=== PATIENT | female | born 1960 | race Caucasian/White ===

== ENCOUNTER → 2016-10-28 | Outpatient (CLI) | payer BC, OTHER ==
--- NOTE | 2016-10-28 17:01 | MR ---
EXAMINATION TYPE: MR brain and iac wo/w con DATE OF EXAM: 10/28/2016 4:18 PM COMPARISON: NONE HISTORY: Difficulty swallowing, food gets caught in throat; family hx of aneurysm CONTRAST: Performed utilizing 13 mL intravenous MultiHance gadolinium contrast. TECHNIQUE: Multiplanar, multiecho imaging on a 3.0 Judy magnet is performed through the brain. Atte ntion is paid to the internal auditory canals with thin section imaging. Postcontrast imaging is per formed through the internal auditory canals. FINDINGS: Craniovertebral junction is normal. The pituitary is normal. Diffusion-weighted imaging is performed. No suspicious hyperintensity is present to suggest an acute intracranial infarct or acute ischemic area. Signal within the brain has scattered areas of hyperintensity which are non-specific but could be rel ated to microvascular ischemic changes. This is not out of proportion to the patient age. Thin section imaging is performed through the internal auditory canals and cerebellar pontine angles. No cerebellar pontine angle masses are evident. The internal auditory canals appear normal without expansion or erosion. Postcontrast imaging was performed. No suspicious enhancement is evident within the internal audito ry canals or the included portions of the brain. IMPRESSIONS: 1. Normal internal auditory canals.
== END | disposition home or self-care (01) ==
LOC: RADMRIMAIN 14:49
PROVIDERS: ATTEND Otolaryngology Otolaryngology/Facial Plastic Surgery
DX: D33.3 Benign neoplasm of cranial nerves (principal)
CPT/HCPCS: 70553; A9577

== ENCOUNTER → 2016-11-26 | Outpatient (CLI) | payer BC, OTHER ==
--- NOTE | 2016-11-29 09:11 | MM ---
Reason for exam: screening (asymptomatic). Last mammogram was performed 6 years and 8 months ago. History: Patient is postmenopausal and had first child at age 31. Physical Findings: A clinical breast exam by your physician is recommended on an annual basis and results should be correlated with mammographic findings. MG Screening Mammo w CAD Bilateral CC and MLO view(s) were taken. Prior study comparison: April 03, 2010, bilateral digital screening mammogram. November 07, 2008, left breast mammogram dig work up. The breast tissue is heterogeneously dense. This may lower the sensitivity of mammography. No significant changes when compared with prior studies. ASSESSMENT: Benign, BI-RAD 2 RECOMMENDATION: Routine screening mammogram of both breasts in 1 year.
== END | disposition home or self-care (01) ==
LOC: RADMAMWWP 16:30
PROVIDERS: ATTEND Obstetrics & Gynecology
DX: Z12.31 Encounter for screening mammogram for malignant neoplasm of breast (principal)

== ENCOUNTER 2016-12-14 07:31 | Day surgery (SDC) | payer OTHER, BC ==
[2016-12-10 08:48] VITALS: BMI 24.0
[~2016-12-14 07:31] MED LIST: DEXAMETHASONE SOD PHOSPHATE 10 MG/ML 1 ML VIAL IV ONE; HYDROmorphone 1 MG/ML 1 ML SYRINGE IVP PRN; LACTATED RINGERS 1,000 ML IV SCH; LIDOCAINE 1% 20 ML VIAL (10MG/ML) FOR IV START INTRADERMA PRN; MIDAZOLAM 2 MG/2 ML VIAL IV PRN; ONDANSETRON 4 MG/2 ML VIAL IVP ONE; Pre Op ABX Message 1 EACH MISC MISCELLANE ONE; SCOPOLAMINE 1.5MG/72HR PATCH TRANSDERM ONE
[2016-12-14 08:05] VITALS: RESP 16
[2016-12-14] MEDS ORDERED: MIDAZOLAM 2 MG/2 ML VIAL ONE (09:08)
[2016-12-14] MEDS ORDERED: fentaNYL (PF) 50 MCG/ML 2 ML AMP ONE (09:08)
[2016-12-14] MEDS ORDERED: KETOROLAC 30 MG/ML 1 ML VIAL ONE (09:08)
[2016-12-14] MEDS ORDERED: SUCCINYLCHOLINE CHLORIDE 100 MG/5 ML SYR IV ONE (09:08)
[2016-12-14] MEDS ORDERED: PROPOFOL 10 MG/ML 20 ML VIAL IV ONE (09:08)
[2016-12-14] MEDS ORDERED: LIDOCAINE 1% INJ 10MG/ML (20 ML MDV) ONE (09:08)
[2016-12-14] MEDS ORDERED: SODIUM CHLORIDE 0.9% 100 ML with ceFAZolin 2,000 MG IV ONE ×2 (09:09)
[2016-12-14] MEDS ORDERED: BUPIVACAINE (PF) 0.5% 30 ML VIAL SQ ONE ×2 (09:47→10:05)
[2016-12-14 10:35] VITALS: TEMP 97.1
[2016-12-14] MEDS ORDERED: LACTATED RINGERS 1,000 ML IV ONE (11:06)
[2016-12-14 12:26] VITALS: BP 122/76; PULSE 65
--- NOTE | 2016-12-16 21:54 | OP ---
DATE OF SERVICE: 12/14/2016 SURGEON: MARK VASQUEZ DO PATTERN SHOP SUPERVISOR: PREOPERATIVE DIAGNOSIS: Torn left knee meniscus. POSTOPERATIVE DIAGNOSIS: 1. Partial tear, lateral meniscus. 2. Chondromalacia grade 2 the patella 3. Chondromalacia of the medial femoral condyle and lateral femoral condyle OPERATION: Left knee arthroplasty, partial lateral meniscectomy and medial femoral chondroplasty. ANESTHESIA: ESTIMATED BLOOD LOSS: SPECIMENS REMOVED: COMPLICATIONS: OPERATIVE FINDINGS: DESCRIPTION OF PROCEDURE: The patient was taken to the operative suite and placed in supine position. General inhalation anesthesia was performed by the department of anesthesiology. Betadine prep was carried out over the left knee and it was secured in a leg mcpherson and sterile drapes were applied in the usual manner. A superolateral irrigation of trocar was inserted through lateral portal. Inspection of the medial compartment revealed a grade 2 chondromalacia. Evaluation of posterior horn tear of the left medial meniscus was noted. The meniscus was probed and there was no evidence of free fragments. The basket forceps were utilized for debridement of the meniscus. Meniscal shaver was also utilized. The medial femoral condyle was treated with chondroplasty. Lateral compartment showed no degenerative changes. Scope was introduced to the patella pouch and grade 2 to 4 chondromalacia erosion was noted of the patella. The area was then shaved chondroplasty fashion of the patellofemoral joint. The area was irrigated copiously. The instruments were removed. Portal wound approximated with 3-0 Vicryl suture. The joint was infiltrated was infiltrated with 0.5% Marcaine. Betadine, Adaptic and sterile pressure dressings were applied and the patient was transferred to the recovery room in satisfactory postoperative condition. GROSS PATHOLOGY: There appeared to be a degenerative tear of the medial meniscus along the posterior medial horn. There was grade 3 chondromalacia of the medial femoral condyle. There was significant grade 3 chondromalacia of the patellofemoral joint. [facility] INSANED[facility]aine
== END 2016-12-14 12:48 | disposition home or self-care (01) ==
LOC: OR 07:31
PROVIDERS: ATTEND Orthopaedic Surgery
DX: S83.282A Other tear of lateral meniscus, current injury, left knee, initial encounter (principal); M22.42 Chondromalacia patellae, left knee; M94.262 Chondromalacia, left knee; S83.242A Other tear of medial meniscus, current injury, left knee, initial encounter; X58.XXXA Exposure to other specified factors, initial encounter; Y99.0 Civilian activity done for income or pay; M23.92 Unspecified internal derangement of left knee; M17.12 Unilateral primary osteoarthritis, left knee; G40.909 Epilepsy, unspecified, not intractable, without status epilepticus; Z79.899 Other long term (current) drug therapy; F17.200 Nicotine dependence, unspecified, uncomplicated
CPT/HCPCS: 29881; J2250; J1100; J2405; J2001; J3010; J1885; J1170; J0690; J0330; J2704

== ENCOUNTER → 2017-07-25 | Outpatient (CLI) | payer BC ==
[2017-07-25 15:14] LABS: EKG EKG PERFORMED
[2017-07-25 15:20] LABS: Appearance,Urine Clear (Clear); Bilirubin,Urine Negative (Negative); Glucose,Urine (UA) Negative (Negative); Ketones,Urine Trace (Negative); Leukocyte Esterase,Urine Negative (Negative); Nitrite,Urine Negative (Negative); PH, Urine 6.5 (5.0-8.0); Protein,Urine Negative (Negative); Specific Gravity,Urine 1.012 (1.001-1.035); UA Billing (MACRO vs. MICRO) CHEM; Urobilinogen,Urine <2.0 mg/dL (<2.0)
[2017-07-25 15:23] LABS: CH 28.5; CHCM 31.3; HCT 43.8 % (34.0-46.0); HDW 2.25; HGB 14.1 gm/dL (11.4-16.0); MCH 29.4 pg (25.0-35.0); MCHC 32.2 g/dL (31.0-37.0); MCV 91.4 fL (80.0-100.0); RBC 4.79 m/uL (3.80-5.40); RDW 14.1 % (11.5-15.5); WBC 7.6 k/uL (3.8-10.6)
[2017-07-25 15:42] LABS: ALT 19 U/L (9-52); AST 18 U/L (14-36); Alkaline Phosphatase 71 U/L (38-126); Anion Gap 9 mmol/L; Blood Urea Nitrogen 11 mg/dL (7-17); Calcium 9.5 mg/dL (8.4-10.2); Carbon Dioxide 26 mmol/L (22-30); Chloride 105 mmol/L (98-107); Glucose 108 mg/dL (74-99); Non-African American GFR(MDRD) >60 (>60 ml/min/1.73 sqM); Potassium 4.3 mmol/L (3.5-5.1); Sodium 140 mmol/L (137-145); Total Bilirubin 0.2 mg/dL (0.2-1.3); Total Protein 6.8 g/dL (6.3-8.2)
== END | disposition home or self-care (01) ==
LOC: LABPAT 14:25
PROVIDERS: ATTEND Orthopaedic Surgery
DX: Z01.810 Encounter for preprocedural cardiovascular examination (principal); Z01.812 Encounter for preprocedural laboratory examination
CPT/HCPCS: 36415; 80053; 81003; 85027; 85610; 85730; 87070; 93005

== ENCOUNTER → 2018-02-15 | Outpatient (CLI) | payer OTHER ==
--- NOTE | 2018-02-17 08:02 | MM ---
Reason for exam: screening (asymptomatic). Last mammogram was performed 1 year and 3 months ago. History: Patient is postmenopausal and had first child at age 31. Physical Findings: A clinical breast exam by your physician is recommended on an annual basis and results should be correlated with mammographic findings. MG Screening Mammo w CAD Bilateral CC and MLO view(s) were taken. Prior study comparison: November 26, 2016, bilateral MG screening mammo w CAD. April 03, 2010, bilateral digital screening mammogram. The breast tissue is heterogeneously dense. This may lower the sensitivity of mammography. There are two groups of slightly increasing calcifications in the left upper outer quadrant compared to 2016, not present on 2009. The more anterior measures 2mm and the more posterior measures 4mm. No suspicious abnormality on the right breast. ASSESSMENT: Incomplete: need additional imaging evaluation, BI-RAD 0 RECOMMENDATION: Special view mammogram of the left breast. [facility] will attempt to contact patient to return for supplemental views.
== END | disposition home or self-care (01) ==
LOC: RADMAMWWP 11:30
PROVIDERS: ATTEND Obstetrics & Gynecology
DX: Z12.31 Encounter for screening mammogram for malignant neoplasm of breast (principal)
CPT/HCPCS: 77067

== ENCOUNTER → 2018-03-02 | Outpatient (CLI) | payer OTHER ==
--- NOTE | 2018-03-02 11:59 | MM ---
Reason for exam: additional evaluation requested from abnormal screening. Last mammogram was performed less than 1 month ago. History: Patient is postmenopausal and had first child at age 31. Physical Findings: Nurse did not find any significant physical abnormalities on exam. MG Work Up Mamm w CAD LT CC with magnification, LM with magnification, and LM view(s) were taken of the left breast. Prior study comparison: February 15, 2018, bilateral MG screening mammo w CAD. November 26, 2016, bilateral MG screening mammo w CAD. Finding: There are two intermediate concern, suspicious pleomorphic, grouped/clustered calcifications in the upper outer quadrant, posterior position of the left breast, two similar in morphology. Increase in number of calcifications since February 15, 2018 and November 26, 2016. These results were verbally communicated with the patient and result sheet given to the patient on 03/02/18. ASSESSMENT: Suspicious, BI-RAD 4 RECOMMENDATION: Stereotactic core biopsy of the left breast. (2 sites) Called Dr. Garcia with mammographic findings and has scheduled an appointment for the patient for 03/16/18 at 1:[address] Carlton. PRELIMINARY REPORT CALLED AND FAXED TO DR. CARLTON ON 03/02/18.
== END ==
LOC: RADMAMWWP 10:05
PROVIDERS: ATTEND Obstetrics & Gynecology
DX: R92.8 Other abnormal and inconclusive findings on diagnostic imaging of breast (principal)
CPT/HCPCS: 77065

== ENCOUNTER → 2018-03-16 | Outpatient (CLI) | payer OTHER ==
[2018-03-16 13:57] VITALS: BMI 24.9
--- NOTE | 2018-03-16 14:35 | P.GSHP ---
History of Present Illness H&P Date: 03/16/18 The patient is a 57-year-old white female who presents with a mammographic abnormality noted in her left breast. She had bilateral screening mammogram done on 02/15/2018 after which it was recommended she have additional views of the left breast. These were performed on 03/02/2018. On additional views she had 2 intermediate concerning suspicious pleomorphic group clustered calcifications in the upper quadrant region. The patient herself did not feel any masses in her breast she has no pain in her breast and no nipple discharge or changes. The radiographic recommendation is for stereotactic core biopsy of the left breast. Family history: Mother: Skin cancer brother: Skin cancer ( melanoma) Paternal aunt from breast cancer, post menopausal Maternal aunt: Thyroid cancer, lung cancer menapause: 49 menarche: 12 : 4, 2 miscarriages, 1 live , 1 , breast fed: none BCP/Hormones: none social: 1PPD for about 20 years alcohol: none drugs: none Past surgical history: 1 to the 2. Ruptured appendix 3. Left total knee replacement 4. Left knee meniscus fixed 5. Repair of small intestinal injury Past medical history: 1. Epilepsy - Constitutional Constitutional: Denies chills, Denies fever - EENT Eyes: denies blurred vision, denies pain Ears: deny: decreased hearing, tinnitus Ears, nose, mouth and throat: Denies headache, Denies sore throat - Breasts Breasts: bilateral: as per HPI - Cardiovascular Cardiovascular: Denies chest pain, Denies shortness of breath - Respiratory Comment: smoker Respiratory: Reports cough - Gastrointestinal Comment: hiatal hernia Gastrointestinal: Denies abdominal pain, Denies diarrhea, Denies nausea, Denies vomiting - Genitourinary (Female) Genitourinary: Denies dysuria, Denies hematuria - Musculoskeletal Musculoskeletal: Denies myalgias - Integumentary Integumentary: Denies pruritus, Denies rash - Neurological Comment: seizure unknown cause - Psychiatric Psychiatric: Denies anxiety, Denies depression - Endocrine Endocrine: Denies fatigue, Denies weight change - Hematologic/Lymphatic Comment: no blood thinners - Allergic/Immunologic Comment: none Past Medical History Past Medical History: GERD/Reflux, Osteoarthritis (OA), Seizure Disorder Additional Past Medical History / Comment(s): LAST SEIZURE 1991, hiatal hernia, hx pulled chest wall muscle, varicose veins, frequent urination History of Any Multi-Drug Resistant Organisms: None Reported Past Surgical History: Appendectomy, Orthopedic Surgery, Tubal Ligation Additional Past Surgical History / Comment(s): REPAIR SMALL INTESTINE THAT WAS NICKED DURING TL, arthroscopy left knee, TLK Past Anesthesia/Blood Transfusion Reactions: No Reported Reaction Past Psychological History: No Psychological Hx Reported Smoking Status: Unknown if ever smoked Past Alcohol Use History: Rare Additional Past Alcohol Use History / Comment(s): HAS BEEN SMOKING 1/2-1 PPD AT LEAST 10-15 YRS- Past Drug Use History: None Reported - Past Family History Brother(s) Family Medical History: Cancer Mother Family Medical History: Cancer Medications and Allergies Home Medications Medication Instructions Recorded Confirmed Type Ranitidine HCl [Zantac] 150 mg PO BID 08/02/17 03/16/18 History Allergies Allergy/AdvReac Type Severity Reaction Status Date / Time No Known Allergies Allergy Verified 08/09/17 15:01 Surgical - Exam - General well developed, well nourished, no distress - Eyes normal ocular movement - ENT normal pinna, normal nares, no hearing loss - Neck no masses, trachea midline, no lymphadectomy, no venous distension - Respiratory normal expansion, normal respiratory effort, clear to auscultation - Cardiovascular Rhythm: regular Heart Sounds: normal: S1, S2 - Abdomen no organomegaly Abdomen: soft, non tender, bowel sounds - Integumentary Bilateral lower extremity some mild edema greater on the left than the right well-healed scar from prior left knee replacement - Neurologic no disoriented, no combative - Musculoskeletal normal gait, normal posture - Psychiatric oriented to time, oriented to person, oriented to place, speech is normal, memory intact Breast examination: Right breast: No dominant masses or nodules of concern and multiple positional exam Right axilla: No adenopathy of concern Left breast: No dominant masses or nodules of concern of multiple positional exam Left axilla: No adenopathy of concern Both breasts are somewhat dense fibrocystic changes but no dominant masses or nodules of concern Results Mammogram results reviewed Assessment and Plan Assessment: Impression/plan: 1. Left breast mammographic abnormality 2. History of left knee replacement 3. Seizure disorder Plan: 1. Stereotactic core biopsy of 2 areas of concern in the left breast 2. Medical management of medical problems Risks and benefits of stereotactic biopsy were discussed with the patient and this was scheduled in the near future. Cc: Dr. Jose Iyer
== END | disposition home or self-care (01) ==
LOC: WWCWWP 13:49
PROVIDERS: ATTEND Surgery
DX: Z53.9 Procedure and treatment not carried out, unspecified reason (principal)

== ENCOUNTER → 2018-03-30 | Day surgery (SDC) | payer OTHER ==
[2018-03-30 07:30] VITALS: RESP 16; BMI 25.2
[2018-03-30 09:11] VITALS: BP 117/74; PULSE 53; TEMP 98
--- NOTE | 2018-03-30 09:54 | MM ---
EXAMINATION TYPE: MG stereo VAD BX LT, MG stereo VAD BX addl LT DATE OF EXAM: 03/30/2018 COMPARISON: Prior mammogram March 02, 2018 and older studies CLINICAL HISTORY: Abnormal mammogram TECHNIQUE: Stereotactic guided core biopsy of left breast 2 sites. FINDINGS: The procedure of stereotactic guided core biopsy was explained to the patient. Benefits, alternatives, and risks were discussed. An informed consent was then obtained. [facility] Short[facility] pathway was cranial approach. I assisted in the localization, then surgeon, Dr. Carlton performed the remainder of the procedure. A vacuum assisted biopsy gun was used to obtain multiple core samples. The patient tolerated the procedure well without any immediate complication. The patient was kept in the radiology department for short stay after the procedure and then discharged home in stable condition. Targeted calcifications are identified in specimen mammogram. Post biopsy mammogram shows the clip to appear in satisfactory position relative to the targeted area of concern on the preprocedure images. No suspicious residual calcifications are present. IMPRESSION: SUCCESSFUL, UNCOMPLICATED STEREOTACTIC GUIDED CORE BIOPSY OF TWO AREAS OF CONCERN IN THE LEFT BREAST, FULL PATHOLOGY RESULTS TO FOLLOW. Low to intermediate index of suspicion noted at time of procedure. Pathology Results: Benign A. BREAST, LEFT, SITE A POSTERIOR, STEREOTACTIC CORE BIOPSY: Fibrocystic changes including fibroadenomatoid hyperplasia/fibroadenoma formation with calcifications. B. BREAST, LEFT, SITE B ANTERIOR, STEREOTACTIC CORE BIOPSY: Fibrocystic changes including fibroadenomatoid hyperplasia/fibroadenoma formation with calcifications. Recommendation Follow up mammogram of the left breast in 6 months. SMOOTH
--- NOTE | 2018-03-30 10:18 | WWPCN ---
[facility] - PROCEDURE NOTE The patient is a 57-year-old white female who underwent a mammogram and was noted to have 2 groups of calcifications that were considered suspicious in the left breast in the upper outer quadrant area. No lesions of concern were identified in the contralateral breast. The patient on physical exam had no dominant mass or nodules of concern and fibrocystic changes only had been noted. The patient was recommended to undergo a stereotactic core biopsy of the left breast. The risks and benefits of the procedure were explained to the patient as well as any alternatives and the patient wished to proceed. Following consent, the procedure was performed. PROCEDURE: The patient was taken to the stereotactic core room where she was placed prone on the stereotactic table. The left breast was brought through the aperture and the approach to target these was CC from above. Both areas were seen in one window, however, they were felt to be too far apart to be able to access them through the same needle puncture site. The most posterior site was chosen initially. The area was targeted. The skin was prepped using Betadine solution. The 1% lidocaine 10 mL was utilized to anesthetize the area of concern. A 9 mm vacuum-assisted needle device was driven to the correct coordinates. Prefire films were obtained as were post fire films showing the needle to be in the correct location. It was felt that the lesion could be accessed by doing a sampling of the inferior tissue and and specimens were obtained from 3 to 9 o'clock. Going through 6 o'clock, approximately 8 specimens were obtained. Radiograph of the specimen revealed the area of concern had been obtained and a Sec[employer] top straw hat plunger operator was left in place. Following this, the second area was approached. The area was targeted. The breast was re-prepped using Betadine and 1% lidocaine was used to anesthetize the area of concern. The needle was driven to the correct coordinates prefire and post fire films were obtained showing the needle to be in the correct location. Approximately 12 core biopsies were obtained. Radiograph of the specimen revealed the calcifications were present. A TriMark marker was placed in this anterior location. The specimens were correctly labeled and sent to pathology for further evaluation. The patient will follow up with Dr. Chappell in 1 week. ADDENDUM: Please note, there were no immediate postoperative complications. MMODL / IJN: [id number] /
== END | disposition home or self-care (01) ==
LOC: RADMAMWWP 06:47
PROVIDERS: ATTEND Surgery
DX: D24.2 Benign neoplasm of left breast (principal); N60.12 Diffuse cystic mastopathy of left breast
CPT/HCPCS: 88305; 19081; 19082; A4648; J2001

== ENCOUNTER → 2018-04-13 | Outpatient (CLI) | payer OTHER ==
[2018-04-13 10:49] VITALS: BP 105/71; PULSE 66; TEMP 98.2; BMI 24.9
--- NOTE | 2018-04-13 11:03 | P.PN ---
Progress Note - Text Progress Note Date: 04/13/18 Patient is status post left breast stereotactic core biopsy of 2 sites on 2017. Her pathology was benign. It was concordant. The patient has no complaints. Puncture sites clean and dry no evidence of infection or hematoma Impression/plan: 1. Benign stereotactic core biopsy of the left breast at 2 sites 2. Follow-up left breast mammogram and physician exam in 6 months time Cc: Dr. Deluna, Dr. Gonzalez
== END | disposition home or self-care (01) ==
LOC: WWCWWP 10:31
PROVIDERS: ATTEND Surgery
DX: Z51.89 Encounter for other specified aftercare (principal)

== ENCOUNTER 2018-10-23 07:55 | Day surgery (SDC) | payer OTHER ==
[2018-10-13 14:37] VITALS: BMI 24.9
[~2018-10-23 07:55] MED LIST changes: -DEXAMETHASONE SOD PHOSPHATE 10 MG/ML 1 ML VIAL IV ONE; -HYDROmorphone 1 MG/ML 1 ML SYRINGE IVP PRN; -MIDAZOLAM 2 MG/2 ML VIAL IV PRN; -ONDANSETRON 4 MG/2 ML VIAL IVP ONE; -Pre Op ABX Message 1 EACH MISC MISCELLANE ONE; -SCOPOLAMINE 1.5MG/72HR PATCH TRANSDERM ONE
[2018-10-23 08:32] VITALS: RESP 16; TEMP 97
[2018-10-23] MEDS ORDERED: MIDAZOLAM 2 MG/2 ML VIAL ONE (08:52)
[2018-10-23] MEDS ORDERED: PROPOFOL 10 MG/ML 20 ML VIAL IV ONE (08:52)
--- NOTE | 2018-10-23 08:55 | P.GSHP ---
History of Present Illness H&P Date: 10/23/18 Chief Complaint: Anemia, dysphagia This is a 49-year-old female who presents today for EGD. Patient has had feeling of some mild cervical dysphagia. She's also had issues with anemia. Past Medical History Past Medical History: GERD/Reflux, Osteoarthritis (OA), Seizure Disorder Additional Past Medical History / Comment(s): LAST SEIZURE 26 yrs ago , hiatal hernia, hx pulled chest wall muscle, hiatal hernia, anemia, History of Any Multi-Drug Resistant Organisms: None Reported Past Surgical History: Appendectomy, Joint Replacement, Orthopedic Surgery, Tubal Ligation Additional Past Surgical History / Comment(s): REPAIR SMALL INTESTINE THAT WAS NICKED DURING TL, arthroscopy left knee, left knee replacement, left breast biopsy Past Anesthesia/Blood Transfusion Reactions: No Reported Reaction Smoking Status: Current every day smoker - Past Family History Brother(s) Family Medical History: Cancer Mother Family Medical History: Cancer Medications and Allergies Home Medications Medication Instructions Recorded Confirmed Type Divalproex [Depakote] 250 mg PO QID 03/21/18 10/23/18 History Ferrous Gluconate 324 mg PO BID 10/13/18 10/23/18 History Ranitidine HCl [Zantac] 300 mg PO BID 10/13/18 10/23/18 History Allergies Allergy/AdvReac Type Severity Reaction Status Date / Time No Known Allergies Allergy Verified 10/23/18 08:19 Surgical - Exam Vital Signs Temp Pulse Resp BP Pulse Ox 97 F L 66 16 106/57 99 10/23/18 08:28 10/23/18 08:28 10/23/18 08:28 10/23/18 08:28 10/23/18 08:28 - General well developed, no distress - Eyes PERRL - ENT normal pinna - Neck no masses - Respiratory normal expansion - Cardiovascular Rhythm: regular - Abdomen Abdomen: soft, non tender Assessment and Plan Assessment: Anemia, mild cervical dysphagia. We'll patient will undergo EGD.
--- NOTE | 2018-10-23 09:04 | P.OP ---
Date of Procedure: 10/23/18 Preoperative Diagnosis: Anemia Dysphagia Postoperative Diagnosis: Moderate antral gastritis No evidence of hiatal hernia No evidence of esophagitis Procedure(s) Performed: EGD Anesthesia: MAC Surgeon: Abel Andujar Pathology: other (Antrum) Condition: stable Disposition: PACU Description of Procedure: The patient's placed on the endoscopy table in the lateral position. She received IV sedation. The gastroscope was placed oropharynx and passed in the esophagus and into the stomach. Scope was then placed through the pylorus. The first and second portion of the duodenum appeared normal. The scope was then brought back the antrum and this appeared moderately inflamed. A biopsies performed. The scope was then retroflexed and remainder of the stomach appeared normal. The GE junction was at40 cm. There is no evidence of a hiatal hernia. There is no significant esophagitis. The proximal esophagus appeared normal. Scope was withdrawn for patient.
[2018-10-23 09:46] VITALS: BP 108/66; PULSE 59
== END 2018-10-23 09:55 | disposition home or self-care (01) ==
LOC: ORWHC2ENDO 07:55
PROVIDERS: ATTEND Surgery
DX: K29.50 Unspecified chronic gastritis without bleeding (principal); K21.9 Gastro-esophageal reflux disease without esophagitis; F17.200 Nicotine dependence, unspecified, uncomplicated; D64.9 Anemia, unspecified; M19.90 Unspecified osteoarthritis, unspecified site; G40.909 Epilepsy, unspecified, not intractable, without status epilepticus; Z79.899 Other long term (current) drug therapy
CPT/HCPCS: 88305; 43239; J2250; J2704

== ENCOUNTER → 2018-10-30 | Outpatient (CLI) | payer OTHER ==
--- NOTE | 2018-11-02 14:03 | MM ---
Reason for exam: follow-up at short interval from prior study. Last mammogram was performed 8 months ago. History: Patient is postmenopausal and had first child at age 31. Benign MG stereo VAD BX addl LT of the left breast, March 30, 2018. Benign MG stereo VAD BX LT of the left breast, March 30, 2018. Physical Findings: Nurse did not find any significant physical abnormalities on exam. MG Diagnostic Mammo LT w CAD CC and MLO view(s) were taken of the left breast. Prior study comparison: March 02, 2018, left breast MG work up mamm w CAD LT. February 15, 2018, bilateral MG screening mammo w CAD. The breast tissue is heterogeneously dense. This may lower the sensitivity of mammography. Left breast biopsy changed with two biopsy markers noted. Bilateral screening mammogram due in February. These results were verbally communicated with the patient and result sheet given to the patient on 10/30/18. ASSESSMENT: Benign, BI-RAD 2 RECOMMENDATION: Return to routine screening mammogram schedule for both breasts.
== END | disposition home or self-care (01) ==
LOC: RADMAMWWP 12:38
PROVIDERS: ATTEND Surgery
DX: R92.8 Other abnormal and inconclusive findings on diagnostic imaging of breast (principal)
CPT/HCPCS: 77065

== ENCOUNTER → 2018-11-02 | Outpatient (CLI) | payer OTHER ==
[2018-11-02 15:11] VITALS: BP 105/71; PULSE 60; RESP 18; TEMP 97.9; BMI 26.1
--- NOTE | 2018-11-02 15:32 | P.PN ---
Subjective Progress Note Date: 11/02/18 Is a 57-year-old white female status post left breast stereot[place] [address]. Her pathology was benign. It was concordant. The patient has no complaints at this time. She is status post a left breast mammogram 10-30-18 which was reviewed with radiology and found to be BIRADS 2 benign. She has no complaints related to her breast. Objective - Vital Signs Vital signs: Vital Signs Temp 97.9 F 11/02/18 15:05 Pulse 60 11/02/18 15:05 Resp 18 11/02/18 15:05 BP 105/71 11/02/18 15:05 Pulse Ox 99 11/02/18 15:05 Intake & Output 11/01/18 11/02/18 11/02/18 18:59 06:59 18:59 Weight 68.946 kg - Exam BMI 26.1 - Constitutional General appearance: Present: average body habitus - EENT Eyes: Present: EOMI ENT: Present: hearing grossly normal - Neck Neck: Present: normal ROM - Respiratory Respiratory: bilateral: CTA - Cardiovascular Rhythm: regular Heart sounds: normal: S1, S2 - Gastrointestinal General gastrointestinal: Present: soft - Musculoskeletal Musculoskeletal: Present: gait normal - Psychiatric Psychiatric: Present: A&O x's 3, appropriate affect, intact judgment & insight - Additional findings Additional findings: Breast Exam: right breast: multipositional exam no masses right axilla: no adenopathy of concern left breast: multipositional exam no masses of concern left axilla: no adenopathy of concern Assessment and Plan Assessment: Impression: 1. fibrocystic breast changes Plan: 1. bilateral mammogram and exam in 6 months CC: Dr. Мария Iyer
== END ==
LOC: WWCWWP 13:59
PROVIDERS: ATTEND Surgery
DX: Z53.9 Procedure and treatment not carried out, unspecified reason (principal)

== ENCOUNTER → 2019-05-01 | Outpatient (CLI) | payer OTHER ==
--- NOTE | 2019-05-01 11:19 | MM ---
Reason for exam: additional evaluation requested from prior study. Last mammogram was performed 6 months ago. History: Patient is postmenopausal and had first child at age 31. Benign MG stereo VAD BX addl LT of the left breast, March 30, 2018. Benign MG stereo VAD BX LT of the left breast, March 30, 2018. Physical Findings: Nurse did not find any significant physical abnormalities on exam. MG Diagnostic Mammo w CAD MARIE Bilateral CC and MLO view(s) were taken. Prior study comparison: October 30, 2018, left breast MG diagnostic mammo LT w CAD. March 02, 2018, left breast MG work up mamm w CAD LT. The breast tissue is heterogeneously dense. This may lower the sensitivity of mammography. No significant new findings when compared with previous films. These results were verbally communicated with the patient and result sheet given to the patient on 05/01/19. ASSESSMENT: Benign, BI-RAD 2 RECOMMENDATION: Routine screening mammogram of both breasts in 1 year.
== END | disposition home or self-care (01) ==
LOC: RADMAMWWP 10:12
PROVIDERS: ATTEND Surgery
DX: R92.8 Other abnormal and inconclusive findings on diagnostic imaging of breast (principal)
CPT/HCPCS: 77066

== ENCOUNTER → 2019-05-10 | Outpatient (CLI) | payer OTHER ==
--- NOTE | 2019-05-10 10:45 | P.PN ---
Subjective Progress Note Date: 05/10/19 Principal diagnosis: fibrocystic breast changes Patient is a 58 year old status post left breast core biopsy 03-30-19. Pathology revealed fibrocystic changes including fiber adenomatoid hyperplasia/fibroadenoma with calcifications. This was done at 2 sites. She [place] [address]. This was noted to be benign. The patient has no complaints at this time. She is not complaining of any masses in her breast. No nipple discharge or skin changes. Family history: Medical: Skin cancer Bladder: Melanoma Paternal aunt: Breast cancer Maternal aunt: Thyroid cancer Menarche: 12 Menopause: 49 2 midcaarrages, 1 AB control pills/hormones: Negative Social: Smoking: One pack per day for 21 years Alcohol: Negative Drugs: Negative Past surgical history: 1. Ruptured appendix 2. Left total knee 3. Left knee meniscus fixed 4. tubaligation Medical History: seizure history Objective - Vital Signs Vital signs: Vital Signs Temp 97.8 F 05/10/19 10:27 Pulse 68 05/10/19 10:27 Resp 16 05/10/19 10:27 BP 125/87 05/10/19 10:27 Pulse Ox 100 05/10/19 10:27 Intake & Output 05/09/19 05/10/19 05/10/19 18:59 06:59 18:59 Weight 74.843 kg - Exam BMI 28.3 - Constitutional General appearance: Present: average body habitus - EENT Eyes: Present: EOMI ENT: Present: hearing grossly normal - Neck Neck: Present: normal ROM - Respiratory Details: Wheezing right lung base Respiratory: left: CTA - Cardiovascular Rhythm: regular Heart sounds: normal: S1, S2 - Gastrointestinal Gastrointestinal Comment(s): Well-healed scar from prior surgery General gastrointestinal: Present: soft - Integumentary Integumentary Comment(s): Mild bilateral ankle edema - Musculoskeletal Musculoskeletal: Present: gait normal - Psychiatric Psychiatric: Present: A&O x's 3, appropriate affect, intact judgment & insight - Additional findings Additional findings: Breast examination: Right breast: Dense breast tissue, fibrocystic changes no discrete dominant masses or nodules of concern Right axilla: Shoddy adenopathy Left breast: Multi-positional exam no dominant masses or nodules of concern, very dense breast tissue with fibrocystic changes Left axilla: No adenopathy of concern however there is shoddy adenopathy Assessment and Plan Assessment: Impression: 1. Bilateral mammogram revealing heterogeneously dense breast tissue, primarily. 2 repeat bilateral mammogram in 6 months recommended 2. Known fibrocystic breast changes with fiber adenoma formation with calcifications, fibrocystic changes including fiber adenomatoid hyperplasia/fibroadenoma formation with calcifications 3. Nicotine dependence 4. Seizure disorder 5. Bilateral shotty adenopathy of the axilla 6. Family history of cancer Plan: 1. Repeat bilateral mammogram in 1 year with physician exam at that time 2. Close surveillance of axillary adenopathy. Examination in 4-6 months time 3. Medical management of medical conditions Cc: Dr. Garcia, Dr.Sharon Iyer
== END | disposition home or self-care (01) ==
DX: Z53.9 Procedure and treatment not carried out, unspecified reason (principal)

== ENCOUNTER → 2019-11-15 | Outpatient (CLI) | payer MEDICARE, OTHER ==
[2019-11-15 11:06] VITALS: BP 112/77; PULSE 69; RESP 16; TEMP 98.4
--- NOTE | 2019-11-15 11:36 | P.PN ---
Subjective Progress Note Date: 11/15/19 Principal diagnosis: bilateral axillary adenopathy Patient is a 58 year old status post left breast core biopsy 03-30-19. Pathology revealed fibrocystic changes including fiber adenomatoid hyperplasia/fibroadenoma with calcifications. This was done at 2 sites. She had [place] mammogram [place] 15060. This was noted to be benign. The patient has no complaints at this time. She is not complaining of any masses in her breast. No nipple discharge or skin changes. Her last examination which was 72 519 she was noted to have bilateral axillary adenopathy. She comes in today to have repeat examination of the axilla to assure that the adenopathy has not increased in size. She has not had a more recent mammogram this is scheduled for April 2020. She has no complaints related to her breasts. No masses lumps nipple discharge or skin changes. No complaints of any pain in her breast. Family history: Medical: Skin cancer Bladder: Melanoma Paternal aunt: Breast cancer Maternal aunt: Thyroid cancer Menarche: 12 Menopause: 49 2 midcaarrages, 1 AB control pills/hormones: Negative Social: Smoking: One pack per day for 22 years Alcohol: Negative Drugs: Negative Past surgical history: 1. Ruptured appendix 2. Left total knee 3. Left knee meniscus fixed 4. tubaligation Medical History: seizure history ROS: Constitutional: night sweats HEENT: wears glasses, vertigo Lungs: smoker heart: none GI: none : post menopausal, no kidney stones Musculoskeletal:total knee replacement left neurologic: Epilepsy hematologic: none allergies: none breast: as per HPI Objective - Vital Signs Vital signs: Vital Signs Temp 98.4 F 11/15/19 10:55 Pulse 69 11/15/19 10:55 Resp 16 11/15/19 10:55 BP 112/77 11/15/19 10:55 Pulse Ox 99 11/15/19 10:55 Intake & Output 11/14/19 11/15/19 11/15/19 18:59 06:59 18:59 Weight 72.575 kg - Exam BMI 27.5 - Constitutional General appearance: Present: average body habitus - EENT Eyes: Present: EOMI ENT: Present: hearing grossly normal - Neck Details: no lymphadenopathy Neck: Present: normal ROM - Respiratory Respiratory: bilateral: CTA - Cardiovascular Rhythm: regular Heart sounds: normal: S1, S2 - Gastrointestinal Gastrointestinal Comment(s): no guarding or rebound No hepatomegaly or splenomegaly No groin adenopathy noted of concern General gastrointestinal: Present: normal bowel sounds, soft - Integumentary Integumentary: Present: normal turgor - Musculoskeletal Musculoskeletal: Present: gait normal - Psychiatric Psychiatric: Present: A&O x's 3, appropriate affect, intact judgment & insight - Additional findings Additional findings: breast exam: BRA 36 C ptosis grade 2 inspection: No skin changes of concern, and nipples are not inverted Right breast: Multi-positional exam fibrocystic changes, no dominant masses or nodules of concern Right axilla: Persistent shoddy right axillary adenopathy Left breast: Multiple positional exam no dominant masses or nodules of concern fibrocystic changes Left axilla: No adenopathy of concern Assessment and Plan Assessment: Impression: 1. Persistent right axillary adenopathy 2. Fibrocystic breast changes 3. Fibroadenoma formation with calcifications fibrocystic changes including fib roadenomatoid hyperplasia/fibroadenoma formation 4. Seizure disorder 5. Nicotine dependence 6. Family history of cancer Plan: 1. Right axillary ultrasound 2. Bilateral mammogram in April with physician exam at that time 3. Patient counseled to stop smoking 4. Medical management of seizure disorder 5. Patient will follow up after axillary ultrasound Cc: Dr. Мария Iyer encounter 25 minutes, > 50% of time in planning and counselling Time with Patient: Less than 30
== END | disposition home or self-care (01) ==
LOC: WWCWWP 10:22
PROVIDERS: ATTEND Surgery
DX: Z53.9 Procedure and treatment not carried out, unspecified reason (principal)

== ENCOUNTER → 2019-11-15 | Outpatient (CLI) | payer MEDICARE ==
--- NOTE | 2019-11-15 13:27 | US ---
EXAMINATION TYPE: US axilla RT DATE OF EXAM: 11/15/2019 COMPARISON: NONE CLINICAL HISTORY: R92.8, Abnormal mammogram, adenopathy R59.0. Patient states Doctor felt a palpable in left axilla today. Patient states she doesn't feel the lump at time of scan. TECHNIQUE/FINDINGS: Targeted grayscale imaging was performed of the right axilla to evaluate palpable abnormality. Area of concern scanned. Multiple images taken. No prominent lymph nodes or masses vi sualized. No solid or cystic mass seen. IMPRESSION: No sonographic correlate to the patient's palpable abnormality.
== END | disposition home or self-care (01) ==
LOC: RADUSWWP 11:54
PROVIDERS: ATTEND Surgery
DX: R59.0 Localized enlarged lymph nodes (principal)

== ENCOUNTER → 2020-05-05 | Outpatient (CLI) | payer MEDICARE, OTHER ==
--- NOTE | 2020-05-06 08:33 | MM ---
Reason for exam: screening (asymptomatic). Last mammogram was performed 1 year ago. History: Patient is postmenopausal and had first child at age 31. Benign MG stereo VAD BX addl LT of the left breast, March 30, 2018. Benign MG stereo VAD BX LT of the left breast, March 30, 2018. Physical Findings: A clinical breast exam by your physician is recommended on an annual basis and results should be correlated with mammographic findings. MG Screening Mammo w CAD Bilateral CC and MLO view(s) were taken. Prior study comparison: May 01, 2019, bilateral MG diagnostic mammo w CAD MARIE. March 02, 2018, left breast MG work up mamm w CAD LT. February 15, 2018, bilateral MG screening mammo w CAD. November 26, 2016, bilateral MG screening mammo w CAD. No significant changes when compared with prior studies. ASSESSMENT: Benign, BI-RAD 2 RECOMMENDATION: Routine screening mammogram of both breasts in 1 year.
== END | disposition home or self-care (01) ==
LOC: RADMAMWWP 10:19
PROVIDERS: ATTEND Surgery
DX: Z12.31 Encounter for screening mammogram for malignant neoplasm of breast (principal)
CPT/HCPCS: 77067

== ENCOUNTER 2021-02-12 17:23 | Observation (INO) | payer MEDICARE ==
[2021-02-12] MEDS ORDERED: NITROGLYCERIN SL TABS 0.4 MG TAB SUBLINGUAL STA ×3 (17:53)
[2021-02-12] MEDS ORDERED: ASPIRIN 81 MG PO STA (17:53)
--- NOTE | 2021-02-12 17:59 | ED ---
General Adult HPI - General Chief complaint: Chest Pain Stated complaint: chest pain Time Seen by Provider: 02/12/21 17:33 Source: patient, RN notes reviewed Mode of arrival: wheelchair Limitations: no limitations - History of Present Illness Initial comments: Patient is a pleasant 60-year-old female presenting to the emergency Department with complaints of chest discomfort. Patient states onset was at rest around 45 minutes ago. Symptoms are starting to worsen. Discomfort is severe. Patient states discomfort was pressure however now is somewhat sharp. Patient does not believe she short of breath however not quite clear. No nausea or diaphoresis. Patient did have similar symptoms many years ago associated with an injury however no injury today. No leg pain or leg swelling. No cough or fever. - Related Data Home Medications Medication Instructions Recorded Confirmed Calcium Carbonate [Calcium] 600 mg PO DAILY 02/12/21 02/12/21 Divalproex [Depakote] 250 mg PO BID@0600,1200 02/12/21 02/12/21 Divalproex [Depakote] 500 mg PO DAILY@1800 02/12/21 02/12/21 Multivitamin/Iron/Folic Acid 1 tab PO DAILY 02/12/21 02/12/21 [Centrum Women Tablet] Omeprazole 20 mg PO DAILY 02/12/21 02/12/21 Zinc Gluconate [Zinc] 50 mg PO DAILY 02/12/21 02/12/21 Allergies Allergy/AdvReac Type Severity Reaction Status Date / Time No Known Allergies Allergy Verified 02/12/21 21:07 Review of Systems ROS Statement: Those systems with pertinent positive or pertinent negative responses have been documented in the HPI. ROS Other: All systems not noted in ROS Statement are negative. Constitutional: Denies: fever Eyes: Denies: eye pain ENT: Denies: ear pain Respiratory: Reports: as per HPI. Denies: cough Cardiovascular: Reports: as per HPI, chest pain Endocrine: Denies: fatigue Gastrointestinal: Denies: abdominal pain, nausea Genitourinary: Denies: dysuria Musculoskeletal: Denies: back pain Skin: Denies: rash Neurological: Denies: weakness Past Medical History Past Medical History: GERD/Reflux, Osteoarthritis (OA), Seizure Disorder Additional Past Medical History / Comment(s): LAST SEIZURE 02/1992; hiatal hernia; hx pulled chest wall muscle; anemia; History of Any Multi-Drug Resistant Organisms: None Reported Past Surgical History: Appendectomy, Joint Replacement, Orthopedic Surgery, Tubal Ligation Additional Past Surgical History / Comment(s): REPAIR SMALL INTESTINE THAT WAS NICKED DURING TL; arthroscopy left knee; left knee replacement; benign left breast biopsy; Past Anesthesia/Blood Transfusion Reactions: No Reported Reaction Past Psychological History: No Psychological Hx Reported Smoking Status: Current every day smoker Past Alcohol Use History: Rare Past Drug Use History: None Reported - Past Family History Brother(s) Family Medical History: Cancer Mother Family Medical History: Cancer General Exam Limitations: no limitations General appearance: alert, in no apparent distress Head exam: Present: normocephalic Eye exam: Present: normal appearance Neck exam: Present: normal inspection Respiratory exam: Present: normal lung sounds bilaterally. Absent: chest wall tenderness Cardiovascular Exam: Present: regular rate, normal rhythm Expanded Peripheral pulses: 2+: Radial (R), Radial (L), Posterior Tibialis (R), Posterior Tibialis (L) GI/Abdominal exam: Present: soft. Absent: tenderness Extremities exam: Present: normal inspection. Absent: pedal edema, calf tenderness Neurological exam: Present: alert Psychiatric exam: Present: normal affect, normal mood Skin exam: Present: normal color Course Vital Signs 02/12/21 02/12/21 17:29 18:26 Temperature 97.6 F Pulse Rate 75 70 Respiratory 16 18 Rate Blood Pressure 130/78 123/69 O2 Sat by Pulse 100 100 Oximetry EKG Findings - EKG Comments: EKG Findings:: No sinus rhythm with a rate of 77. LA 140. QRS 86. QT 416. QTC 470. Left axis. Right ventricular conduction delay. Left anterior fascicular block. LVH with repolarization change. Medical Decision Making - Medical Decision Making Patient reevaluated and symptom-free following nitroglycerin. Nathan was discussed with practitioner Lizz Howard, covering for Dr. Watson, who is covering for Dr. Pineda, who admits for Dr. Iyer and will admit. - Lab Data Result diagrams: 02/12/21 18:05 02/12/21 18:05 Lab Results 02/12/21 02/12/21 02/12/21 Range/Units 18:05 18:05 18:05 WBC 4.6 (3.8-10.6) k/uL RBC 4.74 (3.80-5.40) m/uL Hgb 14.1 (11.4-16.0) gm/dL Hct 40.6 (34.0-46.0) % MCV 85.5 (80.0-100.0) fL MCH 29.7 (25.0-35.0) pg MCHC 34.8 (31.0-37.0) g/dL RDW 12.9 (11.5-15.5) % Plt Count 194 (150-450) k/uL MPV 7.8 Neutrophils % 70 % Lymphocytes % 20 % Monocytes % 6 % Eosinophils % 1 % Basophils % 1 % Neutrophils # 3.3 (1.3-7.7) k/uL Lymphocytes # 0.9 L (1.0-4.8) k/uL Monocytes # 0.3 (0-1.0) k/uL Eosinophils # 0.1 (0-0.7) k/uL Basophils # 0.0 (0-0.2) k/uL PT 10.2 (9.0-12.0) sec INR 0.9 (<1.2) APTT 23.5 (22.0-30.0) sec Sodium 138 (137-145) mmol/L Potassium 3.6 (3.5-5.1) mmol/L Chloride 106 (98-107) mmol/L Carbon Dioxide 22 (22-30) mmol/L Anion Gap 10 mmol/L BUN 17 (7-17) mg/dL Creatinine 0.72 (0.52-1.04) mg/dL Est GFR (CKD-EPI)AfAm >90 (>60 ml/min/1.73 sqM) Est GFR (CKD-EPI)NonAf >90 (>60 ml/min/1.73 sqM) Glucose 89 (74-99) mg/dL Calcium 10.1 (8.4-10.2) mg/dL Magnesium 1.9 (1.6-2.3) mg/dL Total Bilirubin 0.4 (0.2-1.3) mg/dL AST 33 (14-36) U/L ALT 17 (4-34) U/L Alkaline Phosphatase 77 (38-126) U/L Troponin I (0.000-0.034) ng/mL Total Protein 7.2 (6.3-8.2) g/dL Albumin 4.5 (3.5-5.0) g/dL Amylase 43 (30-110) U/L Lipase 69 (23-300) U/L 02/12/21 Range/Units 18:05 WBC (3.8-10.6) k/uL RBC (3.80-5.40) m/uL Hgb (11.4-16.0) gm/dL Hct (34.0-46.0) % MCV (80.0-100.0) fL MCH (25.0-35.0) pg MCHC (31.0-37.0) g/dL RDW (11.5-15.5) % Plt Count (150-450) k/uL MPV Neutrophils % % Lymphocytes % % Monocytes % % Eosinophils % % Basophils % % Neutrophils # (1.3-7.7) k/uL Lymphocytes # (1.0-4.8) k/uL Monocytes # (0-1.0) k/uL Eosinophils # (0-0.7) k/uL Basophils # (0-0.2) k/uL PT (9.0-12.0) sec INR (<1.2) APTT (22.0-30.0) sec Sodium (137-145) mmol/L Potassium (3.5-5.1) mmol/L Chloride (98-107) mmol/L Carbon Dioxide (22-30) mmol/L Anion Gap mmol/L BUN (7-17) mg/dL Creatinine (0.52-1.04) mg/dL Est GFR (CKD-EPI)AfAm (>60 ml/min/1.73 sqM) Est GFR (CKD-EPI)NonAf (>60 ml/min/1.73 sqM) Glucose (74-99) mg/dL Calcium (8.4-10.2) mg/dL Magnesium (1.6-2.3) mg/dL Total Bilirubin (0.2-1.3) mg/dL AST (14-36) U/L ALT (4-34) U/L Alkaline Phosphatase (38-126) U/L Troponin I <0.012 (0.000-0.034) ng/mL Total Protein (6.3-8.2) g/dL Albumin (3.5-5.0) g/dL Amylase (30-110) U/L Lipase (23-300) U/L - Radiology Data Radiology results: report reviewed (Computed tomography scan of the chest negative for pulmonary embolism. There is some groundglass opacity. Some aorta dilation.), image reviewed (Chest x-ray shows no acute process) Disposition Clinical Impression: Chest pain Disposition: ADMITTED IP TO THIS HOSP Is patient prescribed a controlled substance at d/c from ED?: No Referrals: Мария Iyer DO [Primary Care Provider] - 1-2 days Decision Time: 21:23
[2021-02-12 18:18] LABS: HCT 40.6 % (34.0-46.0); HGB 14.1 gm/dL (11.4-16.0); MCV 85.5 fL (80.0-100.0); RBC 4.74 m/uL (3.80-5.40); WBC 4.6 k/uL (3.8-10.6)
[2021-02-12 18:19] LABS: Basophils % (A) 1 %; Eosinophils % (A) 1 %; Lymphocytes # (A) 0.9 k/uL (1.0-4.8); Lymphocytes % (A) 20 %; MCH 29.7 pg (25.0-35.0); MCHC 34.8 g/dL (31.0-37.0); Mean Platelet Volume 7.8; Monocytes % (A) 6 %; Neutrophils # (A) 3.3 k/uL (1.3-7.7); Neutrophils % (A) 70 %; Platelet Count 194 k/uL (150-450); RDW 12.9 % (11.5-15.5)
[2021-02-12 18:20] LABS: Eosinophils # (A) 0.1 k/uL (0-0.7); Monocytes # (A) 0.3 k/uL (0-1.0)
[2021-02-12 18:24] LABS: INR 0.9 (<1.2); Partial Thromboplastin Time 23.5 sec (22.0-30.0); Prothrombin Time 10.2 sec (9.0-12.0)
[2021-02-12 18:28] LABS: ALT 17 U/L (4-34); AST 33 U/L (14-36); African American GFR (CKD) >90 (>60 ml/min/1.73 sqM); Albumin 4.5 g/dL (3.5-5.0); Alkaline Phosphatase 77 U/L (38-126); Amylase 43 U/L (30-110); Anion Gap 10 mmol/L; Blood Urea Nitrogen 17 mg/dL (7-17); Calcium 10.1 mg/dL (8.4-10.2); Carbon Dioxide 22 mmol/L (22-30); Chloride 106 mmol/L (98-107); Glucose 89 mg/dL (74-99); Lipase 69 U/L (23-300); Magnesium 1.9 mg/dL (1.6-2.3); Non-African American GFR(CKD) >90 (>60 ml/min/1.73 sqM); Potassium 3.6 mmol/L (3.5-5.1); Sodium 138 mmol/L (137-145); Total Bilirubin 0.4 mg/dL (0.2-1.3); Total Protein 7.2 g/dL (6.3-8.2)
--- NOTE | 2021-02-12 18:39 | XR ---
EXAMINATION: XR chest 2V DATE AND TIME: 02/12/2021 6:18 PM CLINICAL INDICATION: PHH; Chest Pain TECHNIQUE: Frontal and lateral views COMPARISON: 07/25/2017 FINDINGS: The lungs are predominantly clear, but there is subtle added opacity over the right mid and lower lung zones, mildly silhouetting the arborization of the pulmonary vasculature. The subtle radi ographic findings can be simply summation shadows of normal anatomy, clinical early pneumonitis can b e considered. The pleural spaces are negative. The cardiac silhouette is not enlarged. The remainder of the mediastinal silhouette is unremarkable. The skeletal structures and soft tissues are negative for acute findings. IMPRESSION: No definite acute radiographic process, as discussed.
--- NOTE | 2021-02-12 20:39 | CT ---
EXAMINATION TYPE: CT angio chest with contrast and with 3-D Reconstruction rendering DATE OF EXAM: 02/12/2021 7:34 PM COMPARISON: Chest radiograph 02/12/2021 HISTORY: Chest heaviness. CT DLP: 217.5 mGycm Automated exposure control for dose reduction was used. CONTRAST: CTA scan of the thorax is performed with IV Contrast, patient injected with 100 mL of Isovu e 370, pulmonary embolism protocol. . FINDINGS: AIRWAYS, LUNGS, PLEURAL SPACES: The tracheobronchial tree is patent. There is no pleural effusion or pneumothorax. The lungs are predominantly clear and well expanded. However, in the lung bases there i s minimal groundglass opacity noted just above the diaphragm posteriorly, a nonspecific radiographic pattern. MEDIASTINUM: There is satisfactory enhancement of the pulmonary artery and its branches, with no CT e vidence for pulmonary embolism. The ascending aorta caliber is mildly dilated at 4.2 cm caliber. No a cute aortic findings. No pericardial effusion. No cardiomegaly. No adenopathy. OTHER: No additional significant abnormality is seen. IMPRESSION: 1. NO DEFINITE ACUTE PROCESS, BUT MINIMAL BILATERAL POSTERIOR LUNG BASE NONSPECIFIC GROUNDGLASS OPAC ITY NOTED. 2. MILD ASCENDING AORTA DILATION.
[2021-02-12] MEDS ORDERED: NITROGLYCERIN SL TABS 0.4 MG TAB SUBLINGUAL PRN (21:23)
[2021-02-13] MEDS: NITROGLYCERIN OINT 1 INCH/GM PACKET TOPICAL SCH ×2 (01:57→07:11)
[2021-02-13 03:42] LABS: Cholesterol 177 mg/dL (<200); HDL Cholesterol 62 mg/dL (40-60); LDL Cholesterol,Calculated 99 mg/dL (0-99); Triglycerides 79 mg/dL (<150)
[2021-02-13 07:49] VITALS: RESP 16
[2021-02-13] MEDS ORDERED: ASPIRIN 325 MG TAB PO SCH (09:00)
[2021-02-13] MEDS ORDERED: DOBUTamine DRIP for NUC MED 500 MG in DEXTROSE/WATER 1 250ML.BAG IV PRN (09:00)
[2021-02-13] MEDS ORDERED: ASPIRIN 81 MG PO SCH (09:00)
--- NOTE | 2021-02-13 10:08 | P.CRDCN ---
History of Present Illness History of present illness: HISTORY OF PRESENTING ILLNESS This is a pleasant 60-year-old female past medical history significant for chronic nicotine dependence and seizure disorder. She denies prior history of coronary artery disease and does not follow in the office with a heavy equipment mechanic. We have been asked to see in consultation for chest pain. She states yesterday afternoon she took a nap on the couch and when she woke up she felt a heavy pressure sensation in the midsternal region like somebody was sitting on her chest. She also felt a tight squeezing feeling at the base of her neck. She denied associated shortness of breath, palpitations, dizziness, nausea, vomiting or diaphoresis. She got up and got a drink of water and ate a piece of cheese thought maybe she had gas. Her symptoms persisted prompting her to come to the emergency department for evaluation. On arrival to the emergency department she was having ongoing chest discomfort and was given sublingual nitroglycerin. After her second tablet her chest discomfort subsided. She had another episode of sharp discomfort through the night while she was sleeping in bed. DIAGNOSTICS EKG reveals sinus mechanism with RSR pattern in V1 and left anterior fascicular block with no acute ST or T wave abnormalities noted. Telemetry tracings indicate sinus mechanism. Chest xray negative for an acute cardiopulmonary process. CTA negative for pulmonary embolism, mildly dilated ascending aorta at 4.2 cm. Laboratory reviewed, CBC unremarkable, sodium 138, potassium 3.6, creatinine 0.72, magnesium 1.9, cardiac enzymes negative 3, LDL 99 and HDL 62. She takes no daily cardiac medications. REVIEW OF SYSTEMS At the time of my exam: CONSTITUTIONAL: Denies fever or chills. CARDIOVASCULAR: Denies chest pain, shortness of breath, orthopnea, PND or palpitations. RESPIRATORY: Denies cough. GASTROINTESTINAL: Denies abdominal pain, diarrhea, constipation, nausea or vomiting. MUSCULOSKELETAL: Denies myalgias. NEUROLOGIC: Denies numbness, tingling, headacbe or weakness. ENDOCRINE: Denies fatigue, weight change, polydipsia or polyurina. GENITOURINARY: Denies burning, hematuria or urgency with micturation. HEMATOLOGIC: Denies history of anemia or bleeding. PHYSICAL EXAMINATION Blood pressure 96/59 heart rate 56 afebrile and maintaining oxygen saturation on nasal cannula. CONSTITUTIONAL: No apparent distress. HEENT: Head is normocephalic. Pupils are equal, round. Sclerae anicteric. Mucous membranes of the mouth are moist. No JVD. No carotid bruit. CHEST EXAMINATION: Lungs are clear to auscultation. No chest wall tenderness is noted on palpation or with deep breathing. Diminished bilaterally. HEART EXAMINATION: Regular rate and rhythm. S1, S2 heard. No murmurs, gallops or rub. ABDOMEN: Soft, nontender. Positive bowel sounds. EXTREMITIES: 2+ peripheral pulses, no lower extremity edema and no calf tenderness. NEUROLOGIC EXAMINATION: Patient is awake, alert and oriented x3. ASSESSMENT Chest pain, atypical Chronic nicotine dependence History of seizure disorder PLAN An acute coronary event has been ruled out. Obtain 2-D echocardiogram and Doppler study to assess cardiac structure and function. Perform dobutamine stress echocardiogram to assess her stress induced cardiac ischemia. Lengthy discussion and recommendation for smoking cessation. If stress test is normal she may be discharged from a cardiac perspective. Thank you kindly for this consultation. Nurse Practitioner note has been reviewed, I agree with a documented findings and plan of care. Patient was seen and examined. Past Medical History Past Medical History: GERD/Reflux, Osteoarthritis (OA), Seizure Disorder Additional Past Medical History / Comment(s): LAST SEIZURE 02/1992; hiatal hernia; hx pulled chest wall muscle; anemia; History of Any Multi-Drug Resistant Organisms: None Reported Past Surgical History: Appendectomy, Joint Replacement, Orthopedic Surgery, Tubal Ligation Additional Past Surgical History / Comment(s): REPAIR SMALL INTESTINE THAT WAS NICKED DURING TL; arthroscopy left knee; left knee replacement; benign left breast biopsy; Past Anesthesia/Blood Transfusion Reactions: No Reported Reaction Past Psychological History: No Psychological Hx Reported Smoking Status: Current every day smoker Past Alcohol Use History: Rare Additional Past Alcohol Use History / Comment(s): HAS BEEN SMOKING 1/2-1 PPD SINCE 1996 (AGE 36) Past Drug Use History: None Reported - Past Family History Brother(s) Family Medical History: Cancer Mother Family Medical History: Cancer Medications and Allergies Home Medications Medication Instructions Recorded Confirmed Type Calcium Carbonate [Calcium] 600 mg PO DAILY 02/12/21 02/12/21 History Divalproex [Depakote] 250 mg PO BID@0600,1200 02/12/21 02/12/21 History Divalproex [Depakote] 500 mg PO DAILY@1800 02/12/21 02/12/21 History Multivitamin/Iron/Folic Acid 1 tab PO DAILY 02/12/21 02/12/21 History [Centrum Women Tablet] Omeprazole 20 mg PO DAILY 02/12/21 02/12/21 History Zinc Gluconate [Zinc] 50 mg PO DAILY 02/12/21 02/12/21 History Allergies Allergy/AdvReac Type Severity Reaction Status Date / Time No Known Allergies Allergy Verified 02/12/21 21:07 Physical Exam Vitals: Vital Signs Temp Pulse Pulse Resp BP BP Pulse Ox 02/13/21 07:00 98.3 F 56 L 16 96/59 100 02/13/21 06:00 57 L 18 85/55 02/13/21 05:30 53 L 18 92/57 96 02/13/21 05:20 51 L 16 92/57 96 02/13/21 05:10 55 L 16 92/57 96 02/13/21 05:00 76 16 75/53 98 02/13/21 04:50 57 L 18 75/53 96 02/13/21 04:40 56 L 17 75/53 95 02/13/21 04:30 57 L 18 74/44 97 02/13/21 04:20 55 L 16 74/44 96 02/13/21 04:10 58 L 15 74/44 96 02/13/21 04:00 78 19 62/33 99 02/13/21 03:50 63 21 62/33 99 02/13/21 03:40 63 11 L 62/33 99 02/13/21 03:30 64 10 L 72/45 98 02/13/21 03:20 58 L 14 72/45 99 02/13/21 03:10 60 16 72/45 98 02/13/21 03:00 63 18 78/47 97 02/13/21 02:50 58 L 19 78/47 98 02/13/21 02:40 61 16 78/47 98 02/13/21 02:30 56 L 12 102/68 98 02/13/21 02:20 74/37 02/13/21 02:10 61 5 L 74/37 96 02/13/21 02:00 59 L 8 L 64/35 97 02/13/21 01:50 60 17 64/35 99 02/13/21 01:40 60 17 64/35 99 02/13/21 01:30 66 10 L 68/27 97 02/13/21 01:20 65 19 68/27 97 02/13/21 01:10 63 5 L 68/27 98 02/13/21 01:00 70 16 76/43 99 02/13/21 00:50 62 2 L 76/43 99 02/13/21 00:40 62 0 L 76/43 98 02/13/21 00:30 65 0 L 80/56 98 02/13/21 00:20 66 18 80/56 98 02/13/21 00:10 65 16 80/56 98 02/13/21 00:00 21 87/50 02/12/21 23:50 68 15 87/50 02/12/21 23:40 65 22 87/50 02/12/21 23:30 67 22 88/53 02/12/21 23:20 64 14 88/53 02/12/21 23:10 28 H 88/53 02/12/21 23:00 69 22 91/55 02/12/21 22:50 67 15 91/55 02/12/21 22:40 70 11 L 91/55 02/12/21 22:30 69 8 L 99/66 02/12/21 22:20 77 25 H 99/66 02/12/21 22:10 99/66 02/12/21 22:00 73 10 L 117/63 99 02/12/21 21:50 65 5 L 117/63 99 02/12/21 21:40 66 4 L 117/63 99 02/12/21 21:30 63 8 L 100/57 99 02/12/21 21:20 69 10 L 100/57 100 02/12/21 21:10 66 10 L 100/57 100 02/12/21 21:00 65 17 100/62 100 02/12/21 20:50 63 11 L 100/62 99 02/12/21 20:40 62 14 100/62 100 02/12/21 20:30 68 3 L 95/63 100 02/12/21 20:20 70 14 95/63 100 02/12/21 20:10 60 0 L 95/63 100 02/12/21 20:00 64 7 L 106/64 100 02/12/21 19:50 63 9 L 106/64 100 02/12/21 18:26 70 18 123/69 100 02/12/21 17:29 97.6 F 75 16 130/78 100 Intake and Output 02/12/21 02/13/21 02/13/21 22:59 06:59 14:59 Other: # Voids 1 Weight 65.771 kg 65.771 kg Results 02/12/21 18:05 02/12/21 18:05 Cardiac Enzymes 02/12/21 02/12/21 02/12/21 Range/Units 18:05 18:05 22:30 AST 33 (14-36) U/L Troponin I <0.012 <0.012 (0.000-0.034) ng/mL 02/13/21 Range/Units 01:14 AST (14-36) U/L Troponin I <0.012 (0.000-0.034) ng/mL Coagulation 02/12/21 Range/Units 18:05 PT 10.2 (9.0-12.0) sec APTT 23.5 (22.0-30.0) sec Lipids 02/12/21 Range/Units 18:05 Triglycerides 79 (<150) mg/dL Cholesterol 177 (<200) mg/dL HDL Cholesterol 62 H (40-60) mg/dL CBC 02/12/21 Range/Units 18:05 WBC 4.6 (3.8-10.6) k/uL RBC 4.74 (3.80-5.40) m/uL Hgb 14.1 (11.4-16.0) gm/dL Hct 40.6 (34.0-46.0) % Plt Count 194 (150-450) k/uL Comprehensive Metabolic Panel 02/12/21 Range/Units 18:05 Sodium 138 (137-145) mmol/L Potassium 3.6 (3.5-5.1) mmol/L Chloride 106 (98-107) mmol/L Carbon Dioxide 22 (22-30) mmol/L BUN 17 (7-17) mg/dL Creatinine 0.72 (0.52-1.04) mg/dL Glucose 89 (74-99) mg/dL Calcium 10.1 (8.4-10.2) mg/dL AST 33 (14-36) U/L ALT 17 (4-34) U/L Alkaline Phosphatase 77 (38-126) U/L Total Protein 7.2 (6.3-8.2) g/dL Albumin 4.5 (3.5-5.0) g/dL Current Medications Generic Name Dose Route Start Last Admin Trade Name Freq PRN Reason Stop Dose Admin Aspirin 81 mg 02/13/21 09:00 02/13/21 08:50 Aspirin 81 Mg PO 81 mg DAILY JUANITA Administration Nitroglycerin 0.4 mg 02/12/21 21:23 Nitroglycerin Sl Tabs 0.4 Mg Tab SUBLINGUAL Q5M PRN Chest Pain Sodium Chloride 10 ml 02/13/21 09:00 02/13/21 08:48 Sodium Chloride 0.9% Flush 10 Ml Syringe IV 10 ml BID JUANITA Administration Intake and Output 02/12/21 02/13/21 02/13/21 22:59 06:59 14:59 Other: # Voids 1 Weight 65.771 kg 65.771 kg Patient Weight 02/14/21 06:59 Weight 65.771 kg 02/12/21 18:05 02/12/21 18:05
--- NOTE | 2021-02-13 11:45 | ECHOF ---
Referral Reason:cp MEASUREMENTS -------- HEIGHT: 162.6 cm WEIGHT: 65.8 kg BP: 96/59 RVIDd: 2.8 cm (< 3.3) IVSd: 1.2 cm (0.6 - 1.1) LVIDd: 3.7 cm (3.9 - 5.3) LVPWd: 1.1 cm (0.6 - 1.1) IVSs: 1.3 cm LVIDs: 2.3 cm LVPWs: 1.2 cm LAESV Index (A-L): 24.27 ml/m Ao Diam: 3.1 cm (2.0 - 3.7) AV Cusp: 2.1 cm (1.5 - 2.6) MV EXCURSION: 21.800 mm (> 18.000) MV EF SLOPE: 51 mm/s (70 - 150) EPSS: 0.2 cm MV E Aleksandar: 1.03 m/s MV DecT: 215 ms MV A Aleksandar: 0.47 m/s MV E/A Ratio: 2.18 RAP: 5.00 mmHg RVSP: 15.61 mmHg FINDINGS -------- Sinus rhythm. This was a technically good study. The left ventricular size is normal. There is borderline concentric left ventricular hypertrophy. Overall left ventricular systolic function is normal with, an EF between 55 - 60 %. The diastolic filling pattern is normal for the age of the patient 10.35. The right ventricle is normal in size. Normal LA size by volume 22+/-6 ml/m2. The right atrial size is normal. Interatrial and interventricular septum intact. The aortic valve is trileaflet, and appears structurally normal. No aortic stenosis or regurgitation. There is no evidence of aortic regurgitation. There is no evidence of aortic stenosis. Normal appearing mitral valve. The tricuspid valve appears structurally normal. Trace tricuspid regurgitation present. Right jennifer tricular systolic pressure is normal at < 35 mmHg. The right ventricular systolic pressure, as angelia ured by Doppler, is 15.61mmHg. There is no pulmonic regurgitation present. The aortic root size is normal. The inferior vena cava is mildly dilated. There is no pericardial effusion. CONCLUSIONS -------- 1. There is borderline concentric left ventricular hypertrophy. 2. Overall left ventricular systolic function is normal with, an EF between 55 - 60 %. 3. The diastolic filling pattern is normal for the age of the patient 10.35 4. Normal LA size by volume 22+/-6 ml/m2. 5. The aortic valve is trileaflet, and appears structurally normal. No aortic stenosis or regurgitati on. 6. Normal appearing mitral valve. 7. Trace tricuspid regurgitation present. 8. The inferior vena cava is mildly dilated. EXTRACT PULLER: Jaz Lizarraga RDCS
--- NOTE | 2021-02-13 13:40 | ECHOS ---
STRESS ECHOCARDIOGRAM LUMASON: Vial INDICATIONS: Chest pain. MEDICATIONS: BASELINE HEART RATE: 52 BASELINE BLOOD PRESSURE: 109/61 MAXIMUM HEART RATE: 139 MAXIMUM BLOOD PRESSURE: 133/76 85% MPHR: 135 100% MPHR: 159 METS: MAXIMUM STAGE REACHED: TOTAL EXERCISE TIME: CLINICAL INFORMATION: Baseline rhythm is a sinus mechanism, rate of 52, left axis deviation, poor R progression. Baseline blood pressure 109/61 mmHg. Patient received infusion of dobutamine per protocol, peak rate 139 beats per minute which is equal to 87% maximum predicted heart rate. Peak blood pressure 133/76 mmHg. Electrocardiograph monitoring revealed no evidence of diagnostic ischemic ST deviation. Baseline echocardiogram revealed normal wall motion. At peak infusion, there was normal wall motion augmentation with no hypokinesis or dyskinesis. CONCLUSION: 1. Normal electrocardiograph response to dobutamine infusion. 2. Normal stress echocardiogram with no evidence of stress-induced ischemia. MMODL / IJN: [id number] /
[2021-02-13 14:09] VITALS: BP 102/65; PULSE 64; TEMP 97.7
--- NOTE | 2021-02-27 14:19 | P.HPIM ---
History of Present Illness H&P Date: 02/13/21 Chief Complaint: Chest pain 60-year-old female past medical history significant for chronic nicotine dependence and seizure disorder. She denies prior history of coronary artery disease and does not follow in the office with a lace mender. She states yesterday afternoon she took a nap on the couch and when she woke up she felt a heavy pressure sensation in the midsternal region like somebody was sitting on her chest. She also felt a tight squeezing feeling at the base of her neck. She denied associated shortness of breath, palpitations, dizziness, nausea, vomiting or diaphoresis. She got up and got a drink of water and ate a piece of cheese thought maybe she had gas. Her symptoms persisted prompting her to come to the emergency department for evaluation. On arrival to the emergency department she was having ongoing chest discomfort and was given sublingual nitroglycerin. After her second tablet her chest discomfort subsided. She had another episode of sharp discomfort through the night while she was sleeping in bed. DIAGNOSTICS EKG reveals sinus mechanism with RSR pattern in V1 and left anterior fascicular block with no acute ST or T wave abnormalities noted. Telemetry tracings indicate sinus mechanism. Chest xray negative for an acute cardiopulmonary process. CTA negative for pulmonary embolism, mildly dilated ascending aorta at 4.2 cm. Laboratory reviewed, CBC unremarkable, sodium 138, potassium 3.6, creatinine 0.72, magnesium 1.9, cardiac enzymes negative 3, LDL 99 and HDL 62. She takes no daily cardiac medications. Review of Systems REVIEW OF SYSTEMS: CONSTITUTIONAL: No fever, no malaise, no fatigue. HEENT: No recent visual problems or hearing problems. Denied any sore throat. CARDIOVASCULAR: No chest pain, orthopnea, PND, no palpitations, no syncope. PULMONARY: No shortness of breath, no cough, no hemoptysis. GASTROINTESTINAL: No diarrhea, no nausea, no vomiting, no abdominal pain. NEUROLOGICAL: No headaches, no weakness, no numbness. HEMATOLOGICAL: Denies any bleeding or petechiae. GENITOURINARY: Denies any burning micturition, frequency, or urgency. MUSCULOSKELETAL/RHEUMATOLOGICAL: Denies any joint pain, swelling, or any muscle pain. ENDOCRINE: Denies any polyuria or polydipsia. The rest of the 14-point review of systems is negative. Past Medical History Past Medical History: GERD/Reflux, Osteoarthritis (OA), Seizure Disorder Additional Past Medical History / Comment(s): LAST SEIZURE 02/1992; hiatal hernia; hx pulled chest wall muscle; anemia; History of Any Multi-Drug Resistant Organisms: None Reported Past Surgical History: Appendectomy, Joint Replacement, Orthopedic Surgery, Tubal Ligation Additional Past Surgical History / Comment(s): REPAIR SMALL INTESTINE THAT WAS NICKED DURING TL; arthroscopy left knee; left knee replacement; benign left breast biopsy; Past Anesthesia/Blood Transfusion Reactions: No Reported Reaction Past Psychological History: No Psychological Hx Reported Smoking Status: Current every day smoker Past Alcohol Use History: Rare Additional Past Alcohol Use History / Comment(s): HAS BEEN SMOKING 1/2-1 PPD SINCE 1996 (AGE 36) Past Drug Use History: None Reported - Past Family History Brother(s) Family Medical History: Cancer Mother Family Medical History: Cancer Medications and Allergies Home Medications Medication Instructions Recorded Confirmed Type Calcium Carbonate [Calcium] 600 mg PO DAILY 02/12/21 02/12/21 History Divalproex [Depakote] 250 mg PO BID@0600,1200 02/12/21 02/12/21 History Divalproex [Depakote] 500 mg PO DAILY@1800 02/12/21 02/12/21 History Multivitamin/Iron/Folic Acid 1 tab PO DAILY 02/12/21 02/12/21 History [Centrum Women Tablet] Omeprazole 20 mg PO DAILY 02/12/21 02/12/21 History Zinc Gluconate [Zinc] 50 mg PO DAILY 02/12/21 02/12/21 History Aspirin 81 mg PO DAILY chew 02/13/21 Rx Allergies Allergy/AdvReac Type Severity Reaction Status Date / Time No Known Allergies Allergy Verified 02/12/21 21:07 Physical Exam Vitals: Vital Signs Temp Pulse Pulse Resp BP BP Pulse Ox 02/13/21 07:00 98.3 F 56 L 16 96/59 100 02/13/21 06:00 57 L 18 85/55 02/13/21 05:30 53 L 18 92/57 96 02/13/21 05:20 51 L 16 92/57 96 02/13/21 05:10 55 L 16 92/57 96 02/13/21 05:00 76 16 75/53 98 02/13/21 04:50 57 L 18 75/53 96 02/13/21 04:40 56 L 17 75/53 95 02/13/21 04:30 57 L 18 74/44 97 02/13/21 04:20 55 L 16 74/44 96 02/13/21 04:10 58 L 15 74/44 96 02/13/21 04:00 78 19 62/33 99 02/13/21 03:50 63 21 62/33 99 02/13/21 03:40 63 11 L 62/33 99 02/13/21 03:30 64 10 L 72/45 98 02/13/21 03:20 58 L 14 72/45 99 02/13/21 03:10 60 16 72/45 98 02/13/21 03:00 63 18 78/47 97 02/13/21 02:50 58 L 19 78/47 98 02/13/21 02:40 61 16 78/47 98 02/13/21 02:30 56 L 12 102/68 98 02/13/21 02:20 74/37 02/13/21 02:10 61 5 L 74/37 96 02/13/21 02:00 59 L 8 L 64/35 97 02/13/21 01:50 60 17 64/35 99 02/13/21 01:40 60 17 64/35 99 02/13/21 01:30 66 10 L 68/27 97 02/13/21 01:20 65 19 68/27 97 02/13/21 01:10 63 5 L 68/27 98 02/13/21 01:00 70 16 76/43 99 02/13/21 00:50 62 2 L 76/43 99 02/13/21 00:40 62 0 L 76/43 98 02/13/21 00:30 65 0 L 80/56 98 02/13/21 00:20 66 18 80/56 98 02/13/21 00:10 65 16 80/56 98 02/13/21 00:00 21 87/50 02/12/21 23:50 68 15 87/50 02/12/21 23:40 65 22 87/50 02/12/21 23:30 67 22 88/53 02/12/21 23:20 64 14 88/53 02/12/21 23:10 28 H 88/53 02/12/21 23:00 69 22 91/55 02/12/21 22:50 67 15 91/55 02/12/21 22:40 70 11 L 91/55 02/12/21 22:30 69 8 L 99/66 02/12/21 22:20 77 25 H 99/66 02/12/21 22:10 99/66 02/12/21 22:00 73 10 L 117/63 99 02/12/21 21:50 65 5 L 117/63 99 02/12/21 21:40 66 4 L 117/63 99 02/12/21 21:30 63 8 L 100/57 99 02/12/21 21:20 69 10 L 100/57 100 02/12/21 21:10 66 10 L 100/57 100 02/12/21 21:00 65 17 100/62 100 02/12/21 20:50 63 11 L 100/62 99 02/12/21 20:40 62 14 100/62 100 02/12/21 20:30 68 3 L 95/63 100 02/12/21 20:20 70 14 95/63 100 02/12/21 20:10 60 0 L 95/63 100 02/12/21 20:00 64 7 L 106/64 100 02/12/21 19:50 63 9 L 106/64 100 02/12/21 18:26 70 18 123/69 100 02/12/21 17:29 97.6 F 75 16 130/78 100 Intake and Output 02/12/21 02/13/21 02/13/21 22:59 06:59 14:59 Other: # Voids 3 Weight 65.771 kg 65.77 kg PHYSICAL EXAMINATION: GENERAL: The patient is alert and oriented x3, not in any acute distress. Well developed, well nourished. HEENT: Pupils are round and equally reacting to light. EOMI. No scleral icterus. No conjunctival pallor. Normocephalic, atraumatic. No pharyngeal erythema. No thyromegaly. CARDIOVASCULAR: S1 and S2 present. No murmurs, rubs, or gallops. PULMONARY: Chest is clear to auscultation, no wheezing or crackles. ABDOMEN: Soft, nontender, nondistended, normoactive bowel sounds. No palpable organomegaly. MUSCULOSKELETAL: No joint swelling or deformity. EXTREMITIES: No cyanosis, clubbing, or pedal edema. NEUROLOGICAL: Gross neurological examination did not reveal any focal deficits. SKIN: No rashes. Results CBC & Chem 7: 02/12/21 18:05 02/12/21 18:05 Labs: Abnormal Lab Results - Last 24 Hours (Table) 02/12/21 02/12/21 Range/Units 18:05 18:05 Lymphocytes # 0.9 L (1.0-4.8) k/uL HDL Cholesterol 62 H (40-60) mg/dL Thrombosis Risk Factor Assmnt - Choose All That Apply Each Risk Factor Represents 2 Points: Age 61-74 years Thrombosis Risk Factor Assessment Total Risk Factor Score: 2 Thrombosis Risk Factor Assessment Level: Low Risk Assessment and Plan Assessment: Chest pain, atypical Chronic nicotine dependence History of seizure disorder PLAN An acute coronary event has been ruled out. Obtain 2-D echocardiogram and Doppler study to assess cardiac structure and function. Perform dobutamine stress echocardiogram to assess her stress induced cardiac ischemia. Lengthy discussion and recommendation for smoking cessation. If stress test is normal she may be discharged from a cardiac perspective.
--- NOTE | 2021-03-02 17:11 | P.DS ---
Providers Date of admission: 02/12/21 21:23 Expected date of discharge: 02/13/21 Attending physician: Jeet Watson Consults: 02/12/21 21:23 Consult Physician Urgent Consulting Provider: Nolberto Limon Consult Reason/Comments: cp Do you want consulting provider notified?: Yes Primary care physician: Мария [facility] Course: 60-year-old female past medical history significant for chronic nicotine dependence and seizure disorder. She denies prior history of coronary artery disease and does not follow in the office with a inventory management specialist. We have been asked to see in consultation for chest pain. She states yesterday afternoon she took a nap on the couch and when she woke up she felt a heavy pressure sensation in the midsternal region like somebody was sitting on her chest. She also felt a tight squeezing feeling at the base of her neck. She denied associated shortness of breath, palpitations, dizziness, nausea, vomiting or diaphoresis. She got up and got a drink of water and ate a piece of cheese thought maybe she had gas. Her symptoms persisted prompting her to come to the emergency department for evaluation. On arrival to the emergency department she was having ongoing chest discomfort and was given sublingual nitroglycerin. After her second tablet her chest discomfort subsided. She had another episode of sharp discomfort through the night while she was sleeping in bed. DIAGNOSTICS EKG reveals sinus mechanism with RSR pattern in V1 and left anterior fascicular block with no acute ST or T wave abnormalities noted. Telemetry tracings indicate sinus mechanism. Chest xray negative for an acute cardiopulmonary process. CTA negative for pulmonary embolism, mildly dilated ascending aorta at 4.2 cm. Laboratory reviewed, CBC unremarkable, sodium 138, potassium 3.6, creatinine 0.72, magnesium 1.9, cardiac enzymes negative 3, LDL 99 and HDL 62. She takes no daily cardiac medications. ASSESSMENT Chest pain, atypical Chronic nicotine dependence History of seizure disorder PLAN An acute coronary event has been ruled out. Obtain 2-D echocardiogram and Doppler study to assess cardiac structure and function. Perform dobutamine stress echocardiogram to assess her stress induced cardiac ischemia. Lengthy discussion and recommendation for smoking cessation. If stress test is normal she may be discharged from a cardiac perspective. Stress test came back negative and patient was ms'ed in a stable condition Plan - Discharge Summary Discharge Rx Participant: No New Discharge Prescriptions: New Aspirin 81 mg PO DAILY chew Continue Omeprazole 20 mg PO DAILY Divalproex [Depakote] 500 mg PO DAILY@1800 Calcium Carbonate [Calcium] 600 mg PO DAILY Zinc Gluconate [Zinc] 50 mg PO DAILY Multivitamin/Iron/Folic Acid [Centrum Women Tablet] 1 tab PO DAILY Divalproex [Depakote] 250 mg PO BID@0600,1200 Discharge Medication List Calcium Carbonate [Calcium] 600 mg PO DAILY 02/12/21 [History] Divalproex [Depakote] 250 mg PO BID@0600,1200 02/12/21 [History] Divalproex [Depakote] 500 mg PO DAILY@1800 02/12/21 [History] Multivitamin/Iron/Folic Acid [Centrum Women Tablet] 1 tab PO DAILY 02/12/21 [History] Omeprazole 20 mg PO DAILY 02/12/21 [History] Zinc Gluconate [Zinc] 50 mg PO DAILY 02/12/21 [History] Aspirin 81 mg PO DAILY chew 02/13/21 [Rx] Follow up Appointment(s)/Referral(s): Reed Bateman MD [STAFF PHYSICIAN] - 2 Weeks (office will call and schedule appt ) Мария Iyer DO [Primary Care Provider] - 1-2 days Patient Instructions/Handouts: Chest Pain (DC), How to Stop Smoking (GEN), Cigarette Smoking and Your Health (GEN) Discharge Disposition: HOME SELF-CARE
== END 2021-02-13 14:53 | disposition home or self-care (01) ==
LOC: EC 17:23 → 6NMEDSUR 21:23
PROVIDERS: ADMIT Hospitalist; ATTEND Hospitalist
DX: R07.89 Other chest pain (principal); I44.4 Left anterior fascicular block; I77.819 Aortic ectasia, unspecified site; D64.9 Anemia, unspecified; G40.909 Epilepsy, unspecified, not intractable, without status epilepticus; K21.9 Gastro-esophageal reflux disease without esophagitis; M19.90 Unspecified osteoarthritis, unspecified site; K44.9 Diaphragmatic hernia without obstruction or gangrene; F17.210 Nicotine dependence, cigarettes, uncomplicated; Z79.899 Other long term (current) drug therapy; Z96.652 Presence of left artificial knee joint; Z98.51 Tubal ligation status; Z90.49 Acquired absence of other specified parts of digestive tract; Z98.890 Other specified postprocedural states; Z80.9 Family history of malignant neoplasm, unspecified
CPT/HCPCS: 93005 ×2; 99285; 36415; 93306; 93351; 80061; 80053; 82150; 83690; 83735; 84484 ×2; 85025; 85610; 85730; 87636; 71046; 71275; G0378 ×2; Q9967

== ENCOUNTER → 2021-06-09 | Outpatient (CLI) | payer MEDICARE ==
--- NOTE | 2021-06-10 11:02 | MM ---
Reason for exam: screening (asymptomatic). Last mammogram was performed 1 year and 1 month ago. History: Patient is postmenopausal and had first child at age 31. Benign MG stereo VAD BX addl LT of the left breast, March 30, 2018. Benign MG stereo VAD BX LT of the left breast, March 30, 2018. Physical Findings: A clinical breast exam by your physician is recommended on an annual basis and results should be correlated with mammographic findings. MG 3D Screening Mammo W/Cad Bilateral CC and MLO view(s) were taken. Prior study comparison: May 05, 2020, bilateral MG screening mammo w CAD. May 01, 2019, bilateral MG diagnostic mammo w CAD MARIE. The breast tissue is heterogeneously dense. This may lower the sensitivity of mammography. Focal asymmetry nodular density upper outer right breast posterior third position. ASSESSMENT: Incomplete: need additional imaging evaluation, BI-RAD 0 RECOMMENDATION: Special view mammogram of the right breast. If lesion persists on supplemental views, image directed ultrasound is recommended. [facility] will attempt to contact patient to return for supplemental views and ultrasound if indicated.
== END | disposition home or self-care (01) ==
LOC: RADMAMWWP 10:14
PROVIDERS: ATTEND Surgery
DX: Z12.31 Encounter for screening mammogram for malignant neoplasm of breast (principal); Z78.0 Asymptomatic menopausal state
CPT/HCPCS: 77063; 77067

== ENCOUNTER → 2021-06-12 | Outpatient (CLI) | payer MEDICARE ==
--- NOTE | 2021-06-15 09:04 | MM ---
Reason for exam: additional evaluation requested from abnormal screening. Last mammogram was performed less than 1 month ago. History: Patient is postmenopausal and had first child at age 31. Family history of breast cancer in paternal aunt. Benign MG stereo VAD BX addl LT of the left breast, March 30, 2018. Benign MG stereo VAD BX LT of the left breast, March 30, 2018. Physical Findings: Nurse did not find any significant physical abnormalities on exam. MG 3D Work Up W/Cad RT Spot compression CC, spot compression MLO, and LM view(s) were taken of the right breast. Prior study comparison: November 26, 2016, bilateral MG screening mammo w CAD. There are scattered fibroglandular densities. No significant new findings when compared with previous films. These results were verbally communicated with the patient and result sheet given to the patient on 06/12/21. ASSESSMENT: Benign, BI-RAD 2 RECOMMENDATION: Return to routine screening mammogram schedule for both breasts.
== END | disposition home or self-care (01) ==
LOC: RADMAMWWP 13:25
PROVIDERS: ATTEND Surgery
DX: R92.8 Other abnormal and inconclusive findings on diagnostic imaging of breast (principal); Z78.0 Asymptomatic menopausal state; Z80.3 Family history of malignant neoplasm of breast
CPT/HCPCS: 77065; G0279; 77061

== ENCOUNTER 2022-02-26 05:41 | Day surgery (SDC) | payer MEDICARE ==
[2022-02-24 19:20] VITALS: BMI 22.4
[2022-02-26] MEDS ORDERED: LIDOCAINE 1% (10MG/ML) FOR IV START INTRADERMA PRN (05:52)
[2022-02-26] MEDS ORDERED: LACTATED RINGERS 1,000 ML IV SCH (05:52)
[2022-02-26 06:13] VITALS: RESP 16; TEMP 96.5
[2022-02-26] MEDS ORDERED: LACTATED RINGERS 1,000 ML IV ONE (06:20)
[2022-02-26] MEDS ORDERED: LIDOCAINE 2% INJ 20 MG/ML SQ ONE ×2 (06:20)
[2022-02-26] MEDS ORDERED: LIDOCAINE 2% INJ 20 MG/ML (2 ML VIAL) ONE (06:53)
[2022-02-26] MEDS ORDERED: PROPOFOL 10 MG/ML 20 ML VIAL IV ONE (06:53)
--- NOTE | 2022-02-26 07:01 | P.PCN ---
Date of Procedure: 02/26/22 Procedure(s) Performed: BRIEF HISTORY: Patient is a 61-year-old, pleasant, white female scheduled for an upper endoscopy as a part of evaluation of chronic epigastric pain, heartburn, intermittent dysphagia to solids for the last 5-6 years duration. She tried previous proton pump inhibitors and no help. Recently was started on Protonix 40 mg daily and still living symptomatic and hence scheduled for an upper endoscopy to evaluate for. PROCEDURE PERFORMED: Esophagogastroduodenoscopy with biopsy. PREOPERATIVE DIAGNOSIS: Long-standing history of GERD refractory to acid suppressive therapy. IV sedation per anesthesia. PROCEDURE: After informed consent was obtained, the patient was brought into the endoscopy unit. IV sedation was administered by Anesthesia under continuous monitoring. Initially the Olympus GIF-140 video endoscope was inserted into the mouth. Esophagus intubated without any difficulty. It was gradually advanced into the stomach and duodenum and carefully examined. The bulb and the second part of the duodenum appeared normal. Biopsies were done from the duodenum to rule out celiac disease The scope at this time was withdrawn to the stomach, adequately insufflated with air, and upon careful examination, mucosa of the antrum, had linear areas of erythema consistent with gastritis and biopsies were done from this area. The body, cardia and the fundus appeared normal. The scope was then withdrawn into the esophagus. The GE junction was located at 39 cm from the incisors. The esophagus appeared normal. There were no erosions or ulcerations seen , biopsies were done from the distal esophagus and the patient tolerated the procedure well. IMPRESSION: 1. Antral gastritis. 2. Normal-appearing esophagus with no evidence of esophagitis or Vasques's esophagus. RECOMMENDATIONS: The findings of this examination were discussed with the patient as well as a family. She was advised to continue with Protonix 40 mg daily and follow antireflux measures.. 61
[2022-02-26 07:28] VITALS: BP 105/63; PULSE 68
== END 2022-02-26 07:45 | disposition home or self-care (01) ==
LOC: ORWHC2ENDO 05:41
PROVIDERS: ATTEND Internal Medicine Gastroenterology
DX: K21.00 Gastro-esophageal reflux disease with esophagitis, without bleeding (principal); K29.50 Unspecified chronic gastritis without bleeding
CPT/HCPCS: 43239; 88305; J2001 ×2; J2704

== ENCOUNTER → 2022-04-30 | Outpatient (CLI) | payer MEDICARE | END | disposition home or self-care (01) | LOC: LABWHC1 14:56 | PROVIDERS: ATTEND Orthopaedic Surgery | DX: M25.562 Pain in left knee (principal); T84.023A Instability of internal left knee prosthesis, initial encounter; Y79.2 Prosthetic and other implants, materials and accessory orthopedic devices associated with adverse incidents; Z96.652 Presence of left artificial knee joint | CPT/HCPCS: 36415; 85379; 85652; 86140 ==

== ENCOUNTER → 2022-07-07 | Outpatient (CLI) | payer MEDICARE ==
--- NOTE | 2022-07-08 08:49 | MM ---
Reason for Exam: Screening (asymptomatic). Last mammogram was performed 1 year(s) and 1 month(s) ago. Patient History: Menarche at age 10. First Full-Term at age 31. Late child-bearing (after 30). Postmenopausal. 03/30/2018, Benign Core Biopsy on the left side. 03/30/2018, Benign Core Biopsy on the left side. Paternal aunt had breast cancer. Risk Values: [place] 5 year model risk: 3.5%. NCI Lifetime model risk: 15.0%. Prior Study Comparison: 05/05/2020 Bilateral Screening Mammogram, [facility]. 06/09/2021 Bilateral Screening Mammogram, [facility]. 06/12/2021 Right Diagnostic Mammogram, [facility]. Tissue Density: The breast tissue is heterogeneously dense. This may lower the sensitivity of mammography. Findings: Analyzed By CAD. Left breast biopsy clips. There is no suspicious group of microcalcifications or new suspicious mass in either breast. Overall Assessment: Benign, BI-RAD 2 Management: Screening Mammogram of both breasts in 1 year. A clinical breast exam by your physician is recommended on an annual basis and results should be correlated with mammographic findings. [facility] will attempt to contact patient to return for supplemental views and ultrasound if indicated. Electronically signed and approved by: Bharat Ha DO
== END | disposition home or self-care (01) ==
LOC: RADMAMWWP 11:02
PROVIDERS: ATTEND Surgery
DX: Z12.31 Encounter for screening mammogram for malignant neoplasm of breast (principal); Z78.0 Asymptomatic menopausal state; Z80.3 Family history of malignant neoplasm of breast
CPT/HCPCS: 77063; 77067

== ENCOUNTER 2022-07-19 19:04 | Emergency (ER) | payer MEDICARE ==
[2022-07-19] MEDS ORDERED: SODIUM CHLORIDE 0.9% 1,000 ML IV STA (19:29)
[2022-07-19 19:45] LABS: Basophils # (A) 0.1 k/uL (0-0.2); Basophils % (A) 1 %; Eosinophils # (A) 0.3 k/uL (0-0.7); Eosinophils % (A) 4 %; HCT 36.8 % (34.0-46.0); HGB 12.1 gm/dL (11.4-16.0); Lymphocytes # (A) 2.1 k/uL (1.0-4.8); Lymphocytes % (A) 35 %; MCH 29.3 pg (25.0-35.0); MCHC 32.7 g/dL (31.0-37.0); MCV 89.6 fL (80.0-100.0); Mean Platelet Volume 8.5; Monocytes # (A) 0.4 k/uL (0-1.0); Monocytes % (A) 6 %; Neutrophils # (A) 3.1 k/uL (1.3-7.7); Neutrophils % (A) 52 %; Platelet Count 240 k/uL (150-450); RBC 4.11 m/uL (3.80-5.40); RDW 13.3 % (11.5-15.5); WBC 5.9 k/uL (3.8-10.6)
[2022-07-19 19:56] LABS: ALT 14 U/L (4-34); AST 23 U/L (14-36); African American GFR (CKD) >90 (>60 ml/min/1.73 sqM); Albumin 4.3 g/dL (3.5-5.0); Alkaline Phosphatase 70 U/L (38-126); Anion Gap 11 mmol/L; Blood Urea Nitrogen 20 mg/dL (7-17); Calcium 9.6 mg/dL (8.4-10.2); Carbon Dioxide 24 mmol/L (22-30); Chloride 104 mmol/L (98-107); Glucose 94 mg/dL (74-99); Magnesium 1.9 mg/dL (1.6-2.3); Non-African American GFR(CKD) >90 (>60 ml/min/1.73 sqM); Potassium 4.4 mmol/L (3.5-5.1); Sodium 139 mmol/L (137-145); Total Bilirubin 0.3 mg/dL (0.2-1.3); Total Protein 6.6 g/dL (6.3-8.2)
[2022-07-19 20:02] LABS: Partial Thromboplastin Time 25.2 sec (22.0-30.0); Prothrombin Time 10.7 sec (9.0-12.0)
[2022-07-19 20:25] VITALS: RESP 16
--- NOTE | 2022-07-19 21:58 | CT ---
EXAMINATION TYPE: CT angio chest CT DLP: 556.3 mGycm, Automated exposure control for dose reduction was used. DATE OF EXAM: 07/19/2022 9:43 PM COMPARISON: CT angiogram 06/09/2022 CLINICAL INDICATION:Female, 61 years old with history of chest pain; Follow up on aortic aneurysm. Pt complains of chest pain. TECHNIQUE/CONTRAST: CTA scan of the thorax is performed without and with IV Contrast, patient injected with 100ML mL of I sovue 370, pulmonary embolism protocol. MIP images are created and reviewed. FINDINGS: Pulmonary Artery: There is no evidence for a filling defect within the pulmonary vasculature to sugge st acute pulmonary embolism. The pulmonary artery is of normal size. Lungs/Pleura: No evidence of focal consolidation, pleural effusion or pneumothorax. Airway: Large airways are patent. Heart: Heart is within normal limits for size. Vasculature: No evidence of aortic aneurysm. 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 No lenin dence2 Mediastinum: No gross evidence of adenopathy. Musculoskeletal: No acute osseous abnormalities, multilevel disc degeneration changes throughout the spine. Soft Tissues: Unremarkable. Lower neck: No significant findings. Upper Abdomen: Left extrarenal pelvis. Right hyperdense cyst could represent proteinaceous/hemorrhagi c cyst. IMPRESSION: 1. Borderline ectasia of the ascending thoracic aorta measuring up to 39 mm. No evidence of aneurysm . 2. The remainder of exam is unchanged 06/09/2022. 3. No evidence for pulmonary embolism
[2022-07-19 22:07] VITALS: TEMP 97.9
--- NOTE | 2022-07-19 22:37 | ED ---
Chest Pain HPI - General Chief Complaint: Chest Pain Stated Complaint: aneurysm possibly leaking Time Seen by Provider: 07/19/22 19:18 Source: patient Mode of arrival: ambulatory Limitations: no limitations - History of Present Illness Initial Comments: Patient complains of chest pain. Pain was in the middle of the chest. It didn't radiate to her. Nothing made it better or worse. Patient states she thinks she has a history of an aneurysm, and she was sent to the emergency department and get this checked out. Her doctor was concerned it could be leaking. She has no weakness in the extremities. She has no paresthesias. She has no headache. She has no leg tenderness. Has no dizziness. She has no exertional chest pain or pressure or shortness of breath or difficulty breathing. She has no swelling in the arms or legs. - Related Data Home Medications Medication Instructions Recorded Confirmed Divalproex [Depakote] 250 mg PO QID 02/12/21 07/19/22 Echinacea 400 mg PO BID 02/24/22 07/19/22 Ergocalciferol [Vitamin D2 (1250 50,000 unit PO BOYD 02/24/22 07/19/22 Mcg = 62902 Iu)] Pantoprazole [Protonix] 40 mg PO DAILY 02/24/22 07/19/22 ARIPiprazole [Abilify] 5 mg PO DAILY 07/19/22 07/19/22 Previous Rx's Medication Instructions Recorded Aspirin 81 mg PO DAILY chew 02/13/21 Allergies Allergy/AdvReac Type Severity Reaction Status Date / Time No Known Allergies Allergy Verified 07/19/22 22:24 Review of Systems ROS Statement: Those systems with pertinent positive or pertinent negative responses have been documented in the HPI. ROS Other: All systems not noted in ROS Statement are negative. EKG Findings - EKG Comments: EKG Findings:: Twelve-lead EKG shows ventricular rate 69 bpm, normal MT interval and QRS complex is, no ST elevation or depression, interpreted by me as normal sinus rhythm. Past Medical History Past Medical History: GERD/Reflux, Osteoarthritis (OA), Seizure Disorder Additional Past Medical History / Comment(s): LAST SEIZURE 02/1992; hiatal hernia, occasional dysphagia, worsening GERD sx., aortic aneurysm near heart per pt. History of Any Multi-Drug Resistant Organisms: None Reported Past Surgical History: Appendectomy, Joint Replacement, Orthopedic Surgery, Tubal Ligation Additional Past Surgical History / Comment(s): REPAIR SMALL INTESTINE THAT WAS NICKED DURING TL; arthroscopy left knee; left knee replacement; benign left breast biopsy Past Anesthesia/Blood Transfusion Reactions: No Reported Reaction Past Psychological History: No Psychological Hx Reported Smoking Status: Current every day smoker, Vaper - Past Family History Brother(s) Family Medical History: Cancer Mother Family Medical History: Cancer General Exam Limitations: no limitations General appearance: alert, in no apparent distress Head exam: Present: atraumatic, normocephalic, normal inspection Eye exam: Present: normal appearance, PERRL, EOMI. Absent: scleral icterus, conjunctival injection, periorbital swelling ENT exam: Present: normal exam, mucous membranes moist Neck exam: Present: normal inspection. Absent: tenderness, meningismus, lymphadenopathy Respiratory exam: Present: normal lung sounds bilaterally. Absent: respiratory distress, wheezes, rales, rhonchi, stridor Cardiovascular Exam: Present: regular rate, normal rhythm, normal heart sounds. Absent: systolic murmur, diastolic murmur, rubs, gallop, clicks GI/Abdominal exam: Present: soft, normal bowel sounds. Absent: distended, tenderness, guarding, rebound, rigid Extremities exam: Present: normal inspection, full ROM, normal capillary refill. Absent: tenderness, pedal edema, joint swelling, calf tenderness Back exam: Present: normal inspection Neurological exam: Present: alert, oriented X3, CN II-XII intact Psychiatric exam: Present: normal affect, normal mood Skin exam: Present: warm, dry, intact, normal color. Absent: rash Course Vital Signs 07/19/22 07/19/22 07/19/22 19:05 19:11 20:24 Temperature 998 F H 97.8 F Pulse Rate 76 69 Pulse Rate [ 77 Order Dispatcher Chief ] Respiratory 20 16 Rate Blood Pressure 135/86 128/76 O2 Sat by Pulse 100 99 Oximetry 07/19/22 07/19/22 20:25 22:05 Temperature 97.9 F Pulse Rate 70 Pulse Rate [ Order Dispatcher Chief ] Respiratory 16 16 Rate Blood Pressure 117/68 O2 Sat by Pulse 97 Oximetry Chest Pain MDM - Core Measures AMI Core Measures Followed: Yes - MDM Patient presented with chest pain. Laboratory studies and EKG are within acceptable limits. CT shows no evidence of acute aneurysm or dissection or any other emergency. Patient is feeling better. She has remained symptom-free throughout her stay in [facility]. She is stable for discharge. Disposition Clinical Impression: Atypical chest pain Disposition: HOME SELF-CARE Condition: Good Instructions (If sedation given, give patient instructions): Chest Pain (ED) Is patient prescribed a controlled substance at d/c from ED?: No Referrals: Anton Balderrama MD [Primary Care Provider] - 1-2 days
[2022-07-19 23:01] VITALS: BP 115/78; PULSE 72
== END 2022-07-19 23:08 | disposition home or self-care (01) ==
LOC: EC 19:04
DX: R07.89 Other chest pain (principal); K21.9 Gastro-esophageal reflux disease without esophagitis; M19.90 Unspecified osteoarthritis, unspecified site; F17.290 Nicotine dependence, other tobacco product, uncomplicated; F12.90 Cannabis use, unspecified, uncomplicated; Z79.83 Long term (current) use of bisphosphonates; Z79.899 Other long term (current) drug therapy
CPT/HCPCS: 99285; 36415; 93005; 83880; 80053; 83735; 84484; 85025; 85610; 85730; 71275; 96360; 96361; Q9967

== ENCOUNTER → 2022-07-26 | Outpatient (CLI) | payer MEDICARE ==
[2022-07-26 10:52] VITALS: BP 122/80; PULSE 71; RESP 16; TEMP 98.3
--- NOTE | 2022-07-26 11:32 | P.PN ---
Subjective Progress Note Date: 07/26/22 Principal diagnosis: fibrocystic breast changes fibrocystic breast changes Patient is a 61 year old status post left breast core biopsy on 03-30-19. Pathology revealed fibrocystic changes including fibro adenomatoid hyperplasia/fibroadenoma with calcifications. This was done at 2 sites. She had a bilateral mammogram on 07-07-11. This was noted to be benign, BIRAD 2. The patient has no complaints at this time. She is not complaining of any masses in her breast. No nipple discharge or skin changes. [place] prior examination [place] was [address] she was noted to have bilateral axillary adenopathy, this has resolved at the present time She has no complaints related to her breasts. No masses lumps nipple discharge or skin changes. No complaints of any pain in her breast. Caffeine: 3-4 cups/ coffee per day Nicotine: One pack per 3 days, now vaping chocolate: occasional BCP: in her 20's hormones: none Family history: brother: Skin cancer, Melanoma mother: skin cancer Paternal aunt: Breast cancer Maternal aunt: Thyroid cancer Menarche: 12 Menopause: 49 2 miscaarrages, 1 AB; age at first live : 30, breat fed: no control pills/hormones: Negative hormones: none Social: Smoking: One pack per day for 22 years now 1 pack for 3 days but vapes Alcohol: Negative Drugs: Negative Past surgical history: 1. Ruptured appendix 2. Left total knee 3. Left knee meniscus fixed 4. tubaligation, bowel injury at the same time Medical History: seizure history not had one since 1991 ROS: Constitutional: night sweats HEENT: wears glasses, vertigo Lungs: smoker, cough, emphysema heart: none GI: hiatal hernia : post menopausal, no kidney stones Musculoskeletal:total knee replacement left neurologic: Epilepsy hematologic: none allergies: none breast: as per HPI vascular: aortic aneurysm followed by medical doctor Objective - Vital Signs Vital signs: Vital Signs Temp 98.3 F 07/26/22 10:47 Pulse 71 07/26/22 10:47 Resp 16 07/26/22 10:47 BP 122/80 07/26/22 10:47 Pulse Ox 100 07/26/22 10:47 FiO2 Intake & Output 07/25/22 07/26/22 07/26/22 18:59 06:59 18:59 Weight 63.503 kg - Exam BMI: 24 - Constitutional General appearance: Present: cooperative - EENT Eyes: Present: EOMI ENT: Present: hearing grossly normal - Neck Neck: Present: normal ROM - Respiratory Respiratory: bilateral: CTA - Cardiovascular Rhythm: regular Heart sounds: normal: S1, S2 - Gastrointestinal General gastrointestinal: Present: soft - Integumentary Integumentary: Present: normal turgor - Musculoskeletal Musculoskeletal: Present: gait normal - Psychiatric Psychiatric: Present: A&O x's 3, appropriate affect, intact judgment & insight - Additional findings Additional findings: breast exam: BRA: 38C inspection: grade 2 ptosis bilateral palpation: right breast: Multi-positional exam no dominant masses or nodules of concern Right axilla: No adenopathy of concern Left breast: Multi-positional exam no dominant masses or nodules of concern Left axilla: No adenopathy of concern Assessment and Plan Assessment: Impression: Fibrocystic breast changes recent bilateral mammogram BIRAD 2 Plan: Bilateral mammogram in 1 year with physician exam at that time Patient encouraged to stop smoking Cc: Dr. Balderrama
== END ==
LOC: WWCWWP 10:18
PROVIDERS: ATTEND Surgery
DX: Z12.31 Encounter for screening mammogram for malignant neoplasm of breast (principal); N60.11 Diffuse cystic mastopathy of right breast; N60.12 Diffuse cystic mastopathy of left breast; F17.200 Nicotine dependence, unspecified, uncomplicated; E66.9 Obesity, unspecified; Z68.24 Body mass index [BMI] 24.0-24.9, adult

== ENCOUNTER → 2023-05-19 | Outpatient (CLI) | payer MEDICARE ==
--- NOTE | 2023-05-19 12:40 | CT ---
EXAMINATION TYPE: CT angio chest CT DLP: 404.10 mGycm, Automated exposure control for dose reduction was used. DATE OF EXAM: 05/19/2023 12:01 PM COMPARISON: 07/19/2022 CLINICAL INDICATION:Female, 62 years old with history of I71.2 thoracic aneurysm; f/u thoracic aneury sm/ TECHNIQUE/CONTRAST: CTA scan of the thorax is performed without and with IV Contrast, patient injected with 100 mL of Iso tanner 370, MIP images are created and reviewed these are created on a separate workstation.. FINDINGS: Lungs/Pleura: No evidence of focal consolidation, pleural effusion or pneumothorax. Right upper lung calcified granuloma. Airway: Large airways are patent. Heart: Heart is within normal limits for size. Vasculature: Ascending thoracic aorta, descending thoracic aorta, the aortic arch and visualized abdo yoana aorta are within normal limits for size. No evidence for aneurysm. There is minimal atheroscler otic disease visualized. Single renal arteries bilaterally are patent. Superior mesenteric artery and celiac artery are patent. No evidence for filling defect to suggest pulmonary embolus. Mediastinum: No gross evidence of adenopathy. Musculoskeletal: Moderate degenerative disc disease changes are present throughout the thoracolumbar spine. Soft Tissues: Unremarkable. Lower neck: No significant findings. Upper Abdomen: No significant findings. IMPRESSION: Ascending thoracic aorta, descending thoracic aorta, the aortic arch and visualized abdominal aorta a re within normal limits for size. No evidence for aneurysm.
== END | disposition home or self-care (01) ==
LOC: RADCTMAIN 10:49
PROVIDERS: ATTEND Internal Medicine Interventional Cardiology
DX: I71.20 Thoracic aortic aneurysm, without rupture, unspecified (principal)
CPT/HCPCS: 71275; Q9967

== ENCOUNTER → 2023-08-04 | Outpatient (CLI) | payer MEDICARE ==
--- NOTE | 2023-08-04 11:28 | P.PN ---
Subjective Progress Note Date: 08/04/23 Principal diagnosis: Fibrocystic breast changes fibrocystic breast changes Patient is a 62 year old status post left breast core biopsy on 03-30-19. Pathology revealed fibrocystic changes including fibro adenomatoid hyperplasia/fibroadenoma with calcifications. This was done at 2 sites. She had a bilateral mammogram on 07-07-11. This was noted to be benign, BIRAD 2. The patient has no complaints at this time. She is not complaining of any masses in her breast. No nipple discharge or skin changes. [place] examination [place] [address] she was noted to have bilateral axillary adenopathy, this has resolved at the present time She had a bilateral mammogram and [id number] leading to a left breast diagnostic mammogram and ultrasound. Ultimately a cyst was noted in the left breast and felt to be BIRADS 2. She has no complaints related to her breasts. No masses lumps nipple discharge or skin changes. No complaints of any pain in her breast. She had a stress test performed today. She has stopped smoking but is vaping Caffeine: 3-4 cups/ coffee per day Nicotine: One pack per 3 days, now vaping chocolate: occasional BCP: in her 20's hormones: none Family history: brother: Skin cancer, Melanoma mother: skin cancer Paternal aunt: Breast cancer Maternal aunt: Thyroid cancer Menarche: 12 Menopause: 49 2 miscaarrages, 1 AB; age at first live : 30, breat fed: no control pills/hormones: Negative hormones: none Social: Smoking: One pack per day for 22 years now 1 pack for 3 days but vapes Alcohol: Negative Drugs: Negative Past surgical history: 1. Ruptured appendix 2. Left total knee 3. Left knee meniscus fixed 4. tubaligation, bowel injury at the same time Medical History: seizure history not had one since 1991 ROS: Constitutional: night sweats HEENT: wears glasses, vertigo Lungs: smoker, cough, emphysema heart: none GI: hiatal hernia : post menopausal, no kidney stones Musculoskeletal:total knee replacement left neurologic: Epilepsy hematologic: none allergies: none breast: as per HPI vascular: aortic aneurysm followed by medical doctor Objective - Vital Signs Vital signs: Intake & Output 08/03/23 08/04/23 08/04/23 18:59 06:59 18:59 Weight 73.936 kg - Constitutional General appearance: Present: cooperative - EENT Eyes: Present: EOMI ENT: Present: hearing grossly normal - Neck Neck: Present: normal ROM - Respiratory Respiratory: bilateral: CTA - Cardiovascular Rhythm: regular Heart sounds: normal: S1, S2 - Gastrointestinal General gastrointestinal: Present: soft - Integumentary Integumentary: Present: normal turgor - Musculoskeletal Musculoskeletal: Present: gait normal - Psychiatric Psychiatric: Present: A&O x's 3, appropriate affect, intact judgment & insight - Additional findings Additional findings: breast exam: BRA: 38C inspection: grade 2 ptosis bilateral palpation: right breast: Multi-positional exam no dominant masses or nodules of concern Right axilla: No adenopathy of concern Left breast: Multi-positional exam no dominant masses or nodules of concern Left axilla: No adenopathy of concern Assessment and Plan Assessment: Impression: Fibrocystic breast changes recent bilateral mammogram BIRAD 2; bilateral mammogram 95083 followed by a left breast diagnostic mammogram and ultrasound , this was resolved as BIRADS 2 Plan: Bilateral mammogram in 1 year with physician exam at that time Patient encouraged to stop smoking/vaping Cc: Dr. Balderrama
[2023-08-04 11:38] VITALS: BP 106/67; PULSE 63; RESP 17; TEMP 97.9
== END ==
LOC: WWCWWP 10:55
PROVIDERS: ATTEND Surgery
DX: N60.12 Diffuse cystic mastopathy of left breast (principal); N60.02 Solitary cyst of left breast; F17.290 Nicotine dependence, other tobacco product, uncomplicated; Z80.3 Family history of malignant neoplasm of breast

== ENCOUNTER 2023-12-18 11:06 | Emergency (ER) | payer MEDICARE ==
--- NOTE | 2023-12-18 11:25 | ED ---
General Adult HPI - General Source: patient, RN notes reviewed Mode of arrival: ambulatory Limitations: no limitations <Rigo Craft - Last Filed: 12/18/23 12:18> - General Source: RN notes reviewed, old records reviewed Limitations: no limitations - History of Present Illness -: week(s) Radiation: non-radiation Consistency: constant Improves with: none Worsens with: none Associated Symptoms: confusion, nausea/vomiting, weakness Treatments Prior to Arrival: none <Skyler Mcfadden - Last Filed: 12/28/23 23:24> - General Stated complaint: Flu symptoms Time Seen by Provider: 12/18/23 11:15 - History of Present Illness Initial comments: 62-year-old female presents emergency department with chief complaint of fever chills body aches cough congestion nausea dizziness. Patient states symptoms been going for last few days she was seen at urgent care and they refused to swab her. Patient states that she been exposed to people at sick. Patient states she took her grandson to [employer] but also states that she went other places. Patient states that she was given meclizine and Zofran with no relief of her symptoms. Patient states that she continues to have dizziness, dry heaving even after Zofran. (Rigo Craft) This is a 62-year-old female to ER for evaluation of greater than a week of nausea and vomiting. Patient has persistent vomiting here in the ER with severe dehydration, times can be dizzy and lightheaded especially with change of position or when she stands up. No fevers. She was concerned for flu, was at urgent care earlier this week with no change (Skyler Mcfadden) - Related Data Home Medications Medication Instructions Recorded Confirmed Divalproex [Depakote] 250 mg PO QID 02/12/21 08/04/23 Ergocalciferol [Vitamin D2 (1250 50,000 unit PO BOYD 02/24/22 08/04/23 Mcg = 98624 Iu)] Meloxicam [Mobic] 15 mg PO DAILY 08/04/23 08/04/23 Pantoprazole [Protonix] 40 mg PO DAILY 08/04/23 08/04/23 Previous Rx's Medication Instructions Recorded Aspirin 81 mg PO DAILY chew 02/13/21 Allergies Allergy/AdvReac Type Severity Reaction Status Date / Time No Known Allergies Allergy Verified 08/04/23 11:17 Review of Systems ROS Other: All systems not noted in ROS Statement are negative. <Rigo Craft - Last Filed: 12/18/23 12:18> ROS Other: All systems not noted in ROS Statement are negative. <Skyler Mcfadden - Last Filed: 12/28/23 23:24> ROS Statement: Those systems with pertinent positive or pertinent negative responses have been documented in the HPI. Past Medical History Past Medical History: GERD/Reflux, Osteoarthritis (OA), Seizure Disorder Additional Past Medical History / Comment(s): LAST SEIZURE 02/1992; hiatal hernia, occasional dysphagia, worsening GERD sx., aortic aneurysm near heart per pt. History of Any Multi-Drug Resistant Organisms: None Reported Past Surgical History: Appendectomy, Joint Replacement, Orthopedic Surgery, Tubal Ligation Additional Past Surgical History / Comment(s): REPAIR SMALL INTESTINE THAT WAS NICKED DURING TL; arthroscopy left knee; left knee replacement; benign left breast biopsy Past Anesthesia/Blood Transfusion Reactions: No Reported Reaction Past Psychological History: No Psychological Hx Reported Smoking Status: Current every day smoker, Vaper Past Alcohol Use History: Rare Additional Past Alcohol Use History / Comment(s): HAS BEEN SMOKING 1/2PPD SINCE 1996 (AGE 36) Past Drug Use History: None Reported - Past Family History Brother(s) Family Medical History: Cancer Mother Family Medical History: Cancer <Rigo Craft - Last Filed: 12/18/23 12:18> General Exam <Rigo Craft - Last Filed: 12/18/23 12:18> General appearance: alert, in no apparent distress Head exam: Present: atraumatic, normocephalic, normal inspection Eye exam: Present: normal appearance, PERRL, EOMI. Absent: scleral icterus, conjunctival injection, periorbital swelling ENT exam: Present: normal exam, mucous membranes moist Neck exam: Present: normal inspection. Absent: tenderness, meningismus, lymphadenopathy Respiratory exam: Present: normal lung sounds bilaterally. Absent: respiratory distress, wheezes, rales, rhonchi, stridor Cardiovascular Exam: Present: regular rate, normal rhythm, normal heart sounds. Absent: systolic murmur, diastolic murmur, rubs, gallop, clicks GI/Abdominal exam: Present: soft, normal bowel sounds. Absent: distended, tend erness, guarding, rebound, rigid Extremities exam: Present: normal inspection, full ROM, normal capillary refill. Absent: tenderness, pedal edema, joint swelling, calf tenderness Back exam: Present: normal inspection Neurological exam: Present: alert, oriented X3, CN II-XII intact Psychiatric exam: Present: normal affect, normal mood Skin exam: Present: warm, dry, intact, normal color. Absent: rash <Skyler Mcfadden - Last Filed: 12/28/23 23:24> - General Exam Comments Initial Comments: Visual Physical Exam Vital signs reviewed General: Well-appearing, nontoxic, no acute distress. Head: Normocephalic, atraumatic Eyes: PERRLA, EOMI ENT: Airway patent Chest: Nonlabored breathing Skin: No visual rash, normal skin tone Neuro: Alert and oriented 3 Musculoskeletal: No gross abnormalities (Rigo Craft) Course <Skyler Mcfadden - Last Filed: 12/28/23 23:24> Vital Signs 12/18/23 12/18/23 11:24 14:33 Temperature 97.8 F 97.9 F Pulse Rate 79 70 Respiratory 18 18 Rate Blood Pressure 92/63 98/59 O2 Sat by Pulse 97 97 Oximetry - Reevaluation(s) Reevaluation #1: 12/18/23 12:37 Medical records reviewed (Skyler Mcfadden) Reevaluation #2: 12/18/23 12:38 Patient symptoms unchanged (Skyler Mcfadden) Reevaluation #3: 12/18/23 12:38 Patient informed of results questions answered (Skyler Mcfadden) Reevaluation #4: Was pt. sent in by a medical professional or institution (, PA, POWER GENERATION TECHNICIAN, urgent care, hospital, or shelter...) When possible be specific @ -no Did you speak to anyone other than the patient for history (EMS, parent, family, police, friend...)? What history was obtained from this source @ -no Did you review nursing and triage notes (agree or disagree)? Why? @ -agree Are old charts reviewed (outside hosp., previous admission, EMS record, old EKG, old radiological studies, urgent care reports/EKG's, shelter records)? Report findings @ -yes Differential Diagnosis (chest pain, altered mental status, abdominal pain women, abdominal pain men, vaginal bleeding, weakness, fever, dyspnea, syncope, headache, dizziness, GI bleed, back pain, seizure, CVA, palpatations, mental health, musculoskeletal)? @ -prior EKG interpreted by me (3pts min.). @ -yes X-rays interpreted by me (1pt min.). @ -no CT interpreted by me (1pt min.). @ -no U/S interpreted by me (1pt. min.). @ -no What testing was considered but not performed or refused? (CT, X-rays, U/S, labs)? Why? @ -none What meds were considered but not given or refused? Why? @ -none Did you discuss the management of the patient with other professionals (professionals i.e. , PA, POWER GENERATION TECHNICIAN, lab, RT, psych nurse, nursing home social worker, pulp screen operator, teacher, u[employer] revenue officer, caser shoe parts)? Give summary @ -no Was smoking cessation discussed for >3mins.? @ -no Was critical care preformed (if so, how long)? @ -no Were there social determinants of health that impacted care today? How? (Homelessness, low income, unemployed, alcoholism, drug addiction, transportation, low edu. Level, literacy, decrease access to med. care, fdc, rehab)? @ -none Was there de-escalation of care discussed even if they declined (Discuss DNR or withdrawal of care, Hospice)? DNR status @ -no What co-morbidities impacted this encounter? (DM, HTN, Smoking, COPD, CAD, Cancer, CVA, ARF, Chemo, Hep., AIDS, mental health diagnosis, sleep apnea, morbid obesity)? @ -none Was patient admitted / discharged? Hospital course, mention meds given and route, prescriptions, significant lab abnormalities, going to OR and other pertinent info. @ - 63 female to ER for evaluation of dizziness with nausea vomiting and diarrhea. Symptoms been going on for few days to longer. Patient is symptoms are persistent here in the ER, patient is despite having persistent symptoms improved, patient can be discharged home Discharge Undiagnosed new problem with uncertain prognosis? @ -no Drug Therapy requiring intensive monitoring for toxicity (Heparin, Nitro, Insulin, Cardizem)? @ -no Were any procedures done? @ -no Diagnosis/symptom? @ -Dizziness nausea vomiting diarrhea dehydration Acute, or Chronic, or Acute on Chronic? @ -Acute Uncomplicated (without systemic symptoms) or Complicated (systemic symptoms)? @ -Complicated Side effects of treatment? @ -no Exacerbation, Progression, or Severe Exacerbation? @ -exacerbation Poses a threat to life or bodily function? How? (Chest pain, USA, NM, pneumonia, PE, COPD, DKA, ARF, appy, cholecystitis, CVA, Diverticulitis, Homicidal, Suicidal, threat to staff... and all critical care pts) @ -yes with extremes of age (Skyler Mcfadden) Reevaluation #5: Differential Weakness: Hypoglycemia, shock, sepsis, hyponatremia, anemia, infection, NM, ETOH, adverse medicine reaction, overdose, stroke, this is not meant to be an all-inclusive list. (Skyler Mcfadden) EKG Findings - EKG Comments: EKG Findings:: EKG sinus 66 ND 144 QRS 88 QTc 421 - EKG Results: EKG: interpreted by ERMD <Skyler Mcfadden - Last Filed: 12/28/23 23:24> Medical Decision Making <Rigo Craft - Last Filed: 12/18/23 12:18> - Lab Data Result diagrams: 12/18/23 12:52 12/18/23 12:52 - EKG Data -: EKG Interpreted by Me <Skyler Mcfadden - Last Filed: 12/28/23 23:24> - Medical Decision Making I completed the quick note portion of this chart signed Rigo Craft PA-C (Rigo Craft) 63 female to ER for evaluation of dizziness with nausea vomiting and diarrhea. Symptoms been going on for few days to longer. Patient is symptoms are persistent here in the ER, patient is despite having persistent symptoms improved, patient can be discharged home (Skyler Mcfadden) - Lab Data Lab Results 12/18/23 12/18/23 12/18/23 Range/Units 11:30 12:52 12:52 WBC 5.0 (3.8-10.6) k/uL RBC 4.08 (3.80-5.40) m/uL Hgb 12.1 (11.4-16.0) gm/dL Hct 36.4 (34.0-46.0) % MCV 89.1 (80.0-100.0) fL MCH 29.6 (25.0-35.0) pg MCHC 33.2 (31.0-37.0) g/dL RDW 13.4 (11.5-15.5) % Plt Count 330 (150-450) k/uL MPV 7.8 Neutrophils % 68 % Lymphocytes % 13 % Monocytes % 9 % Eosinophils % 6 % Basophils % 0 % Neutrophils # 3.4 (1.3-7.7) k/uL Lymphocytes # 0.7 L (1.0-4.8) k/uL Monocytes # 0.5 (0-1.0) k/uL Eosinophils # 0.3 (0-0.7) k/uL Basophils # 0.0 (0-0.2) k/uL Sodium 134 L (137-145) mmol/L Potassium 4.0 (3.5-5.1) mmol/L Chloride 100 (98-107) mmol/L Carbon Dioxide 26 (22-30) mmol/L Anion Gap 8 mmol/L BUN 39 H (7-17) mg/dL Creatinine 1.20 H (0.52-1.04) mg/dL Est GFR (CKD-EPI)AfAm 56 (>60 ml/min/1.73 sqM) Est GFR (CKD-EPI)NonAf 48 (>60 ml/min/1.73 sqM) Glucose 95 (74-99) mg/dL Plasma Lactic Acid Arron (0.7-2.0) mmol/L Calcium 9.0 (8.4-10.2) mg/dL Phosphorus 3.9 (2.5-4.5) mg/dL Magnesium 2.4 H (1.6-2.3) mg/dL Total Bilirubin 0.4 (0.2-1.3) mg/dL AST 20 (14-36) U/L ALT 11 (4-34) U/L Alkaline Phosphatase 61 (38-126) U/L Total Protein 5.8 L (6.3-8.2) g/dL Albumin 3.3 L (3.5-5.0) g/dL Urine Color Urine Appearance (Clear) Urine pH (5.0-8.0) Ur Specific [place] (1.001-1.035) Urine Protein (Negative) Urine Glucose (UA) (Negative) Urine Ketones (Negative) Urine Blood (Negative) Urine Nitrite (Negative) Urine Bilirubin (Negative) Urine Urobilinogen (<2.0) mg/dL Ur Leukocyte Esterase (Negative) Urine RBC (0-5) /hpf Urine WBC (0-5) /hpf Ur Squamous Epith Cells (0-4) /hpf Hyaline Casts (0-2) /lpf Urine Mucus (None) /hpf Influenza Type A (PCR) Not Detected (Not Detectd) Influenza Type B (PCR) Not Detected (Not Detectd) RSV (PCR) Not Detected (Not Detectd) SARS-CoV-2 (PCR) Not Detected (Not Detectd) 12/18/23 12/18/23 Range/Units 12:52 12:52 WBC (3.8-10.6) k/uL RBC (3.80-5.40) m/uL Hgb (11.4-16.0) gm/dL Hct (34.0-46.0) % MCV (80.0-100.0) fL MCH (25.0-35.0) pg MCHC (31.0-37.0) g/dL RDW (11.5-15.5) % Plt Count (150-450) k/uL MPV Neutrophils % % Lymphocytes % % Monocytes % % Eosinophils % % Basophils % % Neutrophils # (1.3-7.7) k/uL Lymphocytes # (1.0-4.8) k/uL Monocytes # (0-1.0) k/uL Eosinophils # (0-0.7) k/uL Basophils # (0-0.2) k/uL Sodium (137-145) mmol/L Potassium (3.5-5.1) mmol/L Chloride (98-107) mmol/L Carbon Dioxide (22-30) mmol/L Anion Gap mmol/L BUN (7-17) mg/dL Creatinine (0.52-1.04) mg/dL Est GFR (CKD-EPI)AfAm (>60 ml/min/1.73 sqM) Est GFR (CKD-EPI)NonAf (>60 ml/min/1.73 sqM) Glucose (74-99) mg/dL Plasma Lactic Acid Arron 0.7 (0.7-2.0) mmol/L Calcium (8.4-10.2) mg/dL Phosphorus (2.5-4.5) mg/dL Magnesium (1.6-2.3) mg/dL Total Bilirubin (0.2-1.3) mg/dL AST (14-36) U/L ALT (4-34) U/L Alkaline Phosphatase (38-126) U/L Total Protein (6.3-8.2) g/dL Albumin (3.5-5.0) g/dL Urine Color Light Yellow Urine Appearance Clear (Clear) Urine pH 6.0 (5.0-8.0) Ur Specific [place] 1.025 (1.001-1.035) Urine Protein Trace H (Negative) Urine Glucose (UA) Negative (Negative) Urine Ketones 1+ (Negative) Urine Blood Negative (Negative) Urine Nitrite Negative (Negative) Urine Bilirubin Negative (Negative) Urine Urobilinogen 2.0 (<2.0) mg/dL Ur Leukocyte Esterase Negative (Negative) Urine RBC 1 (0-5) /hpf Urine WBC 3 (0-5) /hpf Ur Squamous Epith Cells <1 (0-4) /hpf Hyaline Casts 1 (0-2) /lpf Urine Mucus Few H (None) /hpf Influenza Type A (PCR) (Not Detectd) Influenza Type B (PCR) (Not Detectd) RSV (PCR) (Not Detectd) SARS-CoV-2 (PCR) (Not Detectd) Disposition <Rigo Craft M - Last Filed: 12/18/23 12:18> Is patient prescribed a controlled substance at d/c from ED?: No Time of Disposition: 14:00 <Skyler Mcfadden - Last Filed: 12/28/23 23:24> Clinical Impression: Dehydration, Gastroenteritis Disposition: HOME SELF-CARE Condition: Good Instructions (If sedation given, give patient instructions): Acute Nausea and Vomiting (ED), Acute Diarrhea (ED) Referrals: Anton Balderrama MD [Primary Care Provider] - 1-2 days
[2023-12-18 11:37] VITALS: RESP 18
[2023-12-18] MEDS: SODIUM CHLORIDE 0.9% 1,000 ML IV STA (13:08)
[2023-12-18] MEDS: ONDANSETRON 4 MG/2 ML VIAL IVP STA (13:09)
[2023-12-18] MEDS: KETOROLAC 15 MG/ML 1 ML VIAL IVP STA (13:11)
[2023-12-18] MEDS: PANTOPRAZOLE 40 MG/10 ML VIAL IVP STA (13:14)
[2023-12-18 13:29] LABS: Basophils % (A) 0 %; Eosinophils # (A) 0.3 k/uL (0-0.7); Eosinophils % (A) 6 %; HCT 36.4 % (34.0-46.0); HGB 12.1 gm/dL (11.4-16.0); Lymphocytes # (A) 0.7 k/uL (1.0-4.8); Lymphocytes % (A) 13 %; MCH 29.6 pg (25.0-35.0); MCHC 33.2 g/dL (31.0-37.0); MCV 89.1 fL (80.0-100.0); Mean Platelet Volume 7.8; Monocytes # (A) 0.5 k/uL (0-1.0); Monocytes % (A) 9 %; Neutrophils # (A) 3.4 k/uL (1.3-7.7); Neutrophils % (A) 68 %; Platelet Count 330 k/uL (150-450); RBC 4.08 m/uL (3.80-5.40); RDW 13.4 % (11.5-15.5)
[2023-12-18 13:44] LABS: ALT 11 U/L (4-34); AST 20 U/L (14-36); African American GFR (CKD) 56 (>60 ml/min/1.73 sqM); Albumin 3.3 g/dL (3.5-5.0); Alkaline Phosphatase 61 U/L (38-126); Anion Gap 8 mmol/L; Blood Urea Nitrogen 39 mg/dL (7-17); Carbon Dioxide 26 mmol/L (22-30); Chloride 100 mmol/L (98-107); Glucose 95 mg/dL (74-99); Magnesium 2.4 mg/dL (1.6-2.3); Non-African American GFR(CKD) 48 (>60 ml/min/1.73 sqM); Phosphorus 3.9 mg/dL (2.5-4.5); Sodium 134 mmol/L (137-145); Total Bilirubin 0.4 mg/dL (0.2-1.3); Total Protein 5.8 g/dL (6.3-8.2)
[2023-12-18 13:58] LABS: Hyaline Casts,Urine 1 /lpf (0-2); Mucus,Urine Few /hpf; RBC,Urine 1 /hpf (0-5); Squamous Epithelial Cell,Urine <1 /hpf (0-4); WBC,Urine 3 /hpf (0-5)
[2023-12-18 14:01] LABS: Appearance,Urine Clear (Clear); Bilirubin,Urine Negative (Negative); Color,Urine Light Yellow; Glucose,Urine (UA) Negative (Negative); Ketones,Urine 1+ (Negative); Specific Gravity,Urine 1.025 (1.001-1.035)
[2023-12-18 14:02] LABS: Blood,Urine Negative (Negative); Leukocyte Esterase,Urine Negative (Negative); Nitrite,Urine Negative (Negative)
[2023-12-18 14:10] LABS: Protein,Urine Trace (Negative)
[2023-12-18 14:47] VITALS: BP 98/59; PULSE 70; TEMP 97.9
== END 2023-12-18 14:48 | disposition home or self-care (01) ==
LOC: EC 11:06
DX: K52.9 Noninfective gastroenteritis and colitis, unspecified (principal); E86.0 Dehydration; K21.9 Gastro-esophageal reflux disease without esophagitis; M19.90 Unspecified osteoarthritis, unspecified site; F17.290 Nicotine dependence, other tobacco product, uncomplicated; Z79.1 Long term (current) use of non-steroidal anti-inflammatories (NSAID); Z79.899 Other long term (current) drug therapy; Z20.822 Contact with and (suspected) exposure to COVID-19
CPT/HCPCS: 36415; 93005; 80053; 83605; 83735; 84100; 85025; 81003; 81001; 87636; 99284; 96374; 96375 ×2; 96361 ×2; J2405; J1885; C9113

== ENCOUNTER 2024-02-17 17:37 | Inpatient (IN) | payer MEDICARE ==
--- NOTE | 2024-02-17 18:45 | ED ---
General Adult HPI - General Chief complaint: Abdominal Pain Stated complaint: abd pain Time Seen by Provider: 02/17/24 17:57 Source: patient, RN notes reviewed Mode of arrival: ambulatory Limitations: no limitations - History of Present Illness Initial comments: Patient is a 63-year-old female presenting to the emergency department with concerns with abdominal discomfort. Onset of symptoms was yesterday. Symptoms have continued. Patient has had some nausea, vomiting, constipation and diarrhea. No fever. Discomfort is mostly right upper abdomen. Discomfort is positional. Discomfort does radiate towards the back. - Related Data Home Medications Medication Instructions Recorded Confirmed Divalproex [Depakote] 250 mg PO QID 02/12/21 08/04/23 Ergocalciferol [Vitamin D2 (1250 50,000 unit PO BOYD 02/24/22 08/04/23 Mcg = 11788 Iu)] Meloxicam [Mobic] 15 mg PO DAILY 08/04/23 08/04/23 Pantoprazole [Protonix] 40 mg PO DAILY 08/04/23 08/04/23 Previous Rx's Medication Instructions Recorded Aspirin 81 mg PO DAILY chew 02/13/21 Allergies Allergy/AdvReac Type Severity Reaction Status Date / Time No Known Allergies Allergy Verified 02/17/24 17:41 Review of Systems ROS Statement: Those systems with pertinent positive or pertinent negative responses have been documented in the HPI. ROS Other: All systems not noted in ROS Statement are negative. Constitutional: Denies: fever Eyes: Denies: eye pain ENT: Denies: ear pain Respiratory: Denies: dyspnea Cardiovascular: Reports: chest pain Endocrine: Denies: fatigue Gastrointestinal: Reports: abdominal pain, nausea, vomiting, diarrhea, c onstipation Genitourinary: Denies: dysuria Musculoskeletal: Reports: as per HPI Neurological: Denies: weakness Past Medical History Past Medical History: GERD/Reflux, Osteoarthritis (OA), Seizure Disorder Additional Past Medical History / Comment(s): LAST SEIZURE 02/1992; hiatal hernia, occasional dysphagia, worsening GERD sx., aortic aneurysm near heart per pt. History of Any Multi-Drug Resistant Organisms: None Reported Past Surgical History: Appendectomy, Joint Replacement, Orthopedic Surgery, Tubal Ligation Additional Past Surgical History / Comment(s): REPAIR SMALL INTESTINE THAT WAS NICKED DURING TL; arthroscopy left knee; left knee replacement; benign left breast biopsy Past Anesthesia/Blood Transfusion Reactions: No Reported Reaction Past Psychological History: No Psychological Hx Reported Smoking Status: Never smoker, Vaper Past Alcohol Use History: Rare Past Drug Use History: None Reported - Past Family History Brother(s) Family Medical History: Cancer Mother Family Medical History: Cancer General Exam Limitations: no limitations General appearance: alert, in no apparent distress Head exam: Present: normocephalic Eye exam: Present: normal appearance Neck exam: Present: normal inspection Respiratory exam: Present: normal lung sounds bilaterally Cardiovascular Exam: Present: tachycardia GI/Abdominal exam: Present: soft, tenderness (Moderate to severe tenderness right upper), normal bowel sounds. Absent: distended, guarding, rebound, rigid, pulsatile mass Extremities exam: Present: normal inspection. Absent: pedal edema, calf tenderness Neurological exam: Present: alert Psychiatric exam: Present: normal affect, normal mood Skin exam: Present: normal color Course Vital Signs 02/17/24 02/17/24 17:39 19:58 Temperature 98.6 F Pulse Rate 112 H 94 Respiratory 18 18 Rate Blood Pressure 100/58 111/76 O2 Sat by Pulse 98 97 Oximetry EKG Findings - EKG Results: EKG: interpreted by ERMD (Left axis. Poor R wave progression. Nonspecific T waves.), sinus rhythm Medical Decision Making - Medical Decision Making Was pt. sent in by a medical professional or institution (LIZZETTE Sylvester, NURSE CONSULTANT, urgent care, hospital, or alf...) When possible be specific @ -Patient was sent over by the clinic Did you speak to anyone other than the patient for history (EMS, parent, family, police, friend...)? What history was obtained from this source @ -No Did you review nursing and triage notes (agree or disagree)? Why? @ -I reviewed and agree with nursing and triage notes Were old charts reviewed (outside hosp., previous admission, EMS record, old EKG, old radiological studies, urgent care reports/EKG's, alf records)? Report findings @ -No old charts were reviewed Differential Diagnosis (chest pain, altered mental status, abdominal pain women, abdominal pain men, vaginal bleeding, weakness, fever, dyspnea, syncope, headache, dizziness, GI bleed, back pain, seizure, CVA, palpatations, mental health, musculoskeletal)? @ -Differential Abdominal Pain Women: Appendicitis, Cholecystitis, diverticulosis, ischemic bowel, pancreatitis, hepatitis, UTI, gastroenteritis, AAA, incarcerated hernia, bowel obstruction, constipation, inflammatory bowel, hepatitis, peptic ulcer disease, splenic infarction, perforated viscus, vulvitis, ovarian torsion, PID, kidney stone, placenta abruption, this is not meant to be an all-inclusive list EKG interpreted by me (3pts min.). @ -As above X-rays interpreted by me (1pt min.). @ -Chest and abdominal x-ray showed pneumoperitoneum CT interpreted by me (1pt min.). @ -CT abdomen pelvis shows pneumoperitoneum. Questionable pelvic mass. Radiologist interpretation pending U/S interpreted by me (1pt. min.). @ -None done What testing was considered but not performed or refused? (CT, X-rays, U/S, labs)? Why? @ -None What meds were considered but not given or refused? Why? @ -None Did you discuss the management of the patient with other professionals (professionals i.e. , PA, NURSE CONSULTANT, lab, RT, psych nurse, secondary social studies teacher, adult caregiver, teacher, strategic debriefing officer, bilingual case manager)? Give summary @ -Case was discussed in detail with Dr. Mccormack who did review the films and will admit. Was smoking cessation discussed for >3mins.? @ -No Was critical care preformed (if so, how long)? @ -[N 31 minutes critical care to Were there social determinants of health that impacted care today? How? (H omelessness, low income, unemployed, alcoholism, drug addiction, transportation, low edu. Level, literacy, decrease access to med. care, correction, rehab)? @ -No Was there de-escalation of care discussed even if they declined (Discuss DNR or withdrawal of care, Hospice)? DNR status @ -No What co-morbidities impacted this encounter? (DM, HTN, Smoking, COPD, CAD, Cancer, CVA, ARF, Chemo, Hep., AIDS, mental health diagnosis, sleep apnea, morbid obesity)? @ -None Was patient admitted / discharged? Hospital course, mention meds given and route, prescriptions, significant lab abnormalities, going to OR and other pertinent info. @ -Patient presents with abdominal pain with radiation up to the shoulder. Patient presents somewhat similar to biliary colic. Abdominal x-rays and CT scan been ordered. CT scan pending radiologist read is concerning for pneumoperitoneum. Blood culture and lactic acid and IV antibiotics ordered. Concern for sepsis at 2119. Admission orders written. Undiagnosed new problem with uncertain prognosis? @ -No Drug Therapy requiring intensive monitoring for toxicity (Heparin, Nitro, Insulin, Cardizem)? @ -No Were any procedures done? @ -No Diagnosis/symptom? @ -Pneumoperitoneum Acute, or Chronic, or Acute on Chronic? @ -Acute Uncomplicated (without systemic symptoms) or Complicated (systemic symptoms)? @ -Default Side effects of treatment? @ -No Exacerbation, Progression, or Severe Exacerbation? @ -No Poses a threat to life or bodily function? How? (Chest pain, USA, [place], pneumonia, PE, COPD, DKA, ARF, appy, cholecystitis, CVA, Diverticulitis, Homicidal, Suicidal, threat to staff... and all critical care pts) @ -No - Lab Data Result diagrams: 02/17/24 19:15 02/17/24 19:18 Lab Results 02/17/24 02/17/24 02/17/24 Range/Units 19:15 19:18 19:18 WBC 11.7 H (3.8-10.6) k/uL RBC 4.30 (3.80-5.40) m/uL Hgb 12.5 (11.4-16.0) gm/dL Hct 38.8 (34.0-46.0) % MCV 90.3 (80.0-100.0) fL MCH 29.1 (25.0-35.0) pg MCHC 32.2 (31.0-37.0) g/dL RDW 14.0 (11.5-15.5) % Plt Count 201 (150-450) k/uL MPV 8.5 Neutrophils % 85 % Lymphocytes % 9 % Monocytes % 5 % Eosinophils % 1 % Basophils % 0 % Neutrophils # 10.0 H (1.3-7.7) k/uL Lymphocytes # 1.0 (1.0-4.8) k/uL Monocytes # 0.6 (0-1.0) k/uL Eosinophils # 0.1 (0-0.7) k/uL Basophils # 0.0 (0-0.2) k/uL PT 11.8 (10.0-12.5) sec INR 1.1 (<1.2) APTT 27.2 (22.0-30.0) sec D-Dimer 1.28 H (<0.60) mg/L FEU Sodium 137 (137-145) mmol/L Potassium 4.6 (3.5-5.1) mmol/L Chloride 103 (98-107) mmol/L Carbon Dioxide 23 (22-30) mmol/L Anion Gap 11 mmol/L BUN 33 H (7-17) mg/dL Creatinine 0.91 (0.52-1.04) mg/dL Est GFR (CKD-EPI)AfAm 77 (>60 ml/min/1.73 sqM) Est GFR (CKD-EPI)NonAf 67 (>60 ml/min/1.73 sqM) Glucose 96 (74-99) mg/dL Calcium 9.5 (8.4-10.2) mg/dL Total Bilirubin 0.9 (0.2-1.3) mg/dL AST 19 (14-36) U/L ALT 11 (4-34) U/L Alkaline Phosphatase 64 (38-126) U/L Troponin I (0.000-0.034) ng/mL Total Protein 7.2 (6.3-8.2) g/dL Albumin 4.2 (3.5-5.0) g/dL Amylase 40 (30-110) U/L Lipase 21 L (23-300) U/L 02/17/24 Range/Units 19:18 WBC (3.8-10.6) k/uL RBC (3.80-5.40) m/uL Hgb (11.4-16.0) gm/dL Hct (34.0-46.0) % MCV (80.0-100.0) fL MCH (25.0-35.0) pg MCHC (31.0-37.0) g/dL RDW (11.5-15.5) % Plt Count (150-450) k/uL MPV Neutrophils % % Lymphocytes % % Monocytes % % Eosinophils % % Basophils % % Neutrophils # (1.3-7.7) k/uL Lymphocytes # (1.0-4.8) k/uL Monocytes # (0-1.0) k/uL Eosinophils # (0-0.7) k/uL Basophils # (0-0.2) k/uL PT (10.0-12.5) sec INR (<1.2) APTT (22.0-30.0) sec D-Dimer (<0.60) mg/L FEU Sodium (137-145) mmol/L Potassium (3.5-5.1) mmol/L Chloride (98-107) mmol/L Carbon Dioxide (22-30) mmol/L Anion Gap mmol/L BUN (7-17) mg/dL Creatinine (0.52-1.04) mg/dL Est GFR (CKD-EPI)AfAm (>60 ml/min/1.73 sqM) Est GFR (CKD-EPI)NonAf (>60 ml/min/1.73 sqM) Glucose (74-99) mg/dL Calcium (8.4-10.2) mg/dL Total Bilirubin (0.2-1.3) mg/dL AST (14-36) U/L ALT (4-34) U/L Alkaline Phosphatase (38-126) U/L Troponin I <0.012 (0.000-0.034) ng/mL Total Protein (6.3-8.2) g/dL Albumin (3.5-5.0) g/dL Amylase (30-110) U/L Lipase (23-300) U/L Critical Care Time Critical Care Time: Yes Disposition Clinical Impression: Pneumoperitoneum Disposition: ADMITTED IP TO THIS [facility] Condition: Serious Is patient prescribed a controlled substance at d/c from ED?: No Referrals: Anton Balderrama MD [Primary Care Provider] - 1-2 days Time of Disposition: 21:43
[2024-02-17] MEDS: ONDANSETRON 4 MG/2 ML VIAL IVP STA (19:18)
[2024-02-17] MEDS: KETOROLAC 15 MG/ML 1 ML VIAL IVP STA (19:19)
[2024-02-17] MEDS: FAMOTIDINE 20 MG/2 ML VIAL IV STA (19:19)
[2024-02-17] MEDS: SODIUM CHLORIDE 0.9% 1,000 ML IV STA ×2 (19:21→22:48)
[2024-02-17 19:51] LABS: ALT 11 U/L (4-34); AST 19 U/L (14-36); African American GFR (CKD) 77 (>60 ml/min/1.73 sqM); Albumin 4.2 g/dL (3.5-5.0); Alkaline Phosphatase 64 U/L (38-126); Amylase 40 U/L (30-110); Anion Gap 11 mmol/L; Blood Urea Nitrogen 33 mg/dL (7-17); Calcium 9.5 mg/dL (8.4-10.2); Carbon Dioxide 23 mmol/L (22-30); Chloride 103 mmol/L (98-107); Glucose 96 mg/dL (74-99); Lipase 21 U/L (23-300); Non-African American GFR(CKD) 67 (>60 ml/min/1.73 sqM); Potassium 4.6 mmol/L (3.5-5.1); Sodium 137 mmol/L (137-145); Total Bilirubin 0.9 mg/dL (0.2-1.3); Total Protein 7.2 g/dL (6.3-8.2)
[2024-02-17 19:55] LABS: INR 1.1 (<1.2); Partial Thromboplastin Time 27.2 sec (22.0-30.0); Prothrombin Time 11.8 sec (10.0-12.5)
[2024-02-17 19:58] LABS: Basophils % (A) 0 %; Eosinophils # (A) 0.1 k/uL (0-0.7); Eosinophils % (A) 1 %; HCT 38.8 % (34.0-46.0); HGB 12.5 gm/dL (11.4-16.0); Lymphocytes % (A) 9 %; MCH 29.1 pg (25.0-35.0); MCHC 32.2 g/dL (31.0-37.0); MCV 90.3 fL (80.0-100.0); Mean Platelet Volume 8.5; Monocytes # (A) 0.6 k/uL (0-1.0); Monocytes % (A) 5 %; Neutrophils % (A) 85 %; Platelet Count 201 k/uL (150-450); WBC 11.7 k/uL (3.8-10.6)
--- NOTE | 2024-02-17 20:14 | XR ---
EXAMINATION TYPE: XR chest 2V DATE OF EXAM: 02/17/2024 7:53 PM CLINICAL INDICATION:Female, 63 years old with history of abdominal pain; [facility] COMPARISON: Ultrasound gallbladder 02/17/2024 TECHNIQUE: XR chest 2V. Frontal and lateral views of the chest.. FINDINGS: Lines/Tubes/Devices: No indwelling lines are seen. Heart/mediastinum: Heart size is normal. Mediastinum appears normal. Pulmonary vascularity: Not increased, Lungs/Pleura: Mild platelike atelectasis in the right infrahilar region. Otherwise no consolidation, sizable effusion, or pneumothorax. Musculoskeletal: No acute osseous abnormality demonstrated in the limits of the exam. Mild degenerative changes. Other findings: Small volume pneumoperitoneum is seen beneath the bilateral hemidiaphragm. IMPRESSION: 1. Mild platelike atelectasis in the right infrahilar region. Otherwise no acute cardiopulmonary abn ormality. 2. Pneumoperitoneum is seen. In the absence of recent abdominal surgery, this is highly concerning f or perforated viscus. Correlate clinically.
--- NOTE | 2024-02-17 20:18 | XR ---
EXAMINATION TYPE: XR KUB DATE OF EXAM: 02/17/2024 7:53 PM CLINICAL INDICATION:Female, 63 years old with history of abdominal pain; [facility] COMPARISON: Same day chest x-ray TECHNIQUE: Upright radiographic view/s of the abdomen/pelvis obtained. FINDINGS: Small volume pneumoperitoneum seen beneath the hemidiaphragms. Nonspecific, likely nonobstructive bow el gas pattern with scattered gas seen throughout the bowel loops. Relative less gas in the colon. No pathologic calcifications are seen. No pathologic calcifications are seen. Degenerative changes spine with moderate S-shaped thoracolumbar scoliosis. Bilateral hip arthropathy. No acute osseous findings. IMPRESSION: 1. Pneumoperitoneum is seen. In the absence of recent abdominal surgery, this is highly concerning f or perforated viscus. Correlate clinically. 2. Nonspecific, likely nonobstructive bowel gas pattern. If concern persists, CT may be obtained for better evaluation.
[2024-02-17] MEDS ORDERED: NALOXONE 0.4 MG/ML 1 ML VIAL IV PRN (21:43)
[2024-02-17] MEDS: metroNIDAZOLE-NS PMX 500 MG in SALINE 1 100ML.BAG IVPB ONE (22:08)
[2024-02-17] MEDS: MORPHINE SULFATE 4 MG/ML SYRINGE IVP STA (22:13)
[2024-02-17] MEDS: PANTOPRAZOLE 40 MG/10 ML VIAL IV SCH (22:15)
--- NOTE | 2024-02-17 22:19 | CT ---
EXAMINATION TYPE: CT abdomen pelvis w con CT DLP: Combined DLP of 985.5 mGycm, Automated exposure control for dose reduction was used. DATE OF EXAM: 02/17/2024 8:50 PM COMPARISON: Same day chest and abdomen radiographs CLINICAL INDICATION:Female, 63 years old with history of abp; Free air on XR. Severe abd pain. TECHNIQUE: Axial CT of the abdomen and pelvis. Sagittal and coronal reformats were created on a [employer] workstation. Contrast used:100 mL of Isovue 300 with IV Contrast, (none if empty) Oral contrast used: without Oral Contrast (none if empty) FINDINGS: LOWER CHEST: Lung bases are clear. Heart is mildly enlarged. ABDOMEN LIVER: Tiny hypodensity in the left lobe, likely cyst or hemangioma. GALLBLADDER AND BILE DUCTS: Unremarkable gallbladder. No biliary ductal dilatation. PANCREAS: Unremarkable. SPLEEN: Unremarkable. ADRENAL GLANDS: Unremarkable. KIDNEYS AND URETERS: Kidneys enhance symmetrically. No evidence of hydronephrosis or visible renal ca lculus. The ureters are unremarkable. Small cyst of the posterior right kidney. PELVIS BLADDER: Nearly empty, not well assessed REPRODUCTIVE: Organs are present, not well evaluated by CT. Small peripherally enhancing structure on the right in the region of the mid uterine body, nonspecific. The ovaries appear enlarged with heter ogeneous areas of increased and decreased attenuation. Right ovary/ovarian lesion measures up to 6.2 cm, left up to 5.4 cm. ABDOMEN & PELVIS STOMACH AND BOWEL: Stomach and small bowel are nondistended, no evidence of obstruction. Appendix i s not identified with certainty. There is some fluid seen in the right colon, including gas seen thro ughout the more distal colonic segments. Mildly thickened appearance of the distal colonic wall. Ther e seemed to be a few scattered diverticula in the region. There is an abnormal fluid and gas containi ng collection seen within this region, approximately 4.1 x 4.2 cm in size situated In the presacral region. Uncertain, but likely this originates from bowel. PERITONEUM/RETROPERITONEUM: Moderate amount of free air is seen within the abdomen, most of which i s perihepatic. VASCULATURE: Mild atherosclerotic calcifications are present throughout the abdominal aorta and its b ranches. No evidence of aortic aneurysm. LYMPH NODES: No enlarged nodes by CT size criteria. SOFT TISSUE/ABDOMINAL WALL: Small umbilical hernia, contains fat and a portion of the pneumoperitoneu m. MUSCULOSKELETAL: No acute osseous abnormalities. Mild/moderate disc degeneration changes are present throughout the thoracolumbar spine. IMPRESSION: 1. Moderate amount of pneumoperitoneum, of uncertain origin. Perforated viscus is the primary consid eration. 2. There seems to be extraluminal fluid and gas containing collection within the pelvis, which may r epresent contained perforation from the distal colon. 3. Other chronic and likely incidental findings, as described above.
[2024-02-17] MEDS: SODIUM CHLORIDE 0.9% 1,000 ML IV SCH (23:17)
--- NOTE | 2024-02-18 00:09 | US ---
EXAMINATION TYPE: US gallbladder DATE OF EXAM: 02/17/2024 COMPARISON: CT same day 02/17/2024 CLINICAL INDICATION: Female, 63 years old with history of pain; Pain. Hx appendectomy. TECHNIQUE: Multiple sonographic images of the right upper quadrant are obtained. FINDINGS: EXAM MEASUREMENTS: Liver Length: 16.6 cm Gallbladder Wall: 0.23 cm CBD: Obscured Right Kidney: 10.4 x 5.6 x 4.2 cm ORCHARD PRUNER NOTES: Exam is limited due to gas. Pancreas: Limited, Tail was not seen. Liver: Anechoic area seen left lobe measurin.8 x 0.8 x 0.8 cm. Consistent with a cyst. Gallbladder: Appears wnl Evidence for sonographic Ballesteros's sign: No CBD: Obscured Right Kidney: No hydronephrosis or masses seen IMPRESSION: 1. Study is limited due to gas, pancreatic tail and CBD are obscured. 2. No acute abnormality is observed.
[2024-02-18] MEDS: LEVOFLOXACIN 750MG-D5W PMX 750 MG in DEXTROSE/WATER 1 150ML.BAG IVPB SCH (00:43)
--- NOTE | 2024-02-18 01:02 | CT ---
EXAMINATION TYPE: CT angio chest CT DLP: Combined DLP of 985.5 mGycm, Automated exposure control for dose reduction was used. DATE OF EXAM: 02/17/2024 9:00 PM COMPARISON: Same date chest x-ray CLINICAL INDICATION:Female, 63 years old with history of cp; Elevated D-dimer TECHNIQUE/CONTRAST: CTA scan of the thorax is performed with IV Contrast, patient injected with 100 mL of Isovue 300, MIP images are created and reviewed these are created on a separate workstation.. FINDINGS: There is adequate contrast bolus and timing. PULMONARY ARTERIES: There is no evidence for a filling defect within the pulmonary vasculature to sug gest acute pulmonary embolism. Pulmonary trunk is normal in size. Trunk measures 2.4 CM. AORTA: Mild atherosclerotic calcifications of the aorta and branches. Ascending aorta is mildly fusi form ectatic measuring up to 3.7 CM, descending is 2.1 CM. No dissection flap is seen. HEART: Normal heart size. No significant coronary arterial calcifications are seen. No appreciable p ericardial effusion. LOWER NECK: No significant findings. MEDIASTINUM: No enlarged nodes by CT size criteria. SOFT TISSUES/AXILLA: Unremarkable soft tissues. No axillary adenopathy. LUNGS/ PLEURA: Mild to moderate pulmonary emphysematous changes. No acute infiltrate, pleural effusio n, or pneumothorax. AIRWAY: Central airways are patent. MUSCULOSKELETAL: No acute osseous abnormality. Mild degenerative changes. UPPER ABDOMEN: Moderate volume pneumoperitoneum, most evident adjacent to the liver and outlining the falciform ligament. IMPRESSION: 1. No evidence of pulmonary embolism. 2. No other acute chest process demonstrated. 3. Mild fusiform ectasia of the ascending aorta. 4. Moderate amount of pneumoperitoneum.
--- NOTE | 2024-02-18 01:31 | P.GSHP ---
History of Present Illness H&P Date: 02/18/24 CHIEF COMPLAINT: Abdominal pain HISTORY OF PRESENT ILLNESS: The patient is a 63 year female who reports at least 1 month history of diarrhea and upper abdominal pain sharp and crampy in nature. She reports stabbing pain of the right upper quadrant rating to the right upper back ongoing for over 1 month. She had seen multiple providers including her primary care provider and was diagnosed with possible gallstones. She reports acute onset upper abdominal pain including lower abdominal pain with diarrhea earlier today. Pain was 10 out of 10. She presented to the emergency room. Patient reports spasms. She reports rectal pain as well. Diagnostic studies demonstrated free air. Patient admitted due to acute abdomen. Patient reports eating moderate amount of peanut and popcorn in the past 3 to 5 days. No reports of blood in stools. PAST MEDICAL HISTORY: See list and reviewed PAST SURGICAL HISTORY: See list and reviewed MEDICATIONS: See list and reviewed ALLERGIES: See list and reviewed SOCIAL HISTORY: See list and reviewed FAMILY HISTORY: See list and reviewed REVIEW OF ORGAN SYSTEMS: CONSTITUTIONAL: No fevers or chills. No recent weight loss. EYES: Denies any trouble with vision. Wears glasses. HEENT: No difficulties with hearing. No nosebleeds. No difficulty swallowing. RESPIRATORY: Denies pneumonia. Denies any troubles with breathing or dyspnea on exertion. CARDIOVASCULAR: Denies any chest pain, palpitations, or recent heart attacks. GASTROINTESTINAL: Reports change in bowel habits. Previous history of bowel perforation. History of gastroesophageal reflux disease. GENITOURINARY: Denies any blood in urine or increased urinary frequency. NEUROLOGICAL: Denies any numbness or tingling along the distal extremities. No seizure disorders or headaches. MUSCULOSKELETAL: Denies any back pain, stiffness or joint arthritis. SKIN: No current skin cancer. No rash. PSYCHIATRIC: Denies current depression or suicidal thoughts. ENDOCRINE: Denies current thyroid disorders. Denies any blood sugar glucose intolerance. HEME/LYMPHATIC: Denies any lumps and bumps around the neck. No recent deep venous thrombosis. ALLERGY/IMMUNOLOGY: No immunoglobulin therapy. No immune deficiencies. BREAST: Denies current breast lumps, pain or nipple discharge. PHYSICAL EXAM: VITALS: Reviewed CONSTITUTIONAL: Well developed. She is nontoxic in appearance. EYES: Conjuctivae without sclera icterus. Extraocular movements grossly intact. HEAD, EARS, NOSE, THROAT: Moist buccal mucosa. Head is atraumatic, normocephalic. Hears conversational speech. No nasal drainage. NECK: Supple. No JV distention. No thyroidomegaly. RESPIRATORY: Non-labored respirations and equal bilateral excursions. No gross wheezes. CARDIOVASCULAR: Palpable 2+ radial pulses. ABDOMEN: Diffusely tender. No diffuse peritonitis. LYMPH: No neck lymphadenopathy. MUSCULOSKELETAL: No clubbing cyanosis or edema SKIN: Warm and well perfused with good skin turgor. NEUROLOGIC: Cranial nerves II through XII grossly intact. No focal or lateralizing signs. PSYCH: Appropriate affect. Alert and oriented to person, place and time. Displays appropriate insight. CLINCAL LABS: Reviewed. WBC elevated over 11,000. Lactate within normal limits. IMAGING: Independently reviewed. Chest x-ray independently reviewed demonstrates free air underneath right diaphragm. CT of the abdomen pelvis independently reviewed demonstrates questionable fluid collection of the pelvis versus phlegmonous changes. Free air identified of the upper abdomen. No discrete inflammatory changes of the epigastrium found. This is my independent interpretation. Finding of diverticulosis. RADIOLOGY: Report reviewed of CT abdomen demonstrating inflammatory changes sigmoid colon. RECORDS: previous old records reviewed upper endoscopy February 2023 demonstrates gastritis. ASSESSMENT: 1. Pneumoperitoneum per chest x-ray/CT abdomen pelvis 2. Change in bowel habits 3. History of chronic NSAID use 4. Acute on chronic upper abdominal pain PLAN: 1. Patient given options for exploratory laparotomy with ostomy creation versus IV antibiotics as well as no intervention. Patient opted for antibiotic management. 2. Patient wants to hold off on surgical intervention with n.p.o. status, IV antibiotics for 48 to 72 hours. 3. Should she have decline in clinical course, she will require urgent surgical invention with exploratory laparotomy and colostomy for possible large bowel perforation. All surgical options described for which patient agreed. 4. Inpatient hospitalization anticipated over 2 nights 5. IV fluid hydration 6. N.p.o. status except ice chips popsicles 7. Scheduled Tylenol and Toradol for pain management including breakthrough pain with Dilaudid 8. Schedule IV antibiotics with Levaquin and Flagyl 9. Will need PICC line for IV antibiotics/TPN for prolonged n.p.o. status 10. Reassessment of CT abdomen pelvis within 5 days for developing pelvic abscess 11. Shared decision making performed with patient including care plan ADVANCE DIRECTIVE: CODE STATUS in chart Past Medical History Past Medical History: GERD/Reflux, Osteoarthritis (OA), Seizure Disorder Additional Past Medical History / Comment(s): LAST SEIZURE 02/1992; hiatal hernia, occasional dysphagia, worsening GERD sx., aortic aneurysm near heart per pt. History of Any Multi-Drug Resistant Organisms: None Reported Past Surgical History: Appendectomy, Joint Replacement, Orthopedic Surgery, Tubal Ligation Additional Past Surgical History / Comment(s): REPAIR SMALL INTESTINE THAT WAS NICKED DURING TL; arthroscopy left knee; left knee replacement; benign left breast biopsy Past Anesthesia/Blood Transfusion Reactions: No Reported Reaction Past Psychological History: No Psychological Hx Reported Smoking Status: Never smoker, Vaper Past Alcohol Use History: Rare Past Drug Use History: None Reported - Past Family History Brother(s) Family Medical History: Cancer Mother Family Medical History: Cancer Medications and Allergies Home Medications Medication Instructions Recorded Confirmed Type Divalproex [Depakote] 250 mg PO QID 02/12/21 08/04/23 History Aspirin 81 mg PO DAILY chew 02/13/21 08/04/23 Rx Ergocalciferol [Vitamin D2 (1250 50,000 unit PO BOYD 02/24/22 08/04/23 History Mcg = 99114 Iu)] Meloxicam [Mobic] 15 mg PO DAILY 08/04/23 08/04/23 History Pantoprazole [Protonix] 40 mg PO DAILY 08/04/23 08/04/23 History Allergies Allergy/AdvReac Type Severity Reaction Status Date / Time No Known Allergies Allergy Verified 02/17/24 17:41 Surgical - Exam Vital Signs Temp Pulse Resp BP Pulse Ox 98.6 F 112 H 18 100/58 98 02/17/24 17:39 02/17/24 17:39 02/17/24 17:39 02/17/24 17:39 02/17/24 17:39 Results - Labs 02/17/24 19:15 02/17/24 19:18 Abnormal Lab Results - Last 24 Hours (Table) 02/17/24 02/17/24 02/17/24 Range/Units 19:15 19:18 19:18 WBC 11.7 H (3.8-10.6) k/uL Neutrophils # 10.0 H (1.3-7.7) k/uL D-Dimer 1.28 H (<0.60) mg/L FEU BUN 33 H (7-17) mg/dL Lipase 21 L (23-300) U/L Diabetes panel 02/17/24 Range/Units 19:18 Sodium 137 (137-145) mmol/L Potassium 4.6 (3.5-5.1) mmol/L Chloride 103 (98-107) mmol/L Carbon Dioxide 23 (22-30) mmol/L BUN 33 H (7-17) mg/dL Creatinine 0.91 (0.52-1.04) mg/dL Glucose 96 (74-99) mg/dL Calcium 9.5 (8.4-10.2) mg/dL AST 19 (14-36) U/L ALT 11 (4-34) U/L Alkaline Phosphatase 64 (38-126) U/L Total Protein 7.2 (6.3-8.2) g/dL Albumin 4.2 (3.5-5.0) g/dL Calcium panel 02/17/24 Range/Units 19:18 Calcium 9.5 (8.4-10.2) mg/dL Albumin 4.2 (3.5-5.0) g/dL Pituitary panel 02/17/24 Range/Units 19:18 Sodium 137 (137-145) mmol/L Potassium 4.6 (3.5-5.1) mmol/L Chloride 103 (98-107) mmol/L Carbon Dioxide 23 (22-30) mmol/L BUN 33 H (7-17) mg/dL Creatinine 0.91 (0.52-1.04) mg/dL Glucose 96 (74-99) mg/dL Calcium 9.5 (8.4-10.2) mg/dL Adrenal panel 02/17/24 Range/Units 19:18 Sodium 137 (137-145) mmol/L Potassium 4.6 (3.5-5.1) mmol/L Chloride 103 (98-107) mmol/L Carbon Dioxide 23 (22-30) mmol/L BUN 33 H (7-17) mg/dL Creatinine 0.91 (0.52-1.04) mg/dL Glucose 96 (74-99) mg/dL Calcium 9.5 (8.4-10.2) mg/dL Total Bilirubin 0.9 (0.2-1.3) mg/dL AST 19 (14-36) U/L ALT 11 (4-34) U/L Alkaline Phosphatase 64 (38-126) U/L Total Protein 7.2 (6.3-8.2) g/dL Albumin 4.2 (3.5-5.0) g/dL
[2024-02-18] MEDS: ACETAMINOPHEN IV (For NPO) 1,000 MG in EMPTY BAG 1 BAG IVPB SCH (02:32)
[2024-02-18] MEDS: KETOROLAC 15 MG/ML 1 ML VIAL IVP SCH (02:33)
[2024-02-18] MEDS: HYDROmorphone 0.5 MG/0.5 ML SYRINGE IVP PRN (03:27)
[2024-02-18] MEDS: VALPROATE SODIUM 250 MG in SODIUM CHLORIDE 0.9% 100 ML IVPB SCH (03:48)
[2024-02-18] MEDS: metroNIDAZOLE-NS PMX 500 MG in SALINE 1 100ML.BAG IVPB SCH (04:39)
[2024-02-18] MEDS: HEPARIN SODIUM,PORCINE 5,000 UNIT/ML 1 ML VIAL SQ SCH (08:01)
[2024-02-18 08:16] LABS: INR 1.2 (<1.2); Prothrombin Time 12.6 sec (10.0-12.5)
[2024-02-18 08:30] LABS: Basophils % (A) 0 %; Eosinophils # (A) 0.1 k/uL (0-0.7); Eosinophils % (A) 1 %; HCT 31.9 % (34.0-46.0); HGB 10.3 gm/dL (11.4-16.0); Lymphocytes # (A) 0.8 k/uL (1.0-4.8); Lymphocytes % (A) 11 %; MCH 29.3 pg (25.0-35.0); MCHC 32.3 g/dL (31.0-37.0); MCV 90.8 fL (80.0-100.0); Mean Platelet Volume 8.1; Monocytes # (A) 0.4 k/uL (0-1.0); Monocytes % (A) 5 %; Neutrophils % (A) 83 %; Platelet Count 142 k/uL (150-450); RBC 3.52 m/uL (3.80-5.40); RDW 14.1 % (11.5-15.5); WBC 7.2 k/uL (3.8-10.6)
[2024-02-18 08:35] LABS: ALT 7 U/L (4-34); AST 17 U/L (14-36); African American GFR (CKD) 74 (>60 ml/min/1.73 sqM); Alkaline Phosphatase 60 U/L (38-126); Anion Gap 11 mmol/L; Blood Urea Nitrogen 36 mg/dL (7-17); Calcium 8.5 mg/dL (8.4-10.2); Carbon Dioxide 17 mmol/L (22-30); Chloride 108 mmol/L (98-107); Glucose 80 mg/dL (74-99); Non-African American GFR(CKD) 64 (>60 ml/min/1.73 sqM); Potassium 3.9 mmol/L (3.5-5.1); Sodium 136 mmol/L (137-145); Total Bilirubin 0.5 mg/dL (0.2-1.3); Total Protein 5.6 g/dL (6.3-8.2)
--- NOTE | 2024-02-18 10:29 | P.PN ---
Subjective Progress Note Date: 02/18/24 No acute events since admission. Patient states that her abdominal pain is slightly improved. No N/V. No F/C. NO SOB or CP. No flatus or BM. Objective - Vital Signs Vital signs: Vital Signs Temp 97.5 F L 02/18/24 08:00 Pulse 75 02/18/24 08:00 Resp 18 02/18/24 08:00 BP 98/55 02/18/24 08:00 Pulse Ox 99 02/18/24 08:00 FiO2 Intake & Output 02/17/24 02/18/24 02/18/24 18:59 06:59 18:59 Weight 68.492 kg 68.492 kg Other: Voiding Method Toilet Bedside Commode - Exam Gen: AxO, NAD Pulm: non-labored respirations Abd: soft, tender in LLQ, Mildly distended. No guarding/rebound/rigidity Extrem: no edema seen - Labs CBC & Chem 7: 02/18/24 07:22 02/18/24 07:22 Labs: Abnormal Lab Results - Last 24 Hours (Table) 02/17/24 02/17/24 02/17/24 Range/Units 19:15 19:18 19:18 WBC 11.7 H (3.8-10.6) k/uL RBC (3.80-5.40) m/uL Hgb (11.4-16.0) gm/dL Hct (34.0-46.0) % Plt Count (150-450) k/uL Neutrophils # 10.0 H (1.3-7.7) k/uL Lymphocytes # (1.0-4.8) k/uL PT (10.0-12.5) sec INR (<1.2) D-Dimer 1.28 H (<0.60) mg/L FEU Sodium (137-145) mmol/L Chloride (98-107) mmol/L Carbon Dioxide (22-30) mmol/L BUN 33 H (7-17) mg/dL Total Protein (6.3-8.2) g/dL Albumin (3.5-5.0) g/dL Lipase 21 L (23-300) U/L 02/18/24 02/18/24 02/18/24 Range/Units 07:22 07:22 07:22 WBC (3.8-10.6) k/uL RBC 3.52 L (3.80-5.40) m/uL Hgb 10.3 L (11.4-16.0) gm/dL Hct 31.9 L (34.0-46.0) % Plt Count 142 L (150-450) k/uL Neutrophils # (1.3-7.7) k/uL Lymphocytes # 0.8 L (1.0-4.8) k/uL PT 12.6 H (10.0-12.5) sec INR 1.2 H (<1.2) D-Dimer (<0.60) mg/L FEU Sodium 136 L (137-145) mmol/L Chloride 108 H (98-107) mmol/L Carbon Dioxide 17 L (22-30) mmol/L BUN 36 H (7-17) mg/dL Total Protein 5.6 L (6.3-8.2) g/dL Albumin 3.0 L (3.5-5.0) g/dL Lipase (23-300) U/L Assessment and Plan Assessment: Patient is a 63 year old female who presents with abdominal pain and CT evidence concerning for sigmoid colon perforation with pneumoperitoneum Plan: -NPO -IVF hydration -IV abx -PRN pain and nausea control -Strict I/O -Serial abdominal examinations -DVT/GI PPx -No acute surgical intervention will continue conservative management for now Logan Canseco MD General Surgery
--- NOTE | 2024-02-18 13:31 | P.CONS ---
History of Present Illness - Reason for Consult Consult date: 02/18/24 Abdominal pain - Chief Complaint Abdominal pain - History of Present Illness * 63-year-old patient with past medical history significant for seizure disorder, history of osteoarthritis, history of hiatal hernia, gastroesophageal reflux disease presents to the emergency department with abdominal pain. * Patient states she has been having on and off abdominal pain ongoing for at least 4 weeks. She complains of right upper quadrant discomfort. Patient had acute onset abdominal pain which was 10 x 10 in intensity. This was associated with diarrhea. Patient states the pain comes and go. Patient presented to the ED for further work. * Workup initiated in ER included CT angio chest which showed no evidence of pulm embolism, no evidence of acute chest process, moderate amount of pneumoperitoneum was noted, fusiform ectasia of ascending aorta was noted * Initiated in ER include CBC which showed WBC count of 11.7 hemoglobin of 12.5 platelet count of 205 INR of 1.1 * Serum chemistry obtained showed sodium 137 potassium 4.6 BUN 33 creatinine 0.91 lactate of 0.9 bilirubin within normal limits * Was admitted under general surgery service and made n.p.o. started on fluid resuscitation REVIEW OF SYSTEMS: Abdominal pain, nausea, diarrhea improved CONSTITUTIONAL: No fever, no malaise, no fatigue. HEENT: No recent visual problems or hearing problems. Denied any sore throat. CARDIOVASCULAR: No chest pain, orthopnea, PND, no palpitations, no syncope. PULMONARY: No shortness of breath, no cough, no hemoptysis. GASTROINTESTINAL:Abdominal pain, nausea, diarrhea proved NEUROLOGICAL: No headaches, no weakness, no numbness. HEMATOLOGICAL: Denies any bleeding or petechiae. GENITOURINARY: Denies any burning micturition, frequency, or urgency. MUSCULOSKELETAL/RHEUMATOLOGICAL: Denies any joint pain, swelling, or any muscle pain. ENDOCRINE: Denies any polyuria or polydipsia. PHYSICAL EXAMINATION: GENERAL: The patient is alert and oriented x3, not in any acute distress. Well developed, well nourished. HEENT: Pupils are round and equally reacting to light. EOMI. Normocephalic, atraumatic. CARDIOVASCULAR: S1 and S2 present. No murmurs, rubs, or gallops. PULMONARY: Chest is clear to auscultation, no wheezing or crackles. ABDOMEN: MUSCULOSKELETAL: No joint swelling or deformity. EXTREMITIES: No cyanosis, clubbing, or pedal edema. NEUROLOGICAL: Gross neurological examination did not reveal any focal deficits. SKIN: No rashes. Assessment and plan * Abdominal pain with pneumoperitoneum * History of gastroesophageal reflux disease * History of seizure disorder * In regards to pneumoperitoneum, CT reviewed, general surgery primary, conservative management patient remains n.p.o. * Continue patient on IV antibiotics on Levaquin and Flagyl * In regards to history of seizure disorder continue patient on valproic acid * Continue patient on IV Protonix * CODE STATUS full code Past Medical History Past Medical History: GERD/Reflux, Osteoarthritis (OA), Seizure Disorder Additional Past Medical History / Comment(s): LAST SEIZURE 02/1992; hiatal hernia, occasional dysphagia, worsening GERD sx., aortic aneurysm near heart per pt. History of Any Multi-Drug Resistant Organisms: None Reported Past Surgical History: Appendectomy, Joint Replacement, Orthopedic Surgery, Tubal Ligation Additional Past Surgical History / Comment(s): REPAIR SMALL INTESTINE THAT WAS NICKED DURING TL; arthroscopy left knee; left knee replacement; benign left breast biopsy Past Anesthesia/Blood Transfusion Reactions: No Reported Reaction Past Psychological History: No Psychological Hx Reported Smoking Status: Vaper Past Alcohol Use History: Rare Additional Past Alcohol Use History / Comment(s): HAS BEEN SMOKING 1/2PPD SINCE 1996 (AGE 36) Past Drug Use History: None Reported - Past Family History Brother(s) Family Medical History: Cancer Mother Family Medical History: Cancer Medications and Allergies Home Medications Medication Instructions Recorded Confirmed Type Divalproex [Depakote] 250 mg PO QID 02/12/21 02/18/24 History Aspirin 81 mg PO DAILY chew 02/13/21 02/18/24 Rx Meloxicam [Mobic] 15 mg PO DAILY 08/04/23 02/18/24 History Alendronate Sodium [Fosamax] 70 mg PO DIRECTED 02/18/24 02/18/24 History Famotidine 40 mg PO DAILY 02/18/24 02/18/24 History PARoxetine HCL [Paxil] 10 mg PO DAILY 02/18/24 02/18/24 History Allergies Allergy/AdvReac Type Severity Reaction Status Date / Time No Known Allergies Allergy Verified 02/18/24 09:22 Physical Exam Vitals: Vital Signs Temp Pulse Pulse Resp BP BP Pulse Ox 02/18/24 04:00 81 18 92/56 96 02/18/24 02:21 98.4 F 78 18 108/69 98 02/18/24 01:28 64 16 93/72 96 02/18/24 00:30 74 18 88/56 02/17/24 22:26 81 16 96/42 97 02/17/24 19:58 94 18 111/76 97 02/17/24 17:39 98.6 F 112 H 18 100/58 98 Intake and Output 02/17/24 02/18/24 02/18/24 22:59 06:59 14:59 Other: Voiding Method Toilet Weight 68.492 kg 68.492 kg Results CBC & Chem 7: 02/18/24 07:22 02/18/24 07:22 Labs: Abnormal Lab Results - Last 24 Hours (Table) 02/17/24 02/17/24 02/17/24 Range/Units 19:15 19:18 19:18 WBC 11.7 H (3.8-10.6) k/uL RBC (3.80-5.40) m/uL Hgb (11.4-16.0) gm/dL Hct (34.0-46.0) % Plt Count (150-450) k/uL Neutrophils # 10.0 H (1.3-7.7) k/uL Lymphocytes # (1.0-4.8) k/uL PT (10.0-12.5) sec INR (<1.2) D-Dimer 1.28 H (<0.60) mg/L FEU Sodium (137-145) mmol/L Chloride (98-107) mmol/L Carbon Dioxide (22-30) mmol/L BUN 33 H (7-17) mg/dL Total Protein (6.3-8.2) g/dL Albumin (3.5-5.0) g/dL Lipase 21 L (23-300) U/L 02/18/24 02/18/24 02/18/24 Range/Units 07:22 07:22 07:22 WBC (3.8-10.6) k/uL RBC 3.52 L (3.80-5.40) m/uL Hgb 10.3 L (11.4-16.0) gm/dL Hct 31.9 L (34.0-46.0) % Plt Count 142 L (150-450) k/uL Neutrophils # (1.3-7.7) k/uL Lymphocytes # 0.8 L (1.0-4.8) k/uL PT 12.6 H (10.0-12.5) sec INR 1.2 H (<1.2) D-Dimer (<0.60) mg/L FEU Sodium 136 L (137-145) mmol/L Chloride 108 H (98-107) mmol/L Carbon Dioxide 17 L (22-30) mmol/L BUN 36 H (7-17) mg/dL Total Protein 5.6 L (6.3-8.2) g/dL Albumin 3.0 L (3.5-5.0) g/dL Lipase (23-300) U/L
--- NOTE | 2024-02-18 21:54 | P.CONS ---
History of Present Illness - Reason for Consult Consult date: 02/18/24 Antibiotic management Requesting physician: Kay Markham - Chief Complaint Abdominal pain x few days - History of Present Illness Patient is a 63-year-old female past medical history significant for reflux osteoarthritis seizure disorder presenting to the hospital for evaluation of abdominal pain patient symptom started the day before presentation to the hospital and is actively complaining of mostly generalized pain moderate to severe intensity with associated nausea and vomiting did have some diarrhea prior to that but the patient denies having any diarrhea since the patient is in the hospital patient on presentation to the hospital was afebrile and no fever have been recorded subsequently patient was not tachycardic hypotensive or hypoxic did have a white count of 11.7 creatinine 0.91 liver enzymes are normal, amylase lipase normal patient did have a CT abdominal pelvis moderate amount of pneumoperitoneum of uncertain origin perforated viscus is a primary consideration extraluminal fluid and gas containing collection within the pelvis which may represent contained perforation from the distal colon patient did have a gallbladder ultrasound no acute abnormality pancreatic tail and CBD obscured patient did have a CT angiogram of the chest no evidence of PE no other acute chest process moderate pneumoperitoneum patient has been eval by general surgery as the patient has been given the option of laparotomy versus antibiotic and bowel rest apparently the patient seems to have opted for bowel rest antibiotic therapy patient was started on Levaquin and Flagyl infectious was consulted for further management of antibiotic therapy as of this morning patient is afebrile patient is currently breathing comfortably complaining of abdominal pain however has decreased intensity nausea but no vomiting and did not have any bowel movement Review of Systems Positive point and negatives has been mentioned in the HPI, complete review of systems was performed and all other systems are negative Past Medical History Past Medical History: GERD/Reflux, Osteoarthritis (OA), Seizure Disorder Additional Past Medical History / Comment(s): LAST SEIZURE 02/1992; hiatal hernia, occasional dysphagia, worsening GERD sx., aortic aneurysm near heart per pt. History of Any Multi-Drug Resistant Organisms: None Reported Past Surgical History: Appendectomy, Joint Replacement, Orthopedic Surgery, Tubal Ligation Additional Past Surgical History / Comment(s): REPAIR SMALL INTESTINE THAT WAS NICKED DURING TL; arthroscopy left knee; left knee replacement; benign left breast biopsy Past Anesthesia/Blood Transfusion Reactions: No Reported Reaction Past Psychological History: No Psychological Hx Reported Smoking Status: Vaper Past Alcohol Use History: Rare Additional Past Alcohol Use History / Comment(s): HAS BEEN SMOKING 1/2PPD SINCE 1996 (AGE 36) Past Drug Use History: None Reported - Past Family History Brother(s) Family Medical History: Cancer Mother Family Medical History: Cancer Medications and Allergies Home Medications Medication Instructions Recorded Confirmed Type Divalproex [Depakote] 250 mg PO QID 02/12/21 02/18/24 History Aspirin 81 mg PO DAILY chew 02/13/21 02/18/24 Rx Meloxicam [Mobic] 15 mg PO DAILY 08/04/23 02/18/24 History Alendronate Sodium [Fosamax] 70 mg PO DIRECTED 02/18/24 02/18/24 History Famotidine 40 mg PO DAILY 02/18/24 02/18/24 History PARoxetine HCL [Paxil] 10 mg PO DAILY 02/18/24 02/18/24 History Acetaminophen Tab [Tylenol Tab] 1,000 mg PO Q6HR PRN #30 tablet 03/09/24 Rx Amoxic-Pot Clav 875-125Mg 1 tab PO Q12HR 10 Days #20 tab 03/09/24 Rx [Augmentin 875-125] Simethicone [Gas-X] 125 mg PO AC-TID PRN #20 capsule 03/09/24 Rx Voriconazole [Vfend] 200 mg PO Q12HR #20 tablet 03/09/24 Rx Allergies Allergy/AdvReac Type Severity Reaction Status Date / Time No Known Allergies Allergy Verified 02/23/24 11:28 Physical Exam Vitals: Vital Signs Temp Pulse Pulse Resp BP BP Pulse Ox 02/18/24 11:49 63 20 91/57 99 02/18/24 08:00 97.5 F L 75 18 98/55 99 02/18/24 04:00 81 18 92/56 96 02/18/24 02:21 98.4 F 78 18 108/69 98 02/18/24 01:28 64 16 93/72 96 02/18/24 00:30 74 18 88/56 02/17/24 22:26 81 16 96/42 97 02/17/24 19:58 94 18 111/76 97 02/17/24 17:39 98.6 F 112 H 18 100/58 98 Intake and Output 0502/18/24 02/18/24 22:59 06:59 14:59 Other: Voiding Method Toilet Bedside Commode Weight 68.492 kg 68.492 kg GENERAL DESCRIPTION: Middle-aged female lying in bed, no distress. No tachypnea or accessory muscle of respiration use. HEENT: Shows Pallor , no scleral icterus. Oral mucous membrane is dry. No pharyngeal erythema or thrush NECK: Trachea central, no thyromegaly. LUNGS: Unlabored breathing. Clear to auscultation anteriorly. No wheeze or crackle. HEART: S1, S2, regular rate and rhythm. No loud murmur ABDOMEN: Soft, tenderness , no guarding or rigidity, no organomegaly EXTREMITIES: No edema of feet. SKIN: No rash, no masses palpable. NEUROLOGICAL: The patient is awake, alert, oriented x3, mood and affect normal. Results CBC & Chem 7: 03/09/24 06:09 03/08/24 06:18 Labs: Abnormal Lab Results - Last 24 Hours (Table) 02/17/24 02/17/24 02/17/24 Range/Units 19:15 19:18 19:18 WBC 11.7 H (3.8-10.6) k/uL RBC (3.80-5.40) m/uL Hgb (11.4-16.0) gm/dL Hct (34.0-46.0) % Plt Count (150-450) k/uL Neutrophils # 10.0 H (1.3-7.7) k/uL Lymphocytes # (1.0-4.8) k/uL PT (10.0-12.5) sec INR (<1.2) D-Dimer 1.28 H (<0.60) mg/L FEU Sodium (137-145) mmol/L Chloride (98-107) mmol/L Carbon Dioxide (22-30) mmol/L BUN 33 H (7-17) mg/dL Total Protein (6.3-8.2) g/dL Albumin (3.5-5.0) g/dL Lipase 21 L (23-300) U/L 02/18/24 02/18/24 02/18/24 Range/Units 07:22 07:22 07:22 WBC (3.8-10.6) k/uL RBC 3.52 L (3.80-5.40) m/uL Hgb 10.3 L (11.4-16.0) gm/dL Hct 31.9 L (34.0-46.0) % Plt Count 142 L (150-450) k/uL Neutrophils # (1.3-7.7) k/uL Lymphocytes # 0.8 L (1.0-4.8) k/uL PT 12.6 H (10.0-12.5) sec INR 1.2 H (<1.2) D-Dimer (<0.60) mg/L FEU Sodium 136 L (137-145) mmol/L Chloride 108 H (98-107) mmol/L Carbon Dioxide 17 L (22-30) mmol/L BUN 36 H (7-17) mg/dL Total Protein 5.6 L (6.3-8.2) g/dL Albumin 3.0 L (3.5-5.0) g/dL Lipase (23-300) U/L Assessment and Plan (1) Diverticulitis large intestine Current Visit: No Status: Acute Priority: High Code(s): K57.32 - DVTRCLI OF LG INT W/O PERFORATION OR ABSCESS W/O BLEEDING SNOMED Code(s): 3410791 (2) Peritonitis Current Visit: No Status: Acute Code(s): K65.9 - PERITONITIS, UNSPECIFIED SNOMED Code(s): 08027596 (3) Pneumoperitoneum Current Visit: No Status: Acute Priority: High Code(s): K66.8 - OTHER SPECIFIED DISORDERS OF PERITONEUM SNOMED Code(s): 17873903 Plan: 1patient presented hospital abdominal pain and this patient who did have abnormal CT suggestive of pneumoperitoneum and some fluid collection in the pelvis concerning for possible perforated bowel could be related to possible perforated diverticulitis, he will need to cover for the enteric gram-negative both aerobes and anaerobes, general surgery following the patient currently recommending bowel rest and antibiotic therapy 2-we will discontinue Levaquin and Flagyl 3-start the patient on Zosyn 3.375 g every 8 hours Question concern answered We will follow on clinical condition and cultures to further adjust medication if needed Thank you for this consultation we will follow the patient along with you Dictation was produced using Table[employer]ation software. please excuse any grammatical, word or spelling errors. Time with Patient: Greater than 30
[2024-02-18] MEDS: PIPERACILLIN-TAZOBACTAM 3.375 GM in SODIUM CHLORIDE 0.9% 100 ML IVPB SCH (23:10)
[2024-02-19] MEDS: SODIUM CHLORIDE 0.9% 2,000 ML IV ONE (07:56)
[2024-02-19 08:50] LABS: HCT 30.4 % (34.0-46.0); HGB 9.5 gm/dL (11.4-16.0); MCH 28.8 pg (25.0-35.0); MCHC 31.1 g/dL (31.0-37.0); MCV 92.4 fL (80.0-100.0); Mean Platelet Volume 8.9; Platelet Count 138 k/uL (150-450); RBC 3.29 m/uL (3.80-5.40); RDW 14.3 % (11.5-15.5); WBC 5.8 k/uL (3.8-10.6)
[2024-02-19 09:01] LABS: African American GFR (CKD) 88 (>60 ml/min/1.73 sqM); Anion Gap 8 mmol/L; Blood Urea Nitrogen 28 mg/dL (7-17); Calcium 8.2 mg/dL (8.4-10.2); Carbon Dioxide 18 mmol/L (22-30); Chloride 112 mmol/L (98-107); Glucose 78 mg/dL (74-99); Non-African American GFR(CKD) 76 (>60 ml/min/1.73 sqM); Potassium 3.8 mmol/L (3.5-5.1); Sodium 138 mmol/L (137-145)
--- NOTE | 2024-02-19 11:49 | P.PN ---
Subjective Progress Note Date: 02/19/24 She reports feeling well today. "I had a rough night last night with cramps." She reported right lower quadrant pain last night but improved today. She wants to eat today. ABDOMEN: No peritonitis PLAN: 1. Repeat CT abdomen and pelvis in 24 hrs as she is day 2 with antibiotic management. 2. Possible colectomy with ostomy for clinical decline. 3. Fluid bolus 2-Liters for hypotension 4. DVT prophylaxis with heparin is ordered 5. Continue NPO except ice chips and popsicles. 6. Care plan reviewed with patient. Objective - Vital Signs Vital signs: Vital Signs Temp 98.2 F 02/19/24 08:00 Pulse 72 02/19/24 08:00 Resp 18 02/19/24 08:00 BP 92/51 02/19/24 08:00 Pulse Ox 100 02/19/24 08:00 FiO2 Intake & Output 02/18/24 02/19/24 02/19/24 18:59 06:59 18:59 Intake Total 120 0 Balance 120 0 Weight 68.492 kg Intake: Oral 120 0 Other: Voiding Method Bedside Commode Bedside Commode Bedside Commode # Voids 3 2 1 - Labs CBC & Chem 7: 02/19/24 08:18 02/19/24 08:18 Labs: Abnormal Lab Results - Last 24 Hours (Table) 02/19/24 02/19/24 Range/Units 08:18 08:18 RBC 3.29 L (3.80-5.40) m/uL Hgb 9.5 L (11.4-16.0) gm/dL Hct 30.4 L (34.0-46.0) % Plt Count 138 L (150-450) k/uL Chloride 112 H (98-107) mmol/L Carbon Dioxide 18 L (22-30) mmol/L BUN 28 H (7-17) mg/dL Calcium 8.2 L (8.4-10.2) mg/dL Microbiology - Last 24 Hours (Table) 02/17/24 21:45 Blood Culture - Preliminary Blood 02/17/24 21:15 Blood Culture - Preliminary Blood
--- NOTE | 2024-02-19 12:43 | P.PN ---
Subjective Progress Note Date: 02/19/24 * 63-year-old patient with past medical history significant for seizure disorder, history of osteoarthritis, history of hiatal hernia, gastroesophageal reflux disease presents to the emergency department with abdominal pain. * Patient states she has been having on and off abdominal pain ongoing for at least 4 weeks. She complains of right upper quadrant discomfort. Patient had acute onset abdominal pain which was 10 x 10 in intensity. This was associated with diarrhea. Patient states the pain comes and go. Patient presented to the ED for further work. * Workup initiated in ER included CT angio chest which showed no evidence of pulm embolism, no evidence of acute chest process, moderate amount of pneumoperitoneum was noted, fusiform ectasia of ascending aorta was noted * Initiated in ER include CBC which showed WBC count of 11.7 hemoglobin of 12.5 platelet count of 205 INR of 1.1 * Serum chemistry obtained showed sodium 137 potassium 4.6 BUN 33 creatinine 0.91 lactate of 0.9 bilirubin within normal limits * Was admitted under general surgery service and made n.p.o. started on fluid resuscitation * 02/19/24: Patient seen and evaluated at bedside, patient states abdominal distention has improved a little bit mild distention noted, patient remains n.p.o. General surgery team following recommending conservative management, patient does complain of abdominal pain and distention, surgery following and will decide regarding exploratory laparotomy PHYSICAL EXAMINATION: GENERAL: The patient is alert and oriented x 3, ill appearance HEENT: Pupils are round and equally reacting to light. EOMI. Normocephalic, atraumatic. CARDIOVASCULAR: S1 and S2 present. No murmurs, rubs, or gallops. PULMONARY: Chest is clear to auscultation, no wheezing or crackles. ABDOMEN: Distended, mild tenderness diffuse no guarding MUSCULOSKELETAL: No joint swelling or deformity. EXTREMITIES: No cyanosis, clubbing, or pedal edema. NEUROLOGICAL: Gross neurological examination did not reveal any focal deficits. SKIN: No rashes. Assessment and plan * Abdominal pain with pneumoperitoneum * History of gastroesophageal reflux disease * History of seizure disorder * In regards to pneumoperitoneum, CT reviewed, general surgery primary, conservative management patient remains n.p.o. * Continue patient on IV antibiotics on Zosyn, infectious disease following * In regards to history of seizure disorder continue patient on valproic acid * Continue patient on IV Protonix * CODE STATUS full code Objective - Vital Signs Vital signs: Vital Signs Temp 98.2 F 02/19/24 08:00 Pulse 72 02/19/24 08:00 Resp 18 02/19/24 08:00 BP 92/51 02/19/24 08:00 Pulse Ox 100 02/19/24 08:00 FiO2 Intake & Output 02/18/24 02/19/24 02/19/24 18:59 06:59 18:59 Intake Total 120 Balance 120 Weight 68.492 kg Intake: Oral 120 Other: Voiding Method Bedside Commode Bedside Commode Bedside Commode # Voids 3 2 - Labs CBC & Chem 7: 02/19/24 08:18 02/19/24 08:18 Labs: Abnormal Lab Results - Last 24 Hours (Table) 02/19/24 02/19/24 Range/Units 08:18 08:18 RBC 3.29 L (3.80-5.40) m/uL Hgb 9.5 L (11.4-16.0) gm/dL Hct 30.4 L (34.0-46.0) % Plt Count 138 L (150-450) k/uL Chloride 112 H (98-107) mmol/L Carbon Dioxide 18 L (22-30) mmol/L BUN 28 H (7-17) mg/dL Calcium 8.2 L (8.4-10.2) mg/dL Microbiology - Last 24 Hours (Table) 02/17/24 21:45 Blood Culture - Preliminary Blood 02/17/24 21:15 Blood Culture - Preliminary Blood
--- NOTE | 2024-02-19 17:43 | P.PN ---
Subjective Progress Note Date: 02/19/24 Principal diagnosis: Reason for follow-up is pneumoperitoneum and peritonitis Patient is a 63-year-old female past medical history significant for reflux osteoarthritis seizure disorder presenting to the hospital for evaluation of abdominal pain, the patient did have a CT abdominal pelvis evidence of moderate pneumoperitoneum currently being treated medically. On today's evaluation that is 02/19/2024,the patient remains to be afebrile, patient is on room air not requiring supplemental oxygen and denies any shortness of breath no chest pain or cough.Patient mention significant abdominal pain last night most to the right side did have some improvement today felt nauseated but no vomiting no diarrhea. Patient white count is 5.8 creatinine 0.82 blood cultures currently pending Objective - Vital Signs Vital signs: Vital Signs Temp 97.8 F 02/19/24 15:44 Pulse 70 02/19/24 15:44 Resp 18 02/19/24 15:44 BP 92/51 02/19/24 15:44 Pulse Ox 99 02/19/24 15:44 FiO2 Intake & Output 02/18/24 02/19/24 02/19/24 18:59 06:59 18:59 Intake Total 120 480 Balance 120 480 Weight 68.492 kg Intake: Oral 120 480 Other: Voiding Method Bedside Commode Bedside Commode Bedside Commode # Voids 3 2 2 - Exam GENERAL DESCRIPTION: Middle-aged female lying in bed in no distress RESPIRATORY SYSTEM: Unlabored breathing , decreased breath sounds at bases HEART: S1 S2 regular rate and rhythm , ABDOMEN: Soft , mild tenderness EXTREMITIES: No edema feet - Labs CBC & Chem 7: 02/19/24 08:18 02/19/24 08:18 Labs: Abnormal Lab Results - Last 24 Hours (Table) 02/19/24 02/19/24 Range/Units 08:18 08:18 RBC 3.29 L (3.80-5.40) m/uL Hgb 9.5 L (11.4-16.0) gm/dL Hct 30.4 L (34.0-46.0) % Plt Count 138 L (150-450) k/uL Chloride 112 H (98-107) mmol/L Carbon Dioxide 18 L (22-30) mmol/L BUN 28 H (7-17) mg/dL Calcium 8.2 L (8.4-10.2) mg/dL Microbiology - Last 24 Hours (Table) 02/17/24 21:45 Blood Culture - Preliminary Blood 02/17/24 21:15 Blood Culture - Preliminary Blood Assessment and Plan (1) Peritonitis Current Visit: Yes Status: Acute Code(s): K65.9 - PERITONITIS, UNSPECIFIED SNOMED Code(s): 36220319 (2) Pneumoperitoneum Current Visit: Yes Status: Acute Code(s): K66.8 - OTHER SPECIFIED DISORDERS OF PERITONEUM SNOMED Code(s): 29185572 Plan: 1patient presented hospital abdominal pain and this patient who did have abnormal CT suggestive of pneumoperitoneum and some fluid collection in the pelvis concerning for possible perforated bowel could be related to possible perforated diverticulitis, he will need to cover for the enteric gram-negative both aerobes and anaerobes, general surgery following the patient currently recommending bowel rest and antibiotic therapy 2-patient being followed closely by surgery with repeat CT has been scheduled which will be followed 3patient to continue with the Zosyn and will monitor clinical course closely Question concern answered Dictation was produced using [employer] dictation software. please excuse any gram matical, word or spelling errors. Time with Patient: Less than 30
[2024-02-20] MEDS ORDERED: IOPAMIDOL CONTRAST (ORAL USE) VIAL PO PRN (08:00)
--- NOTE | 2024-02-20 10:20 | P.PN ---
Subjective Progress Note Date: 02/20/24 CHIEF COMPLAINT: Diverticulitis HISTORY OF PRESENT ILLNESS: The patient is a 63-year-old female who presents with perforated diverticulitis. Her main concern included right upper quadrant abdominal pain for cholecystitis. CT studies demonstrated perforated diverticulitis with free air. Patient was offered surgical invention however elected for IV antibiotics and conservative management. Clinically, she reports moderate improvement since admission. "I want to eat." She denies increased abdominal distention. She reports passing flatus. ROS: No reports of nausea and vomiting. No fevers or chills. No new chest pain. No productive sputum PHYSICAL EXAM: VITAL SIGNS: Reviewed CONSTITUTIONAL: Well developed and in no acute distress. EYES: Conjuctivae without sclera icterus. Extraocular movements grossly intact. HEAD, EARS, NOSE, THROAT: Moist buccal mucosa. Head is atraumatic, nor mocephalic. Hears conversational speech. No nasal drainage. RESPIRATORY: Non-labored respirations and equal bilateral excursions. CARDIOVASCULAR: Palpable 2+ radial pulses. ABDOMEN: Soft, no diffuse peritonitis. MUSCULOSKELETAL: No gross deformity of the lower extremities noted. No clubbing. No cyanosis. SKIN: Good skin turgor. Well perfused. NEUROLOGIC: Cranial nerves II through XII grossly intact. No focal or lateralizing signs. PSYCH: Appropriate affect. Alert and oriented to person, place and time. CLINICAL LABS: Reviewed. WBC normal, down from leukocytosis 11.7. ASSESSMENT: 1. Perforated diverticulitis PLAN: 1. Clinically, the patient is globally improved since admission. Will continue with n.p.o. and ice chips. 2. Patient wants to eat more however recommend repeat CT of the of the abdomen pelvis for fluid collection for interventional radiology drainage 3. Recommend PICC line and TPN including IV antibiotics 4. Adjustment of diet pending CT scan imaging including clinical response Objective - Vital Signs Vital signs: Vital Signs Temp 98.7 F 02/19/24 20:00 Pulse 80 02/20/24 04:00 Resp 18 02/20/24 04:00 BP 100/66 02/20/24 04:00 Pulse Ox 99 02/20/24 04:00 FiO2 Intake & Output 02/19/24 02/20/24 02/20/24 18:59 06:59 18:59 Intake Total 480 Balance 480 Intake: Oral 480 Other: Voiding Method Bedside Commode Bedside Commode # Voids 2 1 - Labs CBC & Chem 7: 02/19/24 08:18 02/19/24 08:18 Labs: Microbiology - Last 24 Hours (Table) 02/17/24 21:45 Blood Culture - Preliminary Blood 02/17/24 21:15 Blood Culture - Preliminary Blood
[2024-02-20] MEDS: LIDOCAINE 2% (PF) 20 MG/ML 5 ML VIAL SQ ONE ×2 (10:32→10:40)
--- NOTE | 2024-02-20 11:03 | IR ---
EXAMINATION TYPE: IR cvc insert >=5 years DATE OF EXAM: 02/20/2024 COMPARISON: NONE HISTORY: Fluoroscopy time. Fluoroscopy was provided to the referring clinician.
[2024-02-20 11:12] LABS: HCT 28.2 % (34.0-46.0); HGB 8.9 gm/dL (11.4-16.0); MCH 29.2 pg (25.0-35.0); MCHC 31.7 g/dL (31.0-37.0); Mean Platelet Volume 8.1; Platelet Count 166 k/uL (150-450); RBC 3.06 m/uL (3.80-5.40); RDW 14.6 % (11.5-15.5); WBC 5.6 k/uL (3.8-10.6)
[2024-02-20 11:38] LABS: African American GFR (CKD) >90 (>60 ml/min/1.73 sqM); Anion Gap 9 mmol/L; Blood Urea Nitrogen 17 mg/dL (7-17); Calcium 8.5 mg/dL (8.4-10.2); Carbon Dioxide 15 mmol/L (22-30); Chloride 115 mmol/L (98-107); Glucose 72 mg/dL (74-99); Non-African American GFR(CKD) >90 (>60 ml/min/1.73 sqM); Potassium 3.4 mmol/L (3.5-5.1); Sodium 139 mmol/L (137-145)
--- NOTE | 2024-02-20 11:50 | P.OP ---
Date of Procedure: 02/20/24 Preoperative Diagnosis: Need for long-term IV antibiotic and total parenteral nutrition therapy. Postoperative Diagnosis: Same. Procedure(s) Performed: Ultrasound and fluoroscopic guided placement of a peripherally inserted central catheter via the left basilic vein approach. Anesthesia: local (1% Xylocaine.) Surgeon: Keyon Carr Estimated Blood Loss (ml): 5 IV fluids (ml): 0 Urine output (ml): 0 Pathology: none sent Condition: stable Disposition: no change Indications for Procedure: Patient is a 59-year-old female who presented with acute abdomen who has undergone gastrointestinal surgery and is in need of long-term antibiotic therapy as well as total parenteral nutrition. Patient is also offered a dual- lumen PICC line insertion. Description of Procedure: Patient was brought to the cardiac lab scientist. Left upper extremity sterilely prepped and draped in usual manner. Ultrasound was utilized to identify the basilic vein. 1% Xylocaine was utilized for local anesthesia of the basilic vein in the mid humeral area. Through this anesthetized area with the aid of ultrasound a micropuncture needle was utilized to cannulate the vein. Once cannulated soft a guidewire was advanced into the vein. The needle was withdrawn and a micropuncture sheath and dilator were advanced over the guidewire. Dilator was withdrawn and the guidewire measured to 44 cm to the central venous system. As such the catheter was cut to 44 cm. The catheter was then advanced and the sheath was peeled away. At final placement the tip of the catheter was at the appropriate level. Blood was easily withdrawn through both ports and both ports were then flushed with heparinized saline solution. Catheter was secured to the skin with nylon suture. Appropriate dressings were applied. Patient tolerated procedure well and was returned to her room in satisfactory and stable condition. Total fluoroscopy time: Less than 5 seconds.
[2024-02-20] MEDS: FLUTICASONE 50MCG/SPRAY NASAL 16GM EA NOSTRIL SCH (12:14)
[2024-02-20 12:31] LABS: Magnesium 1.7 mg/dL (1.6-2.3)
--- NOTE | 2024-02-20 13:13 | P.PN ---
Subjective Progress Note Date: 02/20/24 * 63-year-old patient with past medical history significant for seizure disorder, history of osteoarthritis, history of hiatal hernia, gastroesophageal reflux disease presents to the emergency department with abdominal pain. * Patient states she has been having on and off abdominal pain ongoing for at least 4 weeks. She complains of right upper quadrant discomfort. Patient had acute onset abdominal pain which was 10 x 10 in intensity. This was associated with diarrhea. Patient states the pain comes and go. Patient presented to the ED for further work. * Workup initiated in ER included CT angio chest which showed no evidence of pulm embolism, no evidence of acute chest process, moderate amount of pneumoperitoneum was noted, fusiform ectasia of ascending aorta was noted * Initiated in ER include CBC which showed WBC count of 11.7 hemoglobin of 12.5 platelet count of 205 INR of 1.1 * Serum chemistry obtained showed sodium 137 potassium 4.6 BUN 33 creatinine 0.91 lactate of 0.9 bilirubin within normal limits * Was admitted under general surgery service and made n.p.o. started on fluid resuscitation * 02/19/24: Patient seen and evaluated at bedside, patient states abdominal distention has improved a little bit mild distention noted, patient remains n.p.o. General surgery team following recommending conservative management, patient does complain of abdominal pain and distention, surgery following and will decide regarding exploratory laparotomy * 02/20/24: Patient seen and evaluated at bedside, blood work pending, serial abdominal exams, general surgery team following as well. Patient remains n.p.o. at this time, follow-up CT abdomen pelvis with contrast has been ordered. Continue fluid resuscitation. Continue patient on antibiotic. PHYSICAL EXAMINATION: GENERAL: The patient is alert and oriented x 3, ill appearance HEENT: Pupils are round and equally reacting to light. EOMI. Normocephalic, atraumatic. CARDIOVASCULAR: S1 and S2 present. No murmurs, rubs, or gallops. PULMONARY: Chest is clear to auscultation, no wheezing or crackles. ABDOMEN: Distended, mild tenderness diffuse no guarding MUSCULOSKELETAL: No joint swelling or deformity. EXTREMITIES: No cyanosis, clubbing, or pedal edema. NEUROLOGICAL: Gross neurological examination did not reveal any focal deficits. SKIN: No rashes. Assessment and plan * Abdominal pain with pneumoperitoneum * History of gastroesophageal reflux disease * History of seizure disorder * In regards to pneumoperitoneum, CT reviewed, general surgery primary, co nservative management patient remains n.p.o., repeat CT abdomen and pelvis ordered pending * Continue patient on IV antibiotics on Zosyn, infectious disease following * In regards to history of seizure disorder continue patient on valproic acid * Continue patient on IV Protonix * CODE STATUS full code Objective - Vital Signs Vital signs: Vital Signs Temp 98.7 F 02/19/24 20:00 Pulse 80 02/20/24 04:00 Resp 18 02/20/24 04:00 BP 100/66 02/20/24 04:00 Pulse Ox 99 02/20/24 04:00 FiO2 Intake & Output 02/19/24 02/20/24 02/20/24 18:59 06:59 18:59 Intake Total 480 Balance 480 Intake: Oral 480 Other: Voiding Method Bedside Commode Bedside Commode # Voids 2 1 - Labs CBC & Chem 7: 02/20/24 10:15 02/20/24 10:15 Labs: Microbiology - Last 24 Hours (Table) 02/17/24 21:45 Blood Culture - Preliminary Blood 02/17/24 21:15 Blood Culture - Preliminary Blood
[2024-02-20] MEDS: MVI, ADULT NO.4 WITH VIT K 10 ML, TRACE (CONC-1ML/DOSE) 1 ML, SODIUM ACETATE 30 MEQ, PO... IV ONE (14:44)
[2024-02-20] MEDS: IOPAMIDOL CONTRAST (ORAL USE) VIAL PO PRN (15:20)
[2024-02-20 16:12] LABS: Glucose,Whole Blood 91 mg/dL (70-110)
--- NOTE | 2024-02-20 17:29 | CT ---
EXAMINATION TYPE: CT abdomen pelvis w con DATE OF EXAM: 02/20/2024 COMPARISON: 02/17/2024 HISTORY: Lower abdominal pain, r/o abdomen rupture CT DLP: 1818 mGycm Automated exposure control for dose reduction was used. TECHNIQUE: Helical acquisition of images was performed from the lung bases through the pelvis. CONTRAST: Performed with Oral Contrast and with IV Contrast, patient injected with 100 mL of Isovue 300. FINDINGS: The lung bases are clear. The gallbladder is normal without distention, wall thickening, pericholecystic fluid or gallstones. T here is no biliary ductal dilatation. There is no focal mass or organomegaly involving the liver, pancreas, spleen or adrenal glands. There is no solid renal mass or hydronephrosis and there is homogeneous contrast enhancement of the r enal parenchyma. The caliber the abdominal aorta is normal is no retroperitoneal adenopathy or hemorr mihir. The bowel loops are normal in caliber and there is no evidence of dilatation or obstruction. No infla mmatory changes are identified in the bowel wall or mesentery. There is decreasing but persistent free air beneath the diaphragm. There is no free fluid within the peritoneal cavity. There is a multiloculated air and fluid filled collection in the midline low pelvis measuring approxi mately 8 cm x 3.8 cm consistent with an abscess. There is a 5.7 x 4.7 cm mass in the region the left adnexa which could represent ovarian neoplasm or pericolic abscess. A similar appearing 6.4 x 5.0 cm mass in the region the right adnexa either repres ents a right ovarian neoplasm or abscess There is no pelvic adenopathy. The osseous structures and soft tissues are intact. IMPRESSION: 1. Mild free air beneath the diaphragm which has decreased compared to the prior study. 2. Air and fluid-filled loculated collection in the low midline pelvis consistent with a abscess. 3. Bilateral adnexal masses which either represent additional abscesses or ovarian neoplasm. MRI migh t be useful for further evaluation.
--- NOTE | 2024-02-20 19:47 | P.PN ---
Subjective Progress Note Date: 02/20/24 Principal diagnosis: Reason for follow-up is pneumoperitoneum and peritonitis Patient is a 63-year-old female past medical history significant for reflux osteoarthritis seizure disorder presenting to the hospital for evaluation of abdominal pain, the patient did have a CT abdominal pelvis evidence of moderate pneumoperitoneum currently being treated medically. On today's evaluation that is 02/20/2024, the patient continues to be afebrile, the patient is on room air and breathing comfortably, the Pt denies having any chest pain or cough, the patient has been complaining of abdominal pain but denies any worsening since yesterday some nausea but no vomiting no diarrhea. Patient did have white count 5.6 creatinine 0.58 blood cultures are pending Objective - Vital Signs Vital signs: Vital Signs Temp 96.5 F L 02/20/24 08:00 Pulse 81 02/20/24 08:00 Resp 18 02/20/24 08:00 BP 117/59 02/20/24 08:00 Pulse Ox 96 02/20/24 08:00 FiO2 Intake & Output 02/19/24 02/20/24 02/20/24 18:59 06:59 18:59 Intake Total 480 Balance 480 Weight 68.492 kg Intake: Oral 480 Other: Voiding Method Bedside Commode Bedside Commode # Voids 2 1 - Exam GENERAL DESCRIPTION: Middle-aged female lying in bed in no distress RESPIRATORY SYSTEM: Unlabored breathing , decreased breath sounds at bases HEART: S1 S2 regular rate and rhythm , ABDOMEN: Soft , mild tenderness EXTREMITIES: No edema feet - Labs CBC & Chem 7: 02/20/24 10:15 02/20/24 10:15 Labs: Abnormal Lab Results - Last 24 Hours (Table) 02/20/24 02/20/24 Range/Units 10:15 10:15 RBC 3.06 L (3.80-5.40) m/uL Hgb 8.9 L (11.4-16.0) gm/dL Hct 28.2 L (34.0-46.0) % Potassium 3.4 L (3.5-5.1) mmol/L Chloride 115 H (98-107) mmol/L Carbon Dioxide 15 L (22-30) mmol/L Glucose 72 L (74-99) mg/dL Microbiology - Last 24 Hours (Table) 02/17/24 21:45 Blood Culture - Preliminary Blood 02/17/24 21:15 Blood Culture - Preliminary Blood Assessment and Plan (1) Peritonitis Current Visit: Yes Status: Acute Code(s): K65.9 - PERITONITIS, UNSPECIFIED SNOMED Code(s): 76063245 (2) Pneumoperitoneum Current Visit: Yes Status: Acute Code(s): K66.8 - OTHER SPECIFIED DISORDERS OF PERITONEUM SNOMED Code(s): 36751839 Plan: 1patient presented hospital abdominal pain and this patient who did have abnormal CT suggestive of pneumoperitoneum and some fluid collection in the pelvis concerning for possible perforated bowel could be related to possible perforated diverticulitis, he will need to cover for the enteric gram-negative both aerobes and anaerobes, general surgery following the patient currently recommending bowel rest and antibiotic therapy 2-patient did get a PICC line this morning and currently waiting for repeat CT abdominal pelvis 3patient to continue with the Zosyn and will follow-up on repeat CT Dictation was produced using [employer] dictation software. please excuse any grammatical, word or spelling errors. Time with Patient: Less than 30
[2024-02-20 21:59] LABS: Glucose,Whole Blood 125 mg/dL (70-110)
[2024-02-21 04:07] LABS: Glucose,Whole Blood 131 mg/dL (70-110)
[2024-02-21] MEDS ORDERED: ZINC OXIDE PASTE (Z-GUARD) 1 APPLIC TOPICAL PRN (06:58)
[2024-02-21 08:37] LABS: African American GFR (CKD) >90 (>60 ml/min/1.73 sqM); Anion Gap 6 mmol/L; Blood Urea Nitrogen 12 mg/dL (7-17); Calcium 8.8 mg/dL (8.4-10.2); Carbon Dioxide 19 mmol/L (22-30); Chloride 116 mmol/L (98-107); Glucose 116 mg/dL (74-99); Magnesium 1.8 mg/dL (1.6-2.3); Non-African American GFR(CKD) >90 (>60 ml/min/1.73 sqM); Phosphorus 2.5 mg/dL (2.5-4.5); Potassium 3.6 mmol/L (3.5-5.1); Sodium 141 mmol/L (137-145)
--- NOTE | 2024-02-21 11:52 | US ---
EXAMINATION TYPE: US pelvic complete DATE OF EXAM: 02/21/2024 COMPARISON: NONE CLINICAL INDICATION: Female, 63 years old with history of pain, possible abscess on both ovaries on C T; possible adnexal abscess on CT TECHNIQUE: Transabdominal (TA). Date of LMP: unknown EXAM MEASUREMENTS: Uterus: 8.7 x 3.6 x 5.6 cm Endometrial Stripe: 0.7 cm 1. Uterus: Anteverted *hypoechoic area midline, inferior to uterus = 4.5 x 4.7 x 4.0cm 2. Endometrium: appears wnl 3. Right Ovary: unable to clearly visualize. Complex, mixed area right adnexa = 6.9 x 9.5 x 5.1cm 4. Left Ovary: unable to clearly visualize. Complex, mixed area left adnexa = 7.3 x 5.1 x 4.8cm IMPRESSION: *hypoechoic area midline, inferior to uterus = 4.5 x 4.7 x 4.0cm of unknown etiology unable to clearly visualize. Complex, mixed area, right adnexa = 6.9 x 9.5 x 5.1cm. Complex, mixed area in left adnexa = 7.3 x 5.1 x 4.8cm Consider hemorrhagic cyst, endometrioma less likely versus ot her pathology
[2024-02-21 12:04] LABS: Glucose,Whole Blood 121 mg/dL (70-110)
--- NOTE | 2024-02-21 15:06 | P.PN ---
Subjective Progress Note Date: 02/21/24 CHIEF COMPLAINT: Diverticulitis HISTORY OF PRESENT ILLNESS: The patient is a 63-year-old female who presents with perforated diverticulitis. Patient continues to have abdominal pain. She reports having sharp pains prior to having a bowel movement but passing gas. She had 5 episodes of diarrhea through the night. She is also complaining of rectal pain and has had improvement with the Tucks pads. Patient continues to report that she wants to eat. She received her PICC line yesterday and has been started on TPN. CT scan abdomen pelvis completed results report mild free air beneath the diaphragm which is decreased compared to prior study. Air and fluid-filled loculated collection in the low mid pelvis consistent with abscess. Bilateral adnexal masses which either represent abscesses or ovarian neoplasm. Afebrile. WBC 5.6 potassium 3.6 PHYSICAL EXAM: VITAL SIGNS: Reviewed GENERAL: Well-developed in no acute distress. HEENT: No sclera icterus. Extraocular movements grossly intact. Moist buccal mucosa. Head is atraumatic, normocephalic. Hears conversational speech. No nasal drai nage. NECK: Supple without lymphadenopathy. CHEST: Non-labored respirations and equal bilateral excursions. CARDIOVASCULAR: Palpable 2+ radial pulses. ABDOMEN: Soft. Mildly distended. Tenderness to palpation of right side of abdomen across the lower abdomen. Left lower quadrant tenderness noted. MUSCULOSKELETAL: No clubbing or cyanosis. NEUROLOGIC: No focal or lateralizing signs. Cranial nerves II through XII grossly intact. PSYCH: Appropriate affect. Alert and oriented to person, place and time. SKIN: Well perfused. Good skin turgor. ASSESSMENT: 1. Perforated diverticulitis with abscess 2. Bilateral adnexal masses or abscesses noted on CT PLAN: -Pelvic ultrasound ordered for further evaluation of the bilateral adnexal masses or abscess -Continue IV antibiotics -Keep patient n.p.o. except for ice chips or popsicles -Continue TPN for nutrition support -Continue pain management -Encourage patient to ambulate -Continue IV fluids -DVT prophylaxis subcu heparin Physician Tree Feller note has been reviewed by physician. Signing provider agrees with the documented findings, assessment, and plan of care. Objective - Vital Signs Vital signs: Vital Signs Temp 98.0 F 02/20/24 20:00 Pulse 69 02/21/24 04:00 Resp 16 02/21/24 04:00 BP 116/65 02/21/24 04:00 Pulse Ox 98 02/21/24 04:00 FiO2 Intake & Output 02/20/24 02/21/24 02/21/24 18:59 06:59 18:59 Weight 68.492 kg Other: Voiding Method Toilet - Labs CBC & Chem 7: 02/20/24 10:15 02/21/24 07:15 Labs: Abnormal Lab Results - Last 24 Hours (Table) 02/20/24 02/20/24 02/20/24 Range/Units 10:15 10:15 21:57 RBC 3.06 L (3.80-5.40) m/uL Hgb 8.9 L (11.4-16.0) gm/dL Hct 28.2 L (34.0-46.0) % Potassium 3.4 L (3.5-5.1) mmol/L Chloride 115 H (98-107) mmol/L Carbon Dioxide 15 L (22-30) mmol/L Creatinine (0.52-1.04) mg/dL Glucose 72 L (74-99) mg/dL POC Glucose (mg/dL) 125 H (70-110) mg/dL 02/21/24 02/21/24 Range/Units 04:02 07:15 RBC (3.80-5.40) m/uL Hgb (11.4-16.0) gm/dL Hct (34.0-46.0) % Potassium (3.5-5.1) mmol/L Chloride 116 H (98-107) mmol/L Carbon Dioxide 19 L (22-30) mmol/L Creatinine 0.51 L (0.52-1.04) mg/dL Glucose 116 H (74-99) mg/dL POC Glucose (mg/dL) 131 H (70-110) mg/dL Microbiology - Last 24 Hours (Table) 02/17/24 21:45 Blood Culture - Preliminary Blood 02/17/24 21:15 Blood Culture - Preliminary Blood
[2024-02-21] MEDS: FAT EMULSION 20% 250 ML IV SCH (16:03)
[2024-02-21] MEDS: 1: MVI, ADULT NO.4 WITH VIT K 10 ML, TRACE (CONC-1ML/DOSE) 1 ML, SODIUM ACETATE 30 MEQ, IV SCH (16:03)
[2024-02-21 16:26] LABS: Glucose,Whole Blood 103 mg/dL (70-110)
[2024-02-22 01:44] LABS: Glucose,Whole Blood 139 mg/dL (70-110)
[2024-02-22] MEDS: HYDROmorphone 1 MG/ML 1 ML SYRINGE IVP PRN (05:26)
[2024-02-22 06:17] LABS: Glucose,Whole Blood 126 mg/dL (70-110)
[2024-02-22 07:28] LABS: African American GFR (CKD) >90 (>60 ml/min/1.73 sqM); Anion Gap 7 mmol/L; Blood Urea Nitrogen 15 mg/dL (7-17); Calcium 9.2 mg/dL (8.4-10.2); Carbon Dioxide 21 mmol/L (22-30); Chloride 112 mmol/L (98-107); Glucose 113 mg/dL (74-99); Magnesium 1.8 mg/dL (1.6-2.3); Non-African American GFR(CKD) >90 (>60 ml/min/1.73 sqM); Phosphorus 2.9 mg/dL (2.5-4.5); Potassium 3.2 mmol/L (3.5-5.1); Sodium 140 mmol/L (137-145)
[2024-02-22 11:56] LABS: Glucose,Whole Blood 101 mg/dL (70-110)
--- NOTE | 2024-02-22 13:59 | P.PN ---
Subjective Progress Note Date: 02/22/24 CHIEF COMPLAINT: Diverticulitis HISTORY OF PRESENT ILLNESS: The patient is a 63-year-old female who presents with perforated diverticulitis. Patient does report decrease in abdominal pain today. She is having bowel movements. She is hungry and wants something to eat. Dr. Markham did review imaging findings with patient. Pelvic ultrasound reported hypoechoic area in the midline and complex mixed area in the right adnexa and left adnexa consider hemorrhagic cyst, endometrioma less likely. CT scan abdomen pelvis had reported air and fluid-filled loculated collection in the lower mid line pelvis consistent with abscess. Bilateral adnexal masses which are either represent additional abscesses ovarian neoplasm. Afebrile. Potassium 3.2 PHYSICAL EXAM: VITAL SIGNS: Reviewed GENERAL: Well-developed in no acute distress. HEENT: No sclera icterus. Extraocular movements grossly intact. Moist buccal mucosa. Head is atraumatic, normocephalic. Hears conversational speech. No nasal drainag e. NECK: Supple without lymphadenopathy. CHEST: Non-labored respirations and equal bilateral excursions. CARDIOVASCULAR: Palpable 2+ radial pulses. ABDOMEN: Soft. Mildly distended. Tenderness to palpation of right side of abdomen across the lower abdomen. Left lower quadrant tenderness noted. MUSCULOSKELETAL: No clubbing or cyanosis. NEUROLOGIC: No focal or lateralizing signs. Cranial nerves II through XII grossly intact. PSYCH: Appropriate affect. Alert and oriented to person, place and time. SKIN: Well perfused. Good skin turgor. ASSESSMENT: 1. Perforated diverticulitis with abscess 2. Bilateral adnexal masses or abscesses noted on CT 3. Hypokalemia PLAN: -Initially consult placed for interventional radiology for drainage of diverticular abscess. However, there are concerns that there could be abscesses or masses on both ovaries. The ovaries may have a communication to the pelvic abscess per interventional radiology. At this time we will hold off on drainage tube placement. Consult COMMUNITY HEALTH COORDINATOR service for evaluation of adnexal masses versus abscess. Check CA125 tumor marker -Continue with IV antibiotics -Keep patient n.p.o. except for ice chips or popsicles -Continue TPN for nutrition support -Continue pain management -Encourage patient to ambulate -Continue IV fluids -DVT prophylaxis subcu heparin Physician Director Human Services note has been reviewed by physician. Signing provider agrees with the documented findings, assessment, and plan of care. Objective - Vital Signs Vital signs: Vital Signs Temp 98.3 F 02/22/24 08:00 Pulse 80 02/22/24 08:00 Resp 16 02/22/24 08:00 BP 124/73 02/22/24 08:00 Pulse Ox 97 02/22/24 08:00 FiO2 Intake & Output 02/21/24 02/22/24 02/22/24 18:59 06:59 18:59 Other: Voiding Method Toilet Toilet - Labs CBC & Chem 7: 02/20/24 10:15 02/22/24 06:08 Labs: Abnormal Lab Results - Last 24 Hours (Table) 02/21/24 02/22/24 02/22/24 Range/Units 12:02 01:40 06:08 Potassium 3.2 L (3.5-5.1) mmol/L Chloride 112 H (98-107) mmol/L Carbon Dioxide 21 L (22-30) mmol/L Creatinine 0.44 L (0.52-1.04) mg/dL Glucose 113 H (74-99) mg/dL POC Glucose (mg/dL) 121 H 139 H (70-110) mg/dL 02/22/24 Range/Units 06:15 Potassium (3.5-5.1) mmol/L Chloride (98-107) mmol/L Carbon Dioxide (22-30) mmol/L Creatinine (0.52-1.04) mg/dL Glucose (74-99) mg/dL POC Glucose (mg/dL) 126 H (70-110) mg/dL
[2024-02-22 16:38] LABS: Glucose,Whole Blood 126 mg/dL (70-110)
[2024-02-22] MEDS: POTASSIUM CHLORIDE 10 MEQ in WATER FOR INJECTION 1 100ML.BAG IVPB STA (20:54)
--- NOTE | 2024-02-22 21:12 | P.PN ---
Subjective Progress Note Date: 02/21/24 This is 63-year-old female admitted with abdominal pain with perforated diverticulitis with abscess, evaluated by general surgery, recommending conservative management. Patient remains n.p.o. receiving TPN and lipids via PICC line. denies chest pain, palpitations or shortness of breath. Positive abdominal pain. Positive bowel movement-reports painful. Diarrhea throughout the night. Repeat CT of abdomen pelvis completed yesterday reported mild free air beneath the diaphragm which is decreased compared to prior study. Air and fluid-filled loculated collection in the low mid pelvis consistent with abscess. Bilateral adnexal masses which either represent abscesses or ovarian neoplasm. Afebrile. Potassium 3.6, supplemented. Objective - Vital Signs Vital signs: Vital Signs Temp 98.2 F 02/21/24 08:00 Pulse 98 02/21/24 16:00 Resp 18 02/21/24 16:00 BP 125/91 02/21/24 16:00 Pulse Ox 95 02/21/24 16:00 FiO2 Intake & Output 02/21/24 02/21/24 02/22/24 06:59 18:59 06:59 Other: Voiding Method Toilet - Exam PHYSICAL EXAM: VITAL SIGNS: [As above] GENERAL: Alert and oriented x 3, no acute distress HEENT: Normocephalic, atraumatic conjunctivae normal. eyes normal. NECK: Supple, no JVD. CARDIOVASCULAR: S1, S2 regular. No murmur RESPIRATION: Unlabored, equal air entry ,breath sounds diminished in the bases. No rhonchi or crackles. No bronchial breathing. ABDOMEN: Soft, distended. Bilateral lower and right-sided abdominal tenderness, no guarding. no masses palpable. Bowel sounds heard. LEGS: No edema. no swelling PSYCHIATRY: Alert and oriented X3, mood and affect normal. NERVOUS SYSTEM: Cranial N 2-12 grossly normal. No focal deficits. Skin: Warm and dry, no rash - Labs CBC & Chem 7: 02/20/24 10:15 02/22/24 06:08 Labs: Abnormal Lab Results - Last 24 Hours (Table) 02/20/24 02/21/24 02/21/24 Range/Units 21:57 04:02 07:15 Chloride 116 H (98-107) mmol/L Carbon Dioxide 19 L (22-30) mmol/L Creatinine 0.51 L (0.52-1.04) mg/dL Glucose 116 H (74-99) mg/dL POC Glucose (mg/dL) 125 H 131 H (70-110) mg/dL 02/21/24 Range/Units 12:02 Chloride (98-107) mmol/L Carbon Dioxide (22-30) mmol/L Creatinine (0.52-1.04) mg/dL Glucose (74-99) mg/dL POC Glucose (mg/dL) 121 H (70-110) mg/dL Microbiology - Last 24 Hours (Table) 02/17/24 21:45 Blood Culture - Preliminary Blood 02/17/24 21:15 Blood Culture - Preliminary Blood Assessment and Plan Assessment: Pneumoperitoneum ,perforated diverticulitis with repeat CT reported mild free air beneath the diaphragm which is decreased compared to prior study. Air and fluid-filled loculated collection in the low mid pelvis consistent with abscess. Bilateral adnexal masses which either represent abscesses or ovarian neoplasm, reported per CT. Hypokalemia Plan: Continue on current medication regimen ,monitoring and symptomatic treatment. Continue IV fluid hydration. maintained on Zosyn as per infectious disease. blood cultures pending. Further recommendations per general surgery pending related to repeat CT results. The impression and plan of care has been dictated as directed. : I performed a history and examination of this patient, discussed the same with the dictator. I agree with the dictator's note ,documented as a scribe. Any additional findings or plans will be noted.
[2024-02-23 00:11] LABS: Glucose,Whole Blood 112 mg/dL (70-110)
[2024-02-23 06:04] LABS: Glucose,Whole Blood 110 mg/dL (70-110)
--- NOTE | 2024-02-23 08:47 | P.OBCN ---
History of Present Illness Consult date: 02/23/24 Reason for consult: other (plevic abscesses vs hemorrhagic cyst vs neoplasm) Chief complaint: abdominal pain and diarrhea History of present illness: 63 year old presented to ER with severe abdominal pain and incontinence of stool. She was diagnosed with ruptured diverticuli and acute abdomen. CT on admission showed abscess behind the uterus and bilateral adnexa. After several days of antibiotics and clear liquid diet/NPO pt is not improved. CT and pelvic US again show abscesses. I do believe these are abscesses related to the ruptured diverticuli. I will get a CA-125 though the cysts are not thought to be solid. If she undergoes diagnostic laparotomy, I could be available for consult to evaluate and possibly remove these cysts/abscesses or the ovaries in general. Unfortunately, if we only drain the abscess behind the uterus, we will not be able to evaluate the ovaries. If the CA-125 comes back extremely elevated, may need to transfer to a tertiary facility for this operation. Review of Systems All systems: negative Constitutional: Denies chills, Denies fever Eyes: denies blurred vision, denies pain Ears, nose, mouth and throat: Denies headache, Denies sore throat Cardiovascular: Denies chest pain, Denies shortness of breath Respiratory: Denies cough Gastrointestinal: Denies abdominal pain, Denies diarrhea, Denies nausea, Denies vomiting Genitourinary: Denies dysuria, Denies hematuria Musculoskeletal: Denies myalgias Integumentary: Denies pruritus, Denies rash Neurological: Denies numbness, Denies weakness Psychiatric: Denies anxiety, Denies depression Endocrine: Denies fatigue, Denies weight change Past Medical History Past Medical History: GERD/Reflux, Osteoarthritis (OA), Seizure Disorder Additional Past Medical History / Comment(s): LAST SEIZURE 02/1992; hiatal hernia, occasional dysphagia, worsening GERD sx., aortic aneurysm near heart per pt. History of Any Multi-Drug Resistant Organisms: None Reported Past Surgical History: Appendectomy, Joint Replacement, Orthopedic Surgery, Tubal Ligation Additional Past Surgical History / Comment(s): REPAIR SMALL INTESTINE THAT WAS NICKED DURING TL; arthroscopy left knee; left knee replacement; benign left breast biopsy, ectopic , D&C Past Anesthesia/Blood Transfusion Reactions: No Reported Reaction Past Psychological History: No Psychological Hx Reported Smoking Status: Vaper Past Alcohol Use History: Rare Additional Past Alcohol Use History / Comment(s): HAS BEEN SMOKING 1/2PPD SINCE 1996 (AGE 36) Past Drug Use History: None Reported - Past Family History Brother(s) Family Medical History: Cancer Mother Family Medical History: Cancer Medications and Allergies Home Medications Medication Instructions Recorded Confirmed Type Divalproex [Depakote] 250 mg PO QID 02/12/21 02/18/24 History Aspirin 81 mg PO DAILY chew 02/13/21 02/18/24 Rx Meloxicam [Mobic] 15 mg PO DAILY 08/04/23 02/18/24 History Alendronate Sodium [Fosamax] 70 mg PO DIRECTED 02/18/24 02/18/24 History Famotidine 40 mg PO DAILY 02/18/24 02/18/24 History PARoxetine HCL [Paxil] 10 mg PO DAILY 02/18/24 02/18/24 History Allergies Allergy/AdvReac Type Severity Reaction Status Date / Time No Known Allergies Allergy Verified 02/18/24 09:22 Exam Osteopathic Statement: *. No significant issues noted on an osteopathic structural exam other than those noted in the History and Physical/Consult. Vital Signs Temp Pulse Resp BP BP Pulse Ox 02/23/24 04:00 98.2 F 77 17 144/72 98 02/23/24 02:00 75 19 02/23/24 00:00 99.2 F 75 17 128/75 98 02/22/24 20:00 99.4 F 71 19 115/74 99 02/22/24 16:00 76 16 113/62 98 02/22/24 14:00 16 02/22/24 12:00 78 16 127/68 100 Intake and Output 02/22/24 02/23/24 02/23/24 22:59 06:59 14:59 Intake Total 40 Balance 40 Intake: Oral 40 Other: Voiding Method Toilet Toilet # Voids 2 Weight 79.3 kg abdomen: distended, tender diffusely. Results Result Diagrams: 02/20/24 10:15 02/22/24 06:08 Abnormal Lab Results - Last 24 Hours (Table) 02/22/24 02/22/24 02/23/24 Range/Units 06:08 16:36 00:09 POC Glucose (mg/dL) 126 H 112 H (70-110) mg/dL CA 125 Antigen 71.6 H (0.0-30.1) U/mL Microbiology - Last 24 Hours (Table) 02/17/24 21:45 Blood Culture - Final Blood 02/17/24 21:15 Blood Culture - Final Blood Assessment and Plan (1) Diverticulitis large intestine Current Visit: Yes Status: Acute Code(s): K57.32 - DVTRCLI OF LG INT W/O PERFORATION OR ABSCESS W/O BLEEDING SNOMED Code(s): 7696411 (2) Pneumoperitoneum Current Visit: Yes Status: Acute Code(s): K66.8 - OTHER SPECIFIED DISORDERS OF PERITONEUM SNOMED Code(s): 75498015 (3) Bilateral ovarian cysts Current Visit: Yes Status: Acute Code(s): N83.201 - UNSPECIFIED OVARIAN CYST, RIGHT SIDE; N83.202 - UNSPECIFIED OVARIAN CYST, LEFT SIDE SNOMED Code(s): 87365461 Plan: 1. CA-125 2. if CA-125 is severly elevated, may need to transfer 3. please call if you decide to take her to the OR for exploratory laparotomy and I will try to be available
[2024-02-23 10:33] LABS: HCT 31.2 % (34.0-46.0); HGB 9.8 gm/dL (11.4-16.0); MCH 28.8 pg (25.0-35.0); MCHC 31.4 g/dL (31.0-37.0); MCV 91.6 fL (80.0-100.0); Mean Platelet Volume 7.7; Platelet Count 272 k/uL (150-450); RBC 3.41 m/uL (3.80-5.40); RDW 14.7 % (11.5-15.5); WBC 4.4 k/uL (3.8-10.6)
[2024-02-23 10:33] LABS: HCT 31.3 % (34.0-46.0); HGB 9.8 gm/dL (11.4-16.0); MCH 28.7 pg (25.0-35.0); MCHC 31.3 g/dL (31.0-37.0); MCV 91.9 fL (80.0-100.0); Mean Platelet Volume 7.7; Platelet Count 275 k/uL (150-450); RBC 3.41 m/uL (3.80-5.40); RDW 14.6 % (11.5-15.5); WBC 4.5 k/uL (3.8-10.6)
[2024-02-23] MEDS: FUROSEMIDE 10 MG/ML 4 ML VIAL IV STA (10:34)
[2024-02-23 11:16] LABS: African American GFR (CKD) >90 (>60 ml/min/1.73 sqM); Anion Gap 5 mmol/L; Blood Urea Nitrogen 19 mg/dL (7-17); Calcium 8.5 mg/dL (8.4-10.2); Carbon Dioxide 26 mmol/L (22-30); Chloride 107 mmol/L (98-107); Glucose 93 mg/dL (74-99); Non-African American GFR(CKD) >90 (>60 ml/min/1.73 sqM); Sodium 138 mmol/L (137-145)
[2024-02-23 11:17] LABS: Glucose,Whole Blood 93 mg/dL (70-110)
[2024-02-23] MEDS: IV FLUID CONTINUATION 1,000 ML IV ONE (11:26)
--- NOTE | 2024-02-23 11:30 | P.PN ---
Subjective Progress Note Date: 02/23/24 CHIEF COMPLAINT: Diverticulitis HISTORY OF PRESENT ILLNESS: The patient is a 63-year-old female who presents with perforated diverticulitis. Patient reports waxing waning course of her abdominal pain. She reports improvement since admission however pain is still present. Consultation to TEACHERS ASSISTANT was performed due to new findings of large bilateral ovarian masses. Patient reports she was just seen by the finance director. She is on TPN and antibiotics. Patient also reports intermittent cramping happening at night for abdominal pain. Pain is crampy, mild to moderate. ROS: No reports of nausea and vomiting. No fevers or chills. No new chest pain. No productive sputum PHYSICAL EXAM: VITAL SIGNS: Reviewed CONSTITUTIONAL: Well developed and in no acute distress. EYES: Conjuctivae without sclera icterus. Extraocular movements grossly intact. HEAD, EARS, NOSE, THROAT: Moist buccal mucosa. Head is atraumatic, normocephalic. Hears conversational speech. No nasal drainage. RESPIRATORY: Non-labored respirations and equal bilateral excursions. CARDIOVASCULAR: Palpable 2+ radial pulses. ABDOMEN: Soft, no diffuse peritonitis. MUSCULOSKELETAL: No gross deformity of the lower extremities noted. No clubbing. No cyanosis. SKIN: Good skin turgor. Well perfused. NEUROLOGIC: Cranial nerves II through XII grossly intact. No focal or lateralizing signs. PSYCH: Appropriate affect. Alert and oriented to person, place and time. CLINICAL LABS: Reviewed. WBC normal. STUDIES: CT of the abdomen pelvis independently reviewed demonstrate pelvic abscess fluid collection including large bilateral ovarian masses. This is my independent interpretation. IMAGING: Ultrasound of ovaries demonstrates bilateral over 6 to 7 cm cystic masses. REPORT: Interventional radiology consultation for IR drainage was performed however deferred due to risk of large ovarian abscesses with rupture per discussion with radiologist. As result, gynecology team was consulted. ASSESSMENT: 1. Perforated diverticulitis 2. Bilateral ovarian masses PLAN: 1. Multiple tumor markers including CA125, CEA, alpha-fetoprotein, beta-hCG were sent for tumor markers for ovarian cancer. 2. Consultation to oncology performed. 3. As patient is not clinically resolved, exploratory laparotomy with ostomy was described. 4. Will request gynecology team to be on standby for pelvic findings Objective - Vital Signs Vital signs: Vital Signs Temp 98 F 02/23/24 08:00 Pulse 77 02/23/24 08:00 Resp 16 05/09/24 08:00 BP 126/77 02/23/24 08:00 Pulse Ox 100 02/23/24 08:00 FiO2 Intake & Output 02/22/24 02/23/24 02/23/24 18:59 06:59 18:59 Intake Total 1050 40 Balance 1050 40 Weight 79.3 kg Intake: Intake, IV Titration 1050 Amount Mvi, Adult No.4 with Vit 1050 K 10 ml Trace (Conc-1Ml/ Dose) 1 ml Sodium Acetate 30 meq Potassium Acetate 20 meq Calcium Gluconate 1 gm Magnesium Sulfate gm 1 gm Potassium Phosphate 6 mmol In Amino Acids 5 %/Dextrose 20 % 1,000 ml @ 70 mls/hr IV . BY DURATION JUANITA Rx#: [id number] Oral 40 Other: Voiding Method Toilet Toilet # Voids 2 2 - Labs CBC & Chem 7: 02/23/24 10:09 02/23/24 10:08 Labs: Abnormal Lab Results - Last 24 Hours (Table) 02/22/24 02/22/24 02/23/24 Range/Units 06:08 16:36 00:09 POC Glucose (mg/dL) 126 H 112 H (70-110) mg/dL CA 125 Antigen 71.6 H (0.0-30.1) U/mL Microbiology - Last 24 Hours (Table) 02/17/24 21:45 Blood Culture - Final Blood 02/17/24 21:15 Blood Culture - Final Blood
[2024-02-23 11:33] LABS: ALT 8 U/L (4-34); AST 22 U/L (14-36); African American GFR (CKD) >90 (>60 ml/min/1.73 sqM); Albumin 2.7 g/dL (3.5-5.0); Alkaline Phosphatase 84 U/L (38-126); Anion Gap 6 mmol/L; Blood Urea Nitrogen 19 mg/dL (7-17); Calcium 8.5 mg/dL (8.4-10.2); Carbon Dioxide 26 mmol/L (22-30); Chloride 106 mmol/L (98-107); Glucose 94 mg/dL (74-99); Magnesium 1.8 mg/dL (1.6-2.3); Non-African American GFR(CKD) >90 (>60 ml/min/1.73 sqM); Phosphorus 2.4 mg/dL (2.5-4.5); Sodium 138 mmol/L (137-145); Total Bilirubin 0.3 mg/dL (0.2-1.3); Total Protein 5.3 g/dL (6.3-8.2)
[2024-02-23] MEDS: fentaNYL (PF) 50 MCG/ML 2 ML AMP IVP ONE (11:55)
[2024-02-23] MEDS ORDERED: NEOSTIGMINE 1 MG/ML 10 ML VIAL ONE (13:30)
[2024-02-23] MEDS ORDERED: GLYCOPYRROLATE 0.2 MG/ML 2 ML VIAL ONE (13:30)
[2024-02-23] MEDS ORDERED: fentaNYL (PF) 50 MCG/ML 2 ML AMP ONE (13:30)
[2024-02-23] MEDS ORDERED: PHENYLEPHRINE 10 MG/ML VIAL ONE (13:30)
[2024-02-23] MEDS ORDERED: PROPOFOL 10 MG/ML 20 ML VIAL IV ONE (13:30)
[2024-02-23] MEDS ORDERED: ONDANSETRON 4 MG/2 ML VIAL ONE (13:30)
[2024-02-23] MEDS ORDERED: ROCURONIUM 10 MG/ML (5 ML VIAL) IV ONE (13:30)
[2024-02-23] MEDS ORDERED: MIDAZOLAM 2 MG/2 ML VIAL ONE (13:30)
[2024-02-23] MEDS ORDERED: LIDOCAINE 1% INJ 10MG/ML (20 ML MDV) ONE (13:30)
[2024-02-23] MEDS ORDERED: SUCCINYLCHOLINE CHLORIDE 200 MG/10 ML VIAL IV ONE (13:30)
[2024-02-23] MEDS: SODIUM CHLORIDE 0.9% 100 ML with ceFAZolin 2,000 MG IV ONE (13:39)
[2024-02-23] MEDS ORDERED: Potassium Replacement Protocol 1 EACH MISC MISCELLANE PRN (14:05)
[2024-02-23] MEDS: SODIUM CHLORIDE 0.9% IV ONE (14:10)
[2024-02-23] MEDS: METRONIDAZOLE NS PMX IV ONE (14:10)
--- NOTE | 2024-02-23 14:16 | P.PN ---
Subjective Progress Note Date: 02/22/24 This is 63-year-old female admitted with abdominal pain with perforated diverticulitis with abscess, evaluated by general surgery, recommending conservative management. Patient remains n.p.o. receiving TPN and lipids via PICC line. denies chest pain, palpitations or shortness of breath. Positive abdominal pain. Positive bowel movement-reports painful. Diarrhea throughout the night. Repeat CT of abdomen pelvis completed yesterday reported mild free air beneath the diaphragm which is decreased compared to prior study. Air and fluid-filled loculated collection in the low mid pelvis consistent with abscess. Bilateral adnexal masses which either represent abscesses or ovarian neoplasm. Afebrile. Potassium 3.6, supplemented. 02/22/2024 STAFFING CONSULTANT and Oncology consulted by general surgery, regarding CT findings. reports decreased abdominal pain, positive cramps with flatus. Remains n.p.o.,maintained on TPN and liquids. Expresses hunger. Potassium 3.2, supplementation ordered. Magnesium 1.8, supplementation ordered. Maintain on IV antibiotics as per infectious disease. Afebrile. Objective - Vital Signs Vital signs: Vital Signs Temp 98.3 F 02/22/24 08:00 Pulse 76 02/22/24 16:00 Resp 16 02/22/24 16:00 BP 113/62 02/22/24 16:00 Pulse Ox 98 02/22/24 16:00 FiO2 Intake & Output 02/22/24 02/22/24 02/23/24 06:59 18:59 06:59 Other: Voiding Method Toilet Toilet # Voids 2 - Exam PHYSICAL EXAM: VITAL SIGNS: [As above] GENERAL: Alert and oriented x 3, laying in bed, no acute distress HEENT: Normocephalic, atraumatic conjunctivae normal. eyes normal. NECK: Supple, no JVD. CARDIOVASCULAR: S1, S2 regular. No murmur RESPIRATION: Unlabored, equal air entry ,breath sounds diminished in the bases. ABDOMEN: Soft, distended. Bilateral lower and right-sided abdominal tenderness, no guarding. no masses palpable. Bowel sounds heard. LEGS: Mild edema NERVOUS SYSTEM: Cranial N 2-12 grossly normal. No focal deficits. Skin: Warm and dry, no rash - Labs CBC & Chem 7: 02/23/24 10:09 02/23/24 10:08 Labs: Abnormal Lab Results - Last 24 Hours (Table) 02/22/24 02/22/24 02/22/24 Range/Units 01:40 06:08 06:08 Potassium 3.2 L (3.5-5.1) mmol/L Chloride 112 H (98-107) mmol/L Carbon Dioxide 21 L (22-30) mmol/L Creatinine 0.44 L (0.52-1.04) mg/dL Glucose 113 H (74-99) mg/dL POC Glucose (mg/dL) 139 H (70-110) mg/dL CA 125 Antigen 71.6 H (0.0-30.1) U/mL 02/22/24 02/22/24 Range/Units 06:15 16:36 Potassium (3.5-5.1) mmol/L Chloride (98-107) mmol/L Carbon Dioxide (22-30) mmol/L Creatinine (0.52-1.04) mg/dL Glucose (74-99) mg/dL POC Glucose (mg/dL) 126 H 126 H (70-110) mg/dL CA 125 Antigen (0.0-30.1) U/mL Assessment and Plan Assessment: Pneumoperitoneum ,perforated diverticulitis with repeat CT reported mild free ai r beneath the diaphragm which is decreased compared to prior study. Air and fluid-filled loculated collection in the low mid pelvis consistent with abscess. Bilateral adnexal masses which either represent abscesses or ovarian neoplasm, reported per CT. Hypokalemia Plan: Continue on current medication regimen ,monitoring and symptomatic treatment. Oncology, STAFFING CONSULTANT consult in place with further recommendations from general surgery pending ,regarding repeat CT.continue IV fluid hydration, TPN and lipids. Continue on Zosyn as per infectious disease. blood cultures in progress. The impression and plan of care has been dictated as directed. : I performed a history and examination of this patient, discussed the same with the dictator. I agree with the dictator's note ,documented as a scribe. Any additional findings or plans will be noted.
[2024-02-23] MEDS: LACTATED RINGERS 1,000 ML IV ONE ×4 (14:50→18:03)
[2024-02-23] MEDS ORDERED: ONDANSETRON 4 MG/2 ML VIAL IVP PRN (17:09)
[2024-02-23] MEDS: HYDROmorphone 0.5 MG/0.5 ML SYRINGE IVP ONE ×3 (17:12→17:35)
--- NOTE | 2024-02-23 17:29 | P.OP ---
Date of Procedure: 02/23/24 Description of Procedure: SURGEON: BAUTISTA SHAH MD PREOPERATIVE DIAGNOSES: 1. Perforated complicated sigmoid diverticulitis with pelvic abscess 2. Bilateral ovarian mass 3. Obesity due to excess calories, BMI 30.2 4. Depressive disorder 5. Osteoporosis 6. Seizure disorder 7. Gastroesophageal reflux disease POSTOPERATIVE DIAGNOSES: 1. Perforated complicated sigmoid diverticulitis with pelvic abscess 2. Bilateral ovarian complex neoplasm, over 6 cm 3. Obesity due to excess calories, BMI 30.2 4. Depressive disorder 5. Osteoporosis 6. Seizure disorder 7. Gastroesophageal reflux disease OPERATION: 1. Exploratory laparotomy with sigmoid resection for perforated mid sigmoid colo n 2. Descending colostomy. 3. Defunctionalized rectal stump. 4. Richardson's procedure for perforated sigmoid colon 5. Peritoneal lavage over 3 liters 6. Placement of 20 cm PREVENA wound VAC system 7. Drainage of intra-abdominal abscess 200 mL, pelvis 8. Open lysis of adhesions, extensive ANESTHESIA: General ESTIMATED BLOOD LOSS: 150mL. SPECIMENS REMOVED: 1. Sigmoid colon 2. Aerobic and anaerobic culture diverticular abscess 3. Aerobic anaerobic culture ovarian/pelvic abscess 4. Cell cytology of ovarian mass COMPLICATIONS: None. Condition: stable Disposition: floor Urine output: Over 1700 cc and 2.5 hours Operative Findings: 1. Localized deep pelvic abscess over 200 cc drained adherent to sigmoid colon 2. Bilateral ovarian complex cystic neoplastic mass over 6 cm with calc ification firm, highly suspicious for malignancy 3. Perforated mid sigmoid colon 4. Highly redundant sigmoid colon 5. No peritoneal studding identified within the abdomen or pelvis 6. No signs of local spread from ovarian neoplastic process 7. Intraoperative telephone consultation performed with gynecology INDICATIONS: The patient is a 63-year-old female who initially presented to the hospital complaining of over 1 month history of abdominal pain involving the right upper abdomen. She presented with CT findings of perforated diverticulitis. Patient was offered initial surgical intervention however wanted conservative management as she was nontoxic in presentation. Follow-up CT scans demonstrated localized abscess unable to drain via interventional radiology and bilateral ovarian masses for which gynecological consultation was obtained. Patient reported worsening abdominal pain prompting urgent surgical intervention. Benefits and risk of procedure including colectomy with temporary colostomy were described. DESCRIPTION: Patient was brought to the operating room. She was on scheduled IV antibiotics. The patient was placed in supine position whereby general induction was performed. Abdomen had been prepped and draped in the standard sterile fashion with placement of Butler catheter. Ioban draping was also placed to minimize any contamination to the skin. Next, using #10 blade, the abdomen was entered along the midline whereby an incision was made just above the umbilicus down to the pubis. The abdomen was inspected whereby the small bowel was unremarkable. The mesentery was also unremarkable. Separately, the liver surface was palpated and unremarkable. No peritoneal studding was identified. Next, Bookwalter retractor was placed. The small bowel and right colon were packed of the upper abdomen. The descending colon and sigmoid colon was mobilized along the medial and lateral attachments with care to avoid injury to the ureters along the usual anatomical landmarks. The sigmoid colon was densely adherent to the bilateral complex cystic masses including fallopian tube of the ovaries. The ovaries size were over 6 cm. Additionally, the texture worse firm with calcification highly suspicious for malignancy. The sigmoid colon was densely adherent to the bilateral ovaries. Carefully the sigmoid colon was identified and mobilized. The sigmoid colon was moderately redundant with perforation along the intermesenteric border of the mid sigmoid colon. Lysis of adhesions was performed using digital blunt dissection including LigaSure for over 1 hour. Over 200 cc maurilio non-malodorous purulent drainage was drained along the retrouterine space/pelvic space. Aerobic anaerobic cultures were obtained of diverticular abscess, suspected ovarian fluid, cell cytology of the pelvic fluid. The sigmoid colon was mobilized along the mesentery where a window was made along the mesentery and the colon was divided using Ethicon powered stapler 60 mm black load such that the descending colon was prepared for maturation of a colostomy. The colon was divided proximally and distally using contour blue stapler above and below the perforation. The specimen was passed off. Hemostasis was checked with electro Bovie cautery including Enseal. The abdomen was copiously irrigated with 3 L of normal saline solution. Placement of a drain was avoided due to active bilateral ovarian masses for risk of malignancy and seeding. The rectal stump was tagged using 2-0 Prolene. Next, attention was brought to the delivering and creating of the descending colostomy. A point along the abdominal wall and rectus muscle was selected for the colostomy. Eva was used to elevate the skin and Bovie cautery was taken across in tangential manner to create the skin defect of approximately quarter-size. The fat of the skin was mobilized using a small rich. The rectus muscle was identified and scored with a cruciate scoring of electro- Bovie cautery. Next, using a muscle-splitting technique with a hemostat, the peritoneum was entered. The peritoneum was widened such that 2 fingerbreadths could easily pass for delivering and evaginating the descending portion of the colon through the skin. The midline incision was closed using double-stranded 0 PDS. Next, the subcutaneous tissue was copiously irrigated with normal saline and hydrogen peroxide. For the rest of the incision, stainless steel skin bruce were applied. The midline incision was covered using universal PREVENA wound VAC and attention was brought to maturation of the colostomy. The staple edge was divided and removed. Next quadrant sutures at 12 o'clock, 3 o'clock, 6 o'clock, and 9 o'clock position was made using serosa, mucosal and dermal bites using 2-0 Vicryl. Interrupted 3-0 Vicryl was placed in between all quadrants sutures to completely mature the ostomy. Hemostasis was checked. A Coloplast was then placed. At the end of the procedure, needle, sponge, and instrument count had been verified correct by assembler surgical garment. The patient's family was updated on level of care.
--- NOTE | 2024-02-23 18:15 | P.PN ---
Subjective Progress Note Date: 02/23/24 This is 63-year-old female admitted with abdominal pain with perforated diverticulitis with abscess, evaluated by general surgery, recommending conservative management. Patient remains n.p.o. receiving TPN and lipids via PICC line. denies chest pain, palpitations or shortness of breath. Positive abdominal pain. Positive bowel movement-reports painful. Diarrhea throughout the night. Repeat CT of abdomen pelvis completed yesterday reported mild free air beneath the diaphragm which is decreased compared to prior study. Air and fluid-filled loculated collection in the low mid pelvis consistent with abscess. Bilateral adnexal masses which either represent abscesses or ovarian neoplasm. Afebrile. Potassium 3.6, supplemented. 02/22/[address] and Oncology consulted by general surgery, regarding CT findings. reports decreased abdominal pain, positive cramps with flatus. Remains n.p.o.,maintained on TPN and liquids. Expresses hunger. Potassium 3.2, supplementation ordered. Magnesium 1.8, supplementation ordered. Maintain on IV antibiotics as per infectious disease. Afebrile. 02/23/2024 initially general surgery had planned for IR drain placement of diverticular abscess, but given risk of potential rupture of large ovarian abscesses, plan was aborted. evaluated by Dr. Gutierres, SUPERIOR COURT JUDGE with recommendations noted, including assisting in surgery if patient undergoes exploratory laparotom y, potential transfer to a tertiary care center. Ca-125 elevated, 71.6, with CEA, alpha-fetoprotein, beta-hCG pending.patient complaining of worsening abdominal pain accompanied by nausea. N.p.o. ,continues on TPN and lipids, albumin low, significant edema bilateral lower extremities. Complains of mild shortness of breath, maintaining O2 sats of 100% on room air, normal respiratory rate, without respiratory distress. Lasix 40mg IV push x 1 ordered. Afebrile, Tmax 99.2, labs pending. Continues on IV antibiotics. Objective - Vital Signs Vital signs: Vital Signs Temp 99 F 02/23/24 16:59 Pulse 76 02/23/24 17:14 Resp 16 02/23/24 17:14 BP 131/636 02/23/24 17:14 Pulse Ox 100 02/23/24 17:14 FiO2 Intake & Output 02/22/24 02/23/24 02/23/24 18:59 06:59 18:59 Intake Total 1050 40 2050 Output Total 1450 Balance 1050 40 600 Weight 79.3 kg 79.3 kg Intake: IV 2049 Intake, IV Titration 1050 Amount Mvi, Adult No.4 with Vit 1050 K 10 ml Trace (Conc-1Ml/ Dose) 1 ml Sodium Acetate 30 meq Potassium Acetate 20 meq Calcium Gluconate 1 gm Magnesium Sulfate gm 1 gm Potassium Phosphate 6 mmol In Amino Acids 5 %/Dextrose 20 % 1,000 ml @ 70 mls/hr IV . BY DURATION [facility] Rx#: [id number] Oral 40 Output: Urine 1300 Estimated Blood Loss 150 Other: Voiding Method Toilet Toilet Toilet # Voids 2 2 - Exam PHYSICAL EXAM: VITAL SIGNS: [As above] GENERAL: Alert and oriented x 3, laying in bed, no acute distress HEENT: Normocephalic, atraumatic conjunctivae normal. eyes normal. NECK: Supple, no JVD. CARDIOVASCULAR: S1, S2 regular. No murmur RESPIRATION: Unlabored, equal air entry ,breath sounds diminished in the bases, fine bibasilar crackle. ABDOMEN: Soft, distended. Bilateral lower and right-sided abdominal tenderness increased, no guarding. no masses palpable. Bowel sounds heard. LEGS: Mild edema NERVOUS SYSTEM: Cranial N 2-12 grossly normal. No focal deficits. Skin: Warm and dry, no rash - Labs CBC & Chem 7: 02/23/24 10:09 02/23/24 10:08 Labs: Abnormal Lab Results - Last 24 Hours (Table) 02/22/24 02/23/24 02/23/24 Range/Units 06:08 00:09 10:08 RBC 3.41 L (3.80-5.40) m/uL Hgb 9.8 L (11.4-16.0) gm/dL Hct 31.3 L (34.0-46.0) % Potassium (3.5-5.1) mmol/L BUN (7-17) mg/dL Creatinine (0.52-1.04) mg/dL POC Glucose (mg/dL) 112 H (70-110) mg/dL Phosphorus (2.5-4.5) mg/dL Total Protein (6.3-8.2) g/dL Albumin (3.5-5.0) g/dL CA 125 Antigen 71.6 H (0.0-30.1) U/mL 02/23/24 02/23/24 02/23/24 Range/Units 10:08 10:08 10:09 RBC 3.41 L (3.80-5.40) m/uL Hgb 9.8 L (11.4-16.0) gm/dL Hct 31.2 L (34.0-46.0) % Potassium 3.0 L 3.0 L (3.5-5.1) mmol/L BUN 19 H 19 H (7-17) mg/dL Creatinine 0.46 L 0.50 L (0.52-1.04) mg/dL POC Glucose (mg/dL) (70-110) mg/dL Phosphorus 2.4 L (2.5-4.5) mg/dL Total Protein 5.3 L (6.3-8.2) g/dL Albumin 2.7 L (3.5-5.0) g/dL CA 125 Antigen (0.0-30.1) U/mL Microbiology - Last 24 Hours (Table) 02/17/24 21:45 Blood Culture - Final Blood 02/17/24 21:15 Blood Culture - Final Blood Assessment and Plan Assessment: Pneumoperitoneum ,perforated diverticulitis with repeat CT reported mild free air beneath the diaphragm which is decreased compared to prior study. Air and fluid-filled loculated collection in the low mid pelvis consistent with abscess. Bilateral adnexal masses which either represent abscesses or ovarian neoplasm, reported per CT. elevated Ca 125, CEA, alpha-fetoprotein, beta-hCG pending, SUPERIOR COURT JUDGE following Fluid overload secondary to low albumin, n.p.o. times nearly 1 week, on fluids including TPN and lipids. Hypokalemia Plan: Continue on current medication regimen ,monitoring and symptomatic treatment. Labs pending. Lasix 40 IV push x [address]GE recommendations noted, further recommendations from general surgery pending. continue IV fluid hydration, TPN and lipids. Continue on Zosyn as per infectious disease. blood cultures in progress. Aggressive pulmonary toileting with incentive spirometer reinforced. prognosis guarded given multiple complex medical issues. The impression and plan of care has been dictated as directed. : I performed a history and examination of this patient, discussed the same with the dictator. I agree with the dictator's note ,documented as a scribe. Any additional findings or plans will be noted.
[2024-02-23] MEDS: metroNIDAZOLE-NS PMX 500 MG in SALINE 100 100ML.BAG IVPB STA (18:40)
[2024-02-23] MEDS: POTASSIUM CHLORIDE 20 MEQ in WATER FOR INJECTION 1 100ML.BAG IVPB SCH (18:40)
[2024-02-23] MEDS: POTASSIUM PHOSPHATE 10 MMOL in SODIUM CHLORIDE 0.9% 100 ML IV SCH (18:41)
[2024-02-23] MEDS: MAGNESIUM SULFATE-D5W PMX 1 GM in DEXTROSE/WATER 1 100ML.BAG IVPB ONE (18:41)
[2024-02-23] MEDS: ACETAMINOPHEN TAB 500 MG TAB PO SCH (18:42)
[2024-02-23 20:07] LABS: Glucose,Whole Blood 106 mg/dL (70-110)
[2024-02-23] MEDS: ALVIMOPAN 12 MG CAPSULE PO SCH (21:30)
[2024-02-23 23:11] LABS: Cancer Antigen 125 76.7 U/mL (0.0-30.1)
[2024-02-23] MEDS: GABAPENTIN 300 MG CAP PO SCH (23:47)
[2024-02-23] MEDS: CYCLOBENZAPRINE 10 MG TAB PO SCH (23:47)
[2024-02-24 05:47] LABS: Glucose,Whole Blood 169 mg/dL (70-110)
[2024-02-24] MEDS: ENOXAPARIN 30 MG/0.3 ML SYRINGE SQ SCH (08:45)
[2024-02-24 11:00] LABS: ALT 9 U/L (4-34); AST 22 U/L (14-36); African American GFR (CKD) >90 (>60 ml/min/1.73 sqM); Albumin 2.2 g/dL (3.5-5.0); Alkaline Phosphatase 68 U/L (38-126); Anion Gap 1 mmol/L; Blood Urea Nitrogen 21 mg/dL (7-17); Calcium 8.2 mg/dL (8.4-10.2); Carbon Dioxide 31 mmol/L (22-30); Chloride 102 mmol/L (98-107); Glucose 131 mg/dL (74-99); Magnesium 1.6 mg/dL (1.6-2.3); Non-African American GFR(CKD) >90 (>60 ml/min/1.73 sqM); Phosphorus 3.1 mg/dL (2.5-4.5); Potassium 3.3 mmol/L (3.5-5.1); Sodium 134 mmol/L (137-145); Total Bilirubin 0.2 mg/dL (0.2-1.3); Total Protein 4.6 g/dL (6.3-8.2)
[2024-02-24 11:02] LABS: Basophils % (A) 0 %; Eosinophils % (A) 0 %; HCT 30.1 % (34.0-46.0); HGB 9.8 gm/dL (11.4-16.0); Lymphocytes # (A) 1.2 k/uL (1.0-4.8); Lymphocytes % (A) 11 %; MCH 29.3 pg (25.0-35.0); MCHC 32.5 g/dL (31.0-37.0); MCV 90.3 fL (80.0-100.0); Mean Platelet Volume 7.9; Monocytes # (A) 0.9 k/uL (0-1.0); Monocytes % (A) 9 %; Neutrophils # (A) 8.4 k/uL (1.3-7.7); Neutrophils % (A) 77 %; Platelet Count 341 k/uL (150-450); RBC 3.34 m/uL (3.80-5.40); RDW 14.9 % (11.5-15.5); WBC 10.9 k/uL (3.8-10.6)
[2024-02-24] MEDS ORDERED: MAGNESIUM SULFATE-D5W PMX 1 GM in DEXTROSE/WATER 1 100ML.BAG IVPB SCH (11:45)
[2024-02-24 11:46] LABS: Glucose,Whole Blood 139 mg/dL (70-110)
--- NOTE | 2024-02-24 11:59 | P.PN ---
Subjective Progress Note Date: 02/24/24 This is 63-year-old female admitted with abdominal pain with perforated diverticulitis with abscess, evaluated by general surgery, recommending conservative management. Patient remains n.p.o. receiving TPN and lipids via PICC line. denies chest pain, palpitations or shortness of breath. Positive abdominal pain. Positive bowel movement-reports painful. Diarrhea throughout the night. Repeat CT of abdomen pelvis completed yesterday reported mild free air beneath the diaphragm which is decreased compared to prior study. Air and fluid-filled loculated collection in the low mid pelvis consistent with abscess. Bilateral adnexal masses which either represent abscesses or ovarian neoplasm. Afebrile. Potassium 3.6, supplemented. 02/22/2024 POST TRONIC MACHINE OPERATOR and Oncology consulted by general surgery, regarding CT findings. reports decreased abdominal pain, positive cramps with flatus. Remains n.p.o.,maintained on TPN and liquids. Expresses hunger. Potassium 3.2, supplementation ordered. Magnesium 1.8, supplementation ordered. Maintain on IV antibiotics as per infectious disease. Afebrile. 02/23/2024 initially general surgery had planned for IR drain placement of diverticular abscess, but given risk of potential rupture of large ovarian abscesses, plan was aborted. evaluated by Dr. Gutierres, POST TRONIC MACHINE OPERATOR with recommendations noted, including assisting in surgery if patient undergoes exploratory laparotom y, potential transfer to a tertiary care center. Ca-125 elevated, 71.6, with CEA, alpha-fetoprotein, beta-hCG pending.patient complaining of worsening abdominal pain accompanied by nausea. N.p.o. ,continues on TPN and lipids, albumin low, significant edema bilateral lower extremities. Complains of mild shortness of breath, maintaining O2 sats of 100% on room air, normal respiratory rate, without respiratory distress. Lasix 40mg IV push x 1 ordered. Afebrile, Tmax 99.2, labs pending. Continues on IV antibiotics. 02/24/2024 this is a 63-year-old female status post exploratory laparotomy with sigmoid resection for perforated mid sigmoid colon, descending colostomy, defunctionalized rectal stump, Ambrose's procedure for perforated sigmoid colon, peritoneal lavage, drainage of intra-abdominal /pelvis abscess, open lysis of adhesions, multiple biopsies of sigmoid colon ,diverticular abscess, ovarian /pelvis abscess, ovarian mass. Tolerated procedure well. Continues on IV fluid hydration, TPN and lipids. Reports pain, recently medicated. Received a dose of Lasix IV push yesterday for fluid overload with significant improvement. Decreased lower extremity edema. Denies chest pain, palpitations. Reports mild shortness of breath. Maintaining O2 sats of 93% on room air. Afebrile, Tmax 100.3, labs pending. Ca-125 elevated, AFP less than 3, CEA less than 2. Objective - Vital Signs Vital signs: Vital Signs Temp 98.2 F 02/24/24 04:00 Pulse 90 02/24/24 04:00 Resp 19 02/24/24 04:00 BP 100/72 02/24/24 04:00 Pulse Ox 93 L 02/24/24 04:00 FiO2 Intake & Output 02/23/24 02/24/24 02/24/24 18:59 06:59 18:59 Intake Total 3600 0 Output Total 1450 500 225 Balance 2150 -500 -225 Weight 79.3 kg Intake: IV 2550 Intake, IV Titration 1050 Amount Mvi, Adult No.4 with Vit 1050 K 10 ml Trace (Conc-1Ml/ Dose) 1 ml Sodium Acetate 30 meq Potassium Acetate 20 meq Calcium Gluconate 1 gm Magnesium Sulfate gm 1 gm Potassium Phosphate 6 mmol In Amino Acids 5 %/Dextrose 20 % 1,000 ml @ 70 mls/hr IV . BY DURATION [facility] Rx#: [id number] Oral 0 Output: Urine 1300 500 225 Estimated Blood Loss 150 Other: Voiding Method Toilet Toilet - Exam PHYSICAL EXAM: VITAL SIGNS: [As above] GENERAL: Alert and oriented x 3, laying in bed, no acute distress HEENT: Normocephalic, atraumatic conjunctivae normal. eyes normal. NECK: Supple, no JVD. CARDIOVASCULAR: S1, S2 regular. No murmur RESPIRATION: Unlabored, equal air entry ,breath sounds diminished in the bases, fine bibasilar crackle. ABDOMEN: Soft, status post surgery, ostomy without drainage, binder, prevena wound vac present. LEGS: Decreased bilateral lower extremity edema NERVOUS SYSTEM: Cranial N 2-12 grossly normal. No focal deficits. Skin: Warm and dry, no rash - Labs CBC & Chem 7: 02/24/24 10:05 02/24/24 10:05 Labs: Abnormal Lab Results - Last 24 Hours (Table) 02/23/24 02/23/24 02/24/24 Range/Units 10:08 10:08 05:45 WBC (3.8-10.6) k/uL RBC (3.80-5.40) m/uL Hgb (11.4-16.0) gm/dL Hct (34.0-46.0) % Neutrophils # (1.3-7.7) k/uL Sodium (137-145) mmol/L Potassium 3.0 L (3.5-5.1) mmol/L Carbon Dioxide (22-30) mmol/L BUN 19 H (7-17) mg/dL Creatinine 0.46 L (0.52-1.04) mg/dL Glucose (74-99) mg/dL POC Glucose (mg/dL) 169 H (70-110) mg/dL Calcium (8.4-10.2) mg/dL Phosphorus 2.4 L (2.5-4.5) mg/dL Total Protein 5.3 L (6.3-8.2) g/dL Albumin 2.7 L (3.5-5.0) g/dL CA 125 Antigen 76.7 H (0.0-30.1) U/mL 02/24/24 02/24/24 Range/Units 10:05 10:05 WBC 10.9 H (3.8-10.6) k/uL RBC 3.34 L (3.80-5.40) m/uL Hgb 9.8 L (11.4-16.0) gm/dL Hct 30.1 L (34.0-46.0) % Neutrophils # 8.4 H (1.3-7.7) k/uL Sodium 134 L (137-145) mmol/L Potassium 3.3 L (3.5-5.1) mmol/L Carbon Dioxide 31 H (22-30) mmol/L BUN 21 H (7-17) mg/dL Creatinine 0.47 L (0.52-1.04) mg/dL Glucose 131 H (74-99) mg/dL POC Glucose (mg/dL) (70-110) mg/dL Calcium 8.2 L (8.4-10.2) mg/dL Phosphorus (2.5-4.5) mg/dL Total Protein 4.6 L (6.3-8.2) g/dL Albumin 2.2 L (3.5-5.0) g/dL CA 125 Antigen (0.0-30.1) U/mL Microbiology - Last 24 Hours (Table) 02/23/24 14:45 Gram Stain - Preliminary Other - Other 02/23/24 15:00 Gram Stain - Preliminary Other - Other Assessment and Plan Assessment: Pneumoperitoneum ,perforated diverticulitis with repeat CT reported mild free air beneath the diaphragm which is decreased compared to prior study. Air and fluid-filled loculated collection in the low mid pelvis consistent with abscess. Status post exploratory laparotomy with sigmoid resection for perforated mid sigmoid colon, descending colostomy, defunctionalized rectal stump, Ambrose's procedure for perforated sigmoid colon, peritoneal lavage, drainage of intra- abdominal /pelvis abscess, open lysis of adhesions, multiple biopsies of sigmoid colon ,diverticular abscess, ovarian /pelvis abscess, ovarian mass. Bilateral adnexal masses which either represent abscesses or ovarian neoplasm, reported per CT. elevated Ca 125. POST TRONIC MACHINE OPERATOR following Fluid overload secondary to low albumin, n.p.o. times nearly 1 week, on fluids including TPN and lipids. Hypokalemia Hypomagnesemia Plan: Continue on current medication regimen ,monitoring and symptomatic treatment. Labs pending. IV antibiotics/Zosyn as per infectious disease. Aggressive pulmonary toileting with incentive spirometer reinforced. Cult ures/cytology/pathology pending. PT/OT .prognosis guarded given multiple complex medical issues. The impression and plan of care has been dictated as directed. : I performed a history and examination of this patient, discussed the same with the dictator. I agree with the dictator's note ,documented as a scribe. Any additional findings or plans will be noted.
[2024-02-24] MEDS: POTASSIUM CHLORIDE 20 MEQ in WATER FOR INJECTION 1 100ML.BAG IVPB SCH (12:06)
[2024-02-24] MEDS: IPRATROPIUM-ALBUTEROL 3 ML NEB INHALATION SCH (12:44)
--- NOTE | 2024-02-24 12:57 | P.PN ---
Subjective Progress Note Date: 02/21/24 Principal diagnosis: Reason for follow-up is pneumoperitoneum and peritonitis Patient is a 63-year-old female past medical history significant for reflux osteoarthritis seizure disorder presenting to the hospital for evaluation of abdominal pain, the patient did have a CT abdominal pelvis evidence of moderate pneumoperitoneum currently being treated medically. On today's evaluation that is 02/21/2024, the patient remains to be afebrile, the patient is on room air and not requiring any supplemental oxygen, the patient denies having any chest pain or cough, the patient has been complaining of abdominal pain but denies any worsening since yesterday some nausea but no vomiting no diarrhea. No CBC was done today, the patient did have a creatinine 0.51Blood cultures so far pending Objective - Vital Signs Vital signs: Vital Signs Temp 98.0 F 02/20/24 20:00 Pulse 69 02/21/24 04:00 Resp 16 02/21/24 04:00 BP 116/65 02/21/24 04:00 Pulse Ox 98 02/21/24 04:00 FiO2 Intake & Output 02/20/24 02/21/24 02/21/24 18:59 06:59 18:59 Weight 68.492 kg Other: Voiding Method Toilet - Exam GENERAL DESCRIPTION: Middle-aged female lying in bed in no distress RESPIRATORY SYSTEM: Unlabored breathing , decreased breath sounds at bases HEART: S1 S2 regular rate and rhythm , ABDOMEN: Soft , mild tenderness EXTREMITIES: No edema feet - Labs CBC & Chem 7: 02/24/24 10:05 02/24/24 10:05 Labs: Abnormal Lab Results - Last 24 Hours (Table) 02/20/24 02/21/24 02/21/24 Range/Units 21:57 04:02 07:15 Chloride 116 H (98-107) mmol/L Carbon Dioxide 19 L (22-30) mmol/L Creatinine 0.51 L (0.52-1.04) mg/dL Glucose 116 H (74-99) mg/dL POC Glucose (mg/dL) 125 H 131 H (70-110) mg/dL 02/21/24 Range/Units 12:02 Chloride (98-107) mmol/L Carbon Dioxide (22-30) mmol/L Creatinine (0.52-1.04) mg/dL Glucose (74-99) mg/dL POC Glucose (mg/dL) 121 H (70-110) mg/dL Microbiology - Last 24 Hours (Table) 02/17/24 21:45 Blood Culture - Preliminary Blood 02/17/24 21:15 Blood Culture - Preliminary Blood Assessment and Plan (1) Peritonitis Current Visit: Yes Status: Acute Code(s): K65.9 - PERITONITIS, UNSPECIFIED SNOMED Code(s): 13643209 (2) Pneumoperitoneum Current Visit: Yes Status: Acute Code(s): K66.8 - OTHER SPECIFIED DISORDERS OF PERITONEUM SNOMED Code(s): 50461555 Plan: 1patient presented hospital abdominal pain and this patient who did have abnormal CT suggestive of pneumoperitoneum and some fluid collection in the pelvis concerning for possible perforated bowel could be related to possible perforated diverticulitis, he will need to cover for the enteric gram-negative both aerobes and anaerobes, general surgery following the patient currently r ecommending bowel rest and antibiotic therapy 2-patient did get a PICC line, patient did have a Repeat abdominal pelvis CT patient mention decreased EF but he did have a fall he had a fluid-filled loc ulated collection in the low mid pelvis consistent with an abscess and bilateral adnexal masses 3patient to continue with the Zosyn and await further recommendation from surgery as for as surgical intervention Dictation was produced using [employer] dictation software. please excuse any grammatical, word or spelling errors. Time with Patient: Less than 30
--- NOTE | 2024-02-24 12:58 | P.PN ---
Subjective Progress Note Date: 02/22/24 Principal diagnosis: Reason for follow-up is pneumoperitoneum and peritonitis Patient is a 63-year-old female past medical history significant for reflux osteoarthritis seizure disorder presenting to the hospital for evaluation of abdominal pain, the patient did have a CT abdominal pelvis evidence of moderate pneumoperitoneum currently being treated medically. On today's evaluation that is 02/22/2024, the patient denies any fever or any chills, the patient is breathing comfortably on room air, the patient denies having any chest pain or cough, the patient continued to be complaining of abdominal pain but denies any worsening since yesterday some nausea but no v omiting no diarrhea. No CBC was done today, the patient did have a creatinine 0.44 blood culture has been negative so far Objective - Vital Signs Vital signs: Vital Signs Temp 98.3 F 02/22/24 08:00 Pulse 78 02/22/24 12:00 Resp 16 02/22/24 14:00 BP 127/68 02/22/24 12:00 Pulse Ox 100 02/22/24 12:00 FiO2 Intake & Output 02/21/24 02/22/24 02/22/24 18:59 06:59 18:59 Other: Voiding Method Toilet Toilet # Voids 2 - Exam GENERAL DESCRIPTION: Middle-aged female lying in bed in no distress RESPIRATORY SYSTEM: Unlabored breathing , decreased breath sounds at bases HEART: S1 S2 regular rate and rhythm , ABDOMEN: Soft , mild tenderness EXTREMITIES: No edema feet - Labs CBC & Chem 7: 02/24/24 10:05 02/24/24 10:05 Labs: Abnormal Lab Results - Last 24 Hours (Table) 02/22/24 02/22/24 02/22/24 Range/Units 01:40 06:08 06:15 Potassium 3.2 L (3.5-5.1) mmol/L Chloride 112 H (98-107) mmol/L Carbon Dioxide 21 L (22-30) mmol/L Creatinine 0.44 L (0.52-1.04) mg/dL Glucose 113 H (74-99) mg/dL POC Glucose (mg/dL) 139 H 126 H (70-110) mg/dL Assessment and Plan (1) Peritonitis Current Visit: Yes Status: Acute Code(s): K65.9 - PERITONITIS, UNSPECIFIED SNOMED Code(s): 76955300 (2) Pneumoperitoneum Current Visit: Yes Status: Acute Code(s): K66.8 - OTHER SPECIFIED DISORDERS OF PERITONEUM SNOMED Code(s): 14878498 Plan: 1patient presented hospital abdominal pain and this patient who did have abnormal CT suggestive of pneumoperitoneum and some fluid collection in the pelvis concerning for possible perforated bowel could be related to possible perforated diverticulitis, he will need to cover for the enteric gram-negative both aerobes and anaerobes, general surgery following the patient currently recommending bowel rest and antibiotic therapy 2-patient did get a PICC line, patient did have a Repeat abdominal pelvis CT patient mention decreased EF but he did have a fall he had a fluid-filled loculated collection in the low mid pelvis consistent with an abscess and bilateral adnexal masses 3patient to continue with the Zosyn plan is for possible laparotomy scheduled for tomorrow and drainage of the abscess with culture Dictation was produced using [employer] dictation software. please excuse any grammatical, word or spelling errors. Time with Patient: Less than 30
--- NOTE | 2024-02-24 13:00 | P.PN ---
Subjective Progress Note Date: 02/23/24 Principal diagnosis: Reason for follow-up is pneumoperitoneum and peritonitis Patient is a 63-year-old female past medical history significant for reflux osteoarthritis seizure disorder presenting to the hospital for evaluation of abdominal pain, the patient did have a CT abdominal pelvis evidence of moderate pneumoperitoneum currently being treated medically. Patient is status post expiratory laparotomy with sigmoid resection for perforated mid sigmoid colon descending colostomy drainage of the intra-abdominal abscess and fluid has been sent for culture procedure completed on 02/23/2024 On today's evaluation that is 02/23/2024, the patient is afebrile,Patient is currently on 2 L nasal cannula oxygen she is recovering from anesthesia slightly sleepy has been complaining of abdominal pain no vomiting or acute changes reported by the nursing staff. Patient did have a white count of 4.4, creatinine 0.50 Objective - Vital Signs Vital signs: Vital Signs Temp 100.3 F H 02/23/24 11:38 Pulse 93 02/23/24 11:38 Resp 18 02/23/24 11:38 BP 125/61 02/23/24 11:38 Pulse Ox 100 02/23/24 11:38 FiO2 Intake & Output 02/22/24 02/23/24 02/23/24 18:59 06:59 18:59 Intake Total 1050 40 Balance 1050 40 Weight 79.3 kg Intake: Intake, IV Titration 1050 Amount Mvi, Adult No.4 with Vit 1050 K 10 ml Trace (Conc-1Ml/ Dose) 1 ml Sodium Acetate 30 meq Potassium Acetate 20 meq Calcium Gluconate 1 gm Magnesium Sulfate gm 1 gm Potassium Phosphate 6 mmol In Amino Acids 5 %/Dextrose 20 % 1,000 ml @ 70 mls/hr IV . BY DURATION [facility] Rx#: [id number] Oral 40 Other: Voiding Method Toilet Toilet Toilet # Voids 2 2 - Exam GENERAL DESCRIPTION: Middle-aged female lying in bed in no distress RESPIRATORY SYSTEM: Unlabored breathing , decreased breath sounds at bases HEART: S1 S2 regular rate and rhythm , ABDOMEN: Soft , mild tenderness, left abdominal wall colostomy EXTREMITIES: No edema feet - Labs CBC & Chem 7: 02/24/24 10:05 02/24/24 10:05 Labs: Abnormal Lab Results - Last 24 Hours (Table) 02/22/24 02/22/24 02/23/24 Range/Units 06:08 16:36 00:09 RBC (3.80-5.40) m/uL Hgb (11.4-16.0) gm/dL Hct (34.0-46.0) % Potassium (3.5-5.1) mmol/L BUN (7-17) mg/dL Creatinine (0.52-1.04) mg/dL POC Glucose (mg/dL) 126 H 112 H (70-110) mg/dL Phosphorus (2.5-4.5) mg/dL Total Protein (6.3-8.2) g/dL Albumin (3.5-5.0) g/dL CA 125 Antigen 71.6 H (0.0-30.1) U/mL 02/23/24 02/23/24 02/23/24 Range/Units 10:08 10:08 10:08 RBC 3.41 L (3.80-5.40) m/uL Hgb 9.8 L (11.4-16.0) gm/dL Hct 31.3 L (34.0-46.0) % Potassium 3.0 L 3.0 L (3.5-5.1) mmol/L BUN 19 H 19 H (7-17) mg/dL Creatinine 0.46 L 0.50 L (0.52-1.04) mg/dL POC Glucose (mg/dL) (70-110) mg/dL Phosphorus 2.4 L (2.5-4.5) mg/dL Total Protein 5.3 L (6.3-8.2) g/dL Albumin 2.7 L (3.5-5.0) g/dL CA 125 Antigen (0.0-30.1) U/mL 02/23/24 Range/Units 10:09 RBC 3.41 L (3.80-5.40) m/uL Hgb 9.8 L (11.4-16.0) gm/dL Hct 31.2 L (34.0-46.0) % Potassium (3.5-5.1) mmol/L BUN (7-17) mg/dL Creatinine (0.52-1.04) mg/dL POC Glucose (mg/dL) (70-110) mg/dL Phosphorus (2.5-4.5) mg/dL Total Protein (6.3-8.2) g/dL Albumin (3.5-5.0) g/dL CA 125 Antigen (0.0-30.1) U/mL Microbiology - Last 24 Hours (Table) 02/17/24 21:45 Blood Culture - Final Blood 02/17/24 21:15 Blood Culture - Final Blood Assessment and Plan (1) Peritonitis Current Visit: Yes Status: Acute Code(s): K65.9 - PERITONITIS, UNSPECIFIED SNOMED Code(s): 72551019 (2) Pneumoperitoneum Current Visit: Yes Status: Acute Code(s): K66.8 - OTHER SPECIFIED DISORDERS OF PERITONEUM SNOMED Code(s): 18030502 Plan: 1patient presented hospital abdominal pain and this patient who did have a bnormal CT suggestive of pneumoperitoneum and some fluid collection in the pelvis concerning for possible perforated bowel could be related to possible perforated diverticulitis, he will need to cover for the enteric gram-negative both aerobes and anaerobes, general surgery following the patient currently recommending bowel rest and antibiotic therapy 2-patient did get a PICC line, patient did have a Repeat abdominal pelvis CT patient mention decreased EF but he did have a fall he had a fluid-filled loculated collection in the low mid pelvis consistent with an abscess and bilateral adnexal masses 3patient is status post remote resection colostomy and drainage of abdominal abscess culture has been obtained 4-I will cover the patient with Zosyn while waiting for the culture to finalize Dictation was produced using [employer] dictation software. please excuse any grammatical, word or spelling errors. Time with Patient: Less than 30
--- NOTE | 2024-02-24 13:01 | P.PN ---
Subjective Progress Note Date: 02/24/24 Principal diagnosis: Reason for follow-up is pneumoperitoneum and peritonitis Patient is a 63-year-old female past medical history significant for reflux osteoarthritis seizure disorder presenting to the hospital for evaluation of abdominal pain, the patient did have a CT abdominal pelvis evidence of moderate pneumoperitoneum currently being treated medically. Patient is status post expiratory laparotomy with sigmoid resection for perforated mid sigmoid colon descending colostomy drainage of the intra-abdominal abscess and fluid has been sent for culture procedure completed on 02/23/2024 On today's evaluation that is 02/24/2024,the patient remains to be afebrile, patient is on room air not requiring supplemental oxygen and denies any shortness of breath no chest pain or cough.Patient complaining of some nausea but no vomiting still complaining some abdominal pain no output in the colostomy bag. Patient white count is 10.9, creatinine 0.47 Objective - Vital Signs Vital signs: Vital Signs Temp 98.1 F 02/24/24 08:40 Pulse 93 02/24/24 08:40 Resp 16 02/24/24 08:40 BP 110/66 02/24/24 08:40 Pulse Ox 95 02/24/24 08:40 FiO2 Intake & Output 02/23/24 02/24/24 02/24/24 18:59 06:59 18:59 Intake Total 3600 0 Output Total 1450 500 225 Balance 2150 -500 -225 Weight 79.3 kg Intake: IV 2550 Intake, IV Titration 1050 Amount Mvi, Adult No.4 with Vit 1050 K 10 ml Trace (Conc-1Ml/ Dose) 1 ml Sodium Acetate 30 meq Potassium Acetate 20 meq Calcium Gluconate 1 gm Magnesium Sulfate gm 1 gm Potassium Phosphate 6 mmol In Amino Acids 5 %/Dextrose 20 % 1,000 ml @ 70 mls/hr IV . BY DURATION [facility] Rx#: [id number] Oral 0 Output: Urine 1300 500 225 Estimated Blood Loss 150 Other: Voiding Method Toilet Toilet Toilet - Exam GENERAL DESCRIPTION: Middle-aged female lying in bed in no distress RESPIRATORY SYSTEM: Unlabored breathing , decreased breath sounds at bases HEART: S1 S2 regular rate and rhythm , ABDOMEN: Soft , mild tenderness, no output in colostomy EXTREMITIES: No edema feet - Labs CBC & Chem 7: 02/24/24 10:05 02/24/24 10:05 Labs: Abnormal Lab Results - Last 24 Hours (Table) 02/23/24 02/24/24 02/24/24 Range/Units 10:08 05:45 10:05 WBC (3.8-10.6) k/uL RBC (3.80-5.40) m/uL Hgb (11.4-16.0) gm/dL Hct (34.0-46.0) % Neutrophils # (1.3-7.7) k/uL Sodium 134 L (137-145) mmol/L Potassium 3.3 L (3.5-5.1) mmol/L Carbon Dioxide 31 H (22-30) mmol/L BUN 21 H (7-17) mg/dL Creatinine 0.47 L (0.52-1.04) mg/dL Glucose 131 H (74-99) mg/dL POC Glucose (mg/dL) 169 H (70-110) mg/dL Calcium 8.2 L (8.4-10.2) mg/dL Total Protein 4.6 L (6.3-8.2) g/dL Albumin 2.2 L (3.5-5.0) g/dL CA 125 Antigen 76.7 H (0.0-30.1) U/mL 02/24/24 02/24/24 Range/Units 10:05 11:44 WBC 10.9 H (3.8-10.6) k/uL RBC 3.34 L (3.80-5.40) m/uL Hgb 9.8 L (11.4-16.0) gm/dL Hct 30.1 L (34.0-46.0) % Neutrophils # 8.4 H (1.3-7.7) k/uL Sodium (137-145) mmol/L Potassium (3.5-5.1) mmol/L Carbon Dioxide (22-30) mmol/L BUN (7-17) mg/dL Creatinine (0.52-1.04) mg/dL Glucose (74-99) mg/dL POC Glucose (mg/dL) 139 H (70-110) mg/dL Calcium (8.4-10.2) mg/dL Total Protein (6.3-8.2) g/dL Albumin (3.5-5.0) g/dL CA 125 Antigen (0.0-30.1) U/mL Microbiology - Last 24 Hours (Table) 02/23/24 14:45 Gram Stain - Preliminary Other - Other 02/23/24 15:00 Gram Stain - Preliminary Other - Other Assessment and Plan (1) Peritonitis Current Visit: Yes Status: Acute Code(s): K65.9 - PERITONITIS, UNSPECIFIED SNOMED Code(s): 62571926 (2) Pneumoperitoneum Current Visit: Yes Status: Acute Code(s): K66.8 - OTHER SPECIFIED DISORDERS OF PERITONEUM SNOMED Code(s): 47420307 Plan: 1patient presented hospital abdominal pain and this patient who did have abnormal CT suggestive of pneumoperitoneum and some fluid collection in the pelvis concerning for possible perforated bowel could be related to possible perforated diverticulitis, he will need to cover for the enteric gram-negative both aerobes and anaerobes, general surgery following the patient currently recommending bowel rest and antibiotic therapy 2-patient did get a PICC line, patient did have a Repeat abdominal pelvis CT patient mention decreased EF but he did have a fall he had a fluid-filled loculated collection in the low mid pelvis consistent with an abscess and bilateral adnexal masses 3patient is status post remote resection colostomy and drainage of abdominal abscess culture has been obtained 4-patient white count slightly up today more likely reactive postsurgery and will monitor continue Zosyn while waiting for the culture to finalize Dictation was produced using [employer] dictation software. please excuse any grammatical, word or spelling errors. Time with Patient: Less than 30
[2024-02-24] MEDS: MAGNESIUM SULFATE-D5W PMX 1 GM in DEXTROSE/WATER 1 100ML.BAG IVPB SCH (14:12)
--- NOTE | 2024-02-24 14:34 | P.PN ---
Subjective Progress Note Date: 02/24/24 CHIEF COMPLAINT: Diverticulitis HISTORY OF PRESENT ILLNESS: Patient is postop day #1 status post Exploratory laparotomy with sigmoid resection for perforated mid sigmoid colon and Descending colostomy. Patient complains of abdominal pain. Denies any nausea or vomiting. Afebrile. WBC 10.9 Hgb 9.8 platelets 341 sodium is 134 potassium is 3.3 creatinine 0.47 magnesium 1.6 urine output adequate PHYSICAL EXAM: VITAL SIGNS: Reviewed GENERAL: Well-developed in no acute distress. HEENT: No sclera icterus. Extraocular movements grossly intact. Moist buccal mucosa. Head is atraumatic, normocephalic. Hears conversational speech. No nasal drainage. NECK: Supple without lymphadenopathy. CHEST: Non-labored respirations and equal bilateral excursions. CARDIOVASCULAR: Palpable 2+ radial pulses. ABDOMEN: Soft. Tender at incision site. Prevena wound VAC intact. Ostomy with beefy red stoma. No stool or air present in bag. MUSCULOSKELETAL: No clubbing or cyanosis. NEUROLOGIC: No focal or lateralizing signs. Cranial nerves II through XII grossly intact. PSYCH: Appropriate affect. Alert and oriented to person, place and time. SKIN: Well perfused. Good skin turgor. ASSESSMENT: 1. Perforated complicated sigmoid diverticulitis with pelvic abscess 2. Bilateral ovarian complex neoplasm, over 6 cm 3. Obesity due to excess calories, BMI 30.2 4. Depressive disorder 5. Osteoporosis 6. Seizure disorder 7. Gastroesophageal reflux disease 8. Hypokalemia and hypomagnesemia PLAN: -Continue clear liquid diet -Continue antibiotics -Continue TPN for nutrition support -Continue pain management -Potassium and magnesium being replaced -Encourage patient to increase activity level -Encourage patient to use incentive spirometer -Patient will need to follow-up with [facility] regarding the bilateral ovarian masses -DVT prophylaxis subcu heparin Physician Stereo Compiler note has been reviewed by physician. Signing provider agrees with the documented findings, assessment, and plan of care. Objective - Vital Signs Vital signs: Vital Signs Temp 98.1 F 02/24/24 08:40 Pulse 93 02/24/24 08:40 Resp 16 02/24/24 08:40 BP 110/66 02/24/24 08:40 Pulse Ox 95 02/24/24 08:40 FiO2 Intake & Output 02/23/24 02/24/24 02/24/24 18:59 06:59 18:59 Intake Total 3600 0 Output Total 1450 500 225 Balance 2150 -500 -225 Weight 79.3 kg Intake: IV 2550 Intake, IV Titration 1050 Amount Mvi, Adult No.4 with Vit 1050 K 10 ml Trace (Conc-1Ml/ Dose) 1 ml Sodium Acetate 30 meq Potassium Acetate 20 meq Calcium Gluconate 1 gm Magnesium Sulfate gm 1 gm Potassium Phosphate 6 mmol In Amino Acids 5 %/Dextrose 20 % 1,000 ml @ 70 mls/hr IV . BY D[facility]ATION [facility] Rx#: [id number] Oral 0 Output: Urine 1300 500 225 Estimated Blood Loss 150 Other: Voiding Method Toilet Toilet Toilet - Labs CBC & Chem 7: 02/24/24 10:05 02/24/24 10:05 Labs: Abnormal Lab Results - Last 24 Hours (Table) 02/23/24 02/24/24 02/24/24 Range/Units 10:08 05:45 10:05 WBC (3.8-10.6) k/uL RBC (3.80-5.40) m/uL Hgb (11.4-16.0) gm/dL Hct (34.0-46.0) % Neutrophils # (1.3-7.7) k/uL Sodium 134 L (137-145) mmol/L Potassium 3.3 L (3.5-5.1) mmol/L Carbon Dioxide 31 H (22-30) mmol/L BUN 21 H (7-17) mg/dL Creatinine 0.47 L (0.52-1.04) mg/dL Glucose 131 H (74-99) mg/dL POC Glucose (mg/dL) 169 H (70-110) mg/dL Calcium 8.2 L (8.4-10.2) mg/dL Total Protein 4.6 L (6.3-8.2) g/dL Albumin 2.2 L (3.5-5.0) g/dL CA 125 Antigen 76.7 H (0.0-30.1) U/mL 02/24/24 02/24/24 Range/Units 10:05 11:44 WBC 10.9 H (3.8-10.6) k/uL RBC 3.34 L (3.80-5.40) m/uL Hgb 9.8 L (11.4-16.0) gm/dL Hct 30.1 L (34.0-46.0) % Neutrophils # 8.4 H (1.3-7.7) k/uL Sodium (137-145) mmol/L Potassium (3.5-5.1) mmol/L Carbon Dioxide (22-30) mmol/L BUN (7-17) mg/dL Creatinine (0.52-1.04) mg/dL Glucose (74-99) mg/dL POC Glucose (mg/dL) 139 H (70-110) mg/dL Calcium (8.4-10.2) mg/dL Total Protein (6.3-8.2) g/dL Albumin (3.5-5.0) g/dL CA 125 Antigen (0.0-30.1) U/mL Microbiology - Last 24 Hours (Table) 02/23/24 14:45 Gram Stain - Preliminary Other - Other 02/23/24 15:00 Gram Stain - Preliminary Other - Other
[2024-02-24 20:49] LABS: Glucose,Whole Blood 116 mg/dL (70-110)
[2024-02-25 00:47] LABS: Glucose,Whole Blood 146 mg/dL (70-110)
[2024-02-25 06:15] LABS: Glucose,Whole Blood 131 mg/dL (70-110)
[2024-02-25 08:06] LABS: African American GFR (CKD) >90 (>60 ml/min/1.73 sqM); Anion Gap 5 mmol/L; Blood Urea Nitrogen 21 mg/dL (7-17); Calcium 8.4 mg/dL (8.4-10.2); Carbon Dioxide 29 mmol/L (22-30); Chloride 100 mmol/L (98-107); Glucose 97 mg/dL (74-99); Non-African American GFR(CKD) >90 (>60 ml/min/1.73 sqM); Sodium 134 mmol/L (137-145)
[2024-02-25 08:15] LABS: Phosphorus 3.1 mg/dL (2.5-4.5); Potassium 4.3 mmol/L (3.5-5.1)
[2024-02-25] MEDS: POTASSIUM CHLORIDE ER 20 MEQ TAB.ER PO STA (09:59)
--- NOTE | 2024-02-25 10:30 | P.CONS ---
History of Present Illness - Reason for Consult Consult date: 02/24/24 ovarian masses Requesting physician: Maxine Champion - Chief Complaint abdominal pain - History of Present Illness Patient is a 63 year old female with a signifcant history of GERD, seizure disorder and hiatal hernia. Consult was placed for bilateral ovarian masses. HPI is somewhat limited as patient is lethargic at todays viait and easily falls asleep. She presented with complaints diarrhea and upper abdominal pain sharp and crampy in nature over the last 1 month. Denies blood in stools. Reports she had vaginal discharge white/ yellow in color a cpl weeks ago. Denies any vaginal bleeding. Denies any personal history of cancer and denies any known family history of breast or gynecological cancer. Denies unintentional weight loss. Denies history of nicotine or ETOh abuse. Pelvic ultrasound revealed hypoechoic area midline, inferior uterus, measuring 4.5 x 4.7 x 4.0 cm. Complex, mixed area, right adnexa, measuring 6.9 x 9.5 x 5.1 cm. Complex, mixed area left adnexa, measuring 7.3 x 5.[address] abdomen pelvis with contrast showed mild free air beneath the diaphragm. Air and fluid-filled loculated collection in the low midline pelvis consistent with an abscess. Bilateral adnexal masses. CURB SETTER was consulted and upon review of note they believe findings were more consistent with possible abscess. General surgery following, S/P exploratory laparotomy. Surgical findings revealed complicated sigmoid diverticulitis with pelvic abscess. Bilateral ovarian complex masses concerning for neoplasm, measuring 6 cm. She has underwent sigmoid resection and descending colostomy. Biopsy was obtained of sigmoid colon and cell cytology of pelvic fluid. Aerobic and anaerobic cultures were obtained from diverticular abscess and ovarian/pelvic abscess. CEA 125 elevated at 71.6, this is nonspecific and could be related to inflammation. CBC reviewed, WBC 4.4, hemoglobin 9.8, platelets 272,000. LFTs, bilirubin, amylase, and lipase WNL. Continues on IV antibiotics. Review of Systems 10 point ROS is negative except as stated in the HPI Past Medical History Past Medical History: GERD/Reflux, Osteoarthritis (OA), Seizure Disorder Additional Past Medical History / Comment(s): LAST SEIZURE 02/1992; hiatal hernia, occasional dysphagia, worsening GERD sx., aortic aneurysm near heart per pt. History of Any Multi-Drug Resistant Organisms: None Reported Past Surgical History: Appendectomy, Joint Replacement, Orthopedic Surgery, Tubal Ligation Additional Past Surgical History / Comment(s): REPAIR SMALL INTESTINE THAT WAS NICKED DURING TL; arthroscopy left knee; left knee replacement; benign left breast biopsy, ectopic , D&C Past Anesthesia/Blood Transfusion Reactions: No Reported Reaction Past Psychological History: No Psychological Hx Reported Smoking Status: Vaper Past Alcohol Use History: Rare Additional Past Alcohol Use History / Comment(s): HAS BEEN SMOKING 1/2PPD SINCE 1996 (AGE 36) Past Drug Use History: None Reported - Past Family History Brother(s) Family Medical History: Cancer Mother Family Medical History: Cancer Medications and Allergies Home Medications Medication Instructions Recorded Confirmed Type Divalproex [Depakote] 250 mg PO QID 02/12/21 02/18/24 History Aspirin 81 mg PO DAILY chew 02/13/21 02/18/24 Rx Meloxicam [Mobic] 15 mg PO DAILY 08/04/23 02/18/24 History Alendronate Sodium [Fosamax] 70 mg PO DIRECTED 02/18/24 02/18/24 History Famotidine 40 mg PO DAILY 02/18/24 02/18/24 History PARoxetine HCL [Paxil] 10 mg PO DAILY 02/18/24 02/18/24 History Allergies Allergy/AdvReac Type Severity Reaction Status Date / Time No Known Allergies Allergy Verified 02/23/24 11:28 Physical Exam Vitals: Vital Signs Temp Pulse Pulse Resp BP BP BP 02/24/24 04:00 98.2 F 90 19 100/72 02/24/24 02:00 96 19 02/24/24 00:00 98.5 F 96 19 117/75 02/23/24 21:00 87 124/73 02/23/24 20:30 92 111/74 02/23/24 20:00 89 19 116/74 02/23/24 19:45 81 115/71 02/23/24 19:30 90 107/59 02/23/24 19:00 95 112/72 02/23/24 18:51 85 16 116/68 02/23/24 17:59 85 16 136/64 02/23/24 17:43 80 16 136/64 02/23/24 17:28 81 16 125/59 02/23/24 17:15 93 119/74 02/23/24 17:14 76 16 131/636 02/23/24 16:59 99 F 81 16 127/67 02/23/24 11:38 100.3 F H 93 18 125/61 02/23/24 11:20 86 16 143/82 Pulse Ox 02/24/24 04:00 93 L 02/24/24 02:00 02/24/24 00:00 95 02/23/24 21:00 99 02/23/24 20:30 98 02/23/24 20:00 100 02/23/24 19:45 99 02/23/24 19:30 99 02/23/24 19:00 98 02/23/24 18:51 99 02/23/24 17:59 94 L 02/23/24 17:43 100 02/23/24 17:28 100 02/23/24 17:15 99 02/23/24 17:14 100 02/23/24 16:59 100 02/23/24 11:38 100 02/23/24 11:20 100 Intake and Output 02/23/24 02/24/24 02/24/24 22:59 06:59 14:59 Intake Total 1200 Output Total 1450 500 225 Balance -250 -500 -225 Intake: IV 1200 Oral 0 Output: Urine 1300 500 225 Estimated Blood Loss 150 Other: Voiding Method Toilet Toilet - Constitutional General appearance: no acute distress - EENT Eyes: anicteric sclerae, EOMI ENT: hearing grossly normal - Neck Neck: no lymphadenopathy - Respiratory Respiratory: bilateral: CTA - Cardiovascular Rhythm: regular Heart sounds: normal: S1, S2 - Gastrointestinal colostomy in situ, diffusely tender - Integumentary Integumentary: no cyanotic, no jaundiced - Neurologic lethargic - Musculoskeletal Musculoskeletal: strength equal bilaterally - Psychiatric Psychiatric: A&O x's 3 Results CBC & Chem 7: 02/24/24 10:05 02/25/24 06:51 Labs: Abnormal Lab Results - Last 24 Hours (Table) 02/23/24 02/23/24 02/23/24 Range/Units 10:08 10:08 10:08 RBC 3.41 L (3.80-5.40) m/uL Hgb 9.8 L (11.4-16.0) gm/dL Hct 31.3 L (34.0-46.0) % Potassium 3.0 L 3.0 L (3.5-5.1) mmol/L BUN 19 H 19 H (7-17) mg/dL Creatinine 0.46 L 0.50 L (0.52-1.04) mg/dL POC Glucose (mg/dL) (70-110) mg/dL Phosphorus 2.4 L (2.5-4.5) mg/dL Total Protein 5.3 L (6.3-8.2) g/dL Albumin 2.7 L (3.5-5.0) g/dL CA 125 Antigen 76.7 H (0.0-30.1) U/mL 02/23/24 02/24/24 Range/Units 10:09 05:45 RBC 3.41 L (3.80-5.40) m/uL Hgb 9.8 L (11.4-16.0) gm/dL Hct 31.2 L (34.0-46.0) % Potassium (3.5-5.1) mmol/L BUN (7-17) mg/dL Creatinine (0.52-1.04) mg/dL POC Glucose (mg/dL) 169 H (70-110) mg/dL Phosphorus (2.5-4.5) mg/dL Total Protein (6.3-8.2) g/dL Albumin (3.5-5.0) g/dL CA 125 Antigen (0.0-30.1) U/mL Comments: pelvic US and CT AP reviewed Assessment and Plan (1) Bilateral ovarian cysts Current Visit: Yes Status: Acute Priority: High Code(s): N83.201 - UNSPECIFIED OVARIAN CYST, RIGHT SIDE; N83.202 - UNSPECIFIED OVARIAN CYST, LEFT SIDE SNOMED Code(s): 31974426 (2) Diverticulitis large intestine Current Visit: Yes Status: Acute Priority: High Code(s): K57.32 - DVTRCLI OF LG INT W/O PERFORATION OR ABSCESS W/O BLEEDING SNOMED Code(s): 6516973 (3) Pneumoperitoneum Current Visit: Yes Status: Acute Priority: High Code(s): K66.8 - OTHER SPECIFIED DISORDERS OF PERITONEUM SNOMED Code(s): 25103281 Plan: Diverticular/pelvic abscess, ovarian masses: Presented with complaints diarrhea and upper abdominal pain sharp and crampy in nature over the last 1 month. Denies blood in stools. Reports she had vaginal discharge white/ yellow in color a cpl weeks ago. Denies any vaginal bleeding. Denies any personal history of cancer and denies any known family history of breast or gynecological cancer. Denies unintentional weight loss. Denies history of nicotine or ETOh abuse -Pelvic ultrasound revealed hypoechoic area midline, inferior uterus, measuring 4.5 x 4.7 x 4.0 cm. Complex, mixed area, right adnexa, measuring 6.9 x 9.5 x 5.1 cm. Complex, mixed area left adnexa, measuring 7.3 x 5.[address] abdomen pelvis with contrast showed mild free air beneath the diaphragm. Air and fluid-filled loculated collection in the low midline pelvis consistent with an abscess. Bilateral adnexal masses -CURB SETTER was consulted and upon review of note they believe findings were more consistent with possible abscess -CEA 125 elevated at 71.6, this is nonspecific and could be related to inflammation -General surgery following, S/P exploratory laparotomy. Surgical findings revealed complicated sigmoid diverticulitis with pelvic abscess. Bilateral ova renea complex masses concerning for neoplasm, measuring 6 cm. She has underwent sigmoid resection and descending colostomy. -Biopsy was obtained of sigmoid colon and cell cytology of pelvic fluid. Aerobic and anaerobic cultures were obtained from diverticular abscess and ovarian/pelvic abscess. Continues on IV antibiotics. -Pending pathology patient will need to f/u with [facility]. Will continue to follow pathology findings Above results/findings and concerns for malignancy were discussed with patient Doctor attests: I performed a history and physical examination of this patient, developed impression and plan of care. Discussed with dictator. I agree with dictators note, documented as a scribe.
[2024-02-25 11:44] LABS: Glucose,Whole Blood 124 mg/dL (70-110)
--- NOTE | 2024-02-25 13:44 | P.PN ---
Subjective Progress Note Date: 02/25/24 Principal diagnosis: Reason for follow-up is pneumoperitoneum and peritonitis Patient is a 63-year-old female past medical history significant for reflux osteoarthritis seizure disorder presenting to the hospital for evaluation of abdominal pain, the patient did have a CT abdominal pelvis evidence of moderate pneumoperitoneum currently being treated medically. Patient is status post expiratory laparotomy with sigmoid resection for perforated mid sigmoid colon descending colostomy drainage of the intra-abdominal abscess and fluid has been sent for culture procedure completed on 02/23/2024 On today's evaluation that is 02/25/2024, the patient continues to be afebrile, the patient is on room air and breathing comfortably, the Pt denies having any chest pain or cough, the patient denies having any vomiting and no output in the colostomy bag still complaining of abdominal pain though slightly decreased in intensity. Patient did have a creatinine 0.55 with a white count of 10.9 as of yesterday no CBC was done today abdominal cultures are pending Objective - Vital Signs Vital signs: Vital Signs Temp 98.4 F 02/25/24 04:00 Pulse 92 02/25/24 04:00 Resp 17 02/25/24 04:00 BP 118/68 02/25/24 04:00 Pulse Ox 96 02/25/24 04:00 FiO2 Intake & Output 02/24/24 02/25/24 02/25/24 18:59 06:59 18:59 Intake Total 400 240 Output Total 225 720 Balance 175 -480 Weight 79.4 kg Intake: Intake, IV Titration 400 Amount Magnesium Sulfate-D5w Pmx 200 1 gm In Dextrose/Water 1 100ml.bag @ 100 mls/hr IVPB Q1H JUANITA Rx#: [id number] Potassium Chloride 20 meq 200 In Water For Injection 1 100ml.bag @ 50 mls/hr IVPB Q2H JUANITA Rx#: [id number] Oral 240 Output: Urine 225 680 Uretheral (Butler) 680 Stool 40 Other: Voiding Method Toilet Toilet # Voids 2 - Exam GENERAL DESCRIPTION: Middle-aged female lying in bed in no distress RESPIRATORY SYSTEM: Unlabored breathing , decreased breath sounds at bases HEART: S1 S2 regular rate and rhythm , ABDOMEN: Soft , mild tenderness, no output in colostomy EXTREMITIES: No edema feet - Labs CBC & Chem 7: 02/24/24 10:02/25/24 06:51 Labs: Abnormal Lab Results - Last 24 Hours (Table) 02/24/24 02/24/24 02/24/24 Range/Units 10:05 10:05 11:44 WBC 10.9 H (3.8-10.6) k/uL RBC 3.34 L (3.80-5.40) m/uL Hgb 9.8 L (11.4-16.0) gm/dL Hct 30.1 L (34.0-46.0) % Neutrophils # 8.4 H (1.3-7.7) k/uL Sodium 134 L (137-145) mmol/L Potassium 3.3 L (3.5-5.1) mmol/L Carbon Dioxide 31 H (22-30) mmol/L BUN 21 H (7-17) mg/dL Creatinine 0.47 L (0.52-1.04) mg/dL Glucose 131 H (74-99) mg/dL POC Glucose (mg/dL) 139 H (70-110) mg/dL Calcium 8.2 L (8.4-10.2) mg/dL Total Protein 4.6 L (6.3-8.2) g/dL Albumin 2.2 L (3.5-5.0) g/dL 02/24/24 02/25/24 02/25/24 Range/Units 20:47 00:43 06:12 WBC (3.8-10.6) k/uL RBC (3.80-5.40) m/uL Hgb (11.4-16.0) gm/dL Hct (34.0-46.0) % Neutrophils # (1.3-7.7) k/uL Sodium (137-145) mmol/L Potassium (3.5-5.1) mmol/L Carbon Dioxide (22-30) mmol/L BUN (7-17) mg/dL Creatinine (0.52-1.04) mg/dL Glucose (74-99) mg/dL POC Glucose (mg/dL) 116 H 146 H 131 H (70-110) mg/dL Calcium (8.4-10.2) mg/dL Total Protein (6.3-8.2) g/dL Albumin (3.5-5.0) g/dL 02/25/24 Range/Units 06:51 WBC (3.8-10.6) k/uL RBC (3.80-5.40) m/uL Hgb (11.4-16.0) gm/dL Hct (34.0-46.0) % Neutrophils # (1.3-7.7) k/uL Sodium 134 L (137-145) mmol/L Potassium (3.5-5.1) mmol/L Carbon Dioxide (22-30) mmol/L BUN 21 H (7-17) mg/dL Creatinine (0.52-1.04) mg/dL Glucose (74-99) mg/dL POC Glucose (mg/dL) (70-110) mg/dL Calcium (8.4-10.2) mg/dL Total Protein (6.3-8.2) g/dL Albumin (3.5-5.0) g/dL Microbiology - Last 24 Hours (Table) 02/23/24 15:00 Gram Stain - Preliminary Other - Other Wound Culture - Preliminary 02/23/24 14:45 Gram Stain - Preliminary Other - Other Wound Culture - Preliminary Assessment and Plan (1) Peritonitis Current Visit: Yes Status: Acute Code(s): K65.9 - PERITONITIS, UNSPECIFIED SNOMED Code(s): 10876329 (2) Pneumoperitoneum Current Visit: Yes Status: Acute Priority: High Code(s): K66.8 - OTHER SPECIFIED DISORDERS OF PERITONEUM SNOMED Code(s): 57388317 Plan: 1patient presented hospital abdominal pain and this patient who did have abnormal CT suggestive of pneumoperitoneum and some fluid collection in the pelv is concerning for possible perforated bowel could be related to possible perforated diverticulitis, he will need to cover for the enteric gram-negative both aerobes and anaerobes, general surgery following the patient currently recommending bowel rest and antibiotic therapy 2-patient did get a PICC line, patient did have a Repeat abdominal pelvis CT patient mention decreased EF but he did have a fall he had a fluid-filled loculated collection in the low mid pelvis consistent with an abscess and bilateral adnexal masses 3patient is status post laparotomy sigmoid resection, colostomy and drainage of abdominal abscess culture has been obtained 4-patient abdominal cultures currently pending, patient to continue Zosyn while waiting for the culture to finalize Dictation was produced using dragon dictation software. please excuse any grammatical, word or spelling errors. Time with Patient: Less than 30
--- NOTE | 2024-02-25 15:11 | P.PN ---
Subjective Progress Note Date: 02/25/24 63-year-old female admitted with abdominal pain with perforated diverticulitis with abscess, evaluated by general surgery, recommending conservative management. Patient remains n.p.o. receiving TPN and lipids via PICC line. denies chest pain, palpitations or shortness of breath. Positive abdominal pain . Positive bowel movement-reports painful. Diarrhea throughout the night. Repeat CT of abdomen pelvis completed yesterday reported mild free air beneath the diaphragm which is decreased compared to prior study. Air and fluid-filled loculated collection in the low mid pelvis consistent with abscess. Bilateral adnexal masses which either represent abscesses or ovarian neoplasm. Afebrile. Potassium 3.6, supplemented. 02/25/2024 Patient is seen and evaluated in room at bedside; no specific complaints reported; remains afebrile Vital signs temperature 98.4, pulse 92, respirations 17 and blood pressure 118/68 -patient presented hospital abdominal pain and this patient who did have abnormal CT suggestive of pneumoperitoneum and some fluid collection in the pelvis concerning for possible perforated bowel could be related to possible perforated diverticulitis, he will need to cover for the enteric gram-negative both aerobes and anaerobes, general surgery following the patient currently recommending bowel rest and antibiotic therapy --patient did get a PICC line, patient did have a Repeat abdominal pelvis CT patient mention decreased EF but he did have a fall he had a fluid-filled loculated collection in the low mid pelvis consistent with an abscess and bila teral adnexal masses -patient is status post laparotomy sigmoid resection, colostomy and drainage of abdominal abscess culture has been obtained --patient abdominal cultures currently pending, patient to continue Zosyn while waiting for the culture to finalize Objective - Vital Signs Vital signs: Vital Signs Temp 98.1 F 02/25/24 08:00 Pulse 101 H 02/25/24 08:00 Resp 16 02/25/24 08:00 BP 123/74 02/25/24 08:00 Pulse Ox 98 02/25/24 08:00 FiO2 Intake & Output 02/24/24 02/25/24 02/25/24 18:59 06:59 18:59 Intake Total 400 240 118 Output Total 225 720 40 Balance 175 -480 78 Weight 79.4 kg Intake: Intake, IV Titration 400 Amount Magnesium Sulfate-D5w Pmx 200 1 gm In Dextrose/Water 1 100ml.bag @ 100 mls/hr IVPB Q1H [facility] Rx#: [id number] Potassium Chloride 20 meq 200 In Water For Injection 1 100ml.bag @ 50 mls/hr IVPB Q2H JUANITA Rx#: [id number] Oral 240 118 Output: Urine 225 680 Uretheral (Butler) 680 Stool 40 40 Other: Voiding Method Toilet Toilet # Voids 2 - Exam GENERAL: Alert and oriented x 3, laying in bed, no acute distress HEENT: Normocephalic, atraumatic conjunctivae normal. eyes normal. NECK: Supple, no JVD. CARDIOVASCULAR: S1, S2 regular. No murmur RESPIRATION: Unlabored, equal air entry ,breath sounds diminished in the bases, fine bibasilar crackle. ABDOMEN: Soft, status post surgery, ostomy without drainage, binder, prevena wound vac present. LEGS: Decreased bilateral lower extremity edema NERVOUS SYSTEM: Cranial N 2-12 grossly normal. No focal deficits. Skin: Warm and dry, no rash - Labs CBC & Chem 7: 02/24/24 10:05 02/25/24 06:51 Labs: Abnormal Lab Results - Last 24 Hours (Table) 02/24/24 02/24/24 02/24/24 Range/Units 10:05 10:05 11:44 WBC 10.9 H (3.8-10.6) k/uL RBC 3.34 L (3.80-5.40) m/uL Hgb 9.8 L (11.4-16.0) gm/dL Hct 30.1 L (34.0-46.0) % Neutrophils # 8.4 H (1.3-7.7) k/uL Sodium 134 L (137-145) mmol/L Potassium 3.3 L (3.5-5.1) mmol/L Carbon Dioxide 31 H (22-30) mmol/L BUN 21 H (7-17) mg/dL Creatinine 0.47 L (0.52-1.04) mg/dL Glucose 131 H (74-99) mg/dL POC Glucose (mg/dL) 139 H (70-110) mg/dL Calcium 8.2 L (8.4-10.2) mg/dL Total Protein 4.6 L (6.3-8.2) g/dL Albumin 2.2 L (3.5-5.0) g/dL 02/24/24 02/25/24 02/25/24 Range/Units 20:47 00:43 06:12 WBC (3.8-10.6) k/uL RBC (3.80-5.40) m/uL Hgb (11.4-16.0) gm/dL Hct (34.0-46.0) % Neutrophils # (1.3-7.7) k/uL Sodium (137-145) mmol/L Potassium (3.5-5.1) mmol/L Carbon Dioxide (22-30) mmol/L BUN (7-17) mg/dL Creatinine (0.52-1.04) mg/dL Glucose (74-99) mg/dL POC Glucose (mg/dL) 116 H 146 H 131 H (70-110) mg/dL Calcium (8.4-10.2) mg/dL Total Protein (6.3-8.2) g/dL Albumin (3.5-5.0) g/dL 02/25/24 Range/Units 06:51 WBC (3.8-10.6) k/uL RBC (3.80-5.40) m/uL Hgb (11.4-16.0) gm/dL Hct (34.0-46.0) % Neutrophils # (1.3-7.7) k/uL Sodium 134 L (137-145) mmol/L Potassium (3.5-5.1) mmol/L Carbon Dioxide (22-30) mmol/L BUN 21 H (7-17) mg/dL Creatinine (0.52-1.04) mg/dL Glucose (74-99) mg/dL POC Glucose (mg/dL) (70-110) mg/dL Calcium (8.4-10.2) mg/dL Total Protein (6.3-8.2) g/dL Albumin (3.5-5.0) g/dL Microbiology - Last 24 Hours (Table) 02/23/24 15:00 Gram Stain - Preliminary Other - Other Wound Culture - Preliminary 02/23/24 14:45 Gram Stain - Preliminary Other - Other Wound Culture - Preliminary Assessment and Plan Assessment: Pneumoperitoneum ,perforated diverticulitis with repeat CT reported mild free air beneath the diaphragm which is decreased compared to prior study. Air and fluid-filled loculated collection in the low mid pelvis consistent with abscess. Status post exploratory laparotomy with sigmoid resection for perforated mid sigmoid colon, descending colostomy, defunctionalized rectal stump, Ambrose's procedure for perforated sigmoid colon, peritoneal lavage, drainage of intra- abdominal /pelvis abscess, open lysis of adhesions, multiple biopsies of sigmoid colon ,diverticular abscess, ovarian /pelvis abscess, ovarian mass. Bilateral adnexal masses which either represent abscesses or ovarian neoplasm, reported per CT. elevated Ca 125. MATERIAL CLERK following Fluid overload secondary to low albumin, n.p.o. times nearly 1 week, on fluids including TPN and lipids. Hypokalemia Hypomagnesemia Plan: Continue on current medication regimen ,monitoring and symptomatic treatment. Labs pending. IV antibiotics/Zosyn as per infectious disease. Aggressive pulmonary toileting with incentive spirometer reinforced. Cultures/cytology/pathology pending. PT/OT .prognosis guarded given multiple complex medical issues.
[2024-02-25 16:08] LABS: Glucose,Whole Blood 108 mg/dL (70-110)
--- NOTE | 2024-02-25 19:34 | P.PN ---
Subjective Progress Note Date: 02/25/24 Patient seen and evaluated at bedside. Patient has some pain, denies nausea or vomiting at this time. Objective - Vital Signs Vital signs: Vital Signs Temp 98.1 F 02/25/24 08:00 Pulse 96 02/25/24 16:05 Resp 18 02/25/24 15:52 BP 108/68 02/25/24 15:52 Pulse Ox 94 L 02/25/24 15:52 FiO2 Intake & Output 02/25/24 02/25/24 02/26/24 06:59 18:59 06:59 Intake Total 240 236 Output Total 720 80 Balance -480 156 Weight 79.4 kg Intake: Oral 240 236 Output: Urine 680 Uretheral (Butler) 680 Stool 40 80 Other: Voiding Method Toilet # Voids 2 1 - Exam gen: nad cv: rrr pul: non labored breathing abd: soft, tender to palpation, no guarding or rebound tenderness, ostomy pink, patent but not producing - Labs CBC & Chem 7: 02/24/24 10:05 02/25/24 06:51 Labs: Abnormal Lab Results - Last 24 Hours (Table) 02/24/24 02/25/24 02/25/24 Range/Units 20:47 00:43 06:12 Sodium (137-145) mmol/L BUN (7-17) mg/dL POC Glucose (mg/dL) 116 H 146 H 131 H (70-110) mg/dL 02/25/24 02/25/24 Range/Units 06:51 11:42 Sodium 134 L (137-145) mmol/L BUN 21 H (7-17) mg/dL POC Glucose (mg/dL) 124 H (70-110) mg/dL Microbiology - Last 24 Hours (Table) 02/23/24 14:45 Gram Stain - Final Other - Other Wound Culture - Final [place] albicans 02/23/24 15:00 Gram Stain - Preliminary Other - Other Wound Culture - Preliminary Assessment and Plan Assessment: ASSESSMENT: 1. Perforated complicated sigmoid diverticulitis with pelvic abscess 2. Bilateral ovarian complex neoplasm, over 6 cm 3. Obesity due to excess calories, BMI 30.2 4. Depressive disorder 5. Osteoporosis 6. Seizure disorder 7. Gastroesophageal reflux disease 8. Hypokalemia and hypomagnesemia PLAN: -Continue clear liquid diet -Continue antibiotics -Continue TPN for nutrition support -Continue pain management -Potassium and magnesium being replaced -Encourage patient to increase activity level -Encourage patient to use incentive spirometer -Patient will need to follow-up with [facility] Onc service regarding the bilateral ovarian masses -DVT prophylaxis subcu heparin
[2024-02-26 00:14] LABS: Glucose,Whole Blood 119 mg/dL (70-110)
[2024-02-26 06:11] LABS: Glucose,Whole Blood 127 mg/dL (70-110)
[2024-02-26 10:17] LABS: Basophils % (A) 0 %; Eosinophils # (A) 0.5 k/uL (0-0.7); Eosinophils % (A) 4 %; HCT 27.9 % (34.0-46.0); HGB 8.6 gm/dL (11.4-16.0); Lymphocytes # (A) 1.5 k/uL (1.0-4.8); Lymphocytes % (A) 13 %; MCH 28.4 pg (25.0-35.0); MCV 91.7 fL (80.0-100.0); Mean Platelet Volume 7.7; Monocytes # (A) 0.7 k/uL (0-1.0); Monocytes % (A) 6 %; Neutrophils % (A) 76 %; Platelet Count 476 k/uL (150-450); RBC 3.04 m/uL (3.80-5.40); RDW 14.7 % (11.5-15.5); WBC 11.9 k/uL (3.8-10.6)
[2024-02-26 10:29] LABS: African American GFR (CKD) >90 (>60 ml/min/1.73 sqM); Anion Gap 2 mmol/L; Blood Urea Nitrogen 17 mg/dL (7-17); Calcium 8.2 mg/dL (8.4-10.2); Carbon Dioxide 31 mmol/L (22-30); Chloride 104 mmol/L (98-107); Glucose 118 mg/dL (74-99); Non-African American GFR(CKD) >90 (>60 ml/min/1.73 sqM); Potassium 3.6 mmol/L (3.5-5.1); Sodium 137 mmol/L (137-145)
[2024-02-26 10:34] LABS: Magnesium 2.1 mg/dL (1.6-2.3); Phosphorus 3.1 mg/dL (2.5-4.5)
--- NOTE | 2024-02-26 11:12 | P.PN ---
Subjective Progress Note Date: 02/26/24 patient is resting comfortably in bed. She has minimal complaints of pain. On exam vital signs appear stable. Abdomen soft. Colostomy has not functioned you. There is some scant fluid in the colostomy bag. Status post Richardson procedure for perforated diverticulitis. Patient continue clear liquids. We will advance her diet once her bowel function returns. Objective - Vital Signs Vital signs: Vital Signs Temp 97.5 F L 02/26/24 08:00 Pulse 98 02/26/24 08:06 Resp 18 02/26/24 08:00 BP 123/76 02/26/24 08:00 Pulse Ox 94 L 02/26/24 08:00 FiO2 Intake & Output 02/25/24 02/26/24 02/26/24 18:59 06:59 18:59 Intake Total 236 360 Output Total 80 40 Balance 156 360 -40 Weight 82.8 kg Intake: Oral 236 360 Output: Stool 80 40 Other: Voiding Method Bedside Commode # Voids 1 2 - Labs CBC & Chem 7: 02/26/24 09:52 02/26/24 09:52 Labs: Abnormal Lab Results - Last 24 Hours (Table) 02/25/24 02/26/24 02/26/24 Range/Units 11:42 00:12 06:10 WBC (3.8-10.6) k/uL RBC (3.80-5.40) m/uL Hgb (11.4-16.0) gm/dL Hct (34.0-46.0) % Plt Count (150-450) k/uL Neutrophils # (1.3-7.7) k/uL Carbon Dioxide (22-30) mmol/L Creatinine (0.52-1.04) mg/dL Glucose (74-99) mg/dL POC Glucose (mg/dL) 124 H 119 H 127 H (70-110) mg/dL Calcium (8.4-10.2) mg/dL 02/26/24 02/26/24 Range/Units 09:52 09:52 WBC 11.9 H (3.8-10.6) k/uL RBC 3.04 L (3.80-5.40) m/uL Hgb 8.6 L (11.4-16.0) gm/dL Hct 27.9 L (34.0-46.0) % Plt Count 476 H (150-450) k/uL Neutrophils # 9.0 H (1.3-7.7) k/uL Carbon Dioxide 31 H (22-30) mmol/L Creatinine 0.46 L (0.52-1.04) mg/dL Glucose 118 H (74-99) mg/dL POC Glucose (mg/dL) (70-110) mg/dL Calcium 8.2 L (8.4-10.2) mg/dL Microbiology - Last 24 Hours (Table) 02/23/24 14:45 Anaerobic Culture - Preliminary Other - Other 02/23/24 15:00 Anaerobic Culture - Preliminary Other - Other 02/23/24 14:45 Gram Stain - Final Other - Other Wound Culture - Final Valencia albicans
[2024-02-26 11:31] LABS: Glucose,Whole Blood 113 mg/dL (70-110)
[2024-02-26] MEDS: POTASSIUM CHLORIDE 20 MEQ in WATER FOR INJECTION 1 100ML.BAG IVPB ONE (12:32)
[2024-02-26 16:18] LABS: Glucose,Whole Blood 123 mg/dL (70-110)
--- NOTE | 2024-02-26 17:15 | P.PN ---
Subjective Progress Note Date: 02/26/24 63-year-old female admitted with abdominal pain with perforated diverticulitis with abscess, evaluated by general surgery, recommending conservative management. Patient remains n.p.o. receiving TPN and lipids via PICC line. denies chest pain, palpitations or shortness of breath. Positive abdominal pain . Positive bowel movement-reports painful. Diarrhea throughout the night. Repeat CT of abdomen pelvis completed yesterday reported mild free air beneath the diaphragm which is decreased compared to prior study. Air and fluid-filled loculated collection in the low mid pelvis consistent with abscess. Bilateral adnexal masses which either represent abscesses or ovarian neoplasm. Afebrile. Potassium 3.6, supplemented. 02/25/2024 Patient is seen and evaluated in room at bedside; no specific complaints reported; remains afebrile Vital signs temperature 98.4, pulse 92, respirations 17 and blood pressure 118/68 -patient presented hospital abdominal pain and this patient who did have abnormal CT suggestive of pneumoperitoneum and some fluid collection in the pelvis concerning for possible perforated bowel could be related to possible perforated diverticulitis, he will need to cover for the enteric gram-negative both aerobes and anaerobes, general surgery following the patient currently recommending bowel rest and antibiotic therapy --patient did get a PICC line, patient did have a Repeat abdominal pelvis CT patient mention decreased EF but he did have a fall he had a fluid-filled loculated collection in the low mid pelvis consistent with an abscess and bila teral adnexal masses -patient is status post laparotomy sigmoid resection, colostomy and drainage of abdominal abscess culture has been obtained --patient abdominal cultures currently pending, patient to continue Zosyn while waiting for the culture to finalize 02/26/2024 Patient is seen and evaluated in room at bedside; patient is status post Ambrose's procedure for perforated diverticulitis Vital signs are reviewed and remained stable Lab review shows WBC of 11.9, hemoglobin of 8.6 and platelet count of 476, sodium 137, potassium 3.6, BUNs/creatinine of 17/0.46 -Surgery on board and patient remains on a clear liquid diet with plans to advance once bowel function returns -patient is status post laparotomy sigmoid resection, colostomy and drainage of abdominal abscess culture has been obtained --patient abdominal cultures currently pending, patient to continue Zosyn while waiting for the culture to finalize Patient will need outpatient follow-up with gynecology for adnexal mass Objective - Vital Signs Vital signs: Vital Signs Temp 97.5 F L 02/26/24 08:00 Pulse 98 02/26/24 08:06 Resp 18 02/26/24 08:00 BP 123/76 02/26/24 08:00 Pulse Ox 94 L 02/26/24 08:00 FiO2 Intake & Output 02/25/24 02/26/24 02/26/24 18:59 06:59 18:59 Intake Total 236 360 Output Total 80 40 Balance 156 360 -40 Weight 82.8 kg Intake: Oral 236 360 Output: Stool 80 40 Other: Voiding Method Bedside Commode # Voids 1 2 - Exam GENERAL: Alert and oriented x 3, laying in bed, no acute distress HEENT: Normocephalic, atraumatic conjunctivae normal. eyes normal. NECK: Supple, no JVD. CARDIOVASCULAR: S1, S2 regular. No murmur RESPIRATION: Unlabored, equal air entry ,breath sounds diminished in the bases, fine bibasilar crackle. ABDOMEN: Soft, status post surgery, ostomy without drainage, binder, prevena wound vac present. LEGS: Decreased bilateral lower extremity edema NERVOUS SYSTEM: Cranial N 2-12 grossly normal. No focal deficits. Skin: Warm and dry, no rash - Labs CBC & Chem 7: 02/26/24 09:52 02/26/24 09:52 Labs: Abnormal Lab Results - Last 24 Hours (Table) 02/25/24 02/26/24 02/26/24 Range/Units 11:42 00:12 06:10 WBC (3.8-10.6) k/uL RBC (3.80-5.40) m/uL Hgb (11.4-16.0) gm/dL Hct (34.0-46.0) % Plt Count (150-450) k/uL Neutrophils # (1.3-7.7) k/uL Carbon Dioxide (22-30) mmol/L Creatinine (0.52-1.04) mg/dL Glucose (74-99) mg/dL POC Glucose (mg/dL) 124 H 119 H 127 H (70-110) mg/dL Calcium (8.4-10.2) mg/dL 02/26/24 02/26/24 Range/Units 09:52 09:52 WBC 11.9 H (3.8-10.6) k/uL RBC 3.04 L (3.80-5.40) m/uL Hgb 8.6 L (11.4-16.0) gm/dL Hct 27.9 L (34.0-46.0) % Plt Count 476 H (150-450) k/uL Neutrophils # 9.0 H (1.3-7.7) k/uL Carbon Dioxide 31 H (22-30) mmol/L Creatinine 0.46 L (0.52-1.04) mg/dL Glucose 118 H (74-99) mg/dL POC Glucose (mg/dL) (70-110) mg/dL Calcium 8.2 L (8.4-10.2) mg/dL Microbiology - Last 24 Hours (Table) 02/23/24 14:45 Anaerobic Culture - Preliminary Other - Other 02/23/24 15:00 Anaerobic Culture - Preliminary Other - Other 02/23/24 14:45 Gram Stain - Final Other - Other Wound Culture - Final Valencia albicans Assessment and Plan Assessment: Pneumoperitoneum ,perforated diverticulitis with repeat CT reported mild free air beneath the diaphragm which is decreased compared to prior study. Air and fluid-filled loculated collection in the low mid pelvis consistent with abscess. Status post exploratory laparotomy with sigmoid resection for perforated mid sigmoid colon, descending colostomy, defunctionalized rectal stump, Ambrose's procedure for perforated sigmoid colon, peritoneal lavage, drainage of intra- abdominal /pelvis abscess, open lysis of adhesions, multiple biopsies of sigmoid colon ,diverticular abscess, ovarian /pelvis abscess, ovarian mass. Bilateral adnexal masses which either represent abscesses or ovarian neoplasm, reported per CT. elevated Ca 125. [employer] following Fluid overload secondary to low albumin, n.p.o. times nearly 1 week, on fluids including TPN and lipids. Hypokalemia Hypomagnesemia Plan: Continue on current medication regimen ,monitoring and symptomatic treatment. Labs pending. IV antibiotics/Zosyn as per infectious disease. Aggressive pulmonary toileting with incentive spirometer reinforced. Cultures/cytology/pathology pending. PT/OT .prognosis guarded given multiple complex medical issues.
[2024-02-26 17:42] LABS: Appearance,Urine Clear (Clear); Bilirubin,Urine Negative (Negative); Blood,Urine Negative (Negative); Color,Urine Colorless; Glucose,Urine (UA) Negative (Negative); Ketones,Urine Negative (Negative); Leukocyte Esterase,Urine Negative (Negative); Nitrite,Urine Negative (Negative); Protein,Urine Negative (Negative); Specific Gravity,Urine 1.006 (1.001-1.035); Urobilinogen,Urine <2.0 mg/dL (<2.0)
[2024-02-26] MEDS: FLUCONAZOLE IN NACL,ISO-OSM 200 MG in SALINE 1 100ML.BAG IVPB SCH (18:15)
[2024-02-26 20:31] LABS: Glucose,Whole Blood 134 mg/dL (70-110)
[2024-02-26 21:17] LABS: Glucose,Whole Blood 118 mg/dL (70-110)
[2024-02-26] MEDS: METOCLOPRAMIDE 5 MG/ML 2 ML VIAL IVP PRN (23:41)
[2024-02-27 01:17] LABS: Glucose,Whole Blood 159 mg/dL (70-110)
[2024-02-27] MEDS: IPRATROPIUM-ALBUTEROL 3 ML NEB INHALATION PRN (05:27)
[2024-02-27 05:32] LABS: Glucose,Whole Blood 123 mg/dL (70-110)
[2024-02-27 06:50] LABS: Ionized Calcium 4.8 mg/dL (4.5-5.3)
[2024-02-27 06:57] LABS: African American GFR (CKD) >90 (>60 ml/min/1.73 sqM); Anion Gap 7 mmol/L; Blood Urea Nitrogen 13 mg/dL (7-17); Calcium 8.5 mg/dL (8.4-10.2); Carbon Dioxide 27 mmol/L (22-30); Chloride 105 mmol/L (98-107); Glucose 125 mg/dL (74-99); Magnesium 2.1 mg/dL (1.6-2.3); Non-African American GFR(CKD) >90 (>60 ml/min/1.73 sqM); Phosphorus 3.5 mg/dL (2.5-4.5); Potassium 4.5 mmol/L (3.5-5.1); Sodium 139 mmol/L (137-145)
[2024-02-27 09:10] LABS: Basophils # (A) 0.08 X 10*3/uL (0.00-0.10); Basophils % (A) 0.6 %; Eosinophils # (A) 0.49 X 10*3/uL (0.04-0.35); Eosinophils % (A) 3.8 %; HCT 27.5 % (37.2-46.3); HGB 8.7 g/dL (12.0-15.0); Lymphocytes # (A) 1.27 X 10*3/uL (0.90-5.00); Lymphocytes % (A) 9.8 %; MCH 29.2 pg (27.0-32.0); MCHC 31.6 g/dL (32.0-37.0); MCV 92.3 FL (80.0-97.0); Monocytes # (A) 0.94 X 10*3/uL (0.20-1.00); Monocytes % (A) 7.2 %; NRBC Per 100 WBC 0 X 10*3/uL (0.00-0.01); Neutrophils % (A) 77.5 %; Platelet Count 491 X 10*3/uL (140-440); RBC 2.98 X 10*6/uL (4.10-5.20); RDW 15.9 % (11.5-14.5); WBC 13.02 X 10*3/uL (4.50-10.00)
[2024-02-27 09:13] LABS: Triglycerides 95.2 mg/dL (0.00-149.00)
[2024-02-27] MEDS: SCOPOLAMINE 1 MG/72 HR PATCH TRANSDERM SCH (10:06)
[2024-02-27 11:50] LABS: Glucose,Whole Blood 133 mg/dL (70-110)
--- NOTE | 2024-02-27 15:57 | P.PN ---
Subjective Progress Note Date: 02/27/24 Progress Note Date: 02/24/24 This is 63-year-old female admitted with abdominal pain with perforated diverticulitis with abscess, evaluated by general surgery, recommending conservative management. Patient remains n.p.o. receiving TPN and lipids via PICC line. denies chest pain, palpitations or shortness of breath. Positive abdominal pain. Positive bowel movement-reports painful. Diarrhea throughout the night. Repeat CT of abdomen pelvis completed yesterday reported mild free air beneath the diaphragm which is decreased compared to prior study. Air and fluid-filled loculated collection in the low mid pelvis consistent with abscess. Bilateral adnexal masses which either represent abscesses or ovarian neoplasm. Afebrile. Potassium 3.6, supplemented. 02/22/2024 [employer] TE[employer]ER and Oncology consulted by general surgery, regarding CT findings. reports decreased abdominal pain, positive cramps with flatus. Remains n.p.o.,maintained on TPN and liquids. Expresses hunger. Potassium 3.2, supplementation ordered. Magnesium 1.8, supplementation ordered. Maintain on IV antibiotics as per infectious disease. Afebrile. 02/23/2024 initially general surgery had planned for IR drain placement of diverticular abscess, but given risk of potential rupture of large ovarian absce sses, plan was aborted. evaluated by Dr. Gutierres, [employer] TE[employer] with recommendations noted, including assisting in surgery if patient undergoes exploratory laparotomy, potential transfer to a tertiary care center. Ca-125 elevated, 71.6, with CEA, alpha-fetoprotein, beta-hCG pending.patient complaining of worsening abdominal pain accompanied by nausea. N.p.o. ,continues on TPN and lipids, albumin low, significant edema bilateral lower extremities. Complains of mild shortness of breath, maintaining O2 sats of 100% on room air, normal respiratory rate, without respiratory distress. Lasix 40mg IV push x 1 ordered. Afebrile, Tmax 99.2, labs pending. Continues on IV antibiotics. 02/24/2024 this is a 63-year-old female status post exploratory laparotomy with sigmoid resection for perforated mid sigmoid colon, descending colostomy, defunctionalized rectal stump, Ambrose's procedure for perforated sigmoid colon, peritoneal lavage, drainage of intra-abdominal /pelvis abscess, open lysis of adhesions, multiple biopsies of sigmoid colon ,diverticular abscess, ovarian /pelvis abscess, ovarian mass. Tolerated procedure well. Continues on IV fluid hydration, TPN and lipids. Reports pain, recently medicated. Received a dose of Lasix IV push yesterday for fluid overload with significant improvement. Decreased lower extremity edema. Denies chest pain, palpitations. Reports mild shortness of breath. Maintaining O2 sats of 93% on room air. Afebrile, Tmax 100.3, labs pending. Ca-125 elevated, AFP less than 3, CEA less than 2. 02/27/2024 sitting up in chair, complaining of right-sided abdominal pain. Positive nausea and vomiting with minimal bilious emesis. Cytology /pathology pending. Denies vaginal bleeding. Afebrile, WBC increased ,13.02, hemoglobin 8.7, platelets 491, renal function stable. Continues on TPN and lipids with blood sugars controlled. Abdominal wound cultures growing Valencia albicans, yeast, preliminary anaerobic culture reports no anaerobes isolated to date. Objective - Vital Signs Vital signs: Vital Signs Temp 98.7 F 02/27/24 13:13 Pulse 88 02/27/24 15:24 Resp 16 02/27/24 13:13 BP 119/76 02/27/24 13:13 Pulse Ox 96 02/27/24 13:13 FiO2 Intake & Output 02/26/24 02/27/24 02/27/24 18:59 06:59 18:59 Intake Total 1056 Output Total 80 Balance -80 1056 Intake: Intake, IV Titration 1056 Amount Sodium Acetate 40 meq 1056 Potassium Chloride 40 meq Calcium Gluconate 1 gm Magnesium Sulfate gm 1.5 gm Potassium Phosphate 9 mmol In Amino Acids 5 %/ Dextrose 20 % 1,000 ml @ 70 mls/hr IV .[facility] Rx#:[id number] Output: Stool 80 - Exam PHYSICAL EXAM: VITAL SIGNS: [As above] GENERAL: Alert and oriented x 3, sitting up in a chair no acute distress HEENT: Normocephalic, atraumatic conjunctivae normal. eyes normal. NECK: Supple, no JVD. CARDIOVASCULAR: S1, S2 regular. No murmur RESPIRATION: Unlabored, equal air entry ,breath sounds diminished in the bases. ABDOMEN: Soft, status post surgery, ostomy without drainage, healthy appearing stoma ,binder LEGS: No lower extremity edema NERVOUS SYSTEM: Cranial N 2-12 grossly normal. No focal deficits. Skin: Warm and dry, no rash - Labs CBC & Chem 7: 02/27/24 05:42 02/27/24 05:42 Labs: Abnormal Lab Results - Last 24 Hours (Table) 02/26/24 02/26/24 02/26/24 Range/Units 16:17 20:28 21:14 WBC (4.50-10.00) X 10*3/uL RBC (4.10-5.20) X 10*6/uL Hgb (12.0-15.0) g/dL Hct (37.2-46.3) % MCHC (32.0-37.0) g/dL RDW (11.5-14.5) % Plt Count (140-440) X 10*3/uL MPV (9.5-12.2) FL Immature Gran # (0.00-0.04) X 10*3/uL Neutrophils # (1.80-7.70) X 10*3/uL Eosinophils # (0.04-0.35) X 10*3/uL Creatinine (0.52-1.04) mg/dL Glucose (74-99) mg/dL POC Glucose (mg/dL) 123 H 134 H 118 H (70-110) mg/dL 02/27/24 02/27/24 02/27/24 Range/Units 01:14 05:30 05:42 WBC (4.50-10.00) X 10*3/uL RBC (4.10-5.20) X 10*6/uL Hgb (12.0-15.0) g/dL Hct (37.2-46.3) % MCHC (32.0-37.0) g/dL RDW (11.5-14.5) % Plt Count (140-440) X 10*3/uL MPV (9.5-12.2) FL Immature Gran # (0.00-0.04) X 10*3/uL Neutrophils # (1.80-7.70) X 10*3/uL Eosinophils # (0.04-0.35) X 10*3/uL Creatinine 0.47 L (0.52-1.04) mg/dL Glucose 125 H (74-99) mg/dL POC Glucose (mg/dL) 159 H 123 H (70-110) mg/dL 02/27/24 02/27/24 Range/Units 05:42 11:49 WBC 13.02 H (4.50-10.00) X 10*3/uL RBC 2.98 L (4.10-5.20) X 10*6/uL Hgb 8.7 L (12.0-15.0) g/dL Hct 27.5 L (37.2-46.3) % MCHC 31.6 L (32.0-37.0) g/dL RDW 15.9 H (11.5-14.5) % Plt Count 491 H (140-440) X 10*3/uL MPV 9.0 L (9.5-12.2) FL Immature Gran # 0.14 H (0.00-0.04) X 10*3/uL Neutrophils # 10.10 H (1.80-7.70) X 10*3/uL Eosinophils # 0.49 H (0.04-0.35) X 10*3/uL Creatinine (0.52-1.04) mg/dL Glucose (74-99) mg/dL POC Glucose (mg/dL) 133 H (70-110) mg/dL Microbiology - Last 24 Hours (Table) 02/23/24 15:00 Gram Stain - Preliminary Other - Other Wound Culture - Preliminary Valencia albicans Yeast Assessment and Plan Assessment: Pneumoperitoneum ,perforated diverticulitis with repeat CT reported mild free air beneath the diaphragm which is decreased compared to prior study. Air and fluid-filled loculated collection in the low mid pelvis consistent with abscess. Status post exploratory laparotomy with sigmoid resection for perforated mid sigmoid colon, descending colostomy, defunctionalized rectal stump, Ambrose's procedure for perforated sigmoid colon, peritoneal lavage, drainage of intra- abdominal /pelvis abscess, open lysis of adhesions, multiple biopsies of sigmoid colon ,diverticular abscess, ovarian /pelvis abscess, ovarian mass. Bilateral adnexal masses which either represent abscesses or ovarian neoplasm, reported per CT. elevated Ca 125. [employer]ER following Fluid overload secondary to low albumin, n.p.o. times nearly 1 week, on fluids including TPN and lipids, improving Hypokalemia, improved with supplementation Hypomagnesemia, improved with supplementation Plan: Continue on current medication regimen ,monitoring and symptomatic treatment. Maintain IV antibiotics as per infectious disease. Pain management as per primary. continue aggressive pulmonary toileting with incentive spirometer reinforced. Cultures/cytology/pathology finalizing. PT/OT recommendations pending.prognosis guarded given multiple complex medical issues. The impression and plan of care has been dictated as directed. : I performed a history and examination of this patient, discussed the same with the dictator. I agree with the dictator's note ,documented as a scribe. Any additional findings or plans will be noted.
[2024-02-27 17:04] LABS: Glucose,Whole Blood 117 mg/dL (70-110)
--- NOTE | 2024-02-27 20:01 | P.PN ---
Subjective Progress Note Date: 02/27/24 CHIEF COMPLAINT: Diverticulitis HISTORY OF PRESENT ILLNESS: The patient is a 63-year-old female status post colectomy and Ambrose's procedure, 02/23/2024. She is postop day 4. She reports emesis. She is on liquid diet. ROS: No fevers or chills. No new chest pain. No productive sputum PHYSICAL EXAM: VITAL SIGNS: Reviewed CONSTITUTIONAL: Well developed and in no acute distress. EYES: Conjuctivae without sclera icterus. Extraocular movements grossly intact. HEAD, EARS, NOSE, THROAT: Moist buccal mucosa. Head is atraumatic, normocephalic. Hears conversational speech. No nasal drainage. RESPIRATORY: Non-labored respirations and equal bilateral excursions. CARDIOVASCULAR: Palpable 2+ radial pulses. ABDOMEN: Ostomy pink patent without flatus. MUSCULOSKELETAL: No gross deformity of the lower extremities noted. No clubbing. No cyanosis. SKIN: Good skin turgor. Well perfused. NEUROLOGIC: Cranial nerves II through XII grossly intact. No focal or lateralizing signs. Has resting tremor PSYCH: Appropriate affect. Alert and oriented to person, place and time. CLINICAL LABS: Reviewed. WBC pending upper, with 13,000. Hemoglobin down 9.8- 8.7. Tumor markers within normal limits with exception of elevated CA125. Platelets elevating. PATHOLOGY: Demonstrates diverticulitis without malignancy found MICRO: Presence of Valencia ASSESSMENT: 1. Complicated perforated diverticulitis 2. Bilateral ovarian neoplasms 3. Peritonitis due to Valencia PLAN: 1. Cell cytology is nondiagnostic for malignancy however clinical features were consistent with complicated bilateral ovarian neoplasms 2. Antibiotic management per infectious disease including coverage for yeast 3. Clinical presentation consistent with ileus 4. She has resting tremors for which adjustment of antinausea medications being performed Objective - Vital Signs Vital signs: Vital Signs Temp 98.7 F 02/27/24 13:13 Pulse 90 02/27/24 15:35 Resp 16 02/27/24 13:13 BP 119/76 02/27/24 13:13 Pulse Ox 96 02/27/24 13:13 FiO2 Intake & Output 02/27/24 02/27/24 02/28/24 06:59 18:59 06:59 Intake Total 1056 Balance 1056 Intake: Intake, IV Titration 1056 Amount Sodium Acetate 40 meq 1056 Potassium Chloride 40 meq Calcium Gluconate 1 gm Magnesium Sulfate gm 1.5 gm Potassium Phosphate 9 mmol In Amino Acids 5 %/ Dextrose 20 % 1,000 ml @ 70 mls/hr IV .BY DURATION [facility] Rx#:[id number] - Labs CBC & Chem 7: 02/27/24 05:42 02/27/24 05:42 Labs: Abnormal Lab Results - Last 24 Hours (Table) 02/26/24 02/26/24 02/27/24 Range/Units 20:28 21:14 01:14 WBC (4.50-10.00) X 10*3/uL RBC (4.10-5.20) X 10*6/uL Hgb (12.0-15.0) g/dL Hct (37.2-46.3) % MCHC (32.0-37.0) g/dL RDW (11.5-14.5) % Plt Count (140-440) X 10*3/uL MPV (9.5-12.2) FL Immature Gran # (0.00-0.04) X 10*3/uL Neutrophils # (1.80-7.70) X 10*3/uL Eosinophils # (0.04-0.35) X 10*3/uL Creatinine (0.52-1.04) mg/dL Glucose (74-99) mg/dL POC Glucose (mg/dL) 134 H 118 H 159 H (70-110) mg/dL 02/27/24 02/27/24 02/27/24 Range/Units 05:30 05:42 05:42 WBC 13.02 H (4.50-10.00) X 10*3/uL RBC 2.98 L (4.10-5.20) X 10*6/uL Hgb 8.7 L (12.0-15.0) g/dL Hct 27.5 L (37.2-46.3) % MCHC 31.6 L (32.0-37.0) g/dL RDW 15.9 H (11.5-14.5) % Plt Count 491 H (140-440) X 10*3/uL MPV 9.0 L (9.5-12.2) FL Immature Gran # 0.14 H (0.00-0.04) X 10*3/uL Neutrophils # 10.10 H (1.80-7.70) X 10*3/uL Eosinophils # 0.49 H (0.04-0.35) X 10*3/uL Creatinine 0.47 L (0.52-1.04) mg/dL Glucose 125 H (74-99) mg/dL POC Glucose (mg/dL) 123 H (70-110) mg/dL 02/27/24 02/27/24 Range/Units 11:49 17:03 WBC (4.50-10.00) X 10*3/uL RBC (4.10-5.20) X 10*6/uL Hgb (12.0-15.0) g/dL Hct (37.2-46.3) % MCHC (32.0-37.0) g/dL RDW (11.5-14.5) % Plt Count (140-440) X 10*3/uL MPV (9.5-12.2) FL Immature Gran # (0.00-0.04) X 10*3/uL Neutrophils # (1.80-7.70) X 10*3/uL Eosinophils # (0.04-0.35) X 10*3/uL Creatinine (0.52-1.04) mg/dL Glucose (74-99) mg/dL POC Glucose (mg/dL) 133 H 117 H (70-110) mg/dL Microbiology - Last 24 Hours (Table) 02/23/24 15:00 Gram Stain - Preliminary Other - Other Wound Culture - Preliminary Valencia albicans Yeast
--- NOTE | 2024-02-27 21:33 | P.PN ---
Subjective Progress Note Date: 02/27/24 Principal diagnosis: ovarian masses Post op day 4/ Pt has stopped oral intake due to progressive abd pain, she is now having bilious emesis without taking in anything orally. Her abd is sore, she is uncomfortable. TPN is infusing. Objective - Vital Signs Vital signs: Vital Signs Temp 98.7 F 02/27/24 13:13 Pulse 94 02/27/24 13:13 Resp 16 02/27/24 13:13 BP 119/76 02/27/24 13:13 Pulse Ox 96 02/27/24 13:13 FiO2 Intake & Output 02/26/24 02/27/24 02/27/24 18:59 06:59 18:59 Intake Total 1056 Output Total 80 Balance -80 1056 Intake: Intake, IV Titration 1056 Amount Sodium Acetate 40 meq 1056 Potassium Chloride 40 meq Calcium Gluconate 1 gm Magnesium Sulfate gm 1.5 gm Potassium Phosphate 9 mmol In Amino Acids 5 %/ Dextrose 20 % 1,000 ml @ 70 mls/hr IV .[facility] Rx#:[id number] Output: Stool 80 - Constitutional Constitutional Comment(s): looks ill, generalized shaking General appearance: Present: average body habitus, cooperative, disheveled, mild distress - EENT Eyes: Present: anicteric sclerae, EOMI ENT: Present: hearing grossly normal - Respiratory Respiratory: bilateral: diminished - Cardiovascular Rhythm: regular - Peripheral edema leg Peripheral Edema: bilateral: 1+ (non-pitting) - Gastrointestinal Gastrointestinal Comment(s): abd binder in place bilious emesis General gastrointestinal: Present: tenderness - Neurologic Neurologic: Present: CNII-XII intact - Musculoskeletal Musculoskeletal: Present: generalized weakness - Psychiatric Psychiatric: Present: A&O x's 3, appropriate affect, intact judgment & insight - Labs CBC & Chem 7: 02/27/24 05:42 02/27/24 05:42 Labs: Abnormal Lab Results - Last 24 Hours (Table) 02/26/24 02/26/24 02/26/24 Range/Units 16:17 20:28 21:14 WBC (4.50-10.00) X 10*3/uL RBC (4.10-5.20) X 10*6/uL Hgb (12.0-15.0) g/dL Hct (37.2-46.3) % MCHC (32.0-37.0) g/dL RDW (11.5-14.5) % Plt Count (140-440) X 10*3/uL MPV (9.5-12.2) FL Immature Gran # (0.00-0.04) X 10*3/uL Neutrophils # (1.80-7.70) X 10*3/uL Eosinophils # (0.04-0.35) X 10*3/uL Creatinine (0.52-1.04) mg/dL Glucose (74-99) mg/dL POC Glucose (mg/dL) 123 H 134 H 118 H (70-110) mg/dL 02/27/24 02/27/24 02/27/24 Range/Units 01:14 05:30 05:42 WBC (4.50-10.00) X 10*3/uL RBC (4.10-5.20) X 10*6/uL Hgb (12.0-15.0) g/dL Hct (37.2-46.3) % MCHC (32.0-37.0) g/dL RDW (11.5-14.5) % Plt Count (140-440) X 10*3/uL MPV (9.5-12.2) FL Immature Gran # (0.00-0.04) X 10*3/uL Neutrophils # (1.80-7.70) X 10*3/uL Eosinophils # (0.04-0.35) X 10*3/uL Creatinine 0.47 L (0.52-1.04) mg/dL Glucose 125 H (74-99) mg/dL POC Glucose (mg/dL) 159 H 123 H (70-110) mg/dL 02/27/24 02/27/24 Range/Units 05:42 11:49 WBC 13.02 H (4.50-10.00) X 10*3/uL RBC 2.98 L (4.10-5.20) X 10*6/uL Hgb 8.7 L (12.0-15.0) g/dL Hct 27.5 L (37.2-46.3) % MCHC 31.6 L (32.0-37.0) g/dL RDW 15.9 H (11.5-14.5) % Plt Count 491 H (140-440) X 10*3/uL MPV 9.0 L (9.5-12.2) FL Immature Gran # 0.14 H (0.00-0.04) X 10*3/uL Neutrophils # 10.10 H (1.80-7.70) X 10*3/uL Eosinophils # 0.49 H (0.04-0.35) X 10*3/uL Creatinine (0.52-1.04) mg/dL Glucose (74-99) mg/dL POC Glucose (mg/dL) 133 H (70-110) mg/dL Microbiology - Last 24 Hours (Table) 02/23/24 15:00 Gram Stain - Preliminary Other - Other Wound Culture - Preliminary Valencia albicans Yeast Assessment and Plan (1) Peritonitis Current Visit: Yes Status: Acute Code(s): K65.9 - PERITONITIS, UNSPECIFIED SNOMED Code(s): 34617670 (2) Pneumoperitoneum Current Visit: Yes Status: Acute Priority: High Code(s): K66.8 - OTHER SPECIFIED DISORDERS OF PERITONEUM SNOMED Code(s): 83770637 (3) Bilateral ovarian cysts Current Visit: Yes Status: Acute Priority: High Code(s): N83.201 - UNSPECIFIED OVARIAN CYST, RIGHT SIDE; N83.202 - UNSPECIFIED OVARIAN CYST, LEFT SIDE SNOMED Code(s): 54782145 Plan: Peritonitis, pneumoperitoneum -S/P sigmoid colon resection, path reporting submucosal abscess, fibrosis, fat necrosis, foreign body multinucleated giant cell reaction, and acute serositis consistent with diverticular rupture and perforated viscus. She also had pelvic lavage and removal of peritoneal fluid path reporting inflammatory debris with scattered acute and chronic inflammatory cells, non-diagnostic for neoplasia. These results were rpoerted after pt seen. Surgery will likely review these results with her but, we will follow up and see her tomorrow and review as well -pt abd pain, N,V persist today. She cont on abx and TPN -Surgery following Bilateral adnexal masses -FROTHING MACHINE OPERATOR has seen and evaluated pt, felt findings were more consistent with possible abscess -CEA 125 elevated at 71.6, this is not significantly elevated in relation to the extent of inflammation in the abd -The ovarian masses will require additional follow up. Will discuss case at some point with [employer] Farmworker and see if they want to follow up with her or if they would prefer that pt be referred to [facility] [employer] [facility] On[facility]
[2024-02-27 23:45] LABS: Glucose,Whole Blood 111 mg/dL (70-110)
[2024-02-28 06:10] LABS: Glucose,Whole Blood 123 mg/dL (70-110)
[2024-02-28 07:12] LABS: African American GFR (CKD) >90 (>60 ml/min/1.73 sqM); Anion Gap 5 mmol/L; Blood Urea Nitrogen 14 mg/dL (7-17); Calcium 8.3 mg/dL (8.4-10.2); Carbon Dioxide 27 mmol/L (22-30); Chloride 104 mmol/L (98-107); Glucose 82 mg/dL (74-99); Magnesium 2.2 mg/dL (1.6-2.3); Non-African American GFR(CKD) >90 (>60 ml/min/1.73 sqM); Potassium 4.9 mmol/L (3.5-5.1); Sodium 136 mmol/L (137-145)
[2024-02-28] MEDS: PANTOPRAZOLE 40 MG/10 ML VIAL IVP SCH (09:10)
[2024-02-28] MEDS: [UNRECOGNIZED DRUG - REMARK] IV SCH (11:02)
[2024-02-28 11:50] LABS: Glucose,Whole Blood 95 mg/dL (70-110)
[2024-02-28 13:59] VITALS: BMI 31.3
--- NOTE | 2024-02-28 15:14 | P.PN ---
Subjective Progress Note Date: 02/28/24 Progress Note Date: 02/24/24 This is 63-year-old female admitted with abdominal pain with perforated diverticulitis with abscess, evaluated by general surgery, recommending conservative management. Patient remains n.p.o. receiving TPN and lipids via PICC line. denies chest pain, palpitations or shortness of breath. Positive abdominal pain. Positive bowel movement-reports painful. Diarrhea throughout the night. Repeat CT of abdomen pelvis completed yesterday reported mild free air beneath the diaphragm which is decreased compared to prior study. Air and fluid-filled loculated collection in the low mid pelvis consistent with abscess. Bilateral adnexal masses which either represent abscesses or ovarian neoplasm. Afebrile. Potassium 3.6, supplemented. 02/22/2024 BRANCH SERVICE LEADER and Oncology consulted by general surgery, regarding CT findings. reports decreased abdominal pain, positive cramps with flatus. Remains n.p.o.,maintained on TPN and liquids. Expresses hunger. Potassium 3.2, supplementation ordered. Magnesium 1.8, supplementation ordered. Maintain on IV antibiotics as per infectious disease. Afebrile. 02/23/2024 initially general surgery had planned for IR drain placement of diverticular abscess, but given risk of potential rupture of large ovarian absce sses, plan was aborted. evaluated by Dr. Gutierres, BRANCH SERVICE LEADER with recommendations noted, including assisting in surgery if patient undergoes exploratory laparotomy, potential transfer to a tertiary care center. Ca-125 elevated, 71.6, with CEA, alpha-fetoprotein, beta-hCG pending.patient complaining of worsening abdominal pain accompanied by nausea. N.p.o. ,continues on TPN and lipids, albumin low, significant edema bilateral lower extremities. Complains of mild shortness of breath, maintaining O2 sats of 100% on room air, normal respiratory rate, without respiratory distress. Lasix 40mg IV push x 1 ordered. Afebrile, Tmax 99.2, labs pending. Continues on IV antibiotics. 02/24/2024 this is a 63-year-old female status post exploratory laparotomy with sigmoid resection for perforated mid sigmoid colon, descending colostomy, defunctionalized rectal stump, Ambrose's procedure for perforated sigmoid colon, peritoneal lavage, drainage of intra-abdominal /pelvis abscess, open lysis of adhesions, multiple biopsies of sigmoid colon ,diverticular abscess, ovarian /pelvis abscess, ovarian mass. Tolerated procedure well. Continues on IV fluid hydration, TPN and lipids. Reports pain, recently medicated. Received a dose of Lasix IV push yesterday for fluid overload with significant improvement. Decreased lower extremity edema. Denies chest pain, palpitations. Reports mild shortness of breath. Maintaining O2 sats of 93% on room air. Afebrile, Tmax 100.3, labs pending. Ca-125 elevated, AFP less than 3, CEA less than 2. 02/27/2024 sitting up in chair, complaining of right-sided abdominal pain. Positive nausea and vomiting with minimal bilious emesis. Cytology /pathology pending. Denies vaginal bleeding. Afebrile, WBC increased ,13.02, hemoglobin 8.7, platelets 491, renal function stable. Continues on TPN and lipids with blood sugars controlled. Abdominal wound cultures growing Valencia albicans, yeast, preliminary anaerobic culture reports no anaerobes isolated to date. 02/28/2024 continues on TPN, lipids, IV fluid hydration and antibiotics of Zosyn, fluconazole. Wound culture growing Valencia albicans. Afebrile. dosing off while talking. Pathology of sigmoid colon resection reporting diverticulitis with submucosal abscess, fibrosis, fat necrosis, foreign body multinucleated giant cell reaction and acute serositis consistent with diverticular rupture and perforated viscus. Pelvic/peritoneal fluid lavage cytology reported inflammatory debris with scattered acute and chronic inflammatory cells, nondiagnostic for neoplasia. Tolerating clear liquids with nausea improved. Objective - Vital Signs Vital signs: Vital Signs Temp 98.1 F 02/28/24 07:45 Pulse 90 02/28/24 11:31 Resp 18 02/28/24 07:45 BP 127/83 02/28/24 07:45 Pulse Ox 97 02/28/24 07:45 FiO2 Intake & Output 02/27/24 02/28/24 02/28/24 18:59 06:59 18:59 Weight 82.8 kg Other: Voiding Method Toilet # Voids 1 - Exam PHYSICAL EXAM: VITAL SIGNS: [As above] GENERAL: Alert and oriented x 3, sitting up in bed, fatigued, no acute distress HEENT: Normocephalic, atraumatic conjunctivae normal. eyes normal. NECK: Supple, no JVD. CARDIOVASCULAR: S1, S2 regular. No murmur RESPIRATION: Unlabored, equal air entry ,breath sounds diminished in the bases. ABDOMEN: Soft, tender, status post surgery, ostomy with scant watery drainage, healthy appearing stoma ,binder LEGS: No lower extremity edema NERVOUS SYSTEM: Cranial N 2-12 grossly normal. No focal deficits. Skin: Warm and dry, no rash - Labs CBC & Chem 7: 02/29/24 09:02 02/29/24 06:03 Labs: Abnormal Lab Results - Last 24 Hours (Table) 02/27/24 02/27/24 02/28/24 Range/Units 17:03 23:43 05:48 Sodium 136 L (137-145) mmol/L Creatinine 0.48 L (0.52-1.04) mg/dL POC Glucose (mg/dL) 117 H 111 H (70-110) mg/dL Calcium 8.3 L (8.4-10.2) mg/dL 02/28/24 Range/Units 06:06 Sodium (137-145) mmol/L Creatinine (0.52-1.04) mg/dL POC Glucose (mg/dL) 123 H (70-110) mg/dL Calcium (8.4-10.2) mg/dL Microbiology - Last 24 Hours (Table) 02/23/24 15:00 Gram Stain - Final Other - Other Wound Culture - Final Valencia albicans Valencia glabrata 02/23/24 14:45 Anaerobic Culture - Final Other - Other 02/23/24 15:00 Anaerobic Culture - Final Other - Other Assessment and Plan Assessment: Pneumoperitoneum ,perforated diverticulitis with repeat CT reported mild free air beneath the diaphragm which is decreased compared to prior study. Air and fluid-filled loculated collection in the low mid pelvis consistent with abscess. Status post exploratory laparotomy with sigmoid resection for perforated mid sigmoid colon, descending colostomy, defunctionalized rectal stump, Ambrose's procedure for perforated sigmoid colon, peritoneal lavage, drainage of intra- abdominal /pelvis abscess, open lysis of adhesions, multiple biopsies of sigmoid colon ,diverticular abscess, ovarian /pelvis abscess, ovarian mass. 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 Further workup recommended. Postoperative ileus as per general surgery Bilateral adnexal masses which either represent abscesses or ovarian neoplasm, reported per CT. Ovarian masses will require additional follow-up as discussed with her per oncology, either with BRANCH SERVICE LEADER or [facility] LEAD[facility]. Fluid overload secondary to low albumin, n.p.o. times nearly 1 week, on fluids including TPN and lipids, resolved. Hypokalemia, resolved with supplementation Hypomagnesemia, resolved with supplementation Morbid obesity, BMI 31.3 Plan: Continue on current medication regimen ,monitoring and symptomatic treatment. IV antibiotics as per infectious disease. Pain management as per primary. Maintain aggressive pulmonary toileting with incentive spirometer reinforced. Ovarian masses will require additional follow-up as discussed with her per oncology. PT/OT.prognosis guarded given multiple complex medical issues. The impression and plan of care has been dictated as directed. : I performed a history and examination of this patient, discussed the same with the dictator. I agree with the dictator's note ,documented as a scribe. Any additional findings or plans will be noted.
--- NOTE | 2024-02-28 15:30 | P.PN ---
Subjective Progress Note Date: 02/28/24 CHIEF COMPLAINT: Diverticulitis HISTORY OF PRESENT ILLNESS: Patient is postop day #5 status post Exploratory laparotomy with sigmoid resection for perforated mid sigmoid colon and Descending colostomy. Patient complains of burning with urination. She had nausea earlier. No vomiting. Pain is controlled. No stool output from ostomy. Afebrile. Patient is having episodes of confusion. Sodium 136 potassium 4.9 creatinine 0.48 magnesium 2.2. Patient has Valencia albicans growing in her wound culture which is covered with Diflucan per infectious disease. PHYSICAL EXAM: VITAL SIGNS: Reviewed GENERAL: Well-developed in no acute distress. HEENT: No sclera icterus. Extraocular movements grossly intact. Moist buccal mucosa. Head is atraumatic, normocephalic. Hears conversational speech. No nasal drainage. NECK: Supple without lymphadenopathy. CHEST: Non-labored respirations and equal bilateral excursions. CARDIOVASCULAR: Palpable 2+ radial pulses. ABDOMEN: Soft. Prevena wound VAC intact. Ostomy with beefy red stoma. Serosanguineous liquid in ostomy bag. No stool or air present in bag. MUSCULOSKELETAL: No clubbing or cyanosis. NEUROLOGIC: No focal or lateralizing signs. Cranial nerves II through XII grossly intact. PSYCH: Appropriate affect. Alert and oriented to person, place and time. SKIN: Well perfused. Good skin turgor. ASSESSMENT: 1. Perforated complicated sigmoid diverticulitis with pelvic abscess 2. Bilateral ovarian complex neoplasm, over 6 cm 3. Obesity due to excess calories, BMI 30.2 4. Depressive disorder 5. Osteoporosis 6. Seizure disorder 7. Gastroesophageal reflux disease 8. Hypokalemia and hypomagnesemia 9. Ileus expected postoperatively PLAN: -Cell cytology is nondiagnostic for malignancy however clinical features were consistent with complicated bilateral ovarian neoplasms -Check urinalysis for dysuria -Continue clear liquid diet -Antibiotic management per ID -Continue antibiotics -Continue TPN for nutrition support -Continue pain management -Encourage patient to increase activity level -Encourage patient to use incentive spirometer -DVT prophylaxis subcu heparin Physician Pullman Car Repairer note has been reviewed by physician. Signing provider agrees with the documented findings, assessment, and plan of care. Objective - Vital Signs Vital signs: Vital Signs Temp 98.1 F 02/28/24 07:45 Pulse 90 02/28/24 08:16 Resp 18 02/28/24 07:45 BP 127/83 02/28/24 07:45 Pulse Ox 97 02/28/24 07:45 FiO2 Intake & Output 02/27/24 02/28/24 02/28/24 18:59 06:59 18:59 Other: # Voids 1 - Labs CBC & Chem 7: 02/27/24 05:42 02/28/24 05:48 Labs: Abnormal Lab Results - Last 24 Hours (Table) 02/27/24 02/27/24 02/27/24 Range/Units 11:49 17:03 23:43 Sodium (137-145) mmol/L Creatinine (0.52-1.04) mg/dL POC Glucose (mg/dL) 133 H 117 H 111 H (70-110) mg/dL Calcium (8.4-10.2) mg/dL 02/28/24 02/28/24 Range/Units 05:48 06:06 Sodium 136 L (137-145) mmol/L Creatinine 0.48 L (0.52-1.04) mg/dL POC Glucose (mg/dL) 123 H (70-110) mg/dL Calcium 8.3 L (8.4-10.2) mg/dL Microbiology - Last 24 Hours (Table) 02/23/24 15:00 Gram Stain - Final Other - Other Wound Culture - Final Valencia albicans Valnecia glabrata 02/23/24 14:45 Anaerobic Culture - Final Other - Other 02/23/24 15:00 Anaerobic Culture - Final Other - Other
--- NOTE | 2024-02-28 15:30 | P.PN ---
Subjective Progress Note Date: 02/26/24 Principal diagnosis: Reason for follow-up is pneumoperitoneum and peritonitis Patient is a 63-year-old female past medical history significant for reflux osteoarthritis seizure disorder presenting to the hospital for evaluation of abdominal pain, the patient did have a CT abdominal pelvis evidence of moderate pneumoperitoneum currently being treated medically. Patient is status post expiratory laparotomy with sigmoid resection for perforated mid sigmoid colon descending colostomy drainage of the intra-abdominal abscess and fluid has been sent for culture procedure completed on 02/23/2024 On today's evaluation that is 02/26/2024, Patient is afebrile patient is cu rrently on room air and denies having any shortness of breath, the patient denies any chest pain or cough, the patient has been complaining of abdominal pain and some nausea but no vomiting and no output in the colostomy bag. Patient white count is 11.9, creatinine 0.46 abdominal culture growing Valencia Objective - Vital Signs Vital signs: Vital Signs Temp 97.5 F L 02/26/24 08:00 Pulse 96 02/26/24 11:24 Resp 18 02/26/24 08:00 BP 123/76 02/26/24 08:00 Pulse Ox 94 L 02/26/24 08:00 FiO2 Intake & Output 02/25/24 02/26/24 02/26/24 18:59 06:59 18:59 Intake Total 236 360 Output Total 80 40 Balance 156 360 -40 Weight 82.8 kg Intake: Oral 236 360 Output: Stool 80 40 Other: Voiding Method Bedside Commode # Voids 1 2 - Exam GENERAL DESCRIPTION: Middle-aged female lying in bed in no distress RESPIRATORY SYSTEM: Unlabored breathing , decreased breath sounds at bases HEART: S1 S2 regular rate and rhythm , ABDOMEN: Soft , mild tenderness, no output in colostomy EXTREMITIES: No edema feet - Labs CBC & Chem 7: 02/27/24 05:42 02/28/24 05:48 Labs: Abnormal Lab Results - Last 24 Hours (Table) 02/25/24 02/26/24 02/26/24 Range/Units 11:42 00:12 06:10 WBC (3.8-10.6) k/uL RBC (3.80-5.40) m/uL Hgb (11.4-16.0) gm/dL Hct (34.0-46.0) % Plt Count (150-450) k/uL Neutrophils # (1.3-7.7) k/uL Carbon Dioxide (22-30) mmol/L Creatinine (0.52-1.04) mg/dL Glucose (74-99) mg/dL POC Glucose (mg/dL) 124 H 119 H 127 H (70-110) mg/dL Calcium (8.4-10.2) mg/dL 02/26/24 02/26/24 Range/Units 09:52 09:52 WBC 11.9 H (3.8-10.6) k/uL RBC 3.04 L (3.80-5.40) m/uL Hgb 8.6 L (11.4-16.0) gm/dL Hct 27.9 L (34.0-46.0) % Plt Count 476 H (150-450) k/uL Neutrophils # 9.0 H (1.3-7.7) k/uL Carbon Dioxide 31 H (22-30) mmol/L Creatinine 0.46 L (0.52-1.04) mg/dL Glucose 118 H (74-99) mg/dL POC Glucose (mg/dL) (70-110) mg/dL Calcium 8.2 L (8.4-10.2) mg/dL Microbiology - Last 24 Hours (Table) 02/23/24 14:45 Anaerobic Culture - Preliminary Other - Other 02/23/24 15:00 Anaerobic Culture - Preliminary Other - Other 02/23/24 14:45 Gram Stain - Final Other - Other Wound Culture - Final Valencia albicans Assessment and Plan (1) Peritonitis Current Visit: Yes Status: Acute Code(s): K65.9 - PERITONITIS, UNSPECIFIED SNOMED Code(s): 12858601 (2) Pneumoperitoneum Current Visit: Yes Status: Acute Priority: High Code(s): K66.8 - OTHER SPECIFIED DISORDERS OF PERITONEUM SNOMED Code(s): 24451122 Plan: 1patient presented hospital abdominal pain and this patient who did have abnormal CT suggestive of pneumoperitoneum and some fluid collection in the pelvis concerning for possible perforated bowel could be related to possible perforated diverticulitis, he will need to cover for the enteric gram-negative both aerobes and anaerobes, general surgery following the patient currently recommending bowel rest and antibiotic therapy 2-patient did get a PICC line, patient did have a Repeat abdominal pelvis CT patient mention decreased EF but he did have a fall he had a fluid-filled loculated collection in the low mid pelvis consistent with an abscess and bilateral adnexal masses 3patient is status post laparotomy sigmoid resection, colostomy and drainage of abdominal abscess cultures are currently growing Valencia 4-patient to continue Zosyn we will add Diflucan to cover for the Valencia Dictation was produced using [employer] dictation software. please excuse any grammatical, word or spelling errors. Time with Patient: Less than 30
--- NOTE | 2024-02-28 15:31 | P.PN ---
Subjective Progress Note Date: 02/27/24 Principal diagnosis: Reason for follow-up is pneumoperitoneum and peritonitis Patient is a 63-year-old female past medical history significant for reflux osteoarthritis seizure disorder presenting to the hospital for evaluation of abdominal pain, the patient did have a CT abdominal pelvis evidence of moderate pneumoperitoneum currently being treated medically. Patient is status post expiratory laparotomy with sigmoid resection for perforated mid sigmoid colon descending colostomy drainage of the intra-abdominal abscess and fluid has been sent for culture procedure completed on 02/23/2024 On today's evaluation that is 02/27/2024, patient has been afebrile, patient is breathing comfortably and is currently on room air, patient denies having any significant cough no chest pain shortness of breath, patient has been complaining of abdominal pain nausea did have multiple episodes of vomiting. Patient white count is 13.02, creatinine 0.47 Objective - Vital Signs Vital signs: Vital Signs Temp 98.7 F 02/27/24 07:24 Pulse 96 02/27/24 11:24 Resp 16 02/27/24 07:24 BP 136/84 02/27/24 07:24 Pulse Ox 95 02/27/24 07:24 FiO2 Intake & Output 02/26/24 02/27/24 02/27/24 18:59 06:59 18:59 Intake Total 1056 Output Total 80 Balance -80 1056 Intake: Intake, IV Titration 1056 Amount Sodium Acetate 40 meq 1056 Potassium Chloride 40 meq Calcium Gluconate 1 gm Magnesium Sulfate gm 1.5 gm Potassium Phosphate 9 mmol In Amino Acids 5 %/ Dextrose 20 % 1,000 ml @ 70 mls/hr IV .BY DURATION FORMERLY [facility], 1928–1983 Rx#:[id number] Output: Stool 80 - Exam GENERAL DESCRIPTION: Middle-aged female lying in bed in no distress RESPIRATORY SYSTEM: Unlabored breathing , decreased breath sounds at bases HEART: S1 S2 regular rate and rhythm , ABDOMEN: Soft , mild tenderness, no output in colostomy EXTREMITIES: No edema feet - Labs CBC & Chem 7: 02/27/24 05:42 02/28/24 05:48 Labs: Abnormal Lab Results - Last 24 Hours (Table) 02/26/24 02/26/24 02/26/24 Range/Units 16:17 20:28 21:14 WBC (4.50-10.00) X 10*3/uL RBC (4.10-5.20) X 10*6/uL Hgb (12.0-15.0) g/dL Hct (37.2-46.3) % MCHC (32.0-37.0) g/dL RDW (11.5-14.5) % Plt Count (140-440) X 10*3/uL MPV (9.5-12.2) FL Immature Gran # (0.00-0.04) X 10*3/uL Neutrophils # (1.80-7.70) X 10*3/uL Eosinophils # (0.04-0.35) X 10*3/uL Creatinine (0.52-1.04) mg/dL Glucose (74-99) mg/dL POC Glucose (mg/dL) 123 H 134 H 118 H (70-110) mg/dL 02/27/24 02/27/24 02/27/24 Range/Units 01:14 05:30 05:42 WBC (4.50-10.00) X 10*3/uL RBC (4.10-5.20) X 10*6/uL Hgb (12.0-15.0) g/dL Hct (37.2-46.3) % MCHC (32.0-37.0) g/dL RDW (11.5-14.5) % Plt Count (140-440) X 10*3/uL MPV (9.5-12.2) FL Immature Gran # (0.00-0.04) X 10*3/uL Neutrophils # (1.80-7.70) X 10*3/uL Eosinophils # (0.04-0.35) X 10*3/uL Creatinine 0.47 L (0.52-1.04) mg/dL Glucose 125 H (74-99) mg/dL POC Glucose (mg/dL) 159 H 123 H (70-110) mg/dL 02/27/24 02/27/24 Range/Units 05:42 11:49 WBC 13.02 H (4.50-10.00) X 10*3/uL RBC 2.98 L (4.10-5.20) X 10*6/uL Hgb 8.7 L (12.0-15.0) g/dL Hct 27.5 L (37.2-46.3) % MCHC 31.6 L (32.0-37.0) g/dL RDW 15.9 H (11.5-14.5) % Plt Count 491 H (140-440) X 10*3/uL MPV 9.0 L (9.5-12.2) FL Immature Gran # 0.14 H (0.00-0.04) X 10*3/uL Neutrophils # 10.10 H (1.80-7.70) X 10*3/uL Eosinophils # 0.49 H (0.04-0.35) X 10*3/uL Creatinine (0.52-1.04) mg/dL Glucose (74-99) mg/dL POC Glucose (mg/dL) 133 H (70-110) mg/dL Microbiology - Last 24 Hours (Table) 02/23/24 15:00 Gram Stain - Preliminary Other - Other Wound Culture - Preliminary Valencia albicans Yeast Assessment and Plan (1) Peritonitis Current Visit: Yes Status: Acute Code(s): K65.9 - PERITONITIS, UNSPECIFIED SNOMED Code(s): 98531881 (2) Pneumoperitoneum Current Visit: Yes Status: Acute Priority: High Code(s): K66.8 - OTHER SPECIFIED DISORDERS OF PERITONEUM SNOMED Code(s): 53600419 Plan: 1patient presented hospital abdominal pain and this patient who did have abnormal CT suggestive of pneumoperitoneum and some fluid collection in the pelvis concerning for possible perforated bowel could be related to possible perforated diverticulitis, he will need to cover for the enteric gram-negative both aerobes and anaerobes, general surgery following the patient currently recommending bowel rest and antibiotic therapy 2-patient did get a PICC line, patient did have a Repeat abdominal pelvis CT patient mention decreased EF but he did have a fall he had a fluid-filled loculated collection in the low mid pelvis consistent with an abscess and bilateral adnexal masses 3patient is status post laparotomy sigmoid resection, colostomy and drainage of abdominal abscess cultures are currently growing Valencia 4-patient currently covered with Zosyn and Diflucan, white count slightly up today and will monitor closely Dictation was produced using [email or web address] dictation software. please excuse any grammatical, word or spelling errors. Time with Patient: Less than 30
--- NOTE | 2024-02-28 15:32 | P.PN ---
Subjective Progress Note Date: 02/28/24 Principal diagnosis: Reason for follow-up is pneumoperitoneum and peritonitis Patient is a 63-year-old female past medical history significant for reflux osteoarthritis seizure disorder presenting to the hospital for evaluation of abdominal pain, the patient did have a CT abdominal pelvis evidence of moderate pneumoperitoneum currently being treated medically. Patient is status post expiratory laparotomy with sigmoid resection for perforated mid sigmoid colon descending colostomy drainage of the intra-abdominal abscess and fluid has been sent for culture procedure completed on 02/23/2024 On today's evaluation that is 02/28/2024,the patient denies any fever or any chills, patient is breathing comfortably on room air, the patient denies chest pain shortness of breath and no significant cough, patient has been complaining of nausea but no further vomiting also complaining of abdominal pain and has been complaining that her pain medication has been cut back and questioning why. No CBC was done today creatinine 0.48 abdominal culture now growing Valencia tigre cans as well as Valencia glabrata Objective - Vital Signs Vital signs: Vital Signs Temp 98.3 F 02/28/24 13:43 Pulse 92 02/28/24 15:25 Resp 19 02/28/24 13:43 BP 146/79 02/28/24 13:43 Pulse Ox 98 02/28/24 13:43 FiO2 Intake & Output 02/27/24 02/28/24 02/28/24 18:59 06:59 18:59 Weight 82.8 kg Other: Voiding Method Toilet # Voids 1 - Exam GENERAL DESCRIPTION: Middle-aged female lying in bed in no distress RESPIRATORY SYSTEM: Unlabored breathing , decreased breath sounds at bases HEART: S1 S2 regular rate and rhythm , ABDOMEN: Soft , mild tenderness, no output in colostomy EXTREMITIES: No edema feet - Labs CBC & Chem 7: 02/27/24 05:42 02/28/24 05:48 Labs: Abnormal Lab Results - Last 24 Hours (Table) 02/27/24 02/27/24 02/28/24 Range/Units 17:03 23:43 05:48 Sodium 136 L (137-145) mmol/L Creatinine 0.48 L (0.52-1.04) mg/dL POC Glucose (mg/dL) 117 H 111 H (70-110) mg/dL Calcium 8.3 L (8.4-10.2) mg/dL 05/14/24 Range/Units 06:06 Sodium (137-145) mmol/L Creatinine (0.52-1.04) mg/dL POC Glucose (mg/dL) 123 H (70-110) mg/dL Calcium (8.4-10.2) mg/dL Microbiology - Last 24 Hours (Table) 02/23/24 15:00 Gram Stain - Final Other - Other Wound Culture - Final Valencia albicans Valencia glabrata 02/23/24 14:45 Anaerobic Culture - Final Other - Other 02/23/24 15:00 Anaerobic Culture - Final Other - Other Assessment and Plan (1) Peritonitis Current Visit: Yes Status: Acute Code(s): K65.9 - PERITONITIS, UNSPECIFIED SNOMED Code(s): 04238376 (2) Pneumoperitoneum Current Visit: Yes Status: Acute Priority: High Code(s): K66.8 - OTHER SPECIFIED DISORDERS OF PERITONEUM SNOMED Code(s): 92824577 Plan: 1patient presented hospital abdominal pain and this patient who did have abnormal CT suggestive of pneumoperitoneum and some fluid collection in the pelvis concerning for possible perforated bowel could be related to possible pe rforated diverticulitis, he will need to cover for the enteric gram-negative both aerobes and anaerobes, general surgery following the patient currently recommending bowel rest and antibiotic therapy 2-patient did get a PICC line, patient did have a Repeat abdominal pelvis CT patient mention decreased EF but he did have a fall he had a fluid-filled loculated collection in the low mid pelvis consistent with an abscess and bilateral adnexal masses 3patient is status post laparotomy sigmoid resection, colostomy and drainage of abdominal abscess cultures are currently growing Valencia albicans as well as Valencia glabrata 4-patient to continue with the Zosyn however will discontinue Diflucan start the patient on Eraxis because of Valencia glabrata growing in the culture Dictation was produced using [employer] dictation software. please excuse any grammatical, word or spelling errors. Time with Patient: Less than 30
[2024-02-28 16:55] LABS: Glucose,Whole Blood 94 mg/dL (70-110)
[2024-02-28] MEDS: ANIDULAFUNGIN 200 MG in SODIUM CHLORIDE 0.9% 200 ML IVPB ONE (17:29)
[2024-02-28 18:35] LABS: Glucose,Whole Blood 97 mg/dL (70-110)
--- NOTE | 2024-02-28 22:58 | P.PN ---
Subjective Progress Note Date: 02/28/24 Principal diagnosis: ovarian masses In follow-up today patient looks significantly better than yesterday. She is no longer vomiting. She is tolerating some clear liquids. Her abdomen is still very uncomfortable, she is reporting the most discomfort in the right lower quadrant. Objective - Vital Signs Vital signs: Vital Signs Temp 98.3 F 02/28/24 13:43 Pulse 89 02/28/24 15:35 Resp 19 02/28/24 13:43 BP 146/79 02/28/24 13:43 Pulse Ox 98 02/28/24 13:43 FiO2 Intake & Output 02/27/24 02/28/24 02/28/24 18:59 06:59 18:59 Weight 82.8 kg Other: Voiding Method Toilet # Voids 1 - Constitutional Constitutional Comment(s): looks much better today in general! General appearance: Present: average body habitus, cooperative, no acute distress - Respiratory Respiratory: bilateral: CTA, diminished - Cardiovascular Rhythm: regular - Peripheral edema leg Peripheral Edema: bilateral: Trace - Gastrointestinal General gastrointestinal: Present: tenderness - Integumentary Integumentary: Present: normal - Neurologic Neurologic: Present: CNII-XII intact - Musculoskeletal Musculoskeletal: Present: generalized weakness, strength equal bilaterally - Psychiatric Psychiatric: Present: A&O x's 3, appropriate affect, intact judgment & insight - Labs CBC & Chem 7: 02/27/24 05:42 02/28/24 05:48 Labs: Abnormal Lab Results - Last 24 Hours (Table) 02/27/24 02/27/24 02/28/24 Range/Units 17:03 23:43 05:48 Sodium 136 L (137-145) mmol/L Creatinine 0.48 L (0.52-1.04) mg/dL POC Glucose (mg/dL) 117 H 111 H (70-110) mg/dL Calcium 8.3 L (8.4-10.2) mg/dL 02/28/24 Range/Units 06:06 Sodium (137-145) mmol/L Creatinine (0.52-1.04) mg/dL POC Glucose (mg/dL) 123 H (70-110) mg/dL Calcium (8.4-10.2) mg/dL Microbiology - Last 24 Hours (Table) 02/23/24 15:00 Gram Stain - Final Other - Other Wound Culture - Final Valencia albicans Valencia glabrata 02/23/24 14:45 Anaerobic Culture - Final Other - Other 02/23/24 15:00 Anaerobic Culture - Final Other - Other Assessment and Plan (1) Peritonitis Current Visit: Yes Status: Acute Code(s): K65.9 - PERITONITIS, UNSPECIFIED SNOMED Code(s): 18076702 (2) Pneumoperitoneum Current Visit: Yes Status: Acute Priority: High Code(s): K66.8 - OTHER SPECIFIED DISORDERS OF PERITONEUM SNOMED Code(s): 34452332 (3) Bilateral ovarian cysts Current Visit: Yes Status: Acute Priority: High Code(s): N83.201 - UNSPECIFIED OVARIAN CYST, RIGHT SIDE; N83.202 - UNSPECIFIED OVARIAN CYST, LEFT SIDE SNOMED Code(s): 78945684 Plan: Peritonitis, pneumoperitoneum -S/P sigmoid colon resection, path reporting submucosal abscess, fibrosis, fat necrosis, foreign body multinucleated giant cell reaction, and acute serositis consistent with diverticular rupture and perforated viscus. She also had pelvic lavage and removal of peritoneal fluid path reporting inflammatory debris with scattered acute and chronic inflammatory cells, non-diagnostic for neoplasia. Reviewed results with patient today. Patient is very happy with that news -Nausea and vomiting improved today. Abdominal pain persists. She cont on abx and TPN -Surgery following Bilateral adnexal masses -[employer] has seen and evaluated pt, felt findings were more consistent with possible abscess -CEA 125 elevated at 71.6, this is not significantly elevated in relation to the extent of inflammation in the abd -Explained to the patient that the ovarian masses will require additional follow up. Will discuss case at some point with [employer] and see if they want to follow up with her or if they would prefer that pt be referred to [facility] Onc. Patient verbalized understanding the plan and is in agreement with the same.
[2024-02-28 23:45] LABS: Glucose,Whole Blood 98 mg/dL (70-110)
[2024-02-29] MEDS: PROCHLORPERAZINE INJ 10 MG/2 ML VIAL IVP PRN (00:56)
[2024-02-29] MEDS: MORPHINE SULFATE 2 MG/ML SYRINGE IVP PRN (00:56)
[2024-02-29 01:11] LABS: Appearance,Urine Clear (Clear); Bilirubin,Urine Negative (Negative); Blood,Urine Negative (Negative); Color,Urine Colorless; Glucose,Urine (UA) Negative (Negative); Ketones,Urine Negative (Negative); Leukocyte Esterase,Urine Negative (Negative); Nitrite,Urine Negative (Negative); Protein,Urine Negative (Negative); Specific Gravity,Urine 1.005 (1.001-1.035); Urobilinogen,Urine <2.0 mg/dL (<2.0)
[2024-02-29 05:57] LABS: Glucose,Whole Blood 104 mg/dL (70-110)
[2024-02-29 07:05] LABS: African American GFR (CKD) >90 (>60 ml/min/1.73 sqM); Anion Gap 4 mmol/L; Blood Urea Nitrogen 12 mg/dL (7-17); Calcium 8.8 mg/dL (8.4-10.2); Carbon Dioxide 26 mmol/L (22-30); Chloride 110 mmol/L (98-107); Glucose 106 mg/dL (74-99); Non-African American GFR(CKD) >90 (>60 ml/min/1.73 sqM); Sodium 140 mmol/L (137-145)
[2024-02-29 07:08] LABS: Magnesium 2.3 mg/dL (1.6-2.3); Phosphorus 4.4 mg/dL (2.5-4.5); Potassium 5.5 mmol/L (3.5-5.1)
[2024-02-29] MEDS: ANIDULAFUNGIN 100 MG in SODIUM CHLORIDE 0.9% 100 ML IVPB SCH (09:22)
[2024-02-29 10:04] LABS: Basophils # (A) 0.1 k/uL (0-0.2); Basophils % (A) 1 %; Eosinophils # (A) 0.6 k/uL (0-0.7); Eosinophils % (A) 5 %; HCT 27.1 % (34.0-46.0); HGB 8.3 gm/dL (11.4-16.0); Hypochromasia Slight; Lymphocytes % (A) 10 %; MCH 28.6 pg (25.0-35.0); MCHC 30.5 g/dL (31.0-37.0); MCV 93.7 fL (80.0-100.0); Mean Platelet Volume 7.6; Monocytes # (A) 0.7 k/uL (0-1.0); Monocytes % (A) 7 %; Neutrophils # (A) 8.2 k/uL (1.3-7.7); Neutrophils % (A) 76 %; Platelet Count 607 k/uL (150-450); RBC 2.89 m/uL (3.80-5.40); RDW 14.7 % (11.5-15.5); WBC 10.7 k/uL (3.8-10.6)
[2024-02-29 12:20] LABS: Glucose,Whole Blood 126 mg/dL (70-110)
[2024-02-29] MEDS: ARIPiprazole 2 MG TAB PO ONE (12:39)
--- NOTE | 2024-02-29 15:57 | P.PN ---
Subjective Progress Note Date: 02/29/24 Progress Note Date: 02/24/24 This is 63-year-old female admitted with abdominal pain with perforated diverticulitis with abscess, evaluated by general surgery, recommending conservative management. Patient remains n.p.o. receiving TPN and lipids via PICC line. denies chest pain, palpitations or shortness of breath. Positive abdominal pain. Positive bowel movement-reports painful. Diarrhea throughout the night. Repeat CT of abdomen pelvis completed yesterday reported mild free air beneath the diaphragm which is decreased compared to prior study. Air and fluid-filled loculated collection in the low mid pelvis consistent with abscess. Bilateral adnexal masses which either represent abscesses or ovarian neoplasm. Afebrile. Potassium 3.6, supplemented. 02/22/2024 [facility] and Oncology consulted by general surgery, regarding CT findings. reports decreased abdominal pain, positive cramps with flatus. Remains n.p.o.,maintained on TPN and liquids. Expresses hunger. Potassium 3.2, supplementation ordered. Magnesium 1.8, supplementation ordered. Maintain on IV antibiotics as per infectious disease. Afebrile. 02/23/2024 initially general surgery had planned for IR drain placement of diverticular abscess, but given risk of potential rupture of large ovarian absce sses, plan was aborted. evaluated by Dr. Gutierres, [facility]OR [facility] with recommendations noted, including assisting in surgery if patient undergoes exploratory laparotomy, potential transfer to a tertiary care center. Ca-125 elevated, 71.6, with CEA, alpha-fetoprotein, beta-hCG pending.patient complaining of worsening abdominal pain accompanied by nausea. N.p.o. ,continues on TPN and lipids, albumin low, significant edema bilateral lower extremities. Complains of mild shortness of breath, maintaining O2 sats of 100% on room air, normal respiratory rate, without respiratory distress. Lasix 40mg IV push x 1 ordered. Afebrile, Tmax 99.2, labs pending. Continues on IV antibiotics. 02/24/2024 this is a 63-year-old female status post exploratory laparotomy with sigmoid resection for perforated mid sigmoid colon, descending colostomy, defunctionalized rectal stump, Ambrose's procedure for perforated sigmoid colon, peritoneal lavage, drainage of intra-abdominal /pelvis abscess, open lysis of adhesions, multiple biopsies of sigmoid colon ,diverticular abscess, ovarian /pelvis abscess, ovarian mass. Tolerated procedure well. Continues on IV fluid hydration, TPN and lipids. Reports pain, recently medicated. Received a dose of Lasix IV push yesterday for fluid overload with significant improvement. Decreased lower extremity edema. Denies chest pain, palpitations. Reports mild shortness of breath. Maintaining O2 sats of 93% on room air. Afebrile, Tmax 100.3, labs pending. Ca-125 elevated, AFP less than 3, CEA less than 2. 02/27/2024 sitting up in chair, complaining of right-sided abdominal pain. Positive nausea and vomiting with minimal bilious emesis. Cytology /pathology pending. Denies vaginal bleeding. Afebrile, WBC increased ,13.02, hemoglobin 8.7, platelets 491, renal function stable. Continues on TPN and lipids with blood sugars controlled. Abdominal wound cultures growing Valencia albicans, yeast, preliminary anaerobic culture reports no anaerobes isolated to date. 02/28/2024 continues on TPN, lipids, IV fluid hydration and antibiotics of Zosyn, fluconazole. Wound culture growing Valencia albicans. Afebrile. dosing off while talking. Pathology of sigmoid colon resection reporting diverticulitis with submucosal abscess, fibrosis, fat necrosis, foreign body multinucleated giant cell reaction and acute serositis consistent with diverticular rupture and perforated viscus. Pelvic/peritoneal fluid lavage cytology reported inflammatory debris with scattered acute and chronic inflammatory cells, nondiagnostic for neoplasia. Tolerating clear liquids with nausea improved. 02/29/2024 abdominal culture growing Valencia albicans and Valencia glabrata .continues on Zosyn and Eraxis staff reports patient hallucinating, delirious. Mother at bedside and reports patient told her she had Cheerios on her shoulder. Patient reports seeing "angels and people". Has not slept well, bicarb 26, colostomy with scant watery drainage, abdomen tender to minimal touch. Reports positive nausea. Afebrile, WBC 10.7, hemoglobin 8.3, platelets 607, sodium 140, potassium 5.5, BUN 12, creatinine 0.5. Blood sugars controlled. UA repeated yesterday reporting negative. Objective - Vital Signs Vital signs: Vital Signs Temp 98.3 F 02/29/24 13:45 Pulse 110 H 02/29/24 13:45 Resp 17 02/29/24 13:45 BP 144/82 02/29/24 13:45 Pulse Ox 100 02/29/24 13:45 FiO2 Intake & Output 02/28/24 02/29/24 02/29/24 18:59 06:59 18:59 Output Total 3600 1550 Balance -3600 -1550 Weight 82.8 kg Output: Urine 3600 1550 Other: Voiding Method Toilet External Catheter # Voids 2 1 - Labs CBC & Chem 7: 02/29/24 09:02 02/29/24 06:03 Labs: Abnormal Lab Results - Last 24 Hours (Table) 02/29/24 02/29/24 02/29/24 Range/Units 06:03 09:02 12:19 WBC 10.7 H (3.8-10.6) k/uL RBC 2.89 L (3.80-5.40) m/uL Hgb 8.3 L (11.4-16.0) gm/dL Hct 27.1 L (34.0-46.0) % MCHC 30.5 L (31.0-37.0) g/dL Plt Count 607 H (150-450) k/uL Neutrophils # 8.2 H (1.3-7.7) k/uL Potassium 5.5 H (3.5-5.1) mmol/L Chloride 110 H (98-107) mmol/L Creatinine 0.50 L (0.52-1.04) mg/dL Glucose 106 H (74-99) mg/dL POC Glucose (mg/dL) 126 H (70-110) mg/dL Assessment and Plan Assessment: Pneumoperitoneum ,perforated diverticulitis with repeat CT reported mild free air beneath the diaphragm which is decreased compared to prior study. Air and fluid-filled loculated collection in the low mid pelvis consistent with abscess. Status post exploratory laparotomy with sigmoid resection for perforated mid sigmoid colon, descending colostomy, defunctionalized rectal stump, Ambrose's p rocedure for perforated sigmoid colon, peritoneal lavage, drainage of intra- abdominal /pelvis abscess, open lysis of adhesions, multiple biopsies of sigmoid colon ,diverticular abscess, ovarian /pelvis abscess, ovarian mass. 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 Further workup recommended. Abdominal culture growing Valencia albicans and Valencia glabrata. Postoperative ileus as per general surgery Postoperative toxic and metabolic encephalopathy, multifactorial including medication induced, sleep deprivation Bilateral adnexal masses which either represent abscesses or ovarian neoplasm, reported per CT. Ovarian masses will require additional follow-up as discussed with her per oncology, either with [facility] or [facility] ONC. Fluid overload secondary to low albumin, n.p.o. times nearly 1 week, on fluids including TPN and lipids, resolved. Hypokalemia, resolved with supplementation Hypomagnesemia, resolved with supplementation Morbid obesity, BMI 31.3 Plan: Continue on current medication regimen ,monitoring and symptomatic treatment. Abilify ordered ,Neurology consulted regarding postop delirium, confusion, hallucinations. Antibiotics as per infectious disease. Pain man agement as per primary. Increase ambulation with assistance/PT .Continue aggressive pulmonary toileting with incentive spirometer reinforced. Prognosis guarded given multiple complex medical issues. The impression and plan of care has been dictated as directed. : I performed a history and examination of this patient, discussed the same with the dictator. I agree with the dictator's note ,documented as a scribe. Any additional findings or plans will be noted.
--- NOTE | 2024-02-29 16:16 | P.PN ---
Subjective Progress Note Date: 02/29/24 CHIEF COMPLAINT: Diverticulitis HISTORY OF PRESENT ILLNESS: Patient is postop day #6 status post Exploratory laparotomy with sigmoid resection for perforated mid sigmoid colon and Descending colostomy. Patient is confused and hallucinating. The Dilaudid was discontinued and morphine added for pain control. Medicine service has consulted neurology and given a dose of Abilify. Infectious disease has added Eraxis for the yeast in the culture results. Patient denies any nausea or vomiting. There is no stool output from the ostomy. Afebrile. WBC 10.7 Hgb 8.3 potassium is 5.5 urinalysis no evidence of infection. PHYSICAL EXAM: VITAL SIGNS: Reviewed GENERAL: Well-developed in no acute distress. HEENT: No sclera icterus. Extraocular movements grossly intact. Moist buccal mucosa. Head is atraumatic, normocephalic. Hears conversational speech. No nasal drainage. NECK: Supple without lymphadenopathy. CHEST: Non-labored respirations and equal bilateral excursions. CARDIOVASCULAR: Palpable 2+ radial pulses. ABDOMEN: Soft. Prevena wound VAC intact. Ostomy with beefy red stoma. Se rosanguineous liquid in ostomy bag. No stool or air present in bag. MUSCULOSKELETAL: No clubbing or cyanosis. NEUROLOGIC: No focal or lateralizing signs. Cranial nerves II through XII grossly intact. PSYCH: Appropriate affect. Alert and oriented to person, place and time. SKIN: Well perfused. Good skin turgor. ASSESSMENT: 1. Perforated complicated sigmoid diverticulitis with pelvic abscess 2. Bilateral ovarian complex neoplasm, over 6 cm 3. Obesity due to excess calories, BMI 30.2 4. Depressive disorder 5. Osteoporosis 6. Seizure disorder 7. Gastroesophageal reflux disease 8. Hypokalemia and hypomagnesemia 9. Ileus expected postoperatively 10. Confusion PLAN: -Cell cytology is nondiagnostic for malignancy however clinical features were consistent with complicated bilateral ovarian neoplasms. Patient will need to follow-up with [facility] or [facility] outpatient -Continue clear liquid diet -Antibiotic management per ID -Continue TPN for nutrition support -Continue pain management -Medicine service recommendations appreciated -Encourage patient to increase activity level -Encourage patient to use incentive spirometer -DVT prophylaxis subcu heparin Physician Emission Specialist note has been reviewed by physician. Signing provider agrees with the documented findings, assessment, and plan of care. Objective - Vital Signs Vital signs: Vital Signs Temp 98.7 F 02/29/24 07:25 Pulse 87 02/29/24 12:53 Resp 18 02/29/24 07:25 BP 148/87 02/29/24 07:25 Pulse Ox 98 02/29/24 07:25 FiO2 Intake & Output 02/28/24 02/29/24 02/29/24 18:59 06:59 18:59 Output Total 3600 1550 Balance -3600 -1550 Weight 82.8 kg Output: Urine 3600 1550 Other: Voiding Method Toilet External Catheter # Voids 2 1 - Labs CBC & Chem 7: 02/29/24 09:02 02/29/24 06:03 Labs: Abnormal Lab Results - Last 24 Hours (Table) 02/29/24 02/29/24 02/29/24 Range/Units 06:03 09:02 12:19 WBC 10.7 H (3.8-10.6) k/uL RBC 2.89 L (3.80-5.40) m/uL Hgb 8.3 L (11.4-16.0) gm/dL Hct 27.1 L (34.0-46.0) % MCHC 30.5 L (31.0-37.0) g/dL Plt Count 607 H (150-450) k/uL Neutrophils # 8.2 H (1.3-7.7) k/uL Potassium 5.5 H (3.5-5.1) mmol/L Chloride 110 H (98-107) mmol/L Creatinine 0.50 L (0.52-1.04) mg/dL Glucose 106 H (74-99) mg/dL POC Glucose (mg/dL) 126 H (70-110) mg/dL
[2024-02-29 18:38] LABS: Glucose,Whole Blood 106 mg/dL (70-110)
[2024-02-29 20:32] LABS: Glucose,Whole Blood 118 mg/dL (70-110)
[2024-02-29 23:58] LABS: Glucose,Whole Blood 99 mg/dL (70-110)
[2024-03-01 05:50] LABS: Glucose,Whole Blood 115 mg/dL (70-110)
[2024-03-01 07:31] LABS: African American GFR (CKD) >90 (>60 ml/min/1.73 sqM); Anion Gap 4 mmol/L; Blood Urea Nitrogen 12 mg/dL (7-17); Carbon Dioxide 29 mmol/L (22-30); Chloride 106 mmol/L (98-107); Glucose 104 mg/dL (74-99); Magnesium 2.1 mg/dL (1.6-2.3); Non-African American GFR(CKD) >90 (>60 ml/min/1.73 sqM); Phosphorus 4.1 mg/dL (2.5-4.5); Potassium 4.5 mmol/L (3.5-5.1); Sodium 139 mmol/L (137-145)
[2024-03-01 11:40] LABS: Glucose,Whole Blood 123 mg/dL (70-110)
[2024-03-01 11:59] LABS: Basophils # (A) 0.08 X 10*3/uL (0.00-0.10); Basophils % (A) 0.8 %; Eosinophils # (A) 0.55 X 10*3/uL (0.04-0.35); Eosinophils % (A) 5.6 %; HCT 27.9 % (37.2-46.3); HGB 8.6 g/dL (12.0-15.0); Lymphocytes # (A) 1.78 X 10*3/uL (0.90-5.00); MCH 28.5 pg (27.0-32.0); MCHC 30.8 g/dL (32.0-37.0); MCV 92.4 FL (80.0-97.0); Mean Platelet Volume 9.2 FL (9.5-12.2); Monocytes # (A) 1.01 X 10*3/uL (0.20-1.00); Monocytes % (A) 10.2 %; NRBC Per 100 WBC 0 X 10*3/uL (0.00-0.01); Neutrophils # (A) 6.32 X 10*3/uL (1.80-7.70); Neutrophils % (A) 64.1 %; Platelet Count 627 X 10*3/uL (140-440); RBC 3.02 X 10*6/uL (4.10-5.20); WBC 9.87 X 10*3/uL (4.50-10.00)
--- NOTE | 2024-03-01 14:03 | P.PN ---
Subjective Progress Note Date: 03/01/24 CHIEF COMPLAINT: Diverticulitis HISTORY OF PRESENT ILLNESS: Patient is postop day #7 status post Exploratory laparotomy with sigmoid resection for perforated mid sigmoid colon and Descending colostomy. Patient continues to be confused. She did report having some nausea last night with dry heaves. Still no output through her ostomy. She does complain of abdominal pain. Afebrile. WBC is normal at 9.87 Hgb is 8.6 platelets 627 sodium is 139 potassium 4.5 creatinine 0.58 PHYSICAL EXAM: VITAL SIGNS: Reviewed GENERAL: Well-developed in no acute distress. HEENT: No sclera icterus. Extraocular movements grossly intact. Moist buccal mucosa. Head is atraumatic, normocephalic. Hears conversational speech. No nasal drainage. NECK: Supple without lymphadenopathy. CHEST: Non-labored respirations and equal bilateral excursions. CARDIOVASCULAR: Palpable 2+ radial pulses. ABDOMEN: Soft. Prevena wound VAC intact. Ostomy with beefy red stoma. Serosanguineous liquid in ostomy bag. No stool or air present in bag. MUSCULOSKELETAL: No clubbing or cyanosis. NEUROLOGIC: No focal or lateralizing signs. Cranial nerves II through XII grossly intact. PSYCH: Appropriate affect. Alert and oriented to person, place and time. SKIN: Well perfused. Good skin turgor. ASSESSMENT: 1. Perforated complicated sigmoid diverticulitis with pelvic abscess 2. Bilateral ovarian complex neoplasm, over 6 cm 3. Obesity due to excess calories, BMI 30.2 4. Depressive disorder 5. Osteoporosis 6. Seizure disorder 7. Gastroesophageal reflux disease 8. Hypokalemia and hypomagnesemia 9. Ileus expected postoperatively 10. Confusion PLAN: -Abdominal x-ray ordered for abdominal pain -Awaiting neurology recommendations regarding patient's altered mental status -Cell cytology is nondiagnostic for malignancy however clinical features were consistent with complicated bilateral ovarian neoplasms. Patient will need to follow-up with REHABILITATION CLERK or REHABILITATION CLERK ONC outpatient -Continue clear liquid diet -Antibiotic management per ID -Continue TPN for nutrition support -Continue pain management -Medicine service recommendations appreciated -Encourage patient to increase activity level -Encourage patient to use incentive spirometer -DVT prophylaxis subcu heparin [employer] note has been reviewed by physician. Signing provider agrees with the documented findings, assessment, and plan of care. Objective - Vital Signs Vital signs: Vital Signs Temp 98.2 F 03/01/24 02:05 Pulse 88 03/01/24 12:42 Resp 16 03/01/24 08:00 BP 144/70 03/01/24 07:20 Pulse Ox 97 03/01/24 07:20 FiO2 Intake & Output 02/29/24 03/01/24 03/01/24 18:59 06:59 18:59 Intake Total 1060 1053 Output Total 1550 2450 Balance -1550 -1390 1053 Intake: Intake, IV Titration 1060 1053 Amount Mvi, Adult No.4 with Vit 1053 K 10 ml Trace (Conc-1Ml/ Dose) 1 ml Sodium Acetate 40 meq Potassium Chloride 18 meq Calcium Gluconate 1 gm Magnesium Sulfate gm 1 gm Potassium Phosphate 3 mmol In Amino Acids 5 %/Dextrose 20 % 1,000 ml @ 70 mls/hr IV .BY DURATION [facility] Rx#: [id number] Mvi, Adult No.4 with Vit 1060 K 10 ml Trace (Conc-1Ml/ Dose) 1 ml Sodium Acetate 48 meq Potassium Chloride 20 meq Calcium Gluconate 1 gm Magnesium Sulfate gm 1.5 gm Potassium Phosphate 6 mmol In Amino Acids 5 %/ Dextrose 20 % 1,000 ml @ 70 mls/hr IV .BY DURATION [facility] Rx#:[id number] Output: Urine 1550 2450 Other: Voiding Method External Catheter External Catheter Toilet # Voids 1 - Labs CBC & Chem 7: 03/01/24 06:29 03/01/24 06:29 Labs: Abnormal Lab Results - Last 24 Hours (Table) 02/29/24 03/01/24 03/01/24 Range/Units 20:30 05:48 06:29 RBC (4.10-5.20) X 10*6/uL Hgb (12.0-15.0) g/dL Hct (37.2-46.3) % MCHC (32.0-37.0) g/dL RDW (11.5-14.5) % Plt Count (140-440) X 10*3/uL MPV (9.5-12.2) FL Immature Gran # (0.00-0.04) X 10*3/uL Monocytes # (0.20-1.00) X 10*3/uL Eosinophils # (0.04-0.35) X 10*3/uL Glucose 104 H (74-99) mg/dL POC Glucose (mg/dL) 118 H 115 H (70-110) mg/dL 03/01/24 03/01/24 Range/Units 06:29 11:38 RBC 3.02 L (4.10-5.20) X 10*6/uL Hgb 8.6 L (12.0-15.0) g/dL Hct 27.9 L (37.2-46.3) % MCHC 30.8 L (32.0-37.0) g/dL RDW 16.0 H (11.5-14.5) % Plt Count 627 H (140-440) X 10*3/uL MPV 9.2 L (9.5-12.2) FL Immature Gran # 0.13 H (0.00-0.04) X 10*3/uL Monocytes # 1.01 H (0.20-1.00) X 10*3/uL Eosinophils # 0.55 H (0.04-0.35) X 10*3/uL Glucose (74-99) mg/dL POC Glucose (mg/dL) 123 H (70-110) mg/dL
--- NOTE | 2024-03-01 15:16 | P.PN ---
Subjective Progress Note Date: 02/29/24 Principal diagnosis: Reason for follow-up is pneumoperitoneum and peritonitis Patient is a 63-year-old female past medical history significant for reflux osteoarthritis seizure disorder presenting to the hospital for evaluation of abdominal pain, the patient did have a CT abdominal pelvis evidence of moderate pneumoperitoneum currently being treated medically. Patient is status post expiratory laparotomy with sigmoid resection for perforated mid sigmoid colon descending colostomy drainage of the intra-abdominal abscess and fluid has been sent for culture procedure completed on 02/23/2024 On today's evaluation that is 02/29/2024,the patient remains to be afebrile, patient is on room air not requiring supplemental oxygen and denies any shortness of breath no chest pain or cough.Patient denies having any nausea or vomiting, still complaining of significant abdominal pain and complaining of indicated pain medication. Patient white count is 10.7, creatinine 0.50 Objective - Vital Signs Vital signs: Vital Signs Temp 98.3 F 02/29/24 13:45 Pulse 86 02/29/24 16:25 Resp 17 02/29/24 13:45 BP 144/82 02/29/24 13:45 Pulse Ox 100 02/29/24 13:45 FiO2 Intake & Output 02/28/24 02/29/24 02/29/24 18:59 06:59 18:59 Output Total 3600 1550 Balance -3600 -1550 Weight 82.8 kg Output: Urine 3600 1550 Other: Voiding Method Toilet External Catheter # Voids 2 1 - Exam GENERAL DESCRIPTION: Middle-aged female lying in bed in no distress RESPIRATORY SYSTEM: Unlabored breathing , decreased breath sounds at bases HEART: S1 S2 regular rate and rhythm , ABDOMEN: Soft , mild tenderness, no output in colostomy EXTREMITIES: No edema feet - Labs CBC & Chem 7: 03/01/24 06:29 03/01/24 06:29 Labs: Abnormal Lab Results - Last 24 Hours (Table) 02/29/24 02/29/24 02/29/24 Range/Units 06:03 09:02 12:19 WBC 10.7 H (3.8-10.6) k/uL RBC 2.89 L (3.80-5.40) m/uL Hgb 8.3 L (11.4-16.0) gm/dL Hct 27.1 L (34.0-46.0) % MCHC 30.5 L (31.0-37.0) g/dL Plt Count 607 H (150-450) k/uL Neutrophils # 8.2 H (1.3-7.7) k/uL Potassium 5.5 H (3.5-5.1) mmol/L Chloride 110 H (98-107) mmol/L Creatinine 0.50 L (0.52-1.04) mg/dL Glucose 106 H (74-99) mg/dL POC Glucose (mg/dL) 126 H (70-110) mg/dL Assessment and Plan (1) Peritonitis Current Visit: Yes Status: Acute Code(s): K65.9 - PERITONITIS, UNSPECIFIED SNOMED Code(s): 90461084 (2) Pneumoperitoneum Current Visit: Yes Status: Acute Priority: High Code(s): K66.8 - OTHER SPECIFIED DISORDERS OF PERITONEUM SNOMED Code(s): 73080227 Plan: 1patient presented hospital abdominal pain and this patient who did have abnormal CT suggestive of pneumoperitoneum and some fluid collection in the pelvis concerning for possible perforated bowel could be related to possible perforated diverticulitis, he will need to cover for the enteric gram-negative both aerobes and anaerobes, general surgery following the patient currently recommending bowel rest and antibiotic therapy 2-patient did get a PICC line, patient did have a Repeat abdominal pelvis CT patient mention decreased EF but he did have a fall he had a fluid-filled loculated collection in the low mid pelvis consistent with an abscess and kris ateral adnexal masses 3patient is status post laparotomy sigmoid resection, colostomy and drainage of abdominal abscess cultures are currently growing Valencia albicans as well as Valencia glabrata 4-patient to continue with the Zosyn along with Eraxis and monitor clinical course closely Dictation was produced using [employer] dictation software. please excuse any grammatical, word or spelling errors. Time with Patient: Less than 30
--- NOTE | 2024-03-01 15:17 | P.PN ---
Subjective Progress Note Date: 03/01/24 Principal diagnosis: Reason for follow-up is pneumoperitoneum and peritonitis Patient is a 63-year-old female past medical history significant for reflux osteoarthritis seizure disorder presenting to the hospital for evaluation of abdominal pain, the patient did have a CT abdominal pelvis evidence of moderate pneumoperitoneum currently being treated medically. Patient is status post expiratory laparotomy with sigmoid resection for perforated mid sigmoid colon descending colostomy drainage of the intra-abdominal abscess and fluid has been sent for culture procedure completed on 02/23/2024 On today's evaluation that is 03/01/2024, the patient continues to be afebrile, the patient is on room air and breathing comfortably, the Pt denies having any chest pain or cough, the patient denies having any nausea or vomiting still complaining of significant normal pain and wants more pain medication. The patient white count is 9.87, creatinine 0.58 Objective - Vital Signs Vital signs: Vital Signs Temp 98.5 F 03/01/24 14:57 Pulse 95 03/01/24 14:19 Resp 16 03/01/24 14:19 BP 115/66 03/01/24 14:19 Pulse Ox 98 03/01/24 14:19 FiO2 Intake & Output 02/29/24 03/01/24 03/01/24 18:59 06:59 18:59 Intake Total 1060 1053 Output Total 1550 2450 Balance -1550 -1390 1053 Intake: Intake, IV Titration 1060 1053 Amount Mvi, Adult No.4 with Vit 1053 K 10 ml Trace (Conc-1Ml/ Dose) 1 ml Sodium Acetate 40 meq Potassium Chloride 18 meq Calcium Gluconate 1 gm Magnesium Sulfate gm 1 gm Potassium Phosphate 3 mmol In Amino Acids 5 %/Dextrose 20 % 1,000 ml @ 70 mls/hr IV .BY DURATION [facility] Rx#: [id number] Mvi, Adult No.4 with Vit 1060 K 10 ml Trace (Conc-1Ml/ Dose) 1 ml Sodium Acetate 48 meq Potassium Chloride 20 meq Calcium Gluconate 1 gm Magnesium Sulfate gm 1.5 gm Potassium Phosphate 6 mmol In Amino Acids 5 %/ Dextrose 20 % 1,000 ml @ 70 mls/hr IV .BY DURATION [facility] Rx#:[id number] Output: Urine 1550 2450 Other: Voiding Method External Catheter External Catheter Toilet # Voids 1 - Exam GENERAL DESCRIPTION: Middle-aged female lying in bed in no distress RESPIRATORY SYSTEM: Unlabored breathing , decreased breath sounds at bases HEART: S1 S2 regular rate and rhythm , ABDOMEN: Soft , mild tenderness, no output in colostomy EXTREMITIES: No edema feet - Labs CBC & Chem 7: 03/01/24 06:29 03/01/24 06:29 Labs: Abnormal Lab Results - Last 24 Hours (Table) 02/29/24 03/01/24 03/01/24 Range/Units 20:30 05:48 06:29 RBC (4.10-5.20) X 10*6/uL Hgb (12.0-15.0) g/dL Hct (37.2-46.3) % MCHC (32.0-37.0) g/dL RDW (11.5-14.5) % Plt Count (140-440) X 10*3/uL MPV (9.5-12.2) FL Immature Gran # (0.00-0.04) X 10*3/uL Monocytes # (0.20-1.00) X 10*3/uL Eosinophils # (0.04-0.35) X 10*3/uL Glucose 104 H (74-99) mg/dL POC Glucose (mg/dL) 118 H 115 H (70-110) mg/dL 03/01/24 03/01/24 Range/Units 06:29 11:38 RBC 3.02 L (4.10-5.20) X 10*6/uL Hgb 8.6 L (12.0-15.0) g/dL Hct 27.9 L (37.2-46.3) % MCHC 30.8 L (32.0-37.0) g/dL RDW 16.0 H (11.5-14.5) % Plt Count 627 H (140-440) X 10*3/uL MPV 9.2 L (9.5-12.2) FL Immature Gran # 0.13 H (0.00-0.04) X 10*3/uL Monocytes # 1.01 H (0.20-1.00) X 10*3/uL Eosinophils # 0.55 H (0.04-0.35) X 10*3/uL Glucose (74-99) mg/dL POC Glucose (mg/dL) 123 H (70-110) mg/dL Assessment and Plan (1) Peritonitis Current Visit: Yes Status: Acute Code(s): K65.9 - PERITONITIS, UNSPECIFIED SNOMED Code(s): 14360641 (2) Pneumoperitoneum Current Visit: Yes Status: Acute Priority: High Code(s): K66.8 - OTHER SPECIFIED DISORDERS OF PERITONEUM SNOMED Code(s): 22556099 Plan: 1patient presented hospital abdominal pain and this patient who did have abnormal CT suggestive of pneumoperitoneum and some fluid collection in the pelvis concerning for possible perforated bowel could be related to possible perforated diverticulitis, he will need to cover for the enteric gram-negative both aerobes and anaerobes, general surgery following the patient currently recommending bowel rest and antibiotic therapy 2-patient did get a PICC line, patient did have a Repeat abdominal pelvis CT patient mention decreased EF but he did have a fall he had a fluid-filled loculated collection in the low mid pelvis consistent with an abscess and bilate ral adnexal masses 3patient is status post laparotomy sigmoid resection, colostomy and drainage of abdominal abscess cultures are currently growing Valencia albicans as well as Valencia glabrata 4-patient currently being treated e with the Zosyn along with Eraxis advised to discuss pain medication with surgical and medical team Dictation was produced using [employer] dictation software. please excuse any grammatical, word or spelling errors. Time with Patient: Less than 30
--- NOTE | 2024-03-01 16:19 | XR ---
EXAMINATION TYPE: XR abdomen 2V DATE OF EXAM: 03/01/2024 CLINICAL DATA: 63-year-old female complaining of diffuse abdominal pain, [facility] COMPARISON: 02/17/2024 FINDINGS: Lung bases are clear. No evidence for free intraperitoneal air. Multiple air-fluid levels are present throughout the abdomen. These involve both small bowel and colo n. Midline skin bruce are noted. IMPRESSION: Multiple air-fluid levels are present throughout the abdomen. These involve both small jodi wel and colon. Consider a generalized postsurgical ileus. Distal colonic obstruction could also be in the differential.
[2024-03-01 16:38] LABS: Glucose,Whole Blood 102 mg/dL (70-110)
[2024-03-02 00:20] LABS: Glucose,Whole Blood 105 mg/dL (70-110)
[2024-03-02] MEDS: SIMETHICONE 40 MG/0.6 ML DROPS 2,000 MG/30 ML BOTTLE PO SCH (01:04)
[2024-03-02 06:33] LABS: Glucose,Whole Blood 102 mg/dL (70-110)
[2024-03-02 08:19] LABS: African American GFR (CKD) >90 (>60 ml/min/1.73 sqM); Anion Gap 5 mmol/L; Blood Urea Nitrogen 14 mg/dL (7-17); Calcium 9.3 mg/dL (8.4-10.2); Carbon Dioxide 28 mmol/L (22-30); Chloride 106 mmol/L (98-107); Glucose 96 mg/dL (74-99); Magnesium 2.2 mg/dL (1.6-2.3); Non-African American GFR(CKD) >90 (>60 ml/min/1.73 sqM); Phosphorus 3.9 mg/dL (2.5-4.5); Potassium 4.6 mmol/L (3.5-5.1); Sodium 139 mmol/L (137-145)
[2024-03-02 08:20] LABS: Glucose,Whole Blood 128 mg/dL (70-110)
--- NOTE | 2024-03-02 09:48 | P.CNNES ---
History of Present Illness Consult date: 03/01/24 Requesting physician: Silvia Starr Reason for Consult: delirium, hallucinating post-op History of Present Illness: Patient is a 63-year-old right-handed female came to the hospital on 02/17/2024 at 5:37 PM for 1 month history of abdominal pain nausea vomiting and some constipation and diarrhea. No fever. Patient was found to have pneumoperitoneum. Patient was initially treated conservatively because patient was not appearing toxic. Patient however underwent exploratory laparotomy with sigmoid resection for perforated mid sigmoid colon, descending colostomy defunctionalized rectal stump, peritoneal lavage, on 02/23/2024. Patient has been recovering well, although yesterday she was noted to be very confused. Patient's brother was present at the time of this interview states that she was "all over the map". She was mixing up her mom's sister with the dad's sister. She was having hallucinations. This morning she was also confused, but then became somewhat clear for about an hour and a half. Now back in bed and is again somewhat confused as per nursing report. No facial droop, problem with the vision, or any strokelike symptoms reported. Blood test shows normal WBC, hemoglobin 8.6, platelets 627. Basic metabolic panel normal, calcium normal. UA negative. CTA chest 02/18/2024 showed no evidence of pulmonary embolism. No other acute chest process demonstrated. Mild fusiform ectasia of the ascending aorta. Moderate amount of pneumoperitoneum. CT of the abdomen pelvis showed mild free air beneath the diaphragm which has decreased compared to prior study. Air and fluid filled l oculated collection in the low midline pelvis consistent with an abscess or ovarian neoplasm. MRI might be useful for further evaluation. Pelvic ultrasound revealed hypoechoic area midline, inferior to the uterus, 4.5 x 4.7 x 4.0 cm of unknown etiology. Patient lives in her own home and her daughter and some grandchildren lives with her. Patient at baseline does not use any assistive device like cane or a walker. Patient has good memory functions with no evidence of dementia as per patient's brother, who also was present at the time of this interview. No history of diabetes, she usually has low blood pressure. Denies hyperlipidemia. Patient is slightly confused regarding her history of tobacco use. Patient states she quit tobacco 4-/2 "years months ago". Then she said for years and 3 months ago. Then she said she did not smoke for 10 years and prior to that she has smoked half pack per day for 20 years. She says she smokes half pack to "Azael" per day. Patient states she drinks alcohol "once in a blue mart[place]". No marijuana use. Patient has history of epilepsy since she was age 9. Patient had history of petit mall seizure and some grand mal seizure as well. She was at first on Dilantin. She has been on Depakote for a number of years. The last seizure she had was about 25 or 30 years ago. I spoke to patient's mother on the phone, who mentions that patient has been having some twitching and jerking, reminds her of her petit mal seizure. Review of Systems As mentioned above in HPI in detail. Patient does have some abdominal tenderness because of recent surgery. Patient is tired. No fever or chills. Denies headache. Past Medical History Past Medical History: GERD/Reflux, Osteoarthritis (OA), Seizure Disorder Additional Past Medical History / Comment(s): LAST SEIZURE 02/1992; hiatal hernia, occasional dysphagia, worsening GERD sx., aortic aneurysm near heart per pt. History of Any Multi-Drug Resistant Organisms: None Reported Past Surgical History: Appendectomy, Joint Replacement, Orthopedic Surgery, Tubal Ligation Additional Past Surgical History / Comment(s): REPAIR SMALL INTESTINE THAT WAS NICKED DURING TL; arthroscopy left knee; left knee replacement; benign left breast biopsy, ectopic , D&C Past Anesthesia/Blood Transfusion Reactions: No Reported Reaction Past Psychological History: No Psychological Hx Reported Smoking Status: Vaper Past Alcohol Use History: Rare Additional Past Alcohol Use History / Comment(s): HAS BEEN SMOKING 1/2PPD SINCE 1996 (AGE 36) Past Drug Use History: None Reported - Past Family History Brother(s) Family Medical History: Cancer Mother Family Medical History: Cancer Medications and Allergies Home Medications Medication Instructions Recorded Confirmed Type Divalproex [Depakote] 250 mg PO QID 02/12/21 02/18/24 History Aspirin 81 mg PO DAILY chew 02/13/21 02/18/24 Rx Meloxicam [Mobic] 15 mg PO DAILY 08/04/23 02/18/24 History Alendronate Sodium [Fosamax] 70 mg PO DIRECTED 02/18/24 02/18/24 History Famotidine 40 mg PO DAILY 02/18/24 02/18/24 History PARoxetine HCL [Paxil] 10 mg PO DAILY 02/18/24 02/18/24 History Allergies Allergy/AdvReac Type Severity Reaction Status Date / Time No Known Allergies Allergy Verified 02/23/24 11:28 Physical Examination - Vital Signs Vital Signs: Vital Signs Temp Pulse Pulse Pulse Resp BP Pulse Ox 03/01/24 14:57 98.5 F 03/01/24 14:19 95 16 115/66 98 03/01/24 12:42 88 03/01/24 09:16 92 03/01/24 09:07 88 03/01/24 08:00 72 16 03/01/24 07:20 101 H 16 144/70 97 03/01/24 02:05 98.2 F 89 14 156/81 95 02/29/24 20:35 87 02/29/24 20:26 87 02/29/24 20:20 98.7 F 92 16 141/86 97 02/29/24 16:25 86 02/29/24 16:13 88 Intake and Output 03/01/24 03/01/24 03/01/24 06:59 14:59 22:59 Intake Total 1053 Output Total 2450 Balance -2450 1053 Intake: Intake, IV Titration 1053 Amount Mvi, Adult No.4 with Vit 1053 K 10 ml Trace (Conc-1Ml/ Dose) 1 ml Sodium Acetate 40 meq Potassium Chloride 18 meq Calcium Gluconate 1 gm Magnesium Sulfate gm 1 gm Potassium Phosphate 3 mmol In Amino Acids 5 %/Dextrose 20 % 1,000 ml @ 70 mls/hr IV .BY DURATION [facility] Rx#: [id number] Output: Urine 2450 Other: Voiding Method Toilet Patient is an elderly female, appears somewhat delirious, slightly confused, but otherwise in no respiratory distress. Patient is alert awake fairly well-oriented. Patient states it is the month of January and the year is 2023 and that she is in [facility] in [facility] in [facility]. When asked about the current president, patient spells out "IBEDN", but then says Biden. Speech and language functions are normal. Patient can name and repeat very well. No aphasia or dysarthria. Attention, concentration is slightly decreased and fund of knowledge is mildly decreased. On cranial nerve examination, pupils are equal, round and reacting to light, visual becerra are full on confrontation, with no neglect on double simultaneous stimulation. Extraocular muscles are intact with no nystagmus. Face is symmetric, tongue protrudes to the midline. Palatal elevation and sensation normal, hearing and shoulder shrug normal, facial sensation normal. On muscle strength testing, there is no pronator drift and the strength is normal in arms and legs distally and proximally. Patient is slightly tremulous for checking pronator drift. Deep tendon reflexes are symmetric biceps 1 1+, brachioradialis 1 1+, knee 1, ankles 1+2 and plantars downgoing bilaterally. Sensory to touch is equal with no neglect on double simultaneous stimulation. Cerebellar function showed no ataxia for [id number] testing. No dysdiadoch okinesia. No ataxia for [id number] testing on either side. Tone and bulk of muscles normal. Gait deferred.. On general examination, there is no carotid bruit or murmur, S1-S2 audible. Chest is clear on consultation. Abdomen is soft nontender. No organomegaly, bowel sounds present. Peripheral pulses are present. No peripheral edema. Results - Laboratory Findings CBC and BMP: 03/01/24 06:29 03/02/24 06:34 Abnormal Lab Findings: Abnormal Labs 02/17/24 02/17/24 02/17/24 19:15 19:18 19:18 WBC 11.7 H RBC Hgb Hct MCHC RDW Plt Count MPV Immature Gran # Neutrophils # 10.0 H Lymphocytes # Monocytes # Eosinophils # PT INR D-Dimer 1.28 H Sodium Potassium Chloride Carbon Dioxide BUN 33 H Creatinine Glucose POC Glucose (mg/dL) Calcium Phosphorus Total Protein Albumin Lipase 21 L CA 125 Antigen 02/18/24 02/18/24 02/18/24 07:22 07:22 07:22 WBC RBC 3.52 L Hgb 10.3 L Hct 31.9 L MCHC RDW Plt Count 142 L MPV Immature Gran # Neutrophils # Lymphocytes # 0.8 L Monocytes # Eosinophils # PT 12.6 H INR 1.2 H D-Dimer Sodium 136 L Potassium Chloride 108 H Carbon Dioxide 17 L BUN 36 H Creatinine Glucose POC Glucose (mg/dL) Calcium Phosphorus Total Protein 5.6 L Albumin 3.0 L Lipase CA 125 Antigen 02/19/24 02/19/24 02/20/24 08:18 08:18 10:15 WBC RBC 3.29 L 3.06 L Hgb 9.5 L 8.9 L Hct 30.4 L 28.2 L MCHC RDW Plt Count 138 L MPV Immature Gran # Neutrophils # Lymphocytes # Monocytes # Eosinophils # PT INR D-Dimer Sodium Potassium Chloride 112 H Carbon Dioxide 18 L BUN 28 H Creatinine Glucose POC Glucose (mg/dL) Calcium 8.2 L Phosphorus Total Protein Albumin Lipase CA 125 Antigen 02/20/24 02/20/24 02/21/24 10:15 21:57 04:02 WBC RBC Hgb Hct MCHC RDW Plt Count MPV Immature Gran # Neutrophils # Lymphocytes # Monocytes # Eosinophils # PT INR D-Dimer Sodium Potassium 3.4 L Chloride 115 H Carbon Dioxide 15 L BUN Creatinine Glucose 72 L POC Glucose (mg/dL) 125 H 131 H Calcium Phosphorus Total Protein Albumin Lipase CA 125 Antigen 02/21/24 02/21/24 02/22/24 07:15 12:02 01:40 WBC RBC Hgb Hct MCHC RDW Plt Count MPV Immature Gran # Neutrophils # Lymphocytes # Monocytes # Eosinophils # PT INR D-Dimer Sodium Potassium Chloride 116 H Carbon Dioxide 19 L BUN Creatinine 0.51 L Glucose 116 H POC Glucose (mg/dL) 121 H 139 H Calcium Phosphorus Total Protein Albumin Lipase CA 125 Antigen 02/22/24 02/22/24 02/22/24 06:08 06:08 06:15 WBC RBC Hgb Hct MCHC RDW Plt Count MPV Immature Gran # Neutrophils # Lymphocytes # Monocytes # Eosinophils # PT INR D-Dimer Sodium Potassium 3.2 L Chloride 112 H Carbon Dioxide 21 L BUN Creatinine 0.44 L Glucose 113 H POC Glucose (mg/dL) 126 H Calcium Phosphorus Total Protein Albumin Lipase CA 125 Antigen 71.6 H 02/22/24 02/23/24 02/23/24 16:36 00:09 10:08 WBC RBC 3.41 L Hgb 9.8 L Hct 31.3 L MCHC RDW Plt Count MPV Immature Gran # Neutrophils # Lymphocytes # Monocytes # Eosinophils # PT INR D-Dimer Sodium Potassium Chloride Carbon Dioxide BUN Creatinine Glucose POC Glucose (mg/dL) 126 H 112 H Calcium Phosphorus Total Protein Albumin Lipase CA 125 Antigen 02/23/24 02/23/24 02/23/24 10:08 10:08 10:09 WBC RBC 3.41 L Hgb 9.8 L Hct 31.2 L MCHC RDW Plt Count MPV Immature Gran # Neutrophils # Lymphocytes # Monocytes # Eosinophils # PT INR D-Dimer Sodium Potassium 3.0 L 3.0 L Chloride Carbon Dioxide BUN 19 H 19 H Creatinine 0.46 L 0.50 L Glucose POC Glucose (mg/dL) Calcium Phosphorus 2.4 L Total Protein 5.3 L Albumin 2.7 L Lipase CA 125 Antigen 76.7 H 02/24/24 02/24/24 02/24/24 05:45 10:05 10:05 WBC 10.9 H RBC 3.34 L Hgb 9.8 L Hct 30.1 L MCHC RDW Plt Count MPV Immature Gran # Neutrophils # 8.4 H Lymphocytes # Monocytes # Eosinophils # PT INR D-Dimer Sodium 134 L Potassium 3.3 L Chloride Carbon Dioxide 31 H BUN 21 H Creatinine 0.47 L Glucose 131 H POC Glucose (mg/dL) 169 H Calcium 8.2 L Phosphorus Total Protein 4.6 L Albumin 2.2 L Lipase CA 125 Antigen 02/24/24 02/24/24 02/25/24 11:44 20:47 00:43 WBC RBC Hgb Hct MCHC RDW Plt Count MPV Immature Gran # Neutrophils # Lymphocytes # Monocytes # Eosinophils # PT INR D-Dimer Sodium Potassium Chloride Carbon Dioxide BUN Creatinine Glucose POC Glucose (mg/dL) 139 H 116 H 146 H Calcium Phosphorus Total Protein Albumin Lipase CA 125 Antigen 02/25/24 02/25/24 02/25/24 06:12 06:51 11:42 WBC RBC Hgb Hct MCHC RDW Plt Count MPV Immature Gran # Neutrophils # Lymphocytes # Monocytes # Eosinophils # PT INR D-Dimer Sodium 134 L Potassium Chloride Carbon Dioxide BUN 21 H Creatinine Glucose POC Glucose (mg/dL) 131 H 124 H Calcium Phosphorus Total Protein Albumin Lipase CA 125 Antigen 02/26/24 02/26/24 02/26/24 00:12 06:10 09:52 WBC 11.9 H RBC 3.04 L Hgb 8.6 L Hct 27.9 L MCHC RDW Plt Count 476 H MPV Immature Gran # Neutrophils # 9.0 H Lymphocytes # Monocytes # Eosinophils # PT INR D-Dimer Sodium Potassium Chloride Carbon Dioxide BUN Creatinine Glucose POC Glucose (mg/dL) 119 H 127 H Calcium Phosphorus Total Protein Albumin Lipase CA 125 Antigen 02/26/24 02/26/24 02/26/24 09:52 11:29 16:17 WBC RBC Hgb Hct MCHC RDW Plt Count MPV Immature Gran # Neutrophils # Lymphocytes # Monocytes # Eosinophils # PT INR D-Dimer Sodium Potassium Chloride Carbon Dioxide 31 H BUN Creatinine 0.46 L Glucose 118 H POC Glucose (mg/dL) 113 H 123 H Calcium 8.2 L Phosphorus Total Protein Albumin Lipase CA 125 Antigen 02/26/24 02/26/24 02/27/24 20:28 21:14 01:14 WBC RBC Hgb Hct MCHC RDW Plt Count MPV Immature Gran # Neutrophils # Lymphocytes # Monocytes # Eosinophils # PT INR D-Dimer Sodium Potassium Chloride Carbon Dioxide BUN Creatinine Glucose POC Glucose (mg/dL) 134 H 118 H 159 H Calcium Phosphorus Total Protein Albumin Lipase CA 125 Antigen 02/27/24 02/27/24 02/27/24 05:30 05:42 05:42 WBC 13.02 H RBC 2.98 L Hgb 8.7 L Hct 27.5 L MCHC 31.6 L RDW 15.9 H Plt Count 491 H MPV 9.0 L Immature Gran # 0.14 H Neutrophils # 10.10 H Lymphocytes # Monocytes # Eosinophils # 0.49 H PT INR D-Dimer Sodium Potassium Chloride Carbon Dioxide BUN Creatinine 0.47 L Glucose 125 H POC Glucose (mg/dL) 123 H Calcium Phosphorus Total Protein Albumin Lipase CA 125 Antigen 02/27/24 02/27/24 02/27/24 11:49 17:03 23:43 WBC RBC Hgb Hct MCHC RDW Plt Count MPV Immature Gran # Neutrophils # Lymphocytes # Monocytes # Eosinophils # PT INR D-Dimer Sodium Potassium Chloride Carbon Dioxide BUN Creatinine Glucose POC Glucose (mg/dL) 133 H 117 H 111 H Calcium Phosphorus Total Protein Albumin Lipase CA 125 Antigen 02/28/24 02/28/24 02/29/24 05:48 06:06 06:03 WBC RBC Hgb Hct MCHC RDW Plt Count MPV Immature Gran # Neutrophils # Lymphocytes # Monocytes # Eosinophils # PT INR D-Dimer Sodium 136 L Potassium 5.5 H Chloride 110 H Carbon Dioxide BUN Creatinine 0.48 L 0.50 L Glucose 106 H POC Glucose (mg/dL) 123 H Calcium 8.3 L Phosphorus Total Protein Albumin Lipase CA 125 Antigen 02/29/24 02/29/24 02/29/24 09:02 12:19 20:30 WBC 10.7 H RBC 2.89 L Hgb 8.3 L Hct 27.1 L MCHC 30.5 L RDW Plt Count 607 H MPV Immature Gran # Neutrophils # 8.2 H Lymphocytes # Monocytes # Eosinophils # PT INR D-Dimer Sodium Potassium Chloride Carbon Dioxide BUN Creatinine Glucose POC Glucose (mg/dL) 126 H 118 H Calcium Phosphorus Total Protein Albumin Lipase CA 125 Antigen 03/01/24 03/01/24 03/01/24 05:48 06:29 06:29 WBC RBC 3.02 L Hgb 8.6 L Hct 27.9 L MCHC 30.8 L RDW 16.0 H Plt Count 627 H MPV 9.2 L Immature Gran # 0.13 H Neutrophils # Lymphocytes # Monocytes # 1.01 H Eosinophils # 0.55 H PT INR D-Dimer Sodium Potassium Chloride Carbon Dioxide BUN Creatinine Glucose 104 H POC Glucose (mg/dL) 115 H Calcium Phosphorus Total Protein Albumin Lipase CA 125 Antigen 03/01/24 11:38 WBC RBC Hgb Hct MCHC RDW Plt Count MPV Immature Gran # Neutrophils # Lymphocytes # Monocytes # Eosinophils # PT INR D-Dimer Sodium Potassium Chloride Carbon Dioxide BUN Creatinine Glucose POC Glucose (mg/dL) 123 H Calcium Phosphorus Total Protein Albumin Lipase CA 125 Antigen Assessment and Plan Assessment: * Altered mental status, likely due to acute delirium from postoperative status, recent peritonitis, pain medications * Status post laparotomy for perforated diverticulitis, 02/23/2024 * Pelvic abscess * Depression * History of epilepsy, well-controlled on Depakote * Ileus * Anemia * Ex tobacco use Plan: * Patient's altered mental status is likely due to delirium from postoperative status and reasons mentioned above. * Patient does have history of epilepsy, and has history of grand mal and petit mal seizure, but has been in remission for 25 to 30 years. Patient is having some twitching, sporadically. We will check EEG to rule out any epileptiform activity or status. * Patient's examination otherwise is nonfocal. Discussed with patient and family members and will hold on CAT scan at this point. * Patient was on Depakote 250 mg 4 times daily at home. While in the hospital patient is currently receiving Depakote 250 mg IV every 8 hours. * Check Depakote level. * Neurology will follow. Thank you for the consult.
[2024-03-02 11:27] LABS: Glucose,Whole Blood 159 mg/dL (70-110)
--- NOTE | 2024-03-02 12:04 | XR ---
EXAMINATION TYPE: XR chest 1V DATE OF EXAM: 03/02/2024 COMPARISON: 02/17/2024 HISTORY: 63-year-old female NG tube placement TECHNIQUE: Single frontal view of the chest is obtained. FINDINGS: Satisfactory positioning of the NG tube. Heart normal size. Suspect is strandy areas of at electasis in the mid and lower lungs. Upper lungs are clear. Left PICC tip at the lower SVC level. An terior abdominal wall skin bruce are seen. IMPRESSION: Satisfactory NG tube. Some strandy mid and lower lung areas of atelectasis.
--- NOTE | 2024-03-02 12:28 | P.PN ---
Subjective Progress Note Date: 03/02/24 CHIEF COMPLAINT: Diverticulitis HISTORY OF PRESENT ILLNESS: Patient is postop day #8 status post Exploratory laparotomy with sigmoid resection for perforated mid sigmoid colon and Descending colostomy. Patient remains confused. She had nausea and dry heaves yesterday. Abdominal x-ray had reported multiple air-fluid levels present throughout the abdomen. They involve both small bowel and colon. Consider postsurgical ileus. Patient had NG tube placed last night but then became very agitated and wanted it out. Patient continues to complain of right-sided abdominal pain and has had no stool or flatus output through her ostomy. Afebrile. Potassium 4.6 magnesium 2.2. Patient was seen by neurology due to her confusion. They have ordered an EEG. The recommendations have been noted. PHYSICAL EXAM: VITAL SIGNS: Reviewed GENERAL: Well-developed in no acute distress. HEENT: No sclera icterus. Extraocular movements grossly intact. Moist buccal mucosa. Head is atraumatic, normocephalic. Hears conversational speech. No nasal drainage. NECK: Supple without lymphadenopathy. CHEST: Non-labored respirations and equal bilateral excursions. CARDIOVASCULAR: Palpable 2+ radial pulses. ABDOMEN: Soft. Prevena wound VAC intact. Ostomy with beefy red stoma. Serosanguineous liquid in ostomy bag. No stool or air present in bag. MUSCULOSKELETAL: No clubbing or cyanosis. NEUROLOGIC: No focal or lateralizing signs. Cranial nerves II through XII grossly intact. PSYCH: Appropriate affect. Alert and oriented to person, place and time. SKIN: Well perfused. Good skin turgor. ASSESSMENT: 1. Perforated complicated sigmoid diverticulitis with pelvic abscess 2. Bilateral ovarian complex neoplasm, over 6 cm 3. Obesity due to excess calories, BMI 30.2 4. Depressive disorder 5. Osteoporosis 6. Seizure disorder 7. Gastroesophageal reflux disease 8. Hypokalemia and hypomagnesemia have been corrected 9. Ileus expected postoperatively 10. Confusion PLAN: -Will have nursing staff try a second attempt at placing NG tube -Keep patient n.p.o. -Mylicon gas drops added yesterday -Discontinue Prevena wound VAC dressing and apply Optifoam silver dressing to incision site -Cell cytology is nondiagnostic for malignancy however clinical features were consistent with complicated bilateral ovarian neoplasms. Patient will need to follow-up with [facility] or [facility]C outpatient -Antibiotic management per ID -Continue TPN for nutrition support -Continue pain management -Encourage patient to increase activity level -Encourage patient to use incentive spirometer -DVT prophylaxis subcu heparin Physician Research Biostatistician note has been reviewed by physician. Signing provider agrees with the documented findings, assessment, and plan of care. Objective - Vital Signs Vital signs: Vital Signs Temp 98.3 F 03/02/24 07:25 Pulse 88 03/02/24 08:42 Resp 16 03/02/24 07:25 BP 146/97 03/02/24 07:25 Pulse Ox 97 03/02/24 07:25 FiO2 Intake & Output 03/01/24 03/02/24 03/02/24 18:59 06:59 18:59 Intake Total 1053 Balance 1053 Intake: Intake, IV Titration 1053 Amount Mvi, Adult No.4 with Vit 1053 K 10 ml Trace (Conc-1Ml/ Dose) 1 ml Sodium Acetate 40 meq Potassium Chloride 18 meq Calcium Gluconate 1 gm Magnesium Sulfate gm 1 gm Potassium Phosphate 3 mmol In Amino Acids 5 %/Dextrose 20 % 1,000 ml @ 70 mls/hr IV .BY DURATION [facility] Rx#: [id number] Other: Voiding Method Toilet Bedside Commode # Voids 1 3 - Labs CBC & Chem 7: 03/01/24 06:29 03/02/24 06:34 Labs: Abnormal Lab Results - Last 24 Hours (Table) 03/01/24 03/01/24 03/02/24 Range/Units 06:29 11:38 08:18 RBC 3.02 L (4.10-5.20) X 10*6/uL Hgb 8.6 L (12.0-15.0) g/dL Hct 27.9 L (37.2-46.3) % MCHC 30.8 L (32.0-37.0) g/dL RDW 16.0 H (11.5-14.5) % Plt Count 627 H (140-440) X 10*3/uL MPV 9.2 L (9.5-12.2) FL Immature Gran # 0.13 H (0.00-0.04) X 10*3/uL Monocytes # 1.01 H (0.20-1.00) X 10*3/uL Eosinophils # 0.55 H (0.04-0.35) X 10*3/uL POC Glucose (mg/dL) 123 H 128 H (70-110) mg/dL
--- NOTE | 2024-03-02 14:18 | EEG ---
MARY ELLEN OF SERVICE: 03/02/2024 ELECTROENCEPHALOGRAM REPORT PREAMBLE: This is a 63-year-old female with history of epilepsy, eyes having some jerking movements. This study is performed to rule out any seizure activity. EEG FINDINGS: This is a 21-channel digital EEG recorded with video component, utilizing 10/20 international system with referential and bipolar montages. Background consists of well developed, well regulated, predominantly 8 to 9 hertz alpha activity seen in posterior head region. Background seems to be mildly responsive to eye opening and closing. Photic driving response was not seen. Drowsiness was seen with appearance of bilaterally symmetric theta frequency rhythm. Deeper stages of sleep was not seen. Frequent myogenic artifacts were seen during the study. No definitive focal or generalized epileptiform activity was seen. IMPRESSION: This is probably a normal awake and drowsy EEG. No definitive focal, lateralized or epileptiform activity was seen. The study was technically limited because of the patient's frequent movement during the study. If your suspicion for seizures is high, suggest prolonged, sleep-deprived EEG. MMODL / IJN: [id number] / [id number]
--- NOTE | 2024-03-02 16:02 | P.PN ---
Subjective Progress Note Date: 03/02/24 Principal diagnosis: Reason for follow-up is pneumoperitoneum and peritonitis Patient is a 63-year-old female past medical history significant for reflux osteoarthritis seizure disorder presenting to the hospital for evaluation of abdominal pain, the patient did have a CT abdominal pelvis evidence of moderate pneumoperitoneum currently being treated medically. Patient is status post expiratory laparotomy with sigmoid resection for perforated mid sigmoid colon descending colostomy drainage of the intra-abdominal abscess and fluid has been sent for culture procedure completed on 02/23/2024 On today's evaluation that is 03/02/2024, Patient is afebrile patient is cu rrently on room air and denies having any shortness of breath, the patient denies any chest pain or cough, the patient did have NG tube placement for ileus/vomiting abdominal distention no output in the colostomy. Patient did have a creatinine 0.60 no CBC was done today chest x-ray some atelectasis Objective - Vital Signs Vital signs: Vital Signs Temp 98.3 F 03/02/24 07:25 Pulse 88 03/02/24 08:42 Resp 16 03/02/24 07:45 BP 146/97 03/02/24 07:25 Pulse Ox 97 03/02/24 07:25 FiO2 Intake & Output 03/01/24 03/02/24 03/02/24 18:59 06:59 18:59 Intake Total 1053 Balance 1053 Weight 82.8 kg Intake: Intake, IV Titration 1053 Amount Mvi, Adult No.4 with Vit 1053 K 10 ml Trace (Conc-1Ml/ Dose) 1 ml Sodium Acetate 40 meq Potassium Chloride 18 meq Calcium Gluconate 1 gm Magnesium Sulfate gm 1 gm Potassium Phosphate 3 mmol In Amino Acids 5 %/Dextrose 20 % 1,000 ml @ 70 mls/hr IV .BY DURATION [facility] Rx#: [id number] Other: Voiding Method Toilet Bedside Commode Bedside Commode # Voids 1 3 - Exam GENERAL DESCRIPTION: Middle-aged female lying in bed in no distress RESPIRATORY SYSTEM: Unlabored breathing , decreased breath sounds at bases HEART: S1 S2 regular rate and rhythm , ABDOMEN: Soft , mild tenderness, no output in colostomy EXTREMITIES: No edema feet - Labs CBC & Chem 7: 03/01/24 06:29 03/02/24 06:34 Labs: Abnormal Lab Results - Last 24 Hours (Table) 03/02/24 03/02/24 Range/Units 08:18 11:25 POC Glucose (mg/dL) 128 H 159 H (70-110) mg/dL Assessment and Plan (1) Peritonitis Current Visit: Yes Status: Acute Code(s): K65.9 - PERITONITIS, UNSPECIFIED SNOMED Code(s): 10024773 (2) Pneumoperitoneum Current Visit: Yes Status: Acute Priority: High Code(s): K66.8 - OTHER SPECIFIED DISORDERS OF PERITONEUM SNOMED Code(s): 49781793 Plan: 1patient presented hospital abdominal pain and this patient who did have a bnormal CT suggestive of pneumoperitoneum and some fluid collection in the pelvis concerning for possible perforated bowel could be related to possible perforated diverticulitis, he will need to cover for the enteric gram-negative both aerobes and anaerobes, general surgery following the patient currently recommending bowel rest and antibiotic therapy 2-patient did get a PICC line, patient did have a Repeat abdominal pelvis CT patient mention decreased EF but he did have a fall he had a fluid-filled loculated collection in the low mid pelvis consistent with an abscess and bilateral adnexal masses 3patient is status post laparotomy sigmoid resection, colostomy and drainage of abdominal abscess cultures are currently growing Valencia albicans as well as Valencia glabrata 4-patient to continue with the Zosyn and Eraxis clinical course complicated by ileus being managed by surgical team discussed with the surgical ANATOMICAL EMBALMER Dictation was produced using [employer] dictation software. please excuse any grammatical, word or spelling errors. Time with Patient: Less than 30
[2024-03-02 16:41] LABS: Glucose,Whole Blood 119 mg/dL (70-110)
--- NOTE | 2024-03-02 16:55 | P.PN ---
Subjective Progress Note Date: 03/01/24 Progress Note Date: 02/24/24 This is 63-year-old female admitted with abdominal pain with perforated diverticulitis with abscess, evaluated by general surgery, recommending conservative management. Patient remains n.p.o. receiving TPN and lipids via PICC line. denies chest pain, palpitations or shortness of breath. Positive abdominal pain. Positive bowel movement-reports painful. Diarrhea throughout the night. Repeat CT of abdomen pelvis completed yesterday reported mild free air beneath the diaphragm which is decreased compared to prior study. Air and fluid-filled loculated collection in the low mid pelvis consistent with abscess. Bilateral adnexal masses which either represent abscesses or ovarian neoplasm. Afebrile. Potassium 3.6, supplemented. 02/22/2024 PROFESSOR OF INDUSTRIAL TECHNOLOGY and Oncology consulted by general surgery, regarding CT findings. reports decreased abdominal pain, positive cramps with flatus. Remains n.p.o.,maintained on TPN and liquids. Expresses hunger. Potassium 3.2, supplementation ordered. Magnesium 1.8, supplementation ordered. Maintain on IV antibiotics as per infectious disease. Afebrile. 02/23/2024 initially general surgery had planned for IR drain placement of diverticular abscess, but given risk of potential rupture of large ovarian absce sses, plan was aborted. evaluated by Dr. Gutierres, PROFESSOR OF INDUSTRIAL TECHNOLOGY with recommendations noted, including assisting in surgery if patient undergoes exploratory laparotomy, potential transfer to a tertiary care center. Ca-125 elevated, 71.6, with CEA, alpha-fetoprotein, beta-hCG pending.patient complaining of worsening abdominal pain accompanied by nausea. N.p.o. ,continues on TPN and lipids, albumin low, significant edema bilateral lower extremities. Complains of mild shortness of breath, maintaining O2 sats of 100% on room air, normal respiratory rate, without respiratory distress. Lasix 40mg IV push x 1 ordered. Afebrile, Tmax 99.2, labs pending. Continues on IV antibiotics. 02/24/2024 this is a 63-year-old female status post exploratory laparotomy with sigmoid resection for perforated mid sigmoid colon, descending colostomy, defunctionalized rectal stump, Ambrose's procedure for perforated sigmoid colon, peritoneal lavage, drainage of intra-abdominal /pelvis abscess, open lysis of adhesions, multiple biopsies of sigmoid colon ,diverticular abscess, ovarian /pelvis abscess, ovarian mass. Tolerated procedure well. Continues on IV fluid hydration, TPN and lipids. Reports pain, recently medicated. Received a dose of Lasix IV push yesterday for fluid overload with significant improvement. Decreased lower extremity edema. Denies chest pain, palpitations. Reports mild shortness of breath. Maintaining O2 sats of 93% on room air. Afebrile, Tmax 100.3, labs pending. Ca-125 elevated, AFP less than 3, CEA less than 2. 02/27/2024 sitting up in chair, complaining of right-sided abdominal pain. Positive nausea and vomiting with minimal bilious emesis. Cytology /pathology pending. Denies vaginal bleeding. Afebrile, WBC increased ,13.02, hemoglobin 8.7, platelets 491, renal function stable. Continues on TPN and lipids with blood sugars controlled. Abdominal wound cultures growing Valencia albicans, yeast, preliminary anaerobic culture reports no anaerobes isolated to date. 02/28/2024 continues on TPN, lipids, IV fluid hydration and antibiotics of Zosyn, fluconazole. Wound culture growing Valencia albicans. Afebrile. dosing off while talking. Pathology of sigmoid colon resection reporting diverticulitis with submucosal abscess, fibrosis, fat necrosis, foreign body multinucleated giant cell reaction and acute serositis consistent with diverticular rupture and perforated viscus. Pelvic/peritoneal fluid lavage cytology reported inflammatory debris with scattered acute and chronic inflammatory cells, nondiagnostic for neoplasia. Tolerating clear liquids with nausea improved. 02/29/2024 abdominal culture growing Valencia albicans and Valencia glabrata .continues on Zosyn and Eraxis staff reports patient hallucinating, delirious. Mother at bedside and reports patient told her she had Cheerios on her shoulder. Patient reports seeing "angels and people". Has not slept well, bicarb 26, colostomy with scant watery drainage, abdomen tender to minimal touch. Reports positive nausea. Afebrile, WBC 10.7, hemoglobin 8.3, platelets 607, sodium 140, potassium 5.5, BUN 12, creatinine 0.5. Blood sugars controlled. UA repeated yesterday reporting negative. 03/01/2024 pain medication regimen adjusted yesterday as per general surgery, received a dose of Abilify, sensorium improving. Ostomy teaching attempted yesterday unsuccessfully Sitting up in chair, complains of significant abdominal pain-reporting right side more painful. Neurology consult in place, recommendations pending. Afebrile, normal WBC, hemoglobin 8.6, platelets 627, electrolytes within normal limits, renal function stable. Objective - Vital Signs Vital signs: Vital Signs Temp 98.5 F 03/01/24 14:57 Pulse 96 03/01/24 16:06 Resp 16 03/01/24 14:19 BP 115/66 03/01/24 14:19 Pulse Ox 98 03/01/24 14:19 FiO2 Intake & Output 02/29/24 03/01/24 03/01/24 18:59 06:59 18:59 Intake Total 1060 1053 Output Total 1550 2450 Balance -1550 -1390 1053 Intake: Intake, IV Titration 1060 1053 Amount Mvi, Adult No.4 with Vit 1053 K 10 ml Trace (Conc-1Ml/ Dose) 1 ml Sodium Acetate 40 meq Potassium Chloride 18 meq Calcium Gluconate 1 gm Magnesium Sulfate gm 1 gm Potassium Phosphate 3 mmol In Amino Acids 5 %/Dextrose 20 % 1,000 ml @ 70 mls/hr IV .BY DURATION [facility] Rx#: [id number] Mvi, Adult No.4 with Vit 1060 K 10 ml Trace (Conc-1Ml/ Dose) 1 ml Sodium Acetate 48 meq Potassium Chloride 20 meq Calcium Gluconate 1 gm Magnesium Sulfate gm 1.5 gm Potassium Phosphate 6 mmol In Amino Acids 5 %/ Dextrose 20 % 1,000 ml @ 70 mls/hr IV .BY DURATION [facility] Rx#:[id number] Output: Urine 1550 2450 Other: Voiding Method External Catheter External Catheter Toilet # Voids 1 4 - Exam PHYSICAL EXAM: VITAL SIGNS: [As above] GENERAL: Alert and oriented x 3, sitting up in chair, no acute distress HEENT: Normocephalic, atraumatic conjunctivae normal. eyes normal. NECK: Supple, no JVD. CARDIOVASCULAR: S1, S2 regular. No murmur RESPIRATION: Unlabored, equal air entry ,breath sounds diminished in the bases. ABDOMEN: Soft, tender-greatest on the right side, less tense, status post surgery, ostomy with scant watery drainage, healthy appearing stoma ,binder LEGS: No lower extremity edema NERVOUS SYSTEM: Cranial N 2-12 grossly normal. No focal deficits. Skin: Warm and dry, no rash - Labs CBC & Chem 7: 03/01/24 06:29 03/02/24 06:34 Labs: Abnormal Lab Results - Last 24 Hours (Table) 02/29/24 03/01/24 03/01/24 Range/Units 20:30 05:48 06:29 RBC (4.10-5.20) X 10*6/uL Hgb (12.0-15.0) g/dL Hct (37.2-46.3) % MCHC (32.0-37.0) g/dL RDW (11.5-14.5) % Plt Count (140-440) X 10*3/uL MPV (9.5-12.2) FL Immature Gran # (0.00-0.04) X 10*3/uL Monocytes # (0.20-1.00) X 10*3/uL Eosinophils # (0.04-0.35) X 10*3/uL Glucose 104 H (74-99) mg/dL POC Glucose (mg/dL) 118 H 115 H (70-110) mg/dL 03/01/24 03/01/24 Range/Units 06:29 11:38 RBC 3.02 L (4.10-5.20) X 10*6/uL Hgb 8.6 L (12.0-15.0) g/dL Hct 27.9 L (37.2-46.3) % MCHC 30.8 L (32.0-37.0) g/dL RDW 16.0 H (11.5-14.5) % Plt Count 627 H (140-440) X 10*3/uL MPV 9.2 L (9.5-12.2) FL Immature Gran # 0.13 H (0.00-0.04) X 10*3/uL Monocytes # 1.01 H (0.20-1.00) X 10*3/uL Eosinophils # 0.55 H (0.04-0.35) X 10*3/uL Glucose (74-99) mg/dL POC Glucose (mg/dL) 123 H (70-110) mg/dL Assessment and Plan Assessment: Pneumoperitoneum ,perforated diverticulitis with repeat CT reported mild free air beneath the diaphragm which is decreased compared to prior study. Air and fluid-filled loculated collection in the low mid pelvis consistent with abscess. Status post exploratory laparotomy with sigmoid resection for perforated mid sigmoid colon, descending colostomy, defunctionalized rectal stump, Ambrose's procedure for perforated sigmoid colon, peritoneal lavage, drainage of intra- abdominal /pelvis abscess, open lysis of adhesions, multiple biopsies of sigmoid colon ,diverticular abscess, ovarian /pelvis abscess, ovarian mass. 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 Further workup recommended. Abdominal culture growing Valencia albicans and Valencia glabrata. Postoperative ileus as per general surgery Postoperative toxic and metabolic encephalopathy, multifactorial including medication induced, sleep deprivation Bilateral adnexal masses which either represent abscesses or ovarian neoplasm, reported per CT. Ovarian masses will require additional follow-up as discussed with her per oncology, either with PROFESSOR OF INDUSTRIAL TECHNOLOGY or PROFESSOR OF INDUSTRIAL TECHNOLOGY ONC. Fluid overload secondary to low albumin, n.p.o. times nearly 1 week, on fluids including TPN and lipids, resolved. Hypokalemia, resolved with supplementation Hypomagnesemia, resolved with supplementation Morbid obesity, BMI 31.3 Plan: Continue on current medication regimen ,monitoring and symptomatic treatment. Antibiotics as per infectious disease. Pain management as per primary. TPN. abdominal x-ray ordered .increase ambulation with assistance/PT. Aggressive pulmonary toileting with incentive spirometer reinforced. Prognosis guarded given multiple complex medical issues. The impression and plan of care has been dictated as directed. : I performed a history and examination of this patient, discussed the same with the dictator. I agree with the dictator's note ,documented as a scribe. Any additional findings or plans will be noted.
--- NOTE | 2024-03-02 17:08 | P.PN ---
Subjective Progress Note Date: 03/02/24 Progress Note Date: 02/24/24 This is 63-year-old female admitted with abdominal pain with perforated diverticulitis with abscess, evaluated by general surgery, recommending conservative management. Patient remains n.p.o. receiving TPN and lipids via PICC line. denies chest pain, palpitations or shortness of breath. Positive abdominal pain. Positive bowel movement-reports painful. Diarrhea throughout the night. Repeat CT of abdomen pelvis completed yesterday reported mild free air beneath the diaphragm which is decreased compared to prior study. Air and fluid-filled loculated collection in the low mid pelvis consistent with abscess. Bilateral adnexal masses which either represent abscesses or ovarian neoplasm. Afebrile. Potassium 3.6, supplemented. 02/22/2024 [employer]PENTERS SUPERVISOR and Oncology consulted by general surgery, regarding CT findings. reports decreased abdominal pain, positive cramps with flatus. Remains n.p.o.,maintained on TPN and liquids. Expresses hunger. Potassium 3.2, supplementation ordered. Magnesium 1.8, supplementation ordered. Maintain on IV antibiotics as per infectious disease. Afebrile. 02/23/2024 initially general surgery had planned for IR drain placement of diverticular abscess, but given risk of potential rupture of large ovarian absce sses, plan was aborted. evaluated by Dr. Gutierres, [employer]PENTERS SUPERVISOR with recommendations noted, including assisting in surgery if patient undergoes exploratory laparotomy, potential transfer to a tertiary care center. Ca-125 elevated, 71.6, with CEA, alpha-fetoprotein, beta-hCG pending.patient complaining of worsening abdominal pain accompanied by nausea. N.p.o. ,continues on TPN and lipids, albumin low, significant edema bilateral lower extremities. Complains of mild shortness of breath, maintaining O2 sats of 100% on room air, normal respiratory rate, without respiratory distress. Lasix 40mg IV push x 1 ordered. Afebrile, Tmax 99.2, labs pending. Continues on IV antibiotics. 02/24/2024 this is a 63-year-old female status post exploratory laparotomy with sigmoid resection for perforated mid sigmoid colon, descending colostomy, defunctionalized rectal stump, Ambrose's procedure for perforated sigmoid colon, peritoneal lavage, drainage of intra-abdominal /pelvis abscess, open lysis of adhesions, multiple biopsies of sigmoid colon ,diverticular abscess, ovarian /pelvis abscess, ovarian mass. Tolerated procedure well. Continues on IV fluid hydration, TPN and lipids. Reports pain, recently medicated. Received a dose of Lasix IV push yesterday for fluid overload with significant improvement. Decreased lower extremity edema. Denies chest pain, palpitations. Reports mild shortness of breath. Maintaining O2 sats of 93% on room air. Afebrile, Tmax 100.3, labs pending. Ca-125 elevated, AFP less than 3, CEA less than 2. 02/27/2024 sitting up in chair, complaining of right-sided abdominal pain. Positive nausea and vomiting with minimal bilious emesis. Cytology /pathology pending. Denies vaginal bleeding. Afebrile, WBC increased ,13.02, hemoglobin 8.7, platelets 491, renal function stable. Continues on TPN and lipids with blood sugars controlled. Abdominal wound cultures growing Valencia albicans, yeast, preliminary anaerobic culture reports no anaerobes isolated to date. 02/28/2024 continues on TPN, lipids, IV fluid hydration and antibiotics of Zosyn, fluconazole. Wound culture growing Valencia albicans. Afebrile. dosing off while talking. Pathology of sigmoid colon resection reporting diverticulitis with submucosal abscess, fibrosis, fat necrosis, foreign body multinucleated giant cell reaction and acute serositis consistent with diverticular rupture and perforated viscus. Pelvic/peritoneal fluid lavage cytology reported inflammatory debris with scattered acute and chronic inflammatory cells, nondiagnostic for neoplasia. Tolerating clear liquids with nausea improved. 02/29/2024 abdominal culture growing Valencia albicans and Valencia glabrata .continues on Zosyn and Eraxis staff reports patient hallucinating, delirious. Mother at bedside and reports patient told her she had Cheerios on her shoulder. Patient reports seeing "angels and people". Has not slept well, bicarb 26, colostomy with scant watery drainage, abdomen tender to minimal touch. Reports positive nausea. Afebrile, WBC 10.7, hemoglobin 8.3, platelets 607, sodium 140, potassium 5.5, BUN 12, creatinine 0.5. Blood sugars controlled. UA repeated yesterday reporting negative. 03/01/2024 pain medication regimen adjusted yesterday as per general surgery, received a dose of Abilify, sensorium improving. Ostomy teaching attempted yesterday unsuccessfully Sitting up in chair, complains of significant abdominal pain-reporting right side more painful. Neurology consult in place, recommendations pending. Afebrile, normal WBC, hemoglobin 8.6, platelets 627, electrolytes within normal limits, renal function stable. 03/02/2024 evaluated by neurology, EEG pending .nausea persists, NG tube attempted last night, pulled out.Abdominal x-ray reported multiple air-fluid levels present throughout the abdomen. They involve both small bowel and colon. Consider postsurgical ileus. Maintained on TPN. Reports right-sided abdominal pain, no flatus or stool in ostomy -patient is willing to reattempt NG tube this morning after further discussion with general surgery. Afebrile. Objective - Vital Signs Vital signs: Vital Signs Temp 98.6 F 03/02/24 14:03 Pulse 97 03/02/24 14:03 Resp 17 03/02/24 14:03 BP 138/79 03/02/24 14:03 Pulse Ox 96 03/02/24 14:03 FiO2 Intake & Output 03/01/24 03/02/24 03/02/24 18:59 06:59 18:59 Intake Total 1053 Balance 1053 Weight 82.8 kg Intake: Intake, IV Titration 1053 Amount Mvi, Adult No.4 with Vit 1053 K 10 ml Trace (Conc-1Ml/ Dose) 1 ml Sodium Acetate 40 meq Potassium Chloride 18 meq Calcium Gluconate 1 gm Magnesium Sulfate gm 1 gm Potassium Phosphate 3 mmol In Amino Acids 5 %/Dextrose 20 % 1,000 ml @ 70 mls/hr IV .BY DURATION [facility] Rx#: [id number] Other: Voiding Method Toilet Bedside Commode Bedside Commode # Voids 1 3 - Exam PHYSICAL EXAM: VITAL SIGNS: [As above] GENERAL: Alert and oriented X 3, sitting up in chair, no acute distress HEENT: Normocephalic, atraumatic conjunctivae normal. eyes normal. NECK: Supple, no JVD. CARDIOVASCULAR: S1, S2 regular. No murmur RESPIRATION: Unlabored, equal air entry ,breath sounds diminished in the bases. ABDOMEN: Soft, tender-greatest on the right side, less tense, status post surgery, ostomy with serosanguineous watery drainage, healthy appearing stoma ,binder. LEGS: No lower extremity edema NERVOUS SYSTEM: Cranial N 2-12 grossly normal. No focal deficits. Skin: Warm and dry, no rash - Labs CBC & Chem 7: 03/01/24 06:29 03/02/24 06:34 Labs: Abnormal Lab Results - Last 24 Hours (Table) 03/02/24 03/02/24 03/02/24 Range/Units 08:18 11:25 16:40 POC Glucose (mg/dL) 128 H 159 H 119 H (70-110) mg/dL Assessment and Plan Assessment: Pneumoperitoneum ,perforated diverticulitis with repeat CT reported mild free air beneath the diaphragm which is decreased compared to prior study. Air and fluid-filled loculated collection in the low mid pelvis consistent with abscess. Status post exploratory laparotomy with sigmoid resection for perforated mid sigmoid colon, descending colostomy, defunctionalized rectal stump, Ambrose's procedure for perforated sigmoid colon, peritoneal lavage, drainage of intra- abdominal /pelvis abscess, open lysis of adhesions, multiple biopsies of sigmoid colon ,diverticular abscess, ovarian /pelvis abscess, ovarian mass. 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 Further workup recommended. Abdominal culture growing Valencia albicans and Valencia glabrata. Postoperative ileus as per general surgery Postoperative delirium, toxic and metabolic encephalopathy, multifactorial including medication induced, sleep deprivation Bilateral adnexal masses which either represent abscesses or ovarian neoplasm, reported per CT. Ovarian masses will require additional follow-up as discussed with her per oncology, either with [employer]ENTERS SUPERVISOR or [employer] SUPERVISOR ONC. Fluid overload secondary to low albumin, n.p.o. times nearly 1 week, on fluids including TPN and lipids, resolved. Hypokalemia, resolved with supplementation Hypomagnesemia, resolved with supplementation Morbid obesity, BMI 31.3 Plan: Continue on current medication regimen ,monitoring and symptomatic treatment. Chest x-ray ordered .EEG pending . Continues on Zosyn and Eraxis. pain management as per primary. TPN.Increase ambulation with assistance/PT. continue aggressive pulmonary toileting with incentive spirometer reinforced. Prognosis guarded given multiple complex medical issues. The impression and plan of care has been dictated as directed. : I performed a history and examination of this patient, discussed the same with the dictator. I agree with the dictator's note ,documented as a scribe. Any additional findings or plans will be noted.
[2024-03-03 00:48] LABS: Glucose,Whole Blood 107 mg/dL (70-110)
[2024-03-03 06:29] LABS: Glucose,Whole Blood 116 mg/dL (70-110)
[2024-03-03 06:35] LABS: African American GFR (CKD) >90 (>60 ml/min/1.73 sqM); Anion Gap 6 mmol/L; Blood Urea Nitrogen 16 mg/dL (7-17); Calcium 9.1 mg/dL (8.4-10.2); Carbon Dioxide 25 mmol/L (22-30); Chloride 107 mmol/L (98-107); Glucose 116 mg/dL (74-99); Magnesium 2.2 mg/dL (1.6-2.3); Non-African American GFR(CKD) >90 (>60 ml/min/1.73 sqM); Phosphorus 3.6 mg/dL (2.5-4.5); Potassium 4.2 mmol/L (3.5-5.1); Sodium 138 mmol/L (137-145)
--- NOTE | 2024-03-03 11:28 | P.PN ---
Progress Note - Text Progress Note Date: 03/03/24 CHIEF COMPLAINT: Diverticulitis HISTORY OF PRESENT ILLNESS: NAEO. Patient still not having any ostomy output PHYSICAL EXAM: VITAL SIGNS: Reviewed GENERAL: Well-developed in no acute distress. HEENT: No sclera icterus. Extraocular movements grossly intact. Moist buccal mucosa. Head is atraumatic, normocephalic. Hears conversational speech. No nasal drainage. NECK: Supple without lymphadenopathy. CHEST: Non-labored respirations and equal bilateral excursions. CARDIOVASCULAR: Palpable 2+ radial pulses. ABDOMEN: Soft. Prevena wound VAC intact. Ostomy with beefy red stoma. Serosanguineous liquid in ostomy bag. No stool or air present in bag. MUSCULOSKELETAL: No clubbing or cyanosis. NEUROLOGIC: No focal or lateralizing signs. Cranial nerves II through XII grossly intact. PSYCH: Appropriate affect. Alert and oriented to person, place and time. SKIN: Well perfused. Good skin turgor. ASSESSMENT: 1. Perforated complicated sigmoid diverticulitis with pelvic abscess 2. Bilateral ovarian complex neoplasm, over 6 cm 3. Obesity due to excess calories, BMI 30.2 4. Depressive disorder 5. Osteoporosis 6. Seizure disorder 7. Gastroesophageal reflux disease 8. Hypokalemia and hypomagnesemia have been corrected 9. Ileus expected postoperatively 10. Confusion PLAN: -NGT-LIS -Keep patient n.p.o. -Mylicon gas drops -Optifoam silver dressing to incision site -Cell cytology is nondiagnostic for malignancy however clinical features were consistent with complicated bilateral ovarian neoplasms. Patient will need to follow-up with MANAGER PRIVATE or MANAGER PRIVATE ONC outpatient -Antibiotic management per ID -Continue TPN for nutrition support -Continue pain management -Encourage patient to increase activity level -Encourage patient to use incentive spirometer -DVT prophylaxis subcu heparin
[2024-03-03 11:32] LABS: Glucose,Whole Blood 112 mg/dL (70-110)
[2024-03-03 17:08] LABS: Glucose,Whole Blood 107 mg/dL (70-110)
--- NOTE | 2024-03-03 22:57 | P.PN ---
Subjective This is 63-year-old female admitted with abdominal pain with perforated diverticulitis with abscess, evaluated by general surgery, recommending cons ervative management. Patient remains n.p.o. receiving TPN and lipids via PICC line. denies chest pain, palpitations or shortness of breath. Positive abdominal pain. Positive bowel movement-reports painful. Diarrhea throughout the night. Repeat CT of abdomen pelvis completed yesterday reported mild free air beneath the diaphragm which is decreased compared to prior study. Air and fluid-filled loculated collection in the low mid pelvis consistent with abscess. Bilateral adnexal masses which either represent abscesses or ovarian neoplasm. Afebrile. Potassium 3.6, supplemented. 02/22/2024 CONFIDENTIAL INVESTIGATOR and Oncology consulted by general surgery, regarding CT findings. reports decreased abdominal pain, positive cramps with flatus. Remains n.p.o.,maintained on TPN and liquids. Expresses hunger. Potassium 3.2, supplementation ordered. Magnesium 1.8, supplementation ordered. Maintain on IV antibiotics as per infectious disease. Afebrile. 02/23/2024 initially general surgery had planned for IR drain placement of diverticular abscess, but given risk of potential rupture of large ovarian abscesses, plan was aborted. evaluated by Dr. Gutierres, CONFIDENTIAL INVESTIGATOR with recommendations noted, including assisting in surgery if patient undergoes exploratory laparotomy, potential transfer to a tertiary care center. Ca-125 elevated, 71.6, with CEA, alpha-fetoprotein, beta-hCG pending.patient complaining of worsening abdominal pain accompanied by nausea. N.p.o. ,continues on TPN and lipids, albumin low, significant edema bilateral lower extremities. Complains of mild shortness of breath, maintaining O2 sats of 100% on room air, normal respiratory rate, without respiratory distress. Lasix 40mg IV push x 1 ordered. Afebrile, Tmax 99.2, labs pending. Continues on IV antibiotics. 02/24/2024 this is a 63-year-old female status post exploratory laparotomy with sigmoid resection for perforated mid sigmoid colon, descending colostomy, defunctionalized rectal stump, Ambrose's procedure for perforated sigmoid colon, peritoneal lavage, drainage of intra-abdominal /pelvis abscess, open lysis of adhesions, multiple biopsies of sigmoid colon ,diverticular abscess, ovarian /pelvis abscess, ovarian mass. Tolerated procedure well. Continues on IV fluid hydration, TPN and lipids. Reports pain, recently medicated. Received a dose of Lasix IV push yesterday for fluid overload with significant improvement. Decreased lower extremity edema. Denies chest pain, palpitations. Reports mild shortness of breath. Maintaining O2 sats of 93% on room air. Afebrile, Tmax 100.3, labs pending. Ca-125 elevated, AFP less than 3, CEA less than 2. 02/27/2024 sitting up in chair, complaining of right-sided abdominal pain. Positive nausea and vomiting with minimal bilious emesis. Cytology /pathology pending. Denies vaginal bleeding. Afebrile, WBC increased ,13.02, hemoglobin 8.7, platelets 491, renal function stable. Continues on TPN and lipids with blood sugars controlled. Abdominal wound cultures growing Valencia albicans, yeast, preliminary anaerobic culture reports no anaerobes isolated to date. 02/28/2024 continues on TPN, lipids, IV fluid hydration and antibiotics of Zosyn, fluconazole. Wound culture growing Valencia albicans. Afebrile. dosing off while talking. Pathology of sigmoid colon resection reporting diverticulitis with submucosal abscess, fibrosis, fat necrosis, foreign body multinucleated giant cell reaction and acute serositis consistent with diverticular rupture and perforated viscus. Pelvic/peritoneal fluid lavage cytology reported inflammatory debris with scattered acute and chronic inflammatory cells, nondiagnostic for neoplasia. Tolerating clear liquids with nausea improved. 02/29/2024 abdominal culture growing Valencia albicans and Valencia glabrata .cont inues on Zosyn and Eraxis staff reports patient hallucinating, delirious. Mother at bedside and reports patient told her she had Cheerios on her shoulder. Patient reports seeing "angels and people". Has not slept well, bicarb 26, colostomy with scant watery drainage, abdomen tender to minimal touch. Reports positive nausea. Afebrile, WBC 10.7, hemoglobin 8.3, platelets 607, sodium 140, potassium 5.5, BUN 12, creatinine 0.5. Blood sugars controlled. UA repeated yesterday reporting negative. 03/01/2024 pain medication regimen adjusted yesterday as per general surgery, received a dose of Abilify, sensorium improving. Ostomy teaching attempted yesterday unsuccessfully Sitting up in chair, complains of significant abdominal pain-reporting right side more painful. Neurology consult in place, recommendations pending. Afebrile, normal WBC, hemoglobin 8.6, platelets 627, electrolytes within normal limits, renal function stable. 03/02/2024 evaluated by neurology, EEG pending .nausea persists, NG tube attempted last night, pulled out.Abdominal x-ray reported multiple air-fluid levels present throughout the abdomen. They involve both small bowel and colon. Consider postsurgical ileus. Maintained on TPN. Reports right-sided abdominal pain, no flatus or stool in ostomy -patient is willing to reattempt NG tube this morning after further discussion with general surgery. Afebrile. 03/03/2024 Patient looks comfortable and relaxed, talking easily and freely No significant pain Hemodynamically stable Remains on Eraxis and Zosyn TPN Surgical wound closed with dressing in place Objective - Vital Signs Vital signs: Vital Signs Temp 98.3 F 03/03/24 18:34 Pulse 97 03/03/24 22:24 Resp 18 03/03/24 18:34 BP 143/79 03/03/24 18:34 Pulse Ox 97 03/03/24 18:34 FiO2 Intake & Output 03/03/24 03/03/24 03/04/24 06:59 18:59 06:59 Intake Total 1042 Output Total 280 700 Balance -280 342 Intake: Intake, IV Titration 1042 Amount Sodium Acetate 40 meq 1042 Potassium Chloride 18 meq Calcium Gluconate 1 gm Magnesium Sulfate gm 1 gm Potassium Phosphate 3 mmol In Amino Acids 5 %/ Dextrose 20 % 1,000 ml @ 70 mls/hr IV .BY DURATION [facility] Rx#:[id number] Output: Urine 200 700 Stool 80 Other: Voiding Method Bedside Commode # Voids 2 4 - Exam GENERAL: Alert and oriented X 3, sitting up in chair, no acute distress HEENT: Normocephalic, atraumatic conjunctivae normal. eyes normal. NECK: Supple, no JVD. CARDIOVASCULAR: S1, S2 regular. No murmur RESPIRATION: Unlabored, equal air entry ,breath sounds diminished in the bases. ABDOMEN: Soft, tender-greatest on the right side, less tense, surgical wound closed and healing, colostomy is in place with some watery discharge stool LEGS: No lower extremity edema NERVOUS SYSTEM: Cranial N 2-12 grossly normal. No focal deficits. Skin: Warm and dry, no rash - Labs CBC & Chem 7: 03/01/24 06:29 03/03/24 05:40 Labs: Abnormal Lab Results - Last 24 Hours (Table) 03/03/24 03/03/24 03/03/24 Range/Units 05:40 06:26 11:31 Glucose 116 H (74-99) mg/dL POC Glucose (mg/dL) 116 H 112 H (70-110) mg/dL Assessment and Plan Assessment: Pneumoperitoneum ,perforated diverticulitis with repeat CT reported mild free air beneath the diaphragm which is decreased compared to prior study. Air and fluid-filled loculated collection in the low mid pelvis consistent with abscess. Status post exploratory laparotomy with sigmoid resection for perforated mid sigmoid colon, descending colostomy, defunctionalized rectal stump, Ambrose's procedure for perforated sigmoid colon, peritoneal lavage, drainage of intra- abdominal /pelvis abscess, open lysis of adhesions, multiple biopsies of sigmoid colon ,diverticular abscess, ovarian /pelvis abscess, ovarian mass. 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 Further workup recommended. Abdominal culture growing Valencia albicans and Valencia glabrata. Postoperative ileus as per general surgery Postoperative delirium, toxic and metabolic encephalopathy, multifactorial including medication induced, sleep deprivation Bilateral adnexal masses which either represent abscesses or ovarian neoplasm, reported per CT. Ovarian masses will require additional follow-up as discussed with her per oncology, either with CONFIDENTIAL INVESTIGATOR or CONFIDENTIAL INVESTIGATOR ONC. Fluid overload secondary to low albumin, n.p.o. times nearly 1 week, on fluids including TPN and lipids, resolved. Hypokalemia, resolved with supplementation Hypomagnesemia, resolved with supplementation Morbid obesity, BMI 31.3
[2024-03-04 00:29] LABS: Glucose,Whole Blood 126 mg/dL (70-110)
[2024-03-04 05:54] LABS: African American GFR (CKD) >90 (>60 ml/min/1.73 sqM); Anion Gap 7 mmol/L; Blood Urea Nitrogen 20 mg/dL (7-17); Calcium 9.1 mg/dL (8.4-10.2); Carbon Dioxide 24 mmol/L (22-30); Chloride 106 mmol/L (98-107); Glucose 124 mg/dL (74-99); Magnesium 2.2 mg/dL (1.6-2.3); Non-African American GFR(CKD) >90 (>60 ml/min/1.73 sqM); Sodium 137 mmol/L (137-145)
[2024-03-04 11:25] LABS: Glucose,Whole Blood 115 mg/dL (70-110)
--- NOTE | 2024-03-04 11:36 | P.PN ---
Subjective Progress Note Date: 03/04/24 Principal diagnosis: Diverticulitis 63-year-old female sitting up in the chair. She states she is hungry. No ostomy function. Complaining of some nausea. Nasogastric tube with bilious output. Only mild discomfort. Objective - Vital Signs Vital signs: Vital Signs Temp 97.7 F 03/04/24 07:22 Pulse 94 03/04/24 08:00 Resp 17 03/04/24 08:00 BP 126/79 03/04/24 07:22 Pulse Ox 95 03/04/24 07:22 FiO2 Intake & Output 03/03/24 03/04/24 03/04/24 18:59 06:59 18:59 Intake Total 1042 300 Output Total 700 Balance 342 300 Intake: Intake, IV Titration 1042 300 Amount Piperacillin-Tazobactam 3 100 .375 gm In Sodium Chloride 0.9% 100 ml @ 25 mls/hr IVPB Q8H [facility] Rx#: [id number] Sodium Acetate 40 meq 1042 Potassium Chloride 18 meq Calcium Gluconate 1 gm Magnesium Sulfate gm 1 gm Potassium Phosphate 3 mmol In Amino Acids 5 %/ Dextrose 20 % 1,000 ml @ 70 mls/hr IV .BY DURATION [facility] Rx#:[id number] Valproate Sodium 250 mg 200 In Sodium Chloride 0.9% 100 ml @ 100 mls/hr IVPB Q8H [facility] Rx#:[id number] Output: Urine 700 Other: Voiding Method Bedside Commode Bedside Commode # Voids 4 4 - Exam Abdomen: Soft, nondistended, dressing clean and dry, ostomy pink but no output - Labs CBC & Chem 7: 03/01/24 06:29 03/04/24 05:12 Labs: Abnormal Lab Results - Last 24 Hours (Table) 03/04/24 03/04/24 03/04/24 Range/Units 00:18 05:12 11:24 BUN 20 H (7-17) mg/dL Glucose 124 H (74-99) mg/dL POC Glucose (mg/dL) 126 H 115 H (70-110) mg/dL Assessment and Plan (1) Diverticulitis large intestine Narrative/Plan: 63-year-old female with ileus after recent Ambrose's procedure. Continue nasogastric tube to suction. Increase ambulation. Continue antibiotics. Will follow. Current Visit: Yes Status: Acute Priority: High Code(s): K57.32 - DVTRCLI OF LG INT W/O PERFORATION OR ABSCESS W/O BLEEDING SNOMED Code(s): 6339269
--- NOTE | 2024-03-04 11:41 | P.PN ---
Subjective Progress Note Date: 03/03/24 Patient was seen for a follow-up. Patient claims that she feels like a big bulge in her throat. She believes some medications are making her foggy. No new concerns otherwise. Objective - Vital Signs Vital signs: Vital Signs Temp 98.3 F 03/03/24 18:34 Pulse 102 H 03/03/24 18:34 Resp 18 03/03/24 18:34 BP 143/79 03/03/24 18:34 Pulse Ox 97 03/03/24 18:34 FiO2 Intake & Output 03/03/24 03/03/24 03/04/24 06:59 18:59 06:59 Output Total 280 700 Balance -280 -700 Output: Urine 200 700 Stool 80 Other: Voiding Method Bedside Commode # Voids 2 4 - Exam Patient is alert and awake. Patient believes it is February 10, 2024 and it is (actually Tuesday) she knows that she is in [facility]. Speech and language functions are normal. Patient still appears slightly delirious. - Labs CBC & Chem 7: 03/01/24 06:29 03/04/24 05:12 Labs: Abnormal Lab Results - Last 24 Hours (Table) 03/03/24 03/03/24 03/03/24 Range/Units 05:40 06:26 11:31 Glucose 116 H (74-99) mg/dL POC Glucose (mg/dL) 116 H 112 H (70-110) mg/dL Assessment and Plan Assessment: * Altered mental status, likely due to acute delirium from postoperative status, recent peritonitis, pain medications * Status post laparotomy for perforated diverticulitis, 02/23/2024 * Pelvic abscess * Depression * History of epilepsy, well-controlled on Depakote * Ileus * Anemia * Ex tobacco use Plan: * Patient's altered mental status is likely due to delirium from postoperative status and reasons mentioned above. * Patient does have history of epilepsy, and has history of grand mal and petit mal seizure, but has been in remission for 25 to 30 years. Patient is having some twitching, sporadically, which is likely from metabolic encephalopathy. * EEG was probably normal awake and drowsy EEG. No definite if focal, lateralized or epileptiform activity was seen. The study was technically limited because of the patient's frequent movement artifact during the study. If your suspicion for seizures is high, suggest prolonged, sleep deprived EEG. * Patient's examination otherwise is nonfocal. Discussed with patient and family members and will hold on CAT scan at this point. * Patient was on Depakote 250 mg 4 times daily at home. While in the hospital patient is currently receiving Depakote 250 mg IV every 8 hours. * Depakote level is 41.7 (50-100) * Dr. Joshua Rojas to resume neurology service from Tuesday.
--- NOTE | 2024-03-04 16:17 | P.PN ---
Subjective Progress Note Date: 03/03/24 Principal diagnosis: Reason for follow-up is pneumoperitoneum and peritonitis Patient is a 63-year-old female past medical history significant for reflux osteoarthritis seizure disorder presenting to the hospital for evaluation of abdominal pain, the patient did have a CT abdominal pelvis evidence of moderate pneumoperitoneum currently being treated medically. Patient is status post expiratory laparotomy with sigmoid resection for perforated mid sigmoid colon descending colostomy drainage of the intra-abdominal abscess and fluid has been sent for culture procedure completed on 02/23/2024 On today's evaluation that is 03/03/2024, patient has been afebrile, patient is breathing comfortably and is currently on room air, patient denies having any significant cough no chest pain shortness of breath, patient still have the NG and continue complain of abdominal pain no significant output in the colostomy bag No CBC was done today creatinine 0.57 Objective - Vital Signs Vital signs: Vital Signs Temp 97.6 F 03/03/24 14:23 Pulse 90 03/03/24 15:45 Resp 18 03/03/24 14:23 BP 139/95 03/03/24 14:23 Pulse Ox 99 03/03/24 14:23 FiO2 Intake & Output 03/02/24 03/03/24 03/03/24 18:59 06:59 18:59 Intake Total 1053 Output Total 600 280 700 Balance 453 -280 -700 Weight 82.8 kg Intake: Intake, IV Titration 1053 Amount Mvi, Adult No.4 with Vit 1053 K 10 ml Trace (Conc-1Ml/ Dose) 1 ml Sodium Acetate 40 meq Potassium Chloride 18 meq Calcium Gluconate 1 gm Magnesium Sulfate gm 1 gm Potassium Phosphate 3 mmol In Amino Acids 5 %/Dextrose 20 % 1,000 ml @ 70 mls/hr IV .BY DURATION [facility] Rx#: [id number] Output: Urine 600 200 700 Stool 80 Other: Voiding Method Bedside Commode Bedside Commode # Voids 2 4 - Exam GENERAL DESCRIPTION: Middle-aged female lying in bed in no distress RESPIRATORY SYSTEM: Unlabored breathing , decreased breath sounds at bases HEART: S1 S2 regular rate and rhythm , ABDOMEN: Soft , mild tenderness, no output in colostomy EXTREMITIES: No edema feet - Labs CBC & Chem 7: 03/01/24 06:29 03/04/24 05:12 Labs: Abnormal Lab Results - Last 24 Hours (Table) 03/03/24 03/03/24 03/03/24 Range/Units 05:40 06:26 11:31 Glucose 116 H (74-99) mg/dL POC Glucose (mg/dL) 116 H 112 H (70-110) mg/dL Assessment and Plan (1) Peritonitis Current Visit: Yes Status: Acute Code(s): K65.9 - PERITONITIS, UNSPECIFIED SNOMED Code(s): 47942756 (2) Pneumoperitoneum Current Visit: Yes Status: Acute Priority: High Code(s): K66.8 - OTHER SPECIFIED DISORDERS OF PERITONEUM SNOMED Code(s): 22354169 Plan: 1patient presented hospital abdominal pain and this patient who did have abnormal CT suggestive of pneumoperitoneum and some fluid collection in the pelvis concerning for possible perforated bowel could be related to possible perforated diverticulitis, he will need to cover for the enteric gram-negative both aerobes and anaerobes, general surgery following the patient currently recommending bowel rest and antibiotic therapy 2-patient did get a PICC line, patient did have a Repeat abdominal pelvis CT patient mention decreased EF but he did have a fall he had a fluid-filled loculated collection in the low mid pelvis consistent with an abscess and bilateral adnexal masses 3patient is status post laparotomy sigmoid resection, colostomy and drainage of abdominal abscess cultures are currently growing Valencia albicans as well as Valencia glabrata 4-patient to continue with the Zosyn and Eraxis and monitor clinical course closely Dictation was produced using [employer] dictation software. please excuse any grammatical, word or spelling errors. Time with Patient: Less than 30
--- NOTE | 2024-03-04 16:19 | P.PN ---
Subjective Progress Note Date: 03/04/24 Principal diagnosis: Reason for follow-up is pneumoperitoneum and peritonitis Patient is a 63-year-old female past medical history significant for reflux osteoarthritis seizure disorder presenting to the hospital for evaluation of abdominal pain, the patient did have a CT abdominal pelvis evidence of moderate pneumoperitoneum currently being treated medically. Patient is status post expiratory laparotomy with sigmoid resection for perforated mid sigmoid colon descending colostomy drainage of the intra-abdominal abscess and fluid has been sent for culture procedure completed on 02/23/2024 On today's evaluation that is 03/04/2024,the patient denies any fever or any chills, patient is breathing comfortably on room air, the patient denies chest pain shortness of breath and no significant cough, patient continued to have the NG no further vomiting still complaining of abdominal pain but no worsening no significant output in the colostomy bag. Patient did have a creatinine 0.62 no CBC was done today Objective - Vital Signs Vital signs: Vital Signs Temp 97.8 F 03/04/24 13:28 Pulse 95 03/04/24 13:28 Resp 18 03/04/24 13:28 BP 112/69 03/04/24 13:28 Pulse Ox 97 03/04/24 13:28 FiO2 Intake & Output 03/03/24 03/04/24 03/04/24 18:59 06:59 18:59 Intake Total 1042 300 Output Total 700 Balance 342 300 Intake: Intake, IV Titration 1042 300 Amount Piperacillin-Tazobactam 3 100 .375 gm In Sodium Chloride 0.9% 100 ml @ 25 mls/hr IVPB Q8H [facility] Rx#: [id number] Sodium Acetate 40 meq 1042 Potassium Chloride 18 meq Calcium Gluconate 1 gm Magnesium Sulfate gm 1 gm Potassium Phosphate 3 mmol In Amino Acids 5 %/ Dextrose 20 % 1,000 ml @ 70 mls/hr IV .BY DURATION [facility] Rx#:[id number] Valproate Sodium 250 mg 200 In Sodium Chloride 0.9% 100 ml @ 100 mls/hr IVPB Q8H [facility] Rx#:[id number] Output: Urine 700 Other: Voiding Method Bedside Commode Bedside Commode # Voids 4 4 - Exam GENERAL DESCRIPTION: Middle-aged female lying in bed in no distress RESPIRATORY SYSTEM: Unlabored breathing , decreased breath sounds at bases HEART: S1 S2 regular rate and rhythm , ABDOMEN: Soft , mild tenderness, no output in colostomy EXTREMITIES: No edema feet - Labs CBC & Chem 7: 03/01/24 06:29 03/04/24 05:12 Labs: Abnormal Lab Results - Last 24 Hours (Table) 03/04/24 03/04/24 03/04/24 Range/Units 00:18 05:12 11:24 BUN 20 H (7-17) mg/dL Glucose 124 H (74-99) mg/dL POC Glucose (mg/dL) 126 H 115 H (70-110) mg/dL Assessment and Plan (1) Peritonitis Current Visit: Yes Status: Acute Code(s): K65.9 - PERITONITIS, UNSPECIFIED SNOMED Code(s): 79059500 (2) Pneumoperitoneum Current Visit: Yes Status: Acute Priority: High Code(s): K66.8 - OTHER SPECIFIED DISORDERS OF PERITONEUM SNOMED Code(s): 10467361 Plan: 1patient presented hospital abdominal pain and this patient who did have abnormal CT suggestive of pneumoperitoneum and some fluid collection in the pelvis concerning for possible perforated bowel could be related to possible p erforated diverticulitis, he will need to cover for the enteric gram-negative both aerobes and anaerobes, general surgery following the patient currently recommending bowel rest and antibiotic therapy 2-patient did get a PICC line, patient did have a Repeat abdominal pelvis CT patient mention decreased EF but he did have a fall he had a fluid-filled loculated collection in the low mid pelvis consistent with an abscess and bilateral adnexal masses 3patient is status post laparotomy sigmoid resection, colostomy and drainage of abdominal abscess cultures are currently growing Valencia albicans as well as Valencia glabrata 4-patient to continue with the Zosyn and Eraxis we will repeat a CBC with a.m. lab multiple question concern regarding her condition has been answered in layman terms Dictation was produced using [employer] dictation software. please excuse any grammatical, word or spelling errors. Time with Patient: Less than 30
[2024-03-04 16:40] LABS: Glucose,Whole Blood 89 mg/dL (70-110)
[2024-03-05 03:04] LABS: Glucose,Whole Blood 116 mg/dL (70-110)
--- NOTE | 2024-03-05 04:51 | P.PN ---
Subjective This is 63-year-old female admitted with abdominal pain with perforated diverticulitis with abscess, evaluated by general surgery, recommending cons ervative management. Patient remains n.p.o. receiving TPN and lipids via PICC line. denies chest pain, palpitations or shortness of breath. Positive abdominal pain. Positive bowel movement-reports painful. Diarrhea throughout the night. Repeat CT of abdomen pelvis completed yesterday reported mild free air beneath the diaphragm which is decreased compared to prior study. Air and fluid-filled loculated collection in the low mid pelvis consistent with abscess. Bilateral adnexal masses which either represent abscesses or ovarian neoplasm. Afebrile. Potassium 3.6, supplemented. 02/22/2024 RECREATION PROGRAM COORDINATOR and Oncology consulted by general surgery, regarding CT findings. reports decreased abdominal pain, positive cramps with flatus. Remains n.p.o.,maintained on TPN and liquids. Expresses hunger. Potassium 3.2, supplementation ordered. Magnesium 1.8, supplementation ordered. Maintain on IV antibiotics as per infectious disease. Afebrile. 02/23/2024 initially general surgery had planned for IR drain placement of diverticular abscess, but given risk of potential rupture of large ovarian abscesses, plan was aborted. evaluated by Dr. Gutierres, RECREATION PROGRAM COORDINATOR with recommendations noted, including assisting in surgery if patient undergoes exploratory laparotomy, potential transfer to a tertiary care center. Ca-125 elevated, 71.6, with CEA, alpha-fetoprotein, beta-hCG pending.patient complaining of worsening abdominal pain accompanied by nausea. N.p.o. ,continues on TPN and lipids, albumin low, significant edema bilateral lower extremities. Complains of mild shortness of breath, maintaining O2 sats of 100% on room air, normal respiratory rate, without respiratory distress. Lasix 40mg IV push x 1 ordered. Afebrile, Tmax 99.2, labs pending. Continues on IV antibiotics. 02/24/2024 this is a 63-year-old female status post exploratory laparotomy with sigmoid resection for perforated mid sigmoid colon, descending colostomy, defunctionalized rectal stump, Ambrose's procedure for perforated sigmoid colon, peritoneal lavage, drainage of intra-abdominal /pelvis abscess, open lysis of adhesions, multiple biopsies of sigmoid colon ,diverticular abscess, ovarian /pelvis abscess, ovarian mass. Tolerated procedure well. Continues on IV fluid hydration, TPN and lipids. Reports pain, recently medicated. Received a dose of Lasix IV push yesterday for fluid overload with significant improvement. Decreased lower extremity edema. Denies chest pain, palpitations. Reports mild shortness of breath. Maintaining O2 sats of 93% on room air. Afebrile, Tmax 100.3, labs pending. Ca-125 elevated, AFP less than 3, CEA less than 2. 02/27/2024 sitting up in chair, complaining of right-sided abdominal pain. Positive nausea and vomiting with minimal bilious emesis. Cytology /pathology pending. Denies vaginal bleeding. Afebrile, WBC increased ,13.02, hemoglobin 8.7, platelets 491, renal function stable. Continues on TPN and lipids with blood sugars controlled. Abdominal wound cultures growing Valencia albicans, yeast, preliminary anaerobic culture reports no anaerobes isolated to date. 02/28/2024 continues on TPN, lipids, IV fluid hydration and antibiotics of Zosyn, fluconazole. Wound culture growing Valencia albicans. Afebrile. dosing off while talking. Pathology of sigmoid colon resection reporting diverticulitis with submucosal abscess, fibrosis, fat necrosis, foreign body multinucleated giant cell reaction and acute serositis consistent with diverticular rupture and perforated viscus. Pelvic/peritoneal fluid lavage cytology reported inflammatory debris with scattered acute and chronic inflammatory cells, nondiagnostic for neoplasia. Tolerating clear liquids with nausea improved. 02/29/2024 abdominal culture growing Valencia albicans and Valencia glabrata .cont inues on Zosyn and Eraxis staff reports patient hallucinating, delirious. Mother at bedside and reports patient told her she had Cheerios on her shoulder. Patient reports seeing "angels and people". Has not slept well, bicarb 26, colostomy with scant watery drainage, abdomen tender to minimal touch. Reports positive nausea. Afebrile, WBC 10.7, hemoglobin 8.3, platelets 607, sodium 140, potassium 5.5, BUN 12, creatinine 0.5. Blood sugars controlled. UA repeated yesterday reporting negative. 03/01/2024 pain medication regimen adjusted yesterday as per general surgery, received a dose of Abilify, sensorium improving. Ostomy teaching attempted yesterday unsuccessfully Sitting up in chair, complains of significant abdominal pain-reporting right side more painful. Neurology consult in place, recommendations pending. Afebrile, normal WBC, hemoglobin 8.6, platelets 627, electrolytes within normal limits, renal function stable. 03/02/2024 evaluated by neurology, EEG pending .nausea persists, NG tube attempted last night, pulled out.Abdominal x-ray reported multiple air-fluid levels present throughout the abdomen. They involve both small bowel and colon. Consider postsurgical ileus. Maintained on TPN. Reports right-sided abdominal pain, no flatus or stool in ostomy -patient is willing to reattempt NG tube this morning after further discussion with general surgery. Afebrile. 03/03/2024 Patient looks comfortable and relaxed, talking easily and freely No significant pain Hemodynamically stable Remains on Eraxis and Zosyn TPN Surgical wound closed with dressing in place 03/04/2024 pt looks not in distress , no significant abd pain NGT is place, placed two days ago with dark brown aspirate about 500 ml no bowel movement through creatinine normal and sugar controlled on antibiotics eraxis and zosyn Objective - Vital Signs Vital signs: Vital Signs Temp 97.7 F 03/04/24 07:22 Pulse 94 03/04/24 08:00 Resp 17 03/04/24 08:00 BP 126/79 03/04/24 07:22 Pulse Ox 95 03/04/24 07:22 FiO2 Intake & Output 03/03/24 03/04/24 03/04/24 18:59 06:59 18:59 Intake Total 1042 300 Output Total 700 Balance 342 300 Intake: Intake, IV Titration 1042 300 Amount Piperacillin-Tazobactam 3 100 .375 gm In Sodium Chloride 0.9% 100 ml @ 25 mls/hr IVPB Q8H J[facility] Rx#: [id number] Sodium Acetate 40 meq 1042 Potassium Chloride 18 meq Calcium Gluconate 1 gm Magnesium Sulfate gm 1 gm Potassium Phosphate 3 mmol In Amino Acids 5 %/ Dextrose 20 % 1,000 ml @ 70 mls/hr IV .BY DURATION [facility] Rx#:[id number] Valproate Sodium 250 mg 200 In Sodium Chloride 0.9% 100 ml @ 100 mls/hr IVPB Q8H [facility] Rx#:[id number] Output: Urine 700 Other: Voiding Method Bedside Commode Bedside Commode # Voids 4 4 - Exam GENERAL: Alert and oriented X 3, sitting up in chair, no acute distress HEENT: Normocephalic, atraumatic conjunctivae normal. eyes normal. NECK: Supple, no JVD. CARDIOVASCULAR: S1, S2 regular. No murmur RESPIRATION: Unlabored, equal air entry ,breath sounds diminished in the bases. ABDOMEN: Soft, tender-greatest on the right side, less tense, surgical wound closed and healing, colostomy is in place with some watery discharge stool LEGS: No lower extremity edema NERVOUS SYSTEM: Cranial N 2-12 grossly normal. No focal deficits. Skin: Warm and dry, no rash - Labs CBC & Chem 7: 03/01/24 06:29 03/04/24 05:12 Labs: Abnormal Lab Results - Last 24 Hours (Table) 03/04/24 03/04/24 03/04/24 Range/Units 00:18 05:12 11:24 BUN 20 H (7-17) mg/dL Glucose 124 H (74-99) mg/dL POC Glucose (mg/dL) 126 H 115 H (70-110) mg/dL Assessment and Plan Assessment: Pneumoperitoneum ,perforated diverticulitis with repeat CT reported mild free air beneath the diaphragm which is decreased compared to prior study. Air and fluid-filled loculated collection in the low mid pelvis consistent with abscess. Status post exploratory laparotomy with sigmoid resection for perforated mid sigmoid colon, descending colostomy, defunctionalized rectal stump, Ambrose's procedure for perforated sigmoid colon, peritoneal lavage, drainage of intra- abdominal /pelvis abscess, open lysis of adhesions, multiple biopsies of sigmoid colon ,diverticular abscess, ovarian /pelvis abscess, ovarian mass. 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 Further workup recommended. Abdominal culture growing Valencia albicans and Valencia glabrata. Postoperative ileus as per general surgery Postoperative delirium, toxic and metabolic encephalopathy, multifactorial including medication induced, sleep deprivation Bilateral adnexal masses which either represent abscesses or ovarian neoplasm, reported per CT. Ovarian masses will require additional follow-up as discussed with her per oncology, either with RECREATION PROGRAM COORDINATOR or RECREATION PROGRAM COORDINATOR ONC. Fluid overload secondary to low albumin, n.p.o. times nearly 1 week, on fluids including TPN and lipids, resolved. Hypokalemia, resolved with supplementation Hypomagnesemia, resolved with supplementation Morbid obesity, BMI 31.3
[2024-03-05 06:20] LABS: Glucose,Whole Blood 100 mg/dL (70-110)
[2024-03-05 06:34] LABS: African American GFR (CKD) >90 (>60 ml/min/1.73 sqM); Anion Gap 5 mmol/L; Blood Urea Nitrogen 23 mg/dL (7-17); Calcium 9.3 mg/dL (8.4-10.2); Carbon Dioxide 25 mmol/L (22-30); Chloride 107 mmol/L (98-107); Glucose 124 mg/dL (74-99); Magnesium 2.1 mg/dL (1.6-2.3); Non-African American GFR(CKD) >90 (>60 ml/min/1.73 sqM); Phosphorus 3.9 mg/dL (2.5-4.5); Potassium 4.4 mmol/L (3.5-5.1); Sodium 137 mmol/L (137-145)
[2024-03-05 09:04] LABS: Glucose,Whole Blood 117 mg/dL (70-110)
--- NOTE | 2024-03-05 12:49 | P.PN ---
Subjective Progress Note Date: 03/05/24 CHIEF COMPLAINT: Diverticulitis HISTORY OF PRESENT ILLNESS: The patient is a 63-year-old female status post colectomy and Ambrose's procedure, 02/23/2024. Over the weekend, patient was n.p.o. due to prolonged ileus. As of this morning and last night, discussion with nurse and patient confirms stool and flatus within her back. She feels well. She had bowel rest with a nasogastric tube. She is eager to have the tube removed. She is more alert. ROS: No fevers or chills. No new chest pain. No productive sputum PHYSICAL EXAM: VITAL SIGNS: Reviewed CONSTITUTIONAL: Well developed and in no acute distress. EYES: Conjuctivae without sclera icterus. Extraocular movements grossly intact. HEAD, EARS, NOSE, THROAT: Moist buccal mucosa. Head is atraumatic, normocephalic. Hears conversational speech. No nasal drainage. RESPIRATORY: Non-labored respirations and equal bilateral excursions. CARDIOVASCULAR: Palpable 2+ radial pulses. ABDOMEN: Ostomy pink patent with stool and flatus. MUSCULOSKELETAL: No gross deformity of the lower extremities noted. No clubbing. No cyanosis. SKIN: Good skin turgor. Well perfused. NEUROLOGIC: Cranial nerves II through XII grossly intact. No focal or lateralizing signs. PSYCH: Appropriate affect. Alert and oriented to person, place and time. CLINICAL LABS: Reviewed. WBC normal. ASSESSMENT: 1. Complicated perforated diverticulitis 2. Bilateral ovarian neoplasms 3. Peritonitis due to Valencia 4. Expected ileus due to perforated diverticulitis/peritonitis PLAN: 1. Nasogastric tube may be discontinued. 2. Start low fiber diet 3. Wean TPN once meet nutritional goals Objective - Vital Signs Vital signs: Vital Signs Temp 98.2 F 03/05/24 08:44 Pulse 80 03/05/24 12:27 Resp 17 03/05/24 08:44 BP 120/74 03/05/24 08:44 Pulse Ox 98 03/05/24 08:44 FiO2 Intake & Output 03/04/24 03/05/24 03/05/24 18:59 06:59 18:59 Intake Total 1042 Output Total 125 Balance 1042 -125 Intake: Intake, IV Titration 1042 Amount Sodium Acetate 40 meq 1042 Potassium Chloride 18 meq Calcium Gluconate 1 gm Magnesium Sulfate gm 1 gm Potassium Phosphate 3 mmol In Amino Acids 5 %/ Dextrose 20 % 1,000 ml @ 70 mls/hr IV .BY DURATION [facility] Rx#:[id number] Output: Gastric Drainage 100 Stool 25 Other: Voiding Method Bedside Commode Bedside Commode Bedside Commode # Voids 4 1 - Labs CBC & Chem 7: 03/01/24 06:29 03/05/24 05:40 Labs: Abnormal Lab Results - Last 24 Hours (Table) 03/05/24 03/05/24 03/05/24 Range/Units 03:02 05:40 09:02 BUN 23 H (7-17) mg/dL Glucose 124 H (74-99) mg/dL POC Glucose (mg/dL) 116 H 117 H (70-110) mg/dL
[2024-03-05 17:07] LABS: Glucose,Whole Blood 112 mg/dL (70-110)
[2024-03-05 23:39] LABS: Glucose,Whole Blood 104 mg/dL (70-110)
[2024-03-06 06:00] LABS: Glucose,Whole Blood 93 mg/dL (70-110)
[2024-03-06 06:11] LABS: Ionized Calcium 5.3 mg/dL (4.5-5.3)
[2024-03-06 06:17] LABS: African American GFR (CKD) >90 (>60 ml/min/1.73 sqM); Anion Gap 4 mmol/L; Blood Urea Nitrogen 23 mg/dL (7-17); Calcium 9.3 mg/dL (8.4-10.2); Carbon Dioxide 25 mmol/L (22-30); Chloride 108 mmol/L (98-107); Glucose 110 mg/dL (74-99); Magnesium 2.2 mg/dL (1.6-2.3); Non-African American GFR(CKD) >90 (>60 ml/min/1.73 sqM); Phosphorus 3.9 mg/dL (2.5-4.5); Potassium 4.5 mmol/L (3.5-5.1); Sodium 137 mmol/L (137-145)
--- NOTE | 2024-03-06 08:13 | P.PN ---
Subjective Progress Note Date: 03/05/24 Principal diagnosis: Reason for follow-up is pneumoperitoneum and peritonitis Patient is a 63-year-old female past medical history significant for reflux osteoarthritis seizure disorder presenting to the hospital for evaluation of abdominal pain, the patient did have a CT abdominal pelvis evidence of moderate pneumoperitoneum currently being treated medically. Patient is status post expiratory laparotomy with sigmoid resection for perforated mid sigmoid colon descending colostomy drainage of the intra-abdominal abscess and fluid has been sent for culture procedure completed on 02/23/2024 On today's evaluation that is 03/05/2024,the patient remains to be afebrile, patient is on room air not requiring supplemental oxygen and denies any shortness of breath no chest pain or cough.Patient denies having any nausea or vomiting still have the NG in continue to complain of abdominal pain did have some output in the colostomy bag. Patient did have a creatinine 0.61 no CBC was done today Objective - Vital Signs Vital signs: Vital Signs Temp 98.2 F 03/05/24 08:44 Pulse 80 03/05/24 12:27 Resp 17 03/05/24 08:44 BP 120/74 03/05/24 08:44 Pulse Ox 98 03/05/24 08:44 FiO2 Intake & Output 03/04/24 03/05/24 03/05/24 18:59 06:59 18:59 Intake Total 1042 Output Total 125 Balance 1042 -125 Intake: Intake, IV Titration 1042 Amount Sodium Acetate 40 meq 1042 Potassium Chloride 18 meq Calcium Gluconate 1 gm Magnesium Sulfate gm 1 gm Potassium Phosphate 3 mmol In Amino Acids 5 %/ Dextrose 20 % 1,000 ml @ 70 mls/hr IV .BY DURATION [facility] Rx#:[id number] Output: Gastric Drainage 100 Stool 25 Other: Voiding Method Bedside Commode Bedside Commode Bedside Commode # Voids 4 1 - Exam GENERAL DESCRIPTION: Middle-aged female lying in bed in no distress RESPIRATORY SYSTEM: Unlabored breathing , decreased breath sounds at bases HEART: S1 S2 regular rate and rhythm , ABDOMEN: Soft , mild tenderness, no output in colostomy EXTREMITIES: No edema feet - Labs CBC & Chem 7: 03/01/24 06:29 03/06/24 05:16 Labs: Abnormal Lab Results - Last 24 Hours (Table) 03/05/24 03/05/24 03/05/24 Range/Units 03:02 05:40 09:02 BUN 23 H (7-17) mg/dL Glucose 124 H (74-99) mg/dL POC Glucose (mg/dL) 116 H 117 H (70-110) mg/dL Assessment and Plan (1) Peritonitis Current Visit: Yes Status: Acute Code(s): K65.9 - PERITONITIS, UNSPECIFIED SNOMED Code(s): 63774772 (2) Pneumoperitoneum Current Visit: Yes Status: Acute Priority: High Code(s): K66.8 - OTHER SPECIFIED DISORDERS OF PERITONEUM SNOMED Code(s): 88427695 Plan: 1patient presented hospital abdominal pain and this patient who did have abnormal CT suggestive of pneumoperitoneum and some fluid collection in the pelvis concerning for possible perforated bowel could be related to possible perforated diverticulitis, he will need to cover for the enteric gram-negative both aerobes and anaerobes, general surgery following the patient currently recommending bowel rest and antibiotic therapy 2-patient did get a PICC line, patient did have a Repeat abdominal pelvis CT patient mention decreased EF but he did have a fall he had a fluid-filled loculated collection in the low mid pelvis consistent with an abscess and bilateral adnexal masses 3patient is status post laparotomy sigmoid resection, colostomy and drainage of abdominal abscess cultures are currently growing Valencia albicans as well as Valencia glabrata 4-patient to continue with the Zosyn and Eraxis and monitor clinical course closely Dictation was produced using [employer] dictation software. please excuse any grammatical, word or spelling errors. Time with Patient: Less than 30
--- NOTE | 2024-03-06 08:26 | P.PN ---
Subjective Progress Note Date: 03/05/24 This is 63-year-old female admitted with abdominal pain with perforated diverticulitis with abscess, evaluated by general surgery, recommending conservative management. Patient remains n.p.o. receiving TPN and lipids via PICC line. denies chest pain, palpitations or shortness of breath. Positive abdominal pain. Positive bowel movement-reports painful. Diarrhea throughout the night. Repeat CT of abdomen pelvis completed yesterday reported mild free air beneath the diaphragm which is decreased compared to prior study. Air and fluid-filled loculated collection in the low mid pelvis consistent with abscess. Bilateral adnexal masses which either represent abscesses or ovarian neoplasm. Afebrile. Potassium 3.6, supplemented. 02/22/2024 CATTERY OPERATOR and Oncology consulted by general surgery, regarding CT findings. reports decreased abdominal pain, positive cramps with flatus. Remains n.p.o.,maintained on TPN and liquids. Expresses hunger. Potassium 3.2, supplementation ordered. Magnesium 1.8, supplementation ordered. Maintain on IV antibiotics as per infectious disease. Afebrile. 02/23/2024 initially general surgery had planned for IR drain placement of diverticular abscess, but given risk of potential rupture of large ovarian abscesses, plan was aborted. evaluated by Dr. Gutierres, CATTERY OPERATOR with recommendations noted, including assisting in surgery if patient undergoes exploratory laparoto my, potential transfer to a tertiary care center. Ca-125 elevated, 71.6, with CEA, alpha-fetoprotein, beta-hCG pending.patient complaining of worsening abdominal pain accompanied by nausea. N.p.o. ,continues on TPN and lipids, albumin low, significant edema bilateral lower extremities. Complains of mild shortness of breath, maintaining O2 sats of 100% on room air, normal respiratory rate, without respiratory distress. Lasix 40mg IV push x 1 ordered. Afebrile, Tmax 99.2, labs pending. Continues on IV antibiotics. 02/24/2024 this is a 63-year-old female status post exploratory laparotomy with sigmoid resection for perforated mid sigmoid colon, descending colostomy, defunctionalized rectal stump, Ambrose's procedure for perforated sigmoid colon, peritoneal lavage, drainage of intra-abdominal /pelvis abscess, open lysis of adhesions, multiple biopsies of sigmoid colon ,diverticular abscess, ovarian /pelvis abscess, ovarian mass. Tolerated procedure well. Continues on IV fluid hydration, TPN and lipids. Reports pain, recently medicated. Received a dose of Lasix IV push yesterday for fluid overload with significant improvement. Decreased lower extremity edema. Denies chest pain, palpitations. Reports mild shortness of breath. Maintaining O2 sats of 93% on room air. Afebrile, Tmax 100.3, labs pending. Ca-125 elevated, AFP less than 3, CEA less than 2. 02/27/2024 sitting up in chair, complaining of right-sided abdominal pain. Positive nausea and vomiting with minimal bilious emesis. Cytology /pathology pending. Denies vaginal bleeding. Afebrile, WBC increased ,13.02, hemoglobin 8.7, platelets 491, renal function stable. Continues on TPN and lipids with blood sugars controlled. Abdominal wound cultures growing Valencia albicans, yeast, preliminary anaerobic culture reports no anaerobes isolated to date. 02/28/2024 continues on TPN, lipids, IV fluid hydration and antibiotics of Zosyn, fluconazole. Wound culture growing Valencia albicans. Afebrile. dosing off while talking. Pathology of sigmoid colon resection reporting diverticulitis with submucosal abscess, fibrosis, fat necrosis, foreign body multinucleated giant cell reaction and acute serositis consistent with diverticular rupture and perforated viscus. Pelvic/peritoneal fluid lavage cytology reported inflammatory debris with scattered acute and chronic inflammatory cells, nondiagnostic for neoplasia. Tolerating clear liquids with nausea improved. 02/29/2024 abdominal culture growing Valencia albicans and Valencia glabrata .continues on Zosyn and Eraxis staff reports patient hallucinating, delirious. Mother at bedside and reports patient told her she had Cheerios on her shoulder. Patient reports seeing "angels and people". Has not slept well, bicarb 26, colostomy with scant watery drainage, abdomen tender to minimal touch. Reports positive nausea. Afebrile, WBC 10.7, hemoglobin 8.3, platelets 607, sodium 140, potassium 5.5, BUN 12, creatinine 0.5. Blood sugars controlled. UA repeated yesterday reporting negative. 03/01/2024 pain medication regimen adjusted yesterday as per general surgery, received a dose of Abilify, sensorium improving. Ostomy teaching attempted yesterday unsuccessfully Sitting up in chair, complains of significant abdominal pain-reporting right side more painful. Neurology consult in place, recommendations pending. Afebrile, normal WBC, hemoglobin 8.6, platelets 627, electrolytes within normal limits, renal function stable. 03/02/2024 evaluated by neurology, EEG pending .nausea persists, NG tube attempted last night, pulled out.Abdominal x-ray reported multiple air-fluid levels present throughout the abdomen. They involve both small bowel and colon. Consider postsurgical ileus. Maintained on TPN. Reports right-sided abdominal pain, no flatus or stool in ostomy -patient is willing to reattempt NG tube this morning after further discussion with general surgery. Afebrile. 03/03/2024 Patient looks comfortable and relaxed, talking easily and freely No significant pain Hemodynamically stable Remains on Eraxis and Zosyn TPN Surgical wound closed with dressing in place 03/04/2024 pt looks not in distress , no significant abd pain NGT is place, placed two days ago with dark brown aspirate about 500 ml no bowel movement through creatinine normal and sugar controlled on antibiotics eraxis and zosyn 03/05/24 Pt evaluated with NGT in place, she is feeling better today, less abdominal pain and denies nausea. She continues on eraxis and zosyn per ID. She is afebrile. Pt continues to experience dark brown NG tube output today and minimal ostomy output. Objective - Vital Signs Vital signs: Vital Signs Temp 98.6 F 03/06/24 07:16 Pulse 83 03/06/24 07:16 Resp 16 03/06/24 07:16 BP 123/80 03/06/24 07:16 Pulse Ox 99 03/06/24 07:16 FiO2 Intake & Output 03/05/24 03/06/24 03/06/24 18:59 06:59 18:59 Intake Total 1053 Balance 1053 Weight 82.8 kg Intake: Intake, IV Titration 1053 Amount Mvi, Adult No.4 with Vit 1053 K 10 ml Trace (Conc-1Ml/ Dose) 1 ml Sodium Acetate 40 meq Potassium Chloride 18 meq Calcium Gluconate 1 gm Magnesium Sulfate gm 1 gm Potassium Phosphate 3 mmol In Amino Acids 5 %/Dextrose 20 % 1,000 ml @ 70 mls/hr IV .BY DURATION [facility] Rx#: [id number] Other: Voiding Method Bedside Commode # Voids 0 2 - Exam Gen: well developed elderly female in NAD CV: RRR, no murmur Lungs: Normal effort, clear throughout Abd: soft. Distended, Ostomy with healthy tissue. Tender to palpation - Labs CBC & Chem 7: 03/01/24 06:29 03/06/24 05:16 Labs: Abnormal Lab Results - Last 24 Hours (Table) 03/05/24 03/05/24 03/06/24 Range/Units 09:02 17:05 05:16 Chloride 108 H (98-107) mmol/L BUN 23 H (7-17) mg/dL Glucose 110 H (74-99) mg/dL POC Glucose (mg/dL) 117 H 112 H (70-110) mg/dL Assessment and Plan Plan: Continue with current medications and closely monitor renal function and blood counts. Continue NG tube care. Advance diet per surgery. Antibiotic regimen per ID
[2024-03-06 08:36] LABS: Basophils # (A) 0.13 X 10*3/uL (0.00-0.10); Basophils % (A) 2.2 %; Eosinophils # (A) 0.38 X 10*3/uL (0.04-0.35); Eosinophils % (A) 6.5 %; HCT 26.4 % (37.2-46.3); HGB 8.3 g/dL (12.0-15.0); Lymphocytes # (A) 1.63 X 10*3/uL (0.90-5.00); MCH 28.1 pg (27.0-32.0); MCHC 31.4 g/dL (32.0-37.0); MCV 89.5 FL (80.0-97.0); Mean Platelet Volume 9.2 FL (9.5-12.2); Monocytes # (A) 0.72 X 10*3/uL (0.20-1.00); Monocytes % (A) 12.3 %; NRBC Per 100 WBC 0 X 10*3/uL (0.00-0.01); Neutrophils # (A) 2.89 X 10*3/uL (1.80-7.70); Neutrophils % (A) 49.6 %; Platelet Count 654 X 10*3/uL (140-440); RBC 2.95 X 10*6/uL (4.10-5.20); RDW 16.2 % (11.5-14.5); WBC 5.83 X 10*3/uL (4.50-10.00)
[2024-03-06] MEDS: IOPAMIDOL CONTRAST (ORAL USE) VIAL PO PRN (09:16)
[2024-03-06 11:25] LABS: Glucose,Whole Blood 118 mg/dL (70-110)
--- NOTE | 2024-03-06 11:42 | P.PN ---
Subjective Progress Note Date: 03/06/24 CHIEF COMPLAINT: Diverticulitis HISTORY OF PRESENT ILLNESS: Patient is status post Exploratory laparotomy with sigmoid resection for perforated mid sigmoid colon and Descending colostomy on 02/23/24. Patient has a small amount of liquidy hinojosa output through her ostomy. She denies any nausea or vomiting. She does complain continue to complain of right-sided abdominal pain. She is only eating small amount of her low fiber diet. Afebrile. WBC 5.83 Hgb 8.3 PHYSICAL EXAM: VITAL SIGNS: Reviewed GENERAL: Well-developed in no acute distress. HEENT: No sclera icterus. Extraocular movements grossly intact. Moist buccal mucosa. Head is atraumatic, normocephalic. Hears conversational speech. No nasal drainage. NECK: Supple without lymphadenopathy. CHEST: Non-labored respirations and equal bilateral excursions. CARDIOVASCULAR: Palpable 2+ radial pulses. ABDOMEN: Soft. Incisional dressing with a small amount of drainage at the distal aspect. Ostomy with beefy red stoma. Patient has a very small amount of hinojosa liquid in ostomy bag MUSCULOSKELETAL: No clubbing or cyanosis. NEUROLOGIC: No focal or lateralizing signs. Cranial nerves II through XII grossly intact. PSYCH: confused SKIN: Well perfused. Good skin turgor. ASSESSMENT: 1. Perforated complicated sigmoid diverticulitis with pelvic abscess 2. Bilateral ovarian complex neoplasm, over 6 cm 3. Obesity due to excess calories, BMI 30.2 4. Depressive disorder 5. Osteoporosis 6. Seizure disorder 7. Gastroesophageal reflux disease 8. Hypokalemia and hypomagnesemia have been corrected 9. Ileus expected postoperatively 10. Confusion PLAN: -CT scan abdomen pelvis ordered for further evaluation of abdominal pain -Continue TPN until oral intake has increased -Encourage patient to ambulate -Cell cytology is nondiagnostic for malignancy however clinical features were consistent with complicated bilateral ovarian neoplasms. Patient will need to follow-up with POLYSOMNOGRAPHIC TECH or POLYSOMNOGRAPHIC TECH ONC outpatient -Antibiotic management per ID -Continue pain management -Encourage patient to use incentive spirometer -DVT prophylaxis subcu heparin Physician Melt Superintendant note has been reviewed by physician. Signing provider agrees with the documented findings, assessment, and plan of care. Objective - Vital Signs Vital signs: Vital Signs Temp 98.6 F 03/06/24 07:16 Pulse 88 03/06/24 08:46 Resp 18 05/21/24 08:46 BP 123/80 03/06/24 07:16 Pulse Ox 99 03/06/24 07:16 FiO2 Intake & Output 03/05/24 03/06/24 03/06/24 18:59 06:59 18:59 Intake Total 1053 Balance 1053 Weight 82.8 kg Intake: Intake, IV Titration 1053 Amount Mvi, Adult No.4 with Vit 1053 K 10 ml Trace (Conc-1Ml/ Dose) 1 ml Sodium Acetate 40 meq Potassium Chloride 18 meq Calcium Gluconate 1 gm Magnesium Sulfate gm 1 gm Potassium Phosphate 3 mmol In Amino Acids 5 %/Dextrose 20 % 1,000 ml @ 70 mls/hr IV .BY DURATION [facility] Rx#: [id number] Other: Voiding Method Bedside Commode # Voids 0 2 - Labs CBC & Chem 7: 03/06/24 05:16 03/06/24 05:16 Labs: Abnormal Lab Results - Last 24 Hours (Table) 03/05/24 03/06/24 03/06/24 Range/Units 17:05 05:16 05:16 RBC 2.95 L (4.10-5.20) X 10*6/uL Hgb 8.3 L (12.0-15.0) g/dL Hct 26.4 L (37.2-46.3) % MCHC 31.4 L (32.0-37.0) g/dL RDW 16.2 H (11.5-14.5) % Plt Count 654 H (140-440) X 10*3/uL MPV 9.2 L (9.5-12.2) FL Immature Gran # 0.08 H (0.00-0.04) X 10*3/uL Eosinophils # 0.38 H (0.04-0.35) X 10*3/uL Basophils # 0.13 H (0.00-0.10) X 10*3/uL Chloride 108 H (98-107) mmol/L BUN 23 H (7-17) mg/dL Glucose 110 H (74-99) mg/dL POC Glucose (mg/dL) 112 H (70-110) mg/dL 03/06/24 Range/Units 11:23 RBC (4.10-5.20) X 10*6/uL Hgb (12.0-15.0) g/dL Hct (37.2-46.3) % MCHC (32.0-37.0) g/dL RDW (11.5-14.5) % Plt Count (140-440) X 10*3/uL MPV (9.5-12.2) FL Immature Gran # (0.00-0.04) X 10*3/uL Eosinophils # (0.04-0.35) X 10*3/uL Basophils # (0.00-0.10) X 10*3/uL Chloride (98-107) mmol/L BUN (7-17) mg/dL Glucose (74-99) mg/dL POC Glucose (mg/dL) 118 H (70-110) mg/dL
--- NOTE | 2024-03-06 12:36 | P.PN ---
Subjective Progress Note Date: 03/06/24 I am seeing the patient for the first time during this admission. Please refer to Dr. Holcomb's notes for further details. It seems that the patient has altered mental status likely due to delirium from postop status and she is doing much better according to the patient and her mother was at bedside. To the mother her mentation is drastically improved. She had status post laparotomy for perforated diverticulitis. She has underlying history of epilepsy that is well-controlled on Depakote for years and she stated she has not had a seizure in 31 years. Objective - Vital Signs Vital signs: Vital Signs Temp 98.6 F 03/06/24 07:16 Pulse 82 03/06/24 11:48 Resp 18 03/06/24 11:48 BP 123/80 03/06/24 07:16 Pulse Ox 99 03/06/24 07:16 FiO2 Intake & Output 03/05/24 03/06/24 03/06/24 18:59 06:59 18:59 Intake Total 1053 Balance 1053 Weight 82.8 kg Intake: Intake, IV Titration 1053 Amount Mvi, Adult No.4 with Vit 1053 K 10 ml Trace (Conc-1Ml/ Dose) 1 ml Sodium Acetate 40 meq Potassium Chloride 18 meq Calcium Gluconate 1 gm Magnesium Sulfate gm 1 gm Potassium Phosphate 3 mmol In Amino Acids 5 %/Dextrose 20 % 1,000 ml @ 70 mls/hr IV .BY DURATION [facility] Rx#: [id number] Other: Voiding Method Bedside Commode # Voids 0 2 - Exam General: Sitting on side of bed and is not in acute distress. Neuro: The patient is awake alert oriented to self place and time. Patient is following simple commands. No aphasia no neglect No facial weakness No dysarthria Motor is lifting in all extremities above gravity equally. - Labs CBC & Chem 7: 03/06/24 05:16 03/06/24 05:16 Labs: Abnormal Lab Results - Last 24 Hours (Table) 03/05/24 03/06/24 03/06/24 Range/Units 17:05 05:16 05:16 RBC 2.95 L (4.10-5.20) X 10*6/uL Hgb 8.3 L (12.0-15.0) g/dL Hct 26.4 L (37.2-46.3) % MCHC 31.4 L (32.0-37.0) g/dL RDW 16.2 H (11.5-14.5) % Plt Count 654 H (140-440) X 10*3/uL MPV 9.2 L (9.5-12.2) FL Immature Gran # 0.08 H (0.00-0.04) X 10*3/uL Eosinophils # 0.38 H (0.04-0.35) X 10*3/uL Basophils # 0.13 H (0.00-0.10) X 10*3/uL Chloride 108 H (98-107) mmol/L BUN 23 H (7-17) mg/dL Glucose 110 H (74-99) mg/dL POC Glucose (mg/dL) 112 H (70-110) mg/dL 03/06/24 Range/Units 11:23 RBC (4.10-5.20) X 10*6/uL Hgb (12.0-15.0) g/dL Hct (37.2-46.3) % MCHC (32.0-37.0) g/dL RDW (11.5-14.5) % Plt Count (140-440) X 10*3/uL MPV (9.5-12.2) FL Immature Gran # (0.00-0.04) X 10*3/uL Eosinophils # (0.04-0.35) X 10*3/uL Basophils # (0.00-0.10) X 10*3/uL Chloride (98-107) mmol/L BUN (7-17) mg/dL Glucose (74-99) mg/dL POC Glucose (mg/dL) 118 H (70-110) mg/dL Assessment and Plan Assessment: * Altered mental status, likely due to acute delirium from postoperative status, recent peritonitis, pain medications---improved * Status post laparotomy for perforated diverticulitis, 02/23/2024 * Pelvic abscess * Depression * History of epilepsy, well-controlled on Depakote * Ileus * Anemia * Ex tobacco use Plan: * EEG was probably normal awake and drowsy EEG. No definite if focal, lateralized or epileptiform activity was seen. The study was technically limi baltazar because of the patient's frequent movement artifact during the study. If your suspicion for seizures is high, suggest prolonged, sleep deprived EEG. * Patient was on Depakote 250 mg 4 times daily at home. While in the hospital patient is currently receiving Depakote 250 mg IV every 8 hours. I resume her home PO Valproic medication and stopped IV. * Depakote level is 41.7 (50-100) * I recommend the patient to follow-up with a neurologist as an outpatient for her chronic epilepsy * Defer the rest of the medical management to primary and other specialist Plan discussed with the patient and her mother was at bedside There is no further neurological workup. Will sign off. Please reconsult if needed. Time with Patient: Less than 30
--- NOTE | 2024-03-06 12:38 | CT ---
EXAMINATION TYPE: CT abdomen pelvis w con CT DLP: 852.1 mGycm, Automated exposure control for dose reduction was used. DATE OF EXAM: 03/06/2024 11:08 AM COMPARISON: CT abdomen pelvis most recent from 02/20/2024. CLINICAL INDICATION:Female, 63 years old with history of abdominal pain; Pain, pneumoperitoneum TECHNIQUE: Axial CT abdomen pelvis w con;Sagittal and coronal reformats were created on a separate w orkstation. Contrast used:100 mL of Isovue 300 with IV Contrast, (none if empty) Oral contrast used: with Oral Contrast (none if empty) FINDINGS: LOWER CHEST: Unremarkable ABDOMEN LIVER: Unremarkable GALLBLADDER AND BILE DUCTS: Unremarkable. PANCREAS: Unremarkable. SPLEEN: Unremarkable. ADRENAL GLANDS: Unremarkable. KIDNEYS AND URETERS: No evidence of hydronephrosis or renal calculus. The ureters are unremarkable. PELVIS BLADDER: Unremarkable REPRODUCTIVE: Redemonstration of bilateral ovarian/adnexal masses on the right measuring 74 x 50 mm a nd on the left measuring 45 x 45 mm ABDOMEN & PELVIS STOMACH AND BOWEL: No evidence of bowel obstruction. Postsurgical changes to the bowel. PERITONEUM/RETROPERITONEUM: No evidence of pneumoperitoneum. Fluid collections in the pelvis and pelv is have decreased there is now small fluid collection in the deep pelvis just anterior to the sigmoid colon series 203 image 58 measuring at least 20 x 56 mm which is somewhat elongated with fingerlike extension. VASCULATURE: No evidence of aortic aneurysm. MUSCULOSKELETAL: No acute osseous abnormalities LYMPH NODES: No gross evidence for lymphadenopathy. SOFT TISSUE/ABDOMINAL WALL: Left abdominal ostomy is present. No evidence for obstruction. Postsurgical changes fat containing umbilical hernia. IMPRESSION: 1. Decrease in free fluid in the abdomen with post surgical change. There remains small fluid collect ion in the deep pelvis just anterior to the rectum/sigmoid colon. 2. Persistent bilateral adnexal masses possibly related to the ovary and/or abscesses. Short-term fol low-up recommended with MRI pelvis with IV contrast in 3 months.
[2024-03-06] MEDS: DIVALPROEX 250 MG TABLET.DR PO SCH (14:26)
--- NOTE | 2024-03-06 14:40 | P.PN ---
Subjective Progress Note Date: 03/06/24 Principal diagnosis: Reason for follow-up is pneumoperitoneum and peritonitis Patient is a 63-year-old female past medical history significant for reflux osteoarthritis seizure disorder presenting to the hospital for evaluation of abdominal pain, the patient did have a CT abdominal pelvis evidence of moderate pneumoperitoneum currently being treated medically. Patient is status post expiratory laparotomy with sigmoid resection for perforated mid sigmoid colon descending colostomy drainage of the intra-abdominal abscess and fluid has been sent for culture procedure completed on 02/23/2024 On today's evaluation that is 03/06/2024, the patient continues to be afebrile, the patient is on room air and breathing comfortably, the Pt denies having any chest pain or cough, the patient did have removal of the NG no nausea vomiting abdominal pain has improved and did have output in her colostomy bag. Patient white count is 5.83, creatinine 0.63 Objective - Vital Signs Vital signs: Vital Signs Temp 97.5 F L 03/06/24 13:43 Pulse 94 03/06/24 13:43 Resp 17 03/06/24 13:43 BP 108/73 03/06/24 13:43 Pulse Ox 99 03/06/24 13:43 FiO2 Intake & Output 03/05/24 03/06/24 03/06/24 18:59 06:59 18:59 Intake Total 1053 Output Total 725 Balance 1053 -725 Weight 82.8 kg Intake: Intake, IV Titration 1053 Amount Mvi, Adult No.4 with Vit 1053 K 10 ml Trace (Conc-1Ml/ Dose) 1 ml Sodium Acetate 40 meq Potassium Chloride 18 meq Calcium Gluconate 1 gm Magnesium Sulfate gm 1 gm Potassium Phosphate 3 mmol In Amino Acids 5 %/Dextrose 20 % 1,000 ml @ 70 mls/hr IV .BY DURATION [facility] Rx#: [id number] Output: Urine/Stool Mix 725 Other: Voiding Method Bedside Commode # Voids 0 2 - Exam GENERAL DESCRIPTION: Middle-aged female lying in bed in no distress RESPIRATORY SYSTEM: Unlabored breathing , decreased breath sounds at bases HEART: S1 S2 regular rate and rhythm , ABDOMEN: Soft , mild tenderness, no output in colostomy EXTREMITIES: No edema feet - Labs CBC & Chem 7: 03/06/24 05:16 03/06/24 05:16 Labs: Abnormal Lab Results - Last 24 Hours (Table) 03/05/24 03/06/24 03/06/24 Range/Units 17:05 05:16 05:16 RBC 2.95 L (4.10-5.20) X 10*6/uL Hgb 8.3 L (12.0-15.0) g/dL Hct 26.4 L (37.2-46.3) % MCHC 31.4 L (32.0-37.0) g/dL RDW 16.2 H (11.5-14.5) % Plt Count 654 H (140-440) X 10*3/uL MPV 9.2 L (9.5-12.2) FL Immature Gran # 0.08 H (0.00-0.04) X 10*3/uL Eosinophils # 0.38 H (0.04-0.35) X 10*3/uL Basophils # 0.13 H (0.00-0.10) X 10*3/uL Chloride 108 H (98-107) mmol/L BUN 23 H (7-17) mg/dL Glucose 110 H (74-99) mg/dL POC Glucose (mg/dL) 112 H (70-110) mg/dL 03/06/24 Range/Units 11:23 RBC (4.10-5.20) X 10*6/uL Hgb (12.0-15.0) g/dL Hct (37.2-46.3) % MCHC (32.0-37.0) g/dL RDW (11.5-14.5) % Plt Count (140-440) X 10*3/uL MPV (9.5-12.2) FL Immature Gran # (0.00-0.04) X 10*3/uL Eosinophils # (0.04-0.35) X 10*3/uL Basophils # (0.00-0.10) X 10*3/uL Chloride (98-107) mmol/L BUN (7-17) mg/dL Glucose (74-99) mg/dL POC Glucose (mg/dL) 118 H (70-110) mg/dL Assessment and Plan (1) Peritonitis Current Visit: Yes Status: Acute Code(s): K65.9 - PERITONITIS, UNSPECIFIED SNOMED Code(s): 57705588 (2) Pneumoperitoneum Current Visit: Yes Status: Acute Priority: High Code(s): K66.8 - OTHER SPECIFIED DISORDERS OF PERITONEUM SNOMED Code(s): 55314180 Plan: 1patient presented hospital abdominal pain and this patient who did have abnormal CT suggestive of pneumoperitoneum and some fluid collection in the pelvis concerning for possible perforated bowel could be related to possible perforated diverticulitis, he will need to cover for the enteric gram-negative both aerobes and anaerobes, general surgery following the patient currently recommending bowel rest and antibiotic therapy 2-patient did get a PICC line, patient did have a Repeat abdominal pelvis CT patient mention decreased EF but he did have a fall he had a fluid-filled loculated collection in the low mid pelvis consistent with an abscess and bilateral adnexal masses 3patient is status post laparotomy sigmoid resection, colostomy and drainage of abdominal abscess cultures are currently growing Valencia albicans as well as Valencia glabrata 4-patient to continue with the Zosyn and Eraxis, however plan is to finish therapy with oral Augmentin and voriconazole once stable for discharge Dictation was produced using [employer] dictation software. please excuse any grammatical, word or spelling errors. Time with Patient: Less than 30
[2024-03-06 16:20] LABS: Glucose,Whole Blood 133 mg/dL (70-110)
[2024-03-06 20:23] LABS: Glucose,Whole Blood 118 mg/dL (70-110)
[2024-03-07 06:24] LABS: Glucose,Whole Blood 85 mg/dL (70-110)
[2024-03-07 06:44] LABS: African American GFR (CKD) >90 (>60 ml/min/1.73 sqM); Anion Gap 5 mmol/L; Blood Urea Nitrogen 18 mg/dL (7-17); Calcium 9.2 mg/dL (8.4-10.2); Carbon Dioxide 24 mmol/L (22-30); Chloride 110 mmol/L (98-107); Glucose 88 mg/dL (74-99); Magnesium 2.1 mg/dL (1.6-2.3); Non-African American GFR(CKD) >90 (>60 ml/min/1.73 sqM); Phosphorus 3.9 mg/dL (2.5-4.5); Potassium 4.2 mmol/L (3.5-5.1); Sodium 139 mmol/L (137-145)
[2024-03-07 11:17] LABS: Glucose,Whole Blood 126 mg/dL (70-110)
[2024-03-07 16:31] LABS: Glucose,Whole Blood 118 mg/dL (70-110)
--- NOTE | 2024-03-07 21:33 | P.PN ---
Subjective Progress Note Date: 03/07/24 CHIEF COMPLAINT: Diverticulitis HISTORY OF PRESENT ILLNESS: The patient is a 63-year-old female status post colectomy and Ambrose's procedure, 02/23/2024. Additional diagnostic studies were obtained yesterday. Patient reports that she does not like the taste of hospital food. She is ambulating on the floor. She reports that she is doing very well and overqualified for potential rehab. ROS: No fevers or chills. No new chest pain. No productive sputum PHYSICAL EXAM: VITAL SIGNS: Reviewed CONSTITUTIONAL: Well developed and in no acute distress. EYES: Conjuctivae without sclera icterus. Extraocular movements grossly intact. HEAD, EARS, NOSE, THROAT: Moist buccal mucosa. Head is atraumatic, normocephalic. Hears conversational speech. No nasal drainage. RESPIRATORY: Non-labored respirations and equal bilateral excursions. CARDIOVASCULAR: Palpable 2+ radial pulses. ABDOMEN: Ostomy pink patent with stool and flatus. No peritonitis. MUSCULOSKELETAL: No gross deformity of the lower extremities noted. No clubbing. No cyanosis. SKIN: Good skin turgor. Well perfused. NEUROLOGIC: Cranial nerves II through XII grossly intact. No focal or lateralizing signs. PSYCH: Appropriate affect. Alert and oriented to person, place and time. CLINICAL LABS: Reviewed. WBC normal. STUDIES: CT of the abdomen pelvis independently reviewed demonstrates no evidence of bowel obstruction. Contrast reached to the ostomy. Persistent bilateral ovarian masses identified. No free air. ASSESSMENT: 1. Complicated perforated diverticulitis 2. Bilateral ovarian neoplasms 3. Peritonitis due to Valencia 4. Expected ileus due to perforated diverticulitis/peritonitis PLAN: 1. Patient is tolerating diet however wants more variety. May have outside food of her preference. 2. Continue with physical therapy and Occupational Therapy with anticipated discharge directly to home. 3. Home health care resources assessed. 4. Stable for discharge once antibiotic management reach including discontinuation of TPN. Objective - Vital Signs Vital signs: Vital Signs Temp 98.5 F 03/07/24 19:05 Pulse 91 03/07/24 19:05 Resp 19 03/07/24 19:05 BP 103/70 03/07/24 19:05 Pulse Ox 98 03/07/24 19:05 FiO2 Intake & Output 03/07/24 03/07/24 03/08/24 06:59 18:59 06:59 Output Total 250 200 Balance -250 -200 Weight 82.8 kg Output: Stool 250 Urine/Stool Mix 200 Other: Voiding Method Toilet # Voids 2 4 - Labs CBC & Chem 7: 03/06/24 05:16 03/07/24 05:38 Labs: Abnormal Lab Results - Last 24 Hours (Table) 03/07/24 03/07/24 03/07/24 Range/Units 05:38 11:16 16:30 Chloride 110 H (98-107) mmol/L BUN 18 H (7-17) mg/dL POC Glucose (mg/dL) 126 H 118 H (70-110) mg/dL
--- NOTE | 2024-03-07 22:21 | P.PN ---
Subjective Progress Note Date: 03/07/24 Principal diagnosis: Reason for follow-up is pneumoperitoneum and peritonitis Patient is a 63-year-old female past medical history significant for reflux osteoarthritis seizure disorder presenting to the hospital for evaluation of abdominal pain, the patient did have a CT abdominal pelvis evidence of moderate pneumoperitoneum currently being treated medically. Patient is status post expiratory laparotomy with sigmoid resection for perforated mid sigmoid colon descending colostomy drainage of the intra-abdominal abscess and fluid has been sent for culture procedure completed on 02/23/2024 On today's evaluation that is 03/07/2024, Patient is afebrile patient is cu rrently on room air and denies having any shortness of breath, the patient denies any chest pain or cough, the patient denies any nausea vomiting still complaining of some abdominal pain and distention but no worsening did have output in her colostomy bag. Patient did have a creatinine 0.61 white count was 5.83 as of yesterday culture positive for Valencia glabrata and albicans Objective - Vital Signs Vital signs: Vital Signs Temp 98.2 F 03/07/24 14:08 Pulse 80 03/07/24 14:08 Resp 16 03/07/24 14:08 BP 111/65 03/07/24 14:08 Pulse Ox 94 L 03/07/24 14:08 FiO2 Intake & Output 03/06/24 03/07/24 03/07/24 18:59 06:59 18:59 Output Total 1025 250 Balance -1025 -250 Output: Stool 250 Urine/Stool Mix 1025 Other: Voiding Method Toilet # Voids 4 2 - Exam GENERAL DESCRIPTION: Middle-aged female lying in bed in no distress RESPIRATORY SYSTEM: Unlabored breathing , decreased breath sounds at bases HEART: S1 S2 regular rate and rhythm , ABDOMEN: Soft , mild tenderness, no output in colostomy EXTREMITIES: No edema feet - Labs CBC & Chem 7: 03/06/24 05:16 03/07/24 05:38 Labs: Abnormal Lab Results - Last 24 Hours (Table) 03/06/24 03/06/24 03/07/24 Range/Units 16:18 20:11 05:38 Chloride 110 H (98-107) mmol/L BUN 18 H (7-17) mg/dL POC Glucose (mg/dL) 133 H 118 H (70-110) mg/dL 03/07/24 Range/Units 11:16 Chloride (98-107) mmol/L BUN (7-17) mg/dL POC Glucose (mg/dL) 126 H (70-110) mg/dL Assessment and Plan (1) Peritonitis Current Visit: Yes Status: Acute Code(s): K65.9 - PERITONITIS, UNSPECIFIED SNOMED Code(s): 24386913 (2) Pneumoperitoneum Current Visit: Yes Status: Acute Priority: High Code(s): K66.8 - OTHER SPECIFIED DISORDERS OF PERITONEUM SNOMED Code(s): 05050713 Plan: 1patient presented hospital abdominal pain and this patient who did have abnormal CT suggestive of pneumoperitoneum and some fluid collection in the pelvis concerning for possible perforated bowel could be related to possible perforated diverticulitis, he will need to cover for the enteric gram-negative both aerobes and anaerobes, general surgery following the patient currently recommending bowel rest and antibiotic therapy 2-patient did get a PICC line, patient did have a Repeat abdominal pelvis CT patient mention decreased EF but he did have a fall he had a fluid-filled loculated collection in the low mid pelvis consistent with an abscess and bilateral adnexal masses 3patient is status post laparotomy sigmoid resection, colostomy and drainage of abdominal abscess cultures are currently growing Valencia albicans as well as Valencia glabrata 4-patient to continue with the Zosyn and Eraxis, however the patient remains to be afebrile white count has been normal plan is to finish therapy with oral Augmentin and voriconazole x 10 days on discharge Dictation was produced using [employer] dictation software. please excuse any grammatical, word or spelling errors.
[2024-03-07 23:01] LABS: Glucose,Whole Blood 89 mg/dL (70-110)
[2024-03-08 05:29] LABS: Glucose,Whole Blood 84 mg/dL (70-110)
[2024-03-08 07:01] LABS: African American GFR (CKD) >90 (>60 ml/min/1.73 sqM); Anion Gap 6 mmol/L; Blood Urea Nitrogen 18 mg/dL (7-17); Calcium 9.7 mg/dL (8.4-10.2); Carbon Dioxide 26 mmol/L (22-30); Chloride 107 mmol/L (98-107); Glucose 78 mg/dL (74-99); Non-African American GFR(CKD) >90 (>60 ml/min/1.73 sqM); Phosphorus 5.2 mg/dL (2.5-4.5); Potassium 4.8 mmol/L (3.5-5.1); Sodium 139 mmol/L (137-145)
[2024-03-08 08:09] LABS: Basophils # (A) 0.1 k/uL (0-0.2); Basophils % (A) 2 %; Eosinophils # (A) 0.3 k/uL (0-0.7); Eosinophils % (A) 5 %; HCT 30.3 % (34.0-46.0); HGB 9.3 gm/dL (11.4-16.0); Hypochromasia Moderate; Lymphocytes # (A) 1.6 k/uL (1.0-4.8); Lymphocytes % (A) 33 %; MCH 28.6 pg (25.0-35.0); MCHC 30.6 g/dL (31.0-37.0); MCV 93.6 fL (80.0-100.0); Mean Platelet Volume 7.8; Monocytes # (A) 0.4 k/uL (0-1.0); Monocytes % (A) 8 %; Neutrophils # (A) 2.4 k/uL (1.3-7.7); Neutrophils % (A) 49 %; Platelet Count 634 k/uL (150-450); RBC 3.23 m/uL (3.80-5.40); RDW 15.1 % (11.5-15.5); WBC 4.9 k/uL (3.8-10.6)
--- NOTE | 2024-03-08 08:59 | P.PN ---
Subjective Progress Note Date: 03/06/24 This is 63-year-old female admitted with abdominal pain with perforated diverticulitis with abscess, evaluated by general surgery, recommending conservative management. Patient remains n.p.o. receiving TPN and lipids via PICC line. denies chest pain, palpitations or shortness of breath. Positive abdominal pain. Positive bowel movement-reports painful. Diarrhea throughout the night. Repeat CT of abdomen pelvis completed yesterday reported mild free air beneath the diaphragm which is decreased compared to prior study. Air and fluid-filled loculated collection in the low mid pelvis consistent with abscess. Bilateral adnexal masses which either represent abscesses or ovarian neoplasm. Afebrile. Potassium 3.6, supplemented. 02/22/2024 PEDIATRIC PATHOLOGIST and Oncology consulted by general surgery, regarding CT findings. reports decreased abdominal pain, positive cramps with flatus. Remains n.p.o.,maintained on TPN and liquids. Expresses hunger. Potassium 3.2, supplementation ordered. Magnesium 1.8, supplementation ordered. Maintain on IV antibiotics as per infectious disease. Afebrile. 02/23/2024 initially general surgery had planned for IR drain placement of diverticular abscess, but given risk of potential rupture of large ovarian abscesses, plan was aborted. evaluated by Dr. Gutierres, PEDIATRIC PATHOLOGIST with recommendations noted, including assisting in surgery if patient undergoes exploratory laparoto my, potential transfer to a tertiary care center. Ca-125 elevated, 71.6, with CEA, alpha-fetoprotein, beta-hCG pending.patient complaining of worsening abdominal pain accompanied by nausea. N.p.o. ,continues on TPN and lipids, albumin low, significant edema bilateral lower extremities. Complains of mild shortness of breath, maintaining O2 sats of 100% on room air, normal respiratory rate, without respiratory distress. Lasix 40mg IV push x 1 ordered. Afebrile, Tmax 99.2, labs pending. Continues on IV antibiotics. 02/24/2024 this is a 63-year-old female status post exploratory laparotomy with sigmoid resection for perforated mid sigmoid colon, descending colostomy, defunctionalized rectal stump, Ambrose's procedure for perforated sigmoid colon, peritoneal lavage, drainage of intra-abdominal /pelvis abscess, open lysis of adhesions, multiple biopsies of sigmoid colon ,diverticular abscess, ovarian /pelvis abscess, ovarian mass. Tolerated procedure well. Continues on IV fluid hydration, TPN and lipids. Reports pain, recently medicated. Received a dose of Lasix IV push yesterday for fluid overload with significant improvement. Decreased lower extremity edema. Denies chest pain, palpitations. Reports mild shortness of breath. Maintaining O2 sats of 93% on room air. Afebrile, Tmax 100.3, labs pending. Ca-125 elevated, AFP less than 3, CEA less than 2. 02/27/2024 sitting up in chair, complaining of right-sided abdominal pain. Positive nausea and vomiting with minimal bilious emesis. Cytology /pathology pending. Denies vaginal bleeding. Afebrile, WBC increased ,13.02, hemoglobin 8.7, platelets 491, renal function stable. Continues on TPN and lipids with blood sugars controlled. Abdominal wound cultures growing Valencia albicans, yeast, preliminary anaerobic culture reports no anaerobes isolated to date. 02/28/2024 continues on TPN, lipids, IV fluid hydration and antibiotics of Zosyn, fluconazole. Wound culture growing Valencia albicans. Afebrile. dosing off while talking. Pathology of sigmoid colon resection reporting diverticulitis with submucosal abscess, fibrosis, fat necrosis, foreign body multinucleated giant cell reaction and acute serositis consistent with diverticular rupture and perforated viscus. Pelvic/peritoneal fluid lavage cytology reported inflammatory debris with scattered acute and chronic inflammatory cells, nondiagnostic for neoplasia. Tolerating clear liquids with nausea improved. 02/29/2024 abdominal culture growing Valencia albicans and Valencia glabrata .continues on Zosyn and Eraxis staff reports patient hallucinating, delirious. Mother at bedside and reports patient told her she had Cheerios on her shoulder. Patient reports seeing "angels and people". Has not slept well, bicarb 26, colostomy with scant watery drainage, abdomen tender to minimal touch. Reports positive nausea. Afebrile, WBC 10.7, hemoglobin 8.3, platelets 607, sodium 140, potassium 5.5, BUN 12, creatinine 0.5. Blood sugars controlled. UA repeated yesterday reporting negative. 03/01/2024 pain medication regimen adjusted yesterday as per general surgery, received a dose of Abilify, sensorium improving. Ostomy teaching attempted yesterday unsuccessfully Sitting up in chair, complains of significant abdominal pain-reporting right side more painful. Neurology consult in place, recommendations pending. Afebrile, normal WBC, hemoglobin 8.6, platelets 627, electrolytes within normal limits, renal function stable. 03/02/2024 evaluated by neurology, EEG pending .nausea persists, NG tube attempted last night, pulled out.Abdominal x-ray reported multiple air-fluid levels present throughout the abdomen. They involve both small bowel and colon. Consider postsurgical ileus. Maintained on TPN. Reports right-sided abdominal pain, no flatus or stool in ostomy -patient is willing to reattempt NG tube this morning after further discussion with general surgery. Afebrile. 03/03/2024 Patient looks comfortable and relaxed, talking easily and freely No significant pain Hemodynamically stable Remains on Eraxis and Zosyn TPN Surgical wound closed with dressing in place 03/04/2024 pt looks not in distress , no significant abd pain NGT is place, placed two days ago with dark brown aspirate about 500 ml no bowel movement through creatinine normal and sugar controlled on antibiotics eraxis and zosyn 03/05/24 Pt evaluated with NGT in place, she is feeling better today, less abdominal pain and denies nausea. She continues on eraxis and zosyn per ID. She is afebrile. Pt continues to experience dark brown NG tube output today and minimal ostomy output. 03/06/24 Pt is tolerating low fiber diet, states her abdominal pain is improving. She had repeat CT scan which showed reduction in the size of fluid collection. No fever, chills. Objective - Vital Signs Vital signs: Vital Signs Temp 97.9 F 03/08/24 07:16 Pulse 84 03/08/24 08:16 Resp 16 03/08/24 07:16 BP 99/65 03/08/24 07:16 Pulse Ox 95 03/08/24 07:16 FiO2 Intake & Output 03/07/24 03/08/24 03/08/24 18:59 06:59 18:59 Output Total 200 Balance -200 Weight 82.8 kg Output: Urine/Stool Mix 200 Other: Voiding Method Toilet # Voids 4 1 - Exam Gen: well developed elderly female in NAD CV: RRR, no murmur Lungs: Normal effort, clear throughout Abd: soft. Distended, Ostomy with healthy tissue. Tender to palpation - Labs CBC & Chem 7: 03/08/24 06:17 03/08/24 06:18 Labs: Abnormal Lab Results - Last 24 Hours (Table) 03/07/24 03/07/24 03/08/24 Range/Units 11:16 16:30 06:17 RBC 3.23 L (3.80-5.40) m/uL Hgb 9.3 L (11.4-16.0) gm/dL Hct 30.3 L (34.0-46.0) % MCHC 30.6 L (31.0-37.0) g/dL Plt Count 634 H (150-450) k/uL BUN (7-17) mg/dL POC Glucose (mg/dL) 126 H 118 H (70-110) mg/dL Phosphorus (2.5-4.5) mg/dL 03/08/24 Range/Units 06:18 RBC (3.80-5.40) m/uL Hgb (11.4-16.0) gm/dL Hct (34.0-46.0) % MCHC (31.0-37.0) g/dL Plt Count (150-450) k/uL BUN 18 H (7-17) mg/dL POC Glucose (mg/dL) (70-110) mg/dL Phosphorus 5.2 H (2.5-4.5) mg/dL Assessment and Plan Plan: Continue with current medications and closely monitor renal function and blood counts. Ddiet per surgery. Antibiotic regimen per ID
[2024-03-08] MEDS: ENOXAPARIN 40 MG/0.4 ML SYRINGE SQ SCH (09:29)
[2024-03-08 11:30] LABS: Glucose,Whole Blood 88 mg/dL (70-110)
--- NOTE | 2024-03-08 14:42 | P.PN ---
Subjective Progress Note Date: 03/08/24 CHIEF COMPLAINT: Diverticulitis HISTORY OF PRESENT ILLNESS: The patient is a 63-year-old female status post colectomy and Ambrose's procedure, 02/23/2024. She was tolerating diet. She is ambulating. She has ostomy functioning with stool. She reports occasional right-sided abdominal pain that has been pre-existing. Diagnostic studies demonstrated no fluid collections along the right abdomen. ROS: No fevers or chills. No new chest pain. No productive sputum PHYSICAL EXAM: VITAL SIGNS: Reviewed CONSTITUTIONAL: Well developed and in no acute distress. EYES: Conjuctivae without sclera icterus. Extraocular movements grossly intact. HEAD, EARS, NOSE, THROAT: Moist buccal mucosa. Head is atraumatic, normocephalic. Hears conversational speech. No nasal drainage. RESPIRATORY: Non-labored respirations and equal bilateral excursions. CARDIOVASCULAR: Palpable 2+ radial pulses. ABDOMEN: Ostomy pink patent with stool and flatus. No peritonitis. Dressing intact. MUSCULOSKELETAL: No gross deformity of the lower extremities noted. No clubbing. No cyanosis. SKIN: Good skin turgor. Well perfused. NEUROLOGIC: Cranial nerves II through XII grossly intact. No focal or lateralizing signs. PSYCH: Appropriate affect. Alert and oriented to person, place and time. CLINICAL LABS: Reviewed. WBC normal. Platelet count elevated over 600 but trending downward ASSESSMENT: 1. Complicated perforated diverticulitis 2. Bilateral ovarian neoplasms 3. Peritonitis due to Valencia 4. Resolved ileus due to perforated diverticulitis/peritonitis PLAN: 1. Clinically, she has done extremely well. TPN has been discontinued from last night. 2. Patient made aware that I will not be available next week. She will follow- up with her primary care provider in the interim. 3. Antibiotic management reviewed including oral antibiotics. Will need antibiotics from infectious disease provider for length and duration. 4. Staple removal anticipated in the office for April 03. 5. Patient to follow-up with her primary care provider next week after discharge 6. Home health care for home needs including ostomy maintenance. 7. Wound care instructions including antibacterial soap with hydrogen peroxide daily advised. 8. May shower 9. Occasional phantom pressure of the pelvis including related to bowel movements also described 10. Multiple follow-ups including with oncologist also advised. Objective - Vital Signs Vital signs: Vital Signs Temp 97.9 F 03/08/24 07:16 Pulse 80 03/08/24 11:43 Resp 16 03/08/24 07:16 BP 99/65 03/08/24 07:16 Pulse Ox 95 03/08/24 07:16 FiO2 Intake & Output 03/07/24 03/08/24 03/08/24 18:59 06:59 18:59 Output Total 200 Balance -200 Weight 82.8 kg Output: Urine/Stool Mix 200 Other: Voiding Method Toilet # Voids 4 1 - Labs CBC & Chem 7: 03/08/24 06:17 03/08/24 06:18 Labs: Abnormal Lab Results - Last 24 Hours (Table) 03/07/24 03/08/24 03/08/24 Range/Units 16:30 06:17 06:18 RBC 3.23 L (3.80-5.40) m/uL Hgb 9.3 L (11.4-16.0) gm/dL Hct 30.3 L (34.0-46.0) % MCHC 30.6 L (31.0-37.0) g/dL Plt Count 634 H (150-450) k/uL BUN 18 H (7-17) mg/dL POC Glucose (mg/dL) 118 H (70-110) mg/dL Phosphorus 5.2 H (2.5-4.5) mg/dL
--- NOTE | 2024-03-08 15:01 | P.PN ---
Subjective Progress Note Date: 03/08/24 Principal diagnosis: Reason for follow-up is pneumoperitoneum and peritonitis Patient is a 63-year-old female past medical history significant for reflux osteoarthritis seizure disorder presenting to the hospital for evaluation of abdominal pain, the patient did have a CT abdominal pelvis evidence of moderate pneumoperitoneum currently being treated medically. Patient is status post expiratory laparotomy with sigmoid resection for perforated mid sigmoid colon descending colostomy drainage of the intra-abdominal abscess and fluid has been sent for culture procedure completed on 02/23/2024 On today's evaluation that is 03/08/2024, patient has been afebrile, patient is breathing comfortably and is currently on room air, patient denies having any significant cough no chest pain shortness of breath, patient denies nausea vomiting still complains of abdominal pain however has decreased in intensity and did have output in her colostomy. Patient white count is 4.8, creatinine 0.64 Objective - Vital Signs Vital signs: Vital Signs Temp 97.9 F 03/08/24 07:16 Pulse 80 03/08/24 11:43 Resp 16 03/08/24 07:16 BP 99/65 03/08/24 07:16 Pulse Ox 95 03/08/24 07:16 FiO2 Intake & Output 03/07/24 03/08/24 03/08/24 18:59 06:59 18:59 Output Total 200 Balance -200 Weight 82.8 kg Output: Urine/Stool Mix 200 Other: Voiding Method Toilet # Voids 4 1 - Exam GENERAL DESCRIPTION: Middle-aged female lying in bed in no distress RESPIRATORY SYSTEM: Unlabored breathing , decreased breath sounds at bases HEART: S1 S2 regular rate and rhythm , ABDOMEN: Soft , mild tenderness, no output in colostomy EXTREMITIES: No edema feet - Labs CBC & Chem 7: 03/08/24 06:17 03/08/24 06:18 Labs: Abnormal Lab Results - Last 24 Hours (Table) 03/07/24 03/08/24 03/08/24 Range/Units 16:30 06:17 06:18 RBC 3.23 L (3.80-5.40) m/uL Hgb 9.3 L (11.4-16.0) gm/dL Hct 30.3 L (34.0-46.0) % MCHC 30.6 L (31.0-37.0) g/dL Plt Count 634 H (150-450) k/uL BUN 18 H (7-17) mg/dL POC Glucose (mg/dL) 118 H (70-110) mg/dL Phosphorus 5.2 H (2.5-4.5) mg/dL Assessment and Plan (1) Peritonitis Current Visit: Yes Status: Acute Code(s): K65.9 - PERITONITIS, UNSPECIFIED SNOMED Code(s): 54959035 (2) Pneumoperitoneum Current Visit: Yes Status: Acute Priority: High Code(s): K66.8 - OTHER SPECIFIED DISORDERS OF PERITONEUM SNOMED Code(s): 30658281 Plan: 1patient presented hospital abdominal pain and this patient who did have abnormal CT suggestive of pneumoperitoneum and some fluid collection in the pelvis concerning for possible perforated bowel could be related to possible pe rforated diverticulitis, he will need to cover for the enteric gram-negative both aerobes and anaerobes, general surgery following the patient currently recommending bowel rest and antibiotic therapy 2-patient did get a PICC line, patient did have a Repeat abdominal pelvis CT patient mention decreased EF but he did have a fall he had a fluid-filled loculated collection in the low mid pelvis consistent with an abscess and bilateral adnexal masses 3patient is status post laparotomy sigmoid resection, colostomy and drainage of abdominal abscess cultures are currently growing Valencia albicans as well as Valencia glabrata 4-patient to continue with the Zosyn and Eraxis while inpatient, plan is to finish therapy with oral Augmentin and voriconazole x 10 days on discharge once cleared by surgery Dictation was produced using [employer] dictation software. please excuse any grammatical, word or spelling errors. Time with Patient: Less than 30
[2024-03-08 16:41] LABS: Glucose,Whole Blood 97 mg/dL (70-110)
--- NOTE | 2024-03-09 05:13 | P.DS ---
Providers Date of admission: 02/17/24 21:12 Expected date of discharge: 03/09/24 Attending physician: Kay Markham Consults: 02/17/24 21:43 Consult Physician Urgent Consulting Provider: Jeet Watson Consult Reason/Comments: medical care Do you want consulting provider notified?: Yes 02/18/24 02:21 Consult Physician Routine Consulting Provider: Lisa Abreu Consult Reason/Comments: Antibiotic management Do you want consulting provider notified?: Yes, Notify in am 02/22/24 13:08 Consult Physician Routine Consulting Provider: Stacey Gutierres Consult Reason/Comments: bilateral ovarian abscess vs mass Do you want consulting provider notified?: Yes 02/22/24 15:04 Consult Physician Routine Consulting Provider: Dustin Jackson Consult Reason/Comments: possible bilateral ovarian masses Do you want consulting provider notified?: Yes 02/29/24 10:08 Consult Physician Routine Consulting Provider: Reji Holcomb Consult Reason/Comments: delirium, hallucinating post-op Do you want consulting provider notified?: Yes Primary care physician: Anton Balderrama MD Hospital Course: DISCHARGE DIAGNOSES: 1. Perforated complicated sigmoid diverticulitis with pelvic abscess 2. Bilateral ovarian complex malignancy, over 6 cm 3. Obesity due to excess calories, BMI 30.2 4. Depressive disorder 5. Osteoporosis 6. Seizure disorder 7. Gastroesophageal reflux disease 8. Peritonitis 9. Resting tremor 10. Right upper quadrant abdominal pain 11. Toxic encephalopathy INDICATIONS: The patient is a 63-year-old female who initially presented to the hospital complaining of over 1 month history of abdominal pain involving the right upper abdomen. She presented with CT findings of perforated diverticulitis. Patient was offered initial surgical intervention however wanted conservative management as she was nontoxic in presentation. Follow-up CT scans demonstrated localized abscess unable to drain via interventional radiology and bilateral ovarian masses for which gynecological consultation was obtained. Patient reported worsening abdominal pain prompting urgent surgical intervention. She underwent Ambrose's procedure. Postoperatively, she was managed with IV antibiotics. Multiple consultants including hospitalist, infectious disease, neurology, physical therapy including Occupational Therapy, gynecology, oncology were included in her care for management. Prior to discharge, repeat CT scan demonstrated resolving free air with persistent bilateral ovarian masses. Prior to discharge, she was tolerating diet, her ostomy was functioning, she was ambulating. Patient was deemed stable for discharge with home health care. Antibiotic management per infectious disease. Procedures: OPERATION: 1. Exploratory laparotomy with sigmoid resection for perforated mid sigmoid colon 2. Descending colostomy. 3. Defunctionalized rectal stump. 4. Richardson's procedure for perforated sigmoid colon 5. Peritoneal lavage over 3 liters 6. Placement of 20 cm PREVENA wound VAC system 7. Drainage of intra-abdominal abscess 200 mL, pelvis 8. Open lysis of adhesions, extensive ANESTHESIA: General ESTIMATED BLOOD LOSS: 150mL. SPECIMENS REMOVED: 1. Sigmoid colon 2. Aerobic and anaerobic culture diverticular abscess 3. Aerobic anaerobic culture ovarian/pelvic abscess 4. Cell cytology of ovarian mass COMPLICATIONS: None. Condition: stable Disposition: floor Urine output: Over 1700 cc and 2.5 hours Operative Findings: 1. Localized deep pelvic abscess over 200 cc drained adherent to sigmoid colon 2. Bilateral ovarian complex cystic neoplastic mass over 6 cm with calcification firm, highly suspicious for malignancy 3. Perforated mid sigmoid colon 4. Highly redundant sigmoid colon 5. No peritoneal studding identified within the abdomen or pelvis 6. No signs of local spread from ovarian neoplastic process 7. Intraoperative telephone consultation performed with gynecology Patient Condition at Discharge: Stable Plan - Discharge Summary Discharge Rx Participant: No New Discharge Prescriptions: New Simethicone [Gas-X] 125 mg PO AC-TID PRN #20 capsule PRN Reason: Pain Acetaminophen Tab [Tylenol Tab] 1,000 mg PO Q6HR PRN #30 tablet PRN Reason: Pain Continue Meloxicam [Mobic] 15 mg PO DAILY PARoxetine HCL [Paxil] 10 mg PO DAILY Alendronate Sodium [Fosamax] 70 mg PO DIRECTED Divalproex [Depakote] 250 mg PO QID Aspirin 81 mg PO DAILY chew Famotidine 40 mg PO DAILY Discharge Medication List Divalproex [Depakote] 250 mg PO QID 02/12/21 [History] Aspirin 81 mg PO DAILY chew 02/13/21 [Rx] Meloxicam [Mobic] 15 mg PO DAILY 08/04/23 [History] Alendronate Sodium [Fosamax] 70 mg PO DIRECTED 02/18/24 [History] Famotidine 40 mg PO DAILY 02/18/24 [History] PARoxetine HCL [Paxil] 10 mg PO DAILY 02/18/24 [History] Acetaminophen Tab [Tylenol Tab] 1,000 mg PO Q6HR PRN #30 tablet 03/09/24 [Rx] Simethicone [Gas-X] 125 mg PO AC-TID PRN #20 capsule 03/09/24 [Rx] Follow up Appointment(s)/Referral(s): Jareth Yates [STAFF PHYSICIAN] - 2 Weeks Anton Balderrama MD [Primary Care Provider] - 1-2 days Kay Markham MD [STAFF PHYSICIAN] - 04/03/24 4:00 pm Lisa Abreu MD [STAFF PHYSICIAN] - 1 Week Patient Instructions/Handouts: Colostomy Care (DC), High Protein Diet (DC), Colostomy Irrigation (GEN) Activity/Diet/Wound Care/Special Instructions: Ostomy: Last changed 03/05/2024 Chetan 1 piece cut-to-fit #[id number] Change every 3 to 7 days and as needed Empty when half full May shower. Use antibacterial soap and hydrogen peroxide daily for wound care. No lifting over 4 pounds for 2 weeks until March 23 Discharge Disposition: HOME WITH HOME HEALTH SERVICES
[2024-03-09 08:08] VITALS: BP 118/76; RESP 18; TEMP 98.1
--- NOTE | 2024-03-09 08:15 | P.PN ---
Subjective Progress Note Date: 03/07/24 This is 63-year-old female admitted with abdominal pain with perforated diverticulitis with abscess, evaluated by general surgery, recommending conservative management. Patient remains n.p.o. receiving TPN and lipids via PICC line. denies chest pain, palpitations or shortness of breath. Positive abdominal pain. Positive bowel movement-reports painful. Diarrhea throughout the night. Repeat CT of abdomen pelvis completed yesterday reported mild free air beneath the diaphragm which is decreased compared to prior study. Air and fluid-filled loculated collection in the low mid pelvis consistent with abscess. Bilateral adnexal masses which either represent abscesses or ovarian neoplasm. Afebrile. Potassium 3.6, supplemented. 02/22/2024 TEACHING FELLOW and Oncology consulted by general surgery, regarding CT findings. reports decreased abdominal pain, positive cramps with flatus. Remains n.p.o.,maintained on TPN and liquids. Expresses hunger. Potassium 3.2, supplementation ordered. Magnesium 1.8, supplementation ordered. Maintain on IV antibiotics as per infectious disease. Afebrile. 02/23/2024 initially general surgery had planned for IR drain placement of diverticular abscess, but given risk of potential rupture of large ovarian abscesses, plan was aborted. evaluated by Dr. Gutierres, TEACHING FELLOW with recommendations noted, including assisting in surgery if patient undergoes exploratory laparoto my, potential transfer to a tertiary care center. Ca-125 elevated, 71.6, with CEA, alpha-fetoprotein, beta-hCG pending.patient complaining of worsening abdominal pain accompanied by nausea. N.p.o. ,continues on TPN and lipids, albumin low, significant edema bilateral lower extremities. Complains of mild shortness of breath, maintaining O2 sats of 100% on room air, normal respiratory rate, without respiratory distress. Lasix 40mg IV push x 1 ordered. Afebrile, Tmax 99.2, labs pending. Continues on IV antibiotics. 02/24/2024 this is a 63-year-old female status post exploratory laparotomy with sigmoid resection for perforated mid sigmoid colon, descending colostomy, defunctionalized rectal stump, Ambrose's procedure for perforated sigmoid colon, peritoneal lavage, drainage of intra-abdominal /pelvis abscess, open lysis of adhesions, multiple biopsies of sigmoid colon ,diverticular abscess, ovarian /pelvis abscess, ovarian mass. Tolerated procedure well. Continues on IV fluid hydration, TPN and lipids. Reports pain, recently medicated. Received a dose of Lasix IV push yesterday for fluid overload with significant improvement. Decreased lower extremity edema. Denies chest pain, palpitations. Reports mild shortness of breath. Maintaining O2 sats of 93% on room air. Afebrile, Tmax 100.3, labs pending. Ca-125 elevated, AFP less than 3, CEA less than 2. 02/27/2024 sitting up in chair, complaining of right-sided abdominal pain. Positive nausea and vomiting with minimal bilious emesis. Cytology /pathology pending. Denies vaginal bleeding. Afebrile, WBC increased ,13.02, hemoglobin 8.7, platelets 491, renal function stable. Continues on TPN and lipids with blood sugars controlled. Abdominal wound cultures growing Valencia albicans, yeast, preliminary anaerobic culture reports no anaerobes isolated to date. 02/28/2024 continues on TPN, lipids, IV fluid hydration and antibiotics of Zosyn, fluconazole. Wound culture growing Valencia albicans. Afebrile. dosing off while talking. Pathology of sigmoid colon resection reporting diverticulitis with submucosal abscess, fibrosis, fat necrosis, foreign body multinucleated giant cell reaction and acute serositis consistent with diverticular rupture and perforated viscus. Pelvic/peritoneal fluid lavage cytology reported inflammatory debris with scattered acute and chronic inflammatory cells, nondiagnostic for neoplasia. Tolerating clear liquids with nausea improved. 02/29/2024 abdominal culture growing Valencia albicans and Valencia glabrata .continues on Zosyn and Eraxis staff reports patient hallucinating, delirious. Mother at bedside and reports patient told her she had Cheerios on her shoulder. Patient reports seeing "angels and people". Has not slept well, bicarb 26, colostomy with scant watery drainage, abdomen tender to minimal touch. Reports positive nausea. Afebrile, WBC 10.7, hemoglobin 8.3, platelets 607, sodium 140, potassium 5.5, BUN 12, creatinine 0.5. Blood sugars controlled. UA repeated yesterday reporting negative. 03/01/2024 pain medication regimen adjusted yesterday as per general surgery, received a dose of Abilify, sensorium improving. Ostomy teaching attempted yesterday unsuccessfully Sitting up in chair, complains of significant abdominal pain-reporting right side more painful. Neurology consult in place, recommendations pending. Afebrile, normal WBC, hemoglobin 8.6, platelets 627, electrolytes within normal limits, renal function stable. 03/02/2024 evaluated by neurology, EEG pending .nausea persists, NG tube attempted last night, pulled out.Abdominal x-ray reported multiple air-fluid levels present throughout the abdomen. They involve both small bowel and colon. Consider postsurgical ileus. Maintained on TPN. Reports right-sided abdominal pain, no flatus or stool in ostomy -patient is willing to reattempt NG tube this morning after further discussion with general surgery. Afebrile. 03/03/2024 Patient looks comfortable and relaxed, talking easily and freely No significant pain Hemodynamically stable Remains on Eraxis and Zosyn TPN Surgical wound closed with dressing in place 03/04/2024 pt looks not in distress , no significant abd pain NGT is place, placed two days ago with dark brown aspirate about 500 ml no bowel movement through creatinine normal and sugar controlled on antibiotics eraxis and zosyn 03/05/24 Pt evaluated with NGT in place, she is feeling better today, less abdominal pain and denies nausea. She continues on eraxis and zosyn per ID. She is afebrile. Pt continues to experience dark brown NG tube output today and minimal ostomy output. 03/06/24 Pt is tolerating low fiber diet, states her abdominal pain is improving. She had repeat CT scan which showed reduction in the size of fluid collection. No fever, chills. 03/07/24 Pt doing better today, she is tolerating diet and feels her abdominal pain is slowly improving. She denies nausea. No fever, chills, sweats. She continues on IV abx per ID. Objective - Vital Signs Vital signs: Vital Signs Temp 98.1 F 03/09/24 07:01 Pulse 75 03/09/24 07:01 Resp 18 03/09/24 07:01 BP 118/76 03/09/24 07:01 Pulse Ox 97 03/09/24 07:01 FiO2 Intake & Output 03/08/24 03/09/24 03/09/24 18:59 06:59 18:59 Other: # Voids 2 1 # Bowel Movements 200 - Exam Gen: well developed elderly female in NAD CV: RRR, no murmur Lungs: Normal effort, clear throughout Abd: soft. Distended, Ostomy with healthy tissue. Tender to palpation - Labs CBC & Chem 7: 03/08/24 06:17 03/08/24 06:18 Assessment and Plan Plan: Continue with current medications and closely monitor renal function and blood counts. Diet per surgery. Antibiotic regimen per ID. Will need MRI pelvis in 3 months for follow ovarian masses
--- NOTE | 2024-03-09 08:21 | P.PN ---
Subjective Progress Note Date: 03/08/24 This is 63-year-old female admitted with abdominal pain with perforated diverticulitis with abscess, evaluated by general surgery, recommending conservative management. Patient remains n.p.o. receiving TPN and lipids via PICC line. denies chest pain, palpitations or shortness of breath. Positive abdominal pain. Positive bowel movement-reports painful. Diarrhea throughout the night. Repeat CT of abdomen pelvis completed yesterday reported mild free air beneath the diaphragm which is decreased compared to prior study. Air and fluid-filled loculated collection in the low mid pelvis consistent with abscess. Bilateral adnexal masses which either represent abscesses or ovarian neoplasm. Afebrile. Potassium 3.6, supplemented. 02/22/2024 COPY CAMERA OPERATOR and Oncology consulted by general surgery, regarding CT findings. reports decreased abdominal pain, positive cramps with flatus. Remains n.p.o.,maintained on TPN and liquids. Expresses hunger. Potassium 3.2, supplementation ordered. Magnesium 1.8, supplementation ordered. Maintain on IV antibiotics as per infectious disease. Afebrile. 02/23/2024 initially general surgery had planned for IR drain placement of diverticular abscess, but given risk of potential rupture of large ovarian abscesses, plan was aborted. evaluated by Dr. Gutierres, COPY CAMERA OPERATOR with recommendations noted, including assisting in surgery if patient undergoes exploratory laparoto my, potential transfer to a tertiary care center. Ca-125 elevated, 71.6, with CEA, alpha-fetoprotein, beta-hCG pending.patient complaining of worsening abdominal pain accompanied by nausea. N.p.o. ,continues on TPN and lipids, albumin low, significant edema bilateral lower extremities. Complains of mild shortness of breath, maintaining O2 sats of 100% on room air, normal respiratory rate, without respiratory distress. Lasix 40mg IV push x 1 ordered. Afebrile, Tmax 99.2, labs pending. Continues on IV antibiotics. 02/24/2024 this is a 63-year-old female status post exploratory laparotomy with sigmoid resection for perforated mid sigmoid colon, descending colostomy, defunctionalized rectal stump, Ambrose's procedure for perforated sigmoid colon, peritoneal lavage, drainage of intra-abdominal /pelvis abscess, open lysis of adhesions, multiple biopsies of sigmoid colon ,diverticular abscess, ovarian /pelvis abscess, ovarian mass. Tolerated procedure well. Continues on IV fluid hydration, TPN and lipids. Reports pain, recently medicated. Received a dose of Lasix IV push yesterday for fluid overload with significant improvement. Decreased lower extremity edema. Denies chest pain, palpitations. Reports mild shortness of breath. Maintaining O2 sats of 93% on room air. Afebrile, Tmax 100.3, labs pending. Ca-125 elevated, AFP less than 3, CEA less than 2. 02/27/2024 sitting up in chair, complaining of right-sided abdominal pain. Positive nausea and vomiting with minimal bilious emesis. Cytology /pathology pending. Denies vaginal bleeding. Afebrile, WBC increased ,13.02, hemoglobin 8.7, platelets 491, renal function stable. Continues on TPN and lipids with blood sugars controlled. Abdominal wound cultures growing Valencia albicans, yeast, preliminary anaerobic culture reports no anaerobes isolated to date. 02/28/2024 continues on TPN, lipids, IV fluid hydration and antibiotics of Zosyn, fluconazole. Wound culture growing Valencia albicans. Afebrile. dosing off while talking. Pathology of sigmoid colon resection reporting diverticulitis with submucosal abscess, fibrosis, fat necrosis, foreign body multinucleated giant cell reaction and acute serositis consistent with diverticular rupture and perforated viscus. Pelvic/peritoneal fluid lavage cytology reported inflammatory debris with scattered acute and chronic inflammatory cells, nondiagnostic for neoplasia. Tolerating clear liquids with nausea improved. 02/29/2024 abdominal culture growing Valencia albicans and Valencia glabrata .continues on Zosyn and Eraxis staff reports patient hallucinating, delirious. Mother at bedside and reports patient told her she had Cheerios on her shoulder. Patient reports seeing "angels and people". Has not slept well, bicarb 26, colostomy with scant watery drainage, abdomen tender to minimal touch. Reports positive nausea. Afebrile, WBC 10.7, hemoglobin 8.3, platelets 607, sodium 140, potassium 5.5, BUN 12, creatinine 0.5. Blood sugars controlled. UA repeated yesterday reporting negative. 03/01/2024 pain medication regimen adjusted yesterday as per general surgery, received a dose of Abilify, sensorium improving. Ostomy teaching attempted yesterday unsuccessfully Sitting up in chair, complains of significant abdominal pain-reporting right side more painful. Neurology consult in place, recommendations pending. Afebrile, normal WBC, hemoglobin 8.6, platelets 627, electrolytes within normal limits, renal function stable. 03/02/2024 evaluated by neurology, EEG pending .nausea persists, NG tube attempted last night, pulled out.Abdominal x-ray reported multiple air-fluid levels present throughout the abdomen. They involve both small bowel and colon. Consider postsurgical ileus. Maintained on TPN. Reports right-sided abdominal pain, no flatus or stool in ostomy -patient is willing to reattempt NG tube this morning after further discussion with general surgery. Afebrile. 03/03/2024 Patient looks comfortable and relaxed, talking easily and freely No significant pain Hemodynamically stable Remains on Eraxis and Zosyn TPN Surgical wound closed with dressing in place 03/04/2024 pt looks not in distress , no significant abd pain NGT is place, placed two days ago with dark brown aspirate about 500 ml no bowel movement through creatinine normal and sugar controlled on antibiotics eraxis and zosyn 03/05/24 Pt evaluated with NGT in place, she is feeling better today, less abdominal pain and denies nausea. She continues on eraxis and zosyn per ID. She is afebrile. Pt continues to experience dark brown NG tube output today and minimal ostomy output. 03/06/24 Pt is tolerating low fiber diet, states her abdominal pain is improving. She had repeat CT scan which showed reduction in the size of fluid collection. No fever, chills. 03/07/24 Pt doing better today, she is tolerating diet and feels her abdominal pain is slowly improving. She denies nausea. No fever, chills, sweats. She continues on IV abx per ID. 03/08/24 She continues to complain of moderate abdominal pain with palpation but denies pain at rest or when eating. No nausea, vomiting, fever, chills, sweats. Ostomy output is good. Objective - Vital Signs Vital signs: Vital Signs Temp 98.1 F 03/09/24 07:01 Pulse 75 03/09/24 07:01 Resp 18 03/09/24 07:01 BP 118/76 03/09/24 07:01 Pulse Ox 97 03/09/24 07:01 FiO2 Intake & Output 03/08/24 03/09/2403/09/24 18:59 06:59 18:59 Other: # Voids 2 1 # Bowel Movements 200 - Exam Gen: well developed elderly female in NAD CV: RRR, no murmur Lungs: Normal effort, clear throughout Abd: soft. nondistended. Ostomy with healthy tissue. minimal tenderness to palpation - Labs CBC & Chem 7: 03/08/24 06:17 03/08/24 06:18 Assessment and Plan Plan: Continue with current medications and treatments. Antibiotic regimen per ID. Will need MRI pelvis in 3 months for follow ovarian masses.
[2024-03-09 08:30] LABS: Basophils # (A) 0.07 X 10*3/uL (0.00-0.10); Basophils % (A) 1.8 %; Eosinophils # (A) 0.25 X 10*3/uL (0.04-0.35); Eosinophils % (A) 6.4 %; HCT 30.2 % (37.2-46.3); HGB 9.5 g/dL (12.0-15.0); Lymphocytes # (A) 1.41 X 10*3/uL (0.90-5.00); Lymphocytes % (A) 36.1 %; MCH 28.9 pg (27.0-32.0); MCHC 31.5 g/dL (32.0-37.0); MCV 91.8 FL (80.0-97.0); Mean Platelet Volume 9.8 FL (9.5-12.2); Monocytes % (A) 10.2 %; NRBC Per 100 WBC 0 X 10*3/uL (0.00-0.01); Neutrophils # (A) 1.76 X 10*3/uL (1.80-7.70); Platelet Count 620 X 10*3/uL (140-440); RBC 3.29 X 10*6/uL (4.10-5.20); RDW 15.8 % (11.5-14.5); WBC 3.91 X 10*3/uL (4.50-10.00)
[2024-03-09 09:05] VITALS: PULSE 80
--- NOTE | 2024-03-09 15:58 | P.PN ---
Subjective Progress Note Date: 03/09/24 Principal diagnosis: Reason for follow-up is pneumoperitoneum and peritonitis Patient is a 63-year-old female past medical history significant for reflux osteoarthritis seizure disorder presenting to the hospital for evaluation of abdominal pain, the patient did have a CT abdominal pelvis evidence of moderate pneumoperitoneum currently being treated medically. Patient is status post expiratory laparotomy with sigmoid resection for perforated mid sigmoid colon descending colostomy drainage of the intra-abdominal abscess and fluid has been sent for culture procedure completed on 02/23/2024 On today's evaluation that is 03/09/2024,the patient denies any fever or any chills, patient is breathing comfortably on room air, the patient denies chest pain shortness of breath and no significant cough, patient denies nausea vomiting did have output of colostomy still complaining of abdominal pain but no worsening. Patient white count is 3.91. A 0.64 abdominal culture with Valencia albicans and glabrata Objective - Vital Signs Vital signs: Vital Signs Temp 98.1 F 03/09/24 07:01 Pulse 80 03/09/24 08:51 Resp 18 03/09/24 07:01 BP 118/76 03/09/24 07:01 Pulse Ox 97 03/09/24 07:01 FiO2 Intake & Output 03/08/24 03/09/24 03/09/24 18:59 06:59 18:59 Other: Voiding Method Toilet # Voids 2 1 # Bowel Movements 200 - Exam GENERAL DESCRIPTION: Middle-aged female lying in bed in no distress RESPIRATORY SYSTEM: Unlabored breathing , decreased breath sounds at bases HEART: S1 S2 regular rate and rhythm , ABDOMEN: Soft , mild tenderness, no output in colostomy EXTREMITIES: No edema feet - Labs CBC & Chem 7: 03/09/24 06:09 03/08/24 06:18 Labs: Abnormal Lab Results - Last 24 Hours (Table) 03/09/24 Range/Units 06:09 WBC 3.91 L (4.50-10.00) X 10*3/uL RBC 3.29 L (4.10-5.20) X 10*6/uL Hgb 9.5 L (12.0-15.0) g/dL Hct 30.2 L (37.2-46.3) % MCHC 31.5 L (32.0-37.0) g/dL RDW 15.8 H (11.5-14.5) % Plt Count 620 H (140-440) X 10*3/uL Neutrophils # 1.76 L (1.80-7.70) X 10*3/uL Assessment and Plan (1) Peritonitis Current Visit: Yes Status: Acute Code(s): K65.9 - PERITONITIS, UNSPECIFIED SNOMED Code(s): 16013953 (2) Pneumoperitoneum Current Visit: Yes Status: Acute Priority: High Code(s): K66.8 - OTHER SPECIFIED DISORDERS OF PERITONEUM SNOMED Code(s): 15332878 Plan: 1patient presented hospital abdominal pain and this patient who did have abnormal CT suggestive of pneumoperitoneum and some fluid collection in the pelvis concerning for possible perforated bowel could be related to possible perforated diverticulitis, he will need to cover for the enteric gram-negative both aerobes and anaerobes, general surgery following the patient currently recommending bowel rest and antibiotic therapy 2-patient did get a PICC line, patient did have a Repeat abdominal pelvis CT pa tient mention decreased EF but he did have a fall he had a fluid-filled loculated collection in the low mid pelvis consistent with an abscess and bilateral adnexal masses 3patient is status post laparotomy sigmoid resection, colostomy and drainage of abdominal abscess cultures are currently growing Valencia albicans as well as Valencia glabrata 4-patient to finish therapy with oral Augmentin and voriconazole x 10 days, prescription has been sent to the pharmacy and close outpatient follow-up Dictation was produced using [employer] dictation software. please excuse any grammatical, word or spelling errors. Time with Patient: Less than 30
--- NOTE | 2024-03-13 10:33 | CDI ---
Documentation Clarification Form Date: 03/13/2024 10:19:36 AM From: Silvia Carrillo Phone: Admit Date: 02/17/2024 09:12:00 PM Patient Name: Julissa Jenkins Visit Number: [id number] Discharge Date: 03/09/2024 03:57:00 PM ATTENTION: The Clinical Documentation Specialists (CDI) and [facility] Coding Staff appreciate your assistance in clarifying documentation. Please respond to the clarification below the line at the bottom and electronically sign. The CDI & [facility] Coding staff will review the response and follow-up if needed. Please note: Queries are made part of the Legal Health Record. If you have any questions, please contact the author of this message via ITS. Dr. Kay Markham Unspecified anemia is documented per Consult Note 03/01 and Progress Notes 03/03 and 02/15. Additional specificity regarding the type of anemia is requested. History/Risk Factors: 63yo F, perforated diverticulitis, peritonitis,pelvic abscess, depression, Hx epilepsy, POIleus, Delirium due to known physiological condition, anemia, kris ovarian Cx, former smoker Clinical indicators: Hemoglobin: 02/28 8.3 03/01 8.9-9.5 Hematocrit: 02/28 27.1 03/01 27.9-31.9 Treatment: monitored Please clarify the type and acuity of anemia: [ ] Acute blood loss anemia [ X ] Acute on chronic blood loss anemia [ ] Unable to determine [ ] Other, please specify (Template Last Revised: November 2020) MTDD
== END 2024-03-09 15:57 | disposition home health service (06) | DRG 329 ==
LOC: EC 17:37 → 5NMEDONC 21:12 → 3SCARD 02-18 00:39 → 4SSUR 02-26 20:57
PROVIDERS: ADMIT Surgery Plastic and Reconstructive Surgery; ATTEND Surgery Plastic and Reconstructive Surgery
PROC: 02HV33Z Insertion of Infusion Device into Superior Vena Cava, Percutaneous Approach (ICD-10-PCS; 2024-02-20)
PROC: 3E0436Z Introduction of Nutritional Substance into Central Vein, Percutaneous Approach (ICD-10-PCS; 2024-02-20)
PROC: 0DTN0ZZ Resection of Sigmoid Colon, Open Approach (ICD-10-PCS; 2024-02-23)
PROC: 0W9J0ZZ Drainage of Pelvic Cavity, Open Approach (ICD-10-PCS; 2024-02-23)
PROC: 3E1M48Z Irrigation of Peritoneal Cavity using Irrigating Substance, Percutaneous Endoscopic Approach (ICD-10-PCS; 2024-02-23)
PROC: 0DNN0ZZ Release Sigmoid Colon, Open Approach (ICD-10-PCS; 2024-02-23)
PROC: 0D1M0Z4 Bypass Descending Colon to Cutaneous, Open Approach (ICD-10-PCS; principal; 2024-02-23 12:30)
PROC: 0D9670Z Drainage of Stomach with Drainage Device, Via Natural or Artificial Opening (ICD-10-PCS; 2024-03-02)
DX: K57.20 Diverticulitis of large intestine with perforation and abscess without bleeding (principal); G92.8 Other toxic encephalopathy; K65.1 Peritoneal abscess; K56.7 Ileus, unspecified; C56.3 Malignant neoplasm of bilateral ovaries; B37.89 Other sites of candidiasis; F05 Delirium due to known physiological condition; D62 Acute posthemorrhagic anemia; G40.409 Other generalized epilepsy and epileptic syndromes, not intractable, without status epilepticus; E66.01 Morbid (severe) obesity due to excess calories; I77.810 Thoracic aortic ectasia; K66.8 Other specified disorders of peritoneum; Z68.31 Body mass index [BMI] 31.0-31.9, adult; F32.A Depression, unspecified; M81.0 Age-related osteoporosis without current pathological fracture; K21.9 Gastro-esophageal reflux disease without esophagitis; M19.90 Unspecified osteoarthritis, unspecified site; N89.8 Other specified noninflammatory disorders of vagina; K66.0 Peritoneal adhesions (postprocedural) (postinfection); E87.70 Fluid overload, unspecified; E87.6 Hypokalemia; E83.42 Hypomagnesemia; T50.915A Adverse effect of multiple unspecified drugs, medicaments and biological substances, initial encounter; G47.09 Other insomnia; R15.9 Full incontinence of feces; R60.0 Localized edema; Z96.652 Presence of left artificial knee joint; Z87.891 Personal history of nicotine dependence; Z79.1 Long term (current) use of non-steroidal anti-inflammatories (NSAID); Z79.899 Other long term (current) drug therapy; Z79.82 Long term (current) use of aspirin; Z79.83 Long term (current) use of bisphosphonates; Z86.69 Personal history of other diseases of the nervous system and sense organs
CPT/HCPCS: 36415; 36573; 71045; 71046; 71275; 74018; 74019; 74177; 76705; 76856; 80048; 80053; 80164; 81003; 82105; 82150; 82330; 82378; 83605; 83690; 83735; 84100; 84478; 84484; 85025; 85027; 85379; 85610; 85730; 86304; 86850; 86900; 86901; 87040; 87070; 87075; 87205; 88108; 88305; 88307; 93005; 94640; 95816; 96365; 96367; 96375; 99291

== ENCOUNTER 2024-03-30 17:38 | Emergency (ER) | payer MEDICARE ==
--- NOTE | 2024-03-30 18:42 | ED ---
Abdominal Pain HPI - General Chief Complaint: Abdominal Pain Stated Complaint: Post Op Comp Time Seen by Provider: 03/30/24 17:51 Source: patient, RN notes reviewed Mode of arrival: ambulatory Limitations: no limitations - History of Present Illness Initial Comments: This is a 63-year-old female presents emergency department chief complaint of ostomy. Patient had a colostomy bag placed in February due to a complication of diverticulitis. Patient has an at home visiting nurse that comes a few times a week that helps with changing her bag, patient states that she has expressed concern for pain over the area and states that at home nurse has communicated no concern for infection. Patient denies nausea, vomiting, fevers, weakness. She denies dysuria, hematuria, increased frequency or urgency. Patient has her first follow-up appointment with Dr. Markham on 04/03/24 for staple removal and follow up. - Related Data Home Medications Medication Instructions Recorded Confirmed Divalproex [Depakote] 250 mg PO QID 02/12/21 02/18/24 Meloxicam [Mobic] 15 mg PO DAILY 08/04/23 02/18/24 Alendronate Sodium [Fosamax] 70 mg PO DIRECTED 02/18/24 02/18/24 Famotidine 40 mg PO DAILY 02/18/24 02/18/24 PARoxetine HCL [Paxil] 10 mg PO DAILY 02/18/24 02/18/24 Previous Rx's Medication Instructions Recorded Aspirin 81 mg PO DAILY chew 02/13/21 Acetaminophen Tab [Tylenol Tab] 1,000 mg PO Q6HR PRN #30 tablet 03/09/24 Amoxic-Pot Clav 875-125Mg 1 tab PO Q12HR 10 Days #20 tab 03/09/24 [Augmentin 875-125] Simethicone [Gas-X] 125 mg PO AC-TID PRN #20 capsule 03/09/24 Voriconazole [Vfend] 200 mg PO Q12HR #20 tablet 03/09/24 Allergies Allergy/AdvReac Type Severity Reaction Status Date / Time No Known Allergies Allergy Verified 03/13/24 12:24 Review of Systems ROS Statement: Those systems with pertinent positive or pertinent negative responses have been documented in the HPI. ROS Other: All systems not noted in ROS Statement are negative. Past Medical History Past Medical History: GERD/Reflux, Osteoarthritis (OA), Seizure Disorder Additional Past Medical History / Comment(s): LAST SEIZURE 02/1992; hiatal hernia, occasional dysphagia, worsening GERD sx., aortic aneurysm near heart per pt. History of Any Multi-Drug Resistant Organisms: None Reported Past Surgical History: Appendectomy, Joint Replacement, Orthopedic Surgery, Tubal Ligation Additional Past Surgical History / Comment(s): REPAIR SMALL INTESTINE THAT WAS NICKED DURING TL; arthroscopy left knee; left knee replacement; benign left breast biopsy Past Anesthesia/Blood Transfusion Reactions: No Reported Reaction Past Psychological History: No Psychological Hx Reported Smoking Status: Vaper Past Alcohol Use History: Rare Past Drug Use History: None Reported - Past Family History Brother(s) Family Medical History: Cancer Mother Family Medical History: Cancer General Exam Limitations: no limitations General appearance: alert, in no apparent distress Head exam: Present: atraumatic, normocephalic, normal inspection Eye exam: Present: normal appearance, PERRL, EOMI. Absent: scleral icterus, conjunctival injection, periorbital swelling ENT exam: Present: normal exam, mucous membranes moist Neck exam: Present: normal inspection. Absent: tenderness, meningismus, lymph adenopathy Respiratory exam: Present: normal lung sounds bilaterally. Absent: respiratory distress, wheezes, rales, rhonchi, stridor Cardiovascular Exam: Present: regular rate, normal rhythm, normal heart sounds. Absent: systolic murmur, diastolic murmur, rubs, gallop, clicks GI/Abdominal exam: Present: soft, tenderness (left mid abdomen colostomy, output noted. tenderness over ostomy, no noted blood in output), normal bowel sounds. Absent: guarding, rebound, rigid Extremities exam: Present: normal inspection, full ROM, normal capillary refill. Absent: tenderness, pedal edema, joint swelling, calf tenderness Back exam: Present: normal inspection Neurological exam: Present: alert, oriented X3, CN II-XII intact Psychiatric exam: Present: normal affect, normal mood Skin exam: Present: warm, dry, intact, normal color. Absent: rash Course Vital Signs 03/30/24 03/30/24 03/30/24 18:09 18:12 20:00 Temperature 98 F Pulse Rate 70 70 62 Respiratory 20 18 16 Rate Blood Pressure 124/79 135/75 143/71 O2 Sat by Pulse 99 98 99 Oximetry 03/30/24 03/31/24 21:00 00:43 Temperature 98.7 F Pulse Rate 67 61 Respiratory 16 18 Rate Blood Pressure 138/90 149/73 O2 Sat by Pulse 99 100 Oximetry Medical Decision Making - Medical Decision Making Was pt. sent in by a medical professional or institution (, PA, [employer], urgent care, hospital, or penitentiary...) When possible be specific @ -No Did you speak to anyone other than the patient for history (EMS, parent, family, police, friend...)? What history was obtained from this source @ -No Did you review nursing and triage notes (agree or disagree)? Why? @ -Reviewed the patient's operative note from 02/17/2024 patient was noted to undergo an exploratory laparotomy and sigmoid resection for perforated mid sigmoid colon, descending colostomy, Ambrose's procedure for perforated sigmoid colon, peritoneal lavage wit over 3 L.Reviewed the patient's operative note from 02/17/2024 patient was noted to undergo an exploratory laparotomy and sigmoid resection for perforated mid sigmoid colon, descending colostomy, Ambrose's procedure for perforated sigmoid colon, peritoneal lavage wit over 3 L. Were old charts reviewed (outside hosp., previous admission, EMS record, old EKG, old radiological studies, urgent care reports/EKG's, penitentiary records)? Report findings @ -No old charts were reviewed Differential Diagnosis (chest pain, altered mental status, abdominal pain women, abdominal pain men, vaginal bleeding, weakness, fever, dyspnea, syncope, headache, dizziness, GI bleed, back pain, seizure, CVA, palpatations, mental health, musculoskeletal)? @ -Differential Abdominal Pain Women: Appendicitis, Cholecystitis, diverticulosis, ischemic bowel, pancreatitis, hepatitis, UTI, gastroenteritis, AAA, incarcerated hernia, bowel obstruction, constipation, inflammatory bowel, hepatitis, peptic ulcer disease, splenic infarction, perforated viscus, vulvitis, ovarian torsion, PID, kidney stone, placenta abruption, this is not meant to be an all-inclusive list EKG interpreted by me (3pts min.). @ -None X-rays interpreted by me (1pt min.). @ -None done CT interpreted by me (1pt min.). @ -CT of abdomen pelvis without contrast midline laparotomy, colectomy with left lower quadrant diverting colostomy, no small bowel obstruction. Small parastomal hernia measuring 4.8 x 5.1 cm with no signs of colonic obstruction. U/S interpreted by me (1pt. min.). @ -None done What testing was considered but not performed or refused? (CT, X-rays, U/S, labs)? Why? @ -None What meds were considered but not given or refused? Why? @ -IV fluid bolus was considered but was not administered due to patient requesting that a additional peripheral IV line not be placed due to 4 unsuccessful attempts. Did you discuss the management of the patient with other professionals (professionals i.e. DrGodfrey, PA, [employer], lab, RT, psych nurse, social welfare research worker, animal feeder, teacher, national service officer, case preparer and liner)? Give summary @ -Spoke with the patient's attending surgeon on the case, Dr. Markham, and regard to the patient's ostomy pain. Is recommend the patient undergo basic laboratory testing addition to a CT of the abdomen for further evaluation. Was smoking cessation discussed for >3mins.? @ -No Was critical care preformed (if so, how long)? @ -No Were there social determinants of health that impacted care today? How? (Homelessness, low income, unemployed, alcoholism, drug addiction, transportation, low edu. Level, literacy, decrease access to med. care, intermediate, rehab)? @ -No Was there de-escalation of care discussed even if they declined (Discuss DNR or withdrawal of care, Hospice)? DNR status @ -No What co-morbidities impacted this encounter? (DM, HTN, Smoking, COPD, CAD, Cancer, CVA, ARF, Chemo, Hep., AIDS, mental health diagnosis, sleep apnea, morbid obesity)? @ -None Was patient admitted / discharged? Hospital course, mention meds given and route, prescriptions, significant lab abnormalities, going to OR and other pertinent info. @ -discharged. 63-year-old female with abdominal pain at colostomy site. On my examination there is output from colostomy bag, no signs of blood, appropriate drainage. Patient has equal bowel sounds heard throughout the abdomen, no signs of rebound tenderness or rigidity. Consulted the patient's attending surgeon o n the case, Dr. Markham, recommends that the patient undergo basic lab studies in addition to a CT of the abdomen for further evaluation of abdominal pain. She with nursing staff difficulty to obtain peripheral IV line, therefore CT of the abdomen was completed without contrast. CBC unremarkable, CMP reveals hyponatremia of 133, elevated BUN 23. Discussion with patient at bedside recommend that she receive IV fluids, however patient declines this time due to not wanting to have an attempted IV line started on her again. CT of the abdomen reveals a 4.8 x 5.1 cm parastomal hernia. Patient is stable for discharge at this time, pain has been well-controlled. Additionally patient's ostomy bag has been changed with assistance from nursing staff, and wound culture sent of wound underneath the adhesion for ostomy is in place. Patient has follow-up appointment scheduled on , for reevaluation and staple removal. All questions answered at bedside and strict return parameters d iscussed with the patient which she has verbalized understanding. Case discussed with my attending Dr. Still Undiagnosed new problem with uncertain prognosis? @ -No Drug Therapy requiring intensive monitoring for toxicity (Heparin, Nitro, Insulin, Cardizem)? @ -No Were any procedures done? @ -No Diagnosis/symptom? @ -0.8 x 5.1 cm parastomal hernia Acute, or Chronic, or Acute on Chronic? @ -acute Uncomplicated (without systemic symptoms) or Complicated (systemic symptoms)? @ -uncomplicated Side effects of treatment? @ -No Exacerbation, Progression, or Severe Exacerbation? @ -No Poses a threat to life or bodily function? How? (Chest pain, USA, CT, pneumonia, PE, COPD, DKA, ARF, appy, cholecystitis, CVA, Diverticulitis, Homicidal, Suicidal, threat to staff... and all critical care pts) @ -No - Lab Data Result diagrams: 03/30/24 21:10 03/30/24 21:10 Lab Results 03/30/24 03/30/24 Range/Units 21:10 21:10 WBC 5.7 (3.8-10.6) k/uL RBC 4.31 (3.80-5.40) m/uL Hgb 12.8 (11.4-16.0) gm/dL Hct 40.2 (34.0-46.0) % MCV 93.4 (80.0-100.0) fL MCH 29.7 (25.0-35.0) pg MCHC 31.8 (31.0-37.0) g/dL RDW 13.2 (11.5-15.5) % Plt Count 346 (150-450) k/uL MPV 7.0 Neutrophils % 56 % Lymphocytes % 31 % Monocytes % 7 % Eosinophils % 4 % Basophils % 1 % Neutrophils # 3.2 (1.3-7.7) k/uL Lymphocytes # 1.7 (1.0-4.8) k/uL Monocytes # 0.4 (0-1.0) k/uL Eosinophils # 0.2 (0-0.7) k/uL Basophils # 0.1 (0-0.2) k/uL Sodium 133 L (137-145) mmol/L Potassium 3.5 (3.5-5.1) mmol/L Chloride 101 (98-107) mmol/L Carbon Dioxide 24 (22-30) mmol/L Anion Gap 8 mmol/L BUN 23 H (7-17) mg/dL Creatinine 0.70 (0.52-1.04) mg/dL Est GFR (CKD-EPI)AfAm >90 (>60 ml/min/1.73 sqM) Est GFR (CKD-EPI)NonAf >90 (>60 ml/min/1.73 sqM) Glucose 79 (74-99) mg/dL Calcium 8.3 L (8.4-10.2) mg/dL Total Bilirubin 0.3 (0.2-1.3) mg/dL AST 32 (14-36) U/L ALT 30 (4-34) U/L Alkaline Phosphatase 134 H (38-126) U/L Total Protein 6.6 (6.3-8.2) g/dL Albumin 4.3 (3.5-5.0) g/dL Disposition Clinical Impression: Colostomy hernia Disposition: HOME SELF-CARE Condition: Good Instructions (If sedation given, give patient instructions): Colostomy Care (ED) Additional Instructions: Return to the emergency department if your symptoms worsen or not improve. Continue to take Tylenol Motrin at home as needed for pain relief. Recommend follow-up with specialist as scheduled. Is patient prescribed a controlled substance at d/c from ED?: No Referrals: Anton Balderrama MD [Primary Care Provider] - 1-2 days Time of Disposition: 00:15
[2024-03-30 21:23] LABS: Basophils # (A) 0.1 k/uL (0-0.2); Basophils % (A) 1 %; Eosinophils # (A) 0.2 k/uL (0-0.7); Eosinophils % (A) 4 %; HCT 40.2 % (34.0-46.0); HGB 12.8 gm/dL (11.4-16.0); Lymphocytes # (A) 1.7 k/uL (1.0-4.8); Lymphocytes % (A) 31 %; MCH 29.7 pg (25.0-35.0); MCHC 31.8 g/dL (31.0-37.0); MCV 93.4 fL (80.0-100.0); Monocytes # (A) 0.4 k/uL (0-1.0); Monocytes % (A) 7 %; Neutrophils # (A) 3.2 k/uL (1.3-7.7); Neutrophils % (A) 56 %; Platelet Count 346 k/uL (150-450); RBC 4.31 m/uL (3.80-5.40); RDW 13.2 % (11.5-15.5); WBC 5.7 k/uL (3.8-10.6)
[2024-03-30 21:57] LABS: ALT 30 U/L (4-34); AST 32 U/L (14-36); African American GFR (CKD) >90 (>60 ml/min/1.73 sqM); Albumin 4.3 g/dL (3.5-5.0); Alkaline Phosphatase 134 U/L (38-126); Anion Gap 8 mmol/L; Blood Urea Nitrogen 23 mg/dL (7-17); Calcium 8.3 mg/dL (8.4-10.2); Carbon Dioxide 24 mmol/L (22-30); Chloride 101 mmol/L (98-107); Glucose 79 mg/dL (74-99); Non-African American GFR(CKD) >90 (>60 ml/min/1.73 sqM); Potassium 3.5 mmol/L (3.5-5.1); Sodium 133 mmol/L (137-145); Total Bilirubin 0.3 mg/dL (0.2-1.3); Total Protein 6.6 g/dL (6.3-8.2)
[2024-03-30] MEDS: SODIUM CHLORIDE 0.9% 1,000 ML IV STA (23:15)
--- NOTE | 2024-03-31 | CT ---
EXAM: CT Abdomen and Pelvis Without Intravenous Contrast CLINICAL HISTORY: ITS.REASON CT Reason: pain at ostomy TECHNIQUE: Axial computed tomography images of the abdomen and pelvis without intravenous contrast. CTDI is 8.6 mGy and DLP is 485 mGy-cm. This CT exam was performed using one or more of the following dose reduction techniques: automated exposure control, adjustment of the mA and/or kV according to patient size, and/or use of iterative reconstruction technique. COMPARISON: No relevant prior studies available. FINDINGS: Lung bases: Unremarkable. No mass. No consolidation. ABDOMEN: Liver: Unremarkable. Gallbladder and bile ducts: Unremarkable. No ductal dilation. No radiopaque gallstones. Pancreas: Unremarkable. No ductal dilation. Spleen: Unremarkable. No splenomegaly. Adrenals: Unremarkable. No mass. Kidneys and ureters: Unremarkable. No obstructing stones. No hydronephrosis. Stomach and bowel: Midline laparotomy. Colectomy with LEFT lower quadrant diverting colostomy. No small bowel obstruction. PELVIS: Appendix: See above. Bladder: Unremarkable. No stones. Reproductive: Enlarged ovaries with low-attenuation areas, recommend ultrasound correlation. ABDOMEN and PELVIS: Intraperitoneal space: Unremarkable. No significant fluid collection. No free intraperitoneal air. Bones/joints: No acute fracture. No dislocation. Soft tissues: Small parastomal hernia measures approximately 4.8 x 5.1 cm Vasculature: Unremarkable. No abdominal aortic aneurysm. Lymph nodes: Unremarkable. No enlarged lymph nodes. IMPRESSION: 1. Midline laparotomy. Colectomy with LEFT lower quadrant diverting colostomy. No small bowel obstruction. 2. Enlarged ovaries with low-attenuation areas, recommend ultrasound correlation. 3. Small parastomal hernia measures approximately 4.8 x 5.1 cm. No colonic obstruction.
[2024-03-31 00:45] VITALS: BP 149/73; PULSE 61; RESP 18; TEMP 98.7
== END 2024-03-31 00:44 | disposition home or self-care (01) ==
LOC: EC 17:38
DX: K43.5 Parastomal hernia without obstruction or gangrene (principal); F17.290 Nicotine dependence, other tobacco product, uncomplicated
CPT/HCPCS: 36415; 74176; 80053; 85025; 87070; 87075; 87077; 87186; 87205; 99284

== ENCOUNTER → 2024-05-09 | Outpatient (CLI) | payer MEDICARE ==
--- NOTE | 2024-05-15 15:47 | MR ---
EXAMINATION TYPE: MR pelvis wo/w con, MR abdomen wo/w con DATE OF EXAM: 05/09/2024 5:51 PM CLINICAL INDICATION:Female, 63 years old with history of R19.09 OTHER INTRA-ABDOMINAL AND PELVIC SWEL LING, MASS LUMP; PH[facility], Ovarian masses. (accession [id number]), Ovarian masses, abnormal CT, evaluating f or possible ovarian cancer. Has colostomy bag. (accession [id number]) COMPARISON: CT 03/30/2024, 02/21/2024, 03/05/2024 03/06/2024 TECHNIQUE: Multiplanar multi-sequence imaging was performed without contrast. Post contrast imaging w as performed. Post IV contrast subtraction images were also IV Contrast: 6.5 cc Gadavist FINDINGS: Liver: No evidence for hepatic steatosis or cirrhosis. Left hepatic lobe probable cyst. Gallbladder and Bile ducts: No evidence for ductal dilation, or biliary stricture or evidence of chol edocholithiasis. The gallbladder is within normal limits. Pancreas: No ductal dilation. No evidence for solid mass. Spleen: Normal for size. Adrenal glands: Unremarkable. Kidneys: No evidence for obstructive uropathy. No suspicious renal masses. Bilateral renal cortical h igh T2 nonenhancing cysts measuring up to 8 mm on the right hand 4 mm on the left.. Right superior po le hemorrhagic/proteinaceous cyst with layering intrinsic high T1 signal measuring up to 11 mm Reproductive: Vagina: Unremarkable. Uterus: The uterus is anteverted in position. There is arcuate morphology to the endometrium. Uterus measures 6.2 x 3.2 x 4.0 cm. Myometrial fibroid change anterior right uterus measuring 18 x 14 mm. Th e endometrium and junctional zone are within normal limits. Ovaries: Complex appearing ovaries bilaterally with multiple predominantly low T1 high T2 signal cyst s measuring 5.3 x 4.3 x 4.7 cm on the right and 5.8 x 4.4 x 4.2 cm on the left. Intrinsic high T1 sig nal cysts cyst on the left measuring 23 x 19 mm. Postcontrast imaging demonstrates no significant enh ancement of these cysts. Stomach and Bowel: No evidence for bowel wall thickening or evidence for obstruction. Retroperitoneum/Peritoneum: No evidence of pneumoperitoneum or free fluid. Vasculature: No aortic aneurysm. Musculoskeletal: The osseous structures appear intact. Scoliosis changes to the spine. Mild degenerat ion changes. Lymph Nodes: No gross evidence for lymphadenopathy. Abdominal wall/soft tissues: Left lower abdominal ostomy with surgical changes to the anterior midlin e abdominal wall. IMPRESSION: 1. Bilateral multicystic ovaries with at least one ovary on the left demonstrating evidence of hemor rhage/proteinaceous contents. Findings could represent cystic neoplasm such as mucinous cystadenomas versus other neoplasm. Findings appear relatively stable from 02/21/2024. No lymphadenopathy identified . Correlate with any outside imaging at other institutions older than 02/21/2024. Gynecologic consultat ion recommended. 2. No evidence for abscess. 3. At least one fibroid identified in the uterus. 4. Postsurgical changes with ostomy without evidence for bowel obstruction. 5. Bilateral Bosniak type I and type II equivalent renal cysts.
== END | disposition home or self-care (01) ==
LOC: RADMRIMAIN 16:03
PROVIDERS: ATTEND Obstetrics & Gynecology
DX: R19.09 Other intra-abdominal and pelvic swelling, mass and lump (principal); N83.201 Unspecified ovarian cyst, right side; N28.1 Cyst of kidney, acquired; N83.202 Unspecified ovarian cyst, left side; D25.9 Leiomyoma of uterus, unspecified
CPT/HCPCS: 72197; A9585

== ENCOUNTER → 2024-05-11 | Outpatient (CLI) | payer MEDICARE ==
--- NOTE | 2024-05-15 15:49 | MR ---
EXAMINATION TYPE: MR pelvis wo/w con, MR abdomen wo/w con DATE OF EXAM: 05/09/2024 5:51 PM CLINICAL INDICATION:Female, 63 years old with history of R19.09 OTHER INTRA- ABDOMINAL AND PELVIC SWELLING, MASS LUMP; PHH, Ovarian masses. (accession [id number]), Ovarian masses, abnormal CT, evaluating for possible ovarian cancer. Has colostomy bag. (accession [id number]) COMPARISON: CT 03/30/2024, 02/21/2024, 03/05/2024 03/06/2024 TECHNIQUE: Multiplanar multi-sequence imaging was performed without contrast. Post contrast imaging was performed. Post IV contrast subtraction images were also IV Contrast: 6.5 cc Gadavist FINDINGS: Liver: No evidence for hepatic steatosis or cirrhosis. Left hepatic lobe probable cyst. Gallbladder and Bile ducts: No evidence for ductal dilation, or biliary stricture or evidence of choledocholithiasis. The gallbladder is within normal limits. Pancreas: No ductal dilation. No evidence for solid mass. Spleen: Normal for size. Adrenal glands: Unremarkable. Kidneys: No evidence for obstructive uropathy. No suspicious renal masses. Bilateral renal cortical high T2 nonenhancing cysts measuring up to 8 mm on the right hand 4 mm on the left.. Right superior pole hemorrhagic/proteinaceous cyst with layering intrinsic high T1 signal measuring up to 11 mm Reproductive: Vagina: Unremarkable. Uterus: The uterus is anteverted in position. There is arcuate morphology to the endometrium. Uterus measures 6.2 x 3.2 x 4.0 cm. Myometrial fibroid change anterior right uterus measuring 18 x 14 mm. The endometrium and junctional zone are within normal limits. Ovaries: Complex appearing ovaries bilaterally with multiple predominantly low T1 high T2 signal cysts measuring 5.3 x 4.3 x 4.7 cm on the right and 5.8 x 4.4 x 4.2 cm on the left. Intrinsic high T1 signal cysts cyst on the left measuring 23 x 19 mm. Postcontrast imaging demonstrates no significant enhancement of these cysts. Stomach and Bowel: No evidence for bowel wall thickening or evidence for obstruction. Retroperitoneum/Peritoneum: No evidence of pneumoperitoneum or free fluid. Vasculature: No aortic aneurysm. Musculoskeletal: The osseous structures appear intact. Scoliosis changes to the spine. Mild degeneration changes. Lymph Nodes: No gross evidence for lymphadenopathy. Abdominal wall/soft tissues: Left lower abdominal ostomy with surgical changes to the anterior midline abdominal wall. IMPRESSION: 1. Bilateral multicystic ovaries with at least one ovary on the left demonstrating evidence of hemorrhage/proteinaceous contents. Findings could represent cystic neoplasm such as mucinous cystadenomas versus other neoplasm. Findings appear relatively stable from 02/21/2024. No lymphadenopathy identified. Correlate with any outside imaging at other institutions older than 02/21/2024. Gynecologic consultation recommended. 2. No evidence for abscess. 3. At least one fibroid identified in the uterus. 4. Postsurgical changes with ostomy without evidence for bowel obstruction. 5. Bilateral Bosniak type I and type II equivalent renal cysts. MTDD
== END | disposition home or self-care (01) ==
LOC: RADMRIMAIN 15:58
PROVIDERS: ATTEND Obstetrics & Gynecology
DX: N83.201 Unspecified ovarian cyst, right side (principal); N28.1 Cyst of kidney, acquired; N83.202 Unspecified ovarian cyst, left side; D25.9 Leiomyoma of uterus, unspecified
CPT/HCPCS: 74183; A9585

== ENCOUNTER → 2024-08-21 | Outpatient (CLI) | payer MEDICARE ==
--- NOTE | 2024-08-22 14:37 | MM ---
Reason for Exam: Screening (asymptomatic). Last mammogram was performed 1 year(s) and 2 month(s) ago. Patient History: Menarche at age 10. First Full-Term at age 31. Late child-bearing (after 30). Postmenopausal. 03/30/2018, Benign Core Biopsy on the left side. 03/30/2018, Benign Core Biopsy on the left side. Paternal aunt had breast cancer. Risk Values: Geneva 5 year model risk: 3.7%. NCI Lifetime model risk: 14.2%. Prior Study Comparison: 07/07/2022 Bilateral MG 3D screening mammo w/cad, [facility]. 07/11/2023 Bilateral MG 3D screening mammo w/cad, [facility]. 07/18/2023 Left MG 3D work up w/cad , [facility]. Tissue Density: The breasts are heterogeneously dense, which may obscure small masses. Findings: Analyzed By CAD. The pattern is symmetrical. There are a couple of core biopsy markers within the upper outer left breast. Benign calcifications are present. No significant interval change is evident. No suspicious groups of microcalcifications, spiculated or lobular masses, architectural distortion or other secondary signs of malignancy are mammographically apparent. Overall Assessment: Benign, BI-RAD 2 Management: Screening Mammogram of both breasts in 1 year. A negative mammogram report should not preclude additional follow up of suspicious palpable abnormalities. Patient should continue monthly self breast exam. A clinical breast exam by your physician is recommended on an annual basis and results should be correlated with mammographic findings. Note on Geneva scores and lifetime risk: 1. A Geneva score greater than 3% is considered moderate risk. If this is the case, consider specialist referral to assess eligibility for a risk reducing agent. 2. If overall lifetime risk for the development of breast cancer is 20% or higher, the patient may qualify for future screening with alternating mammogram and breast MRI. [facility], , 08/22/2024 2:33 PM. Electronically signed and approved by: Dain Dhaliwal D.O. Radiologis
== END | disposition home or self-care (01) ==
LOC: RADMAMWWP 08:52
PROVIDERS: ATTEND Surgery
DX: Z12.31 Encounter for screening mammogram for malignant neoplasm of breast (principal); R92.333 Mammographic heterogeneous density, bilateral breasts; Z80.3 Family history of malignant neoplasm of breast; Z78.0 Asymptomatic menopausal state
CPT/HCPCS: 77063; 77067

== ENCOUNTER → 2024-09-04 | Outpatient (CLI) | payer MEDICARE | END | disposition home or self-care (01) | LOC: LABWHC1 09:09 | PROVIDERS: ATTEND Obstetrics & Gynecology | DX: N85.8 Other specified noninflammatory disorders of uterus (principal) | CPT/HCPCS: 36415; 86304 ==

== ENCOUNTER → 2024-09-05 | Outpatient (CLI) | payer MEDICARE ==
--- NOTE | 2024-09-06 17:01 | MR ---
EXAMINATION TYPE: MR pelvis wo/w con DATE OF EXAM: 09/05/2024 COMPARISON: MR pelvis 05/09/2024, CT abdomen and pelvis 03/13/2024, 03/06/2024, 02/20/2024, 02/17/2024, pelv ic ultrasound 02/21/2024 CLINICAL INDICATION:Female, 63 years old with history of n83.8 noninflammatory disorder of ovary; [facility] , TECHNIQUE: Triplane multisequence imaging was performed of the pelvis. Then the patient was given c ontrast/gadolinium, 7 cc of Gadobutrol and multiple post contrast sequences where obtained in 2 plane s. FINDINGS: Reproductive: Vagina: Unremarkable. Uterus: The uterus is anteverted in position. There is an arcuate morphology to the endometrium. Uter us measures 6.1 x 3.8 x 3.1 cm, previously 6.2 x 3.2 x 4.0 cm. Stable intramural fibroid within the a nterior right uterus measuring up to 1.5 cm (series 1001, image 19). The endometrium and junctional z one are within normal limits. Ovaries: Redemonstration of complex appearing ovaries bilaterally with multiple predominantly low T1 high T2 signal cysts. Some bilateral ovarian cysts demonstrate some more intermediate T2 signal. The right ovary measures 6.4 x 6.0 x 5.1 cm, previously 5.3 x 4.3 x 4.7 cm. The left ovary measures 6.3 x 7.0 x 5.1 cm, previously 5.8 x 4.4 x 4.2 cm. Intrinsic high T1 signal cyst in the left ovary measur ing 2.2 x 1.7 cm again, previously measured 2.3 x 1.9 cm. No corresponding T2 shading to suggest endo metrioma. Within the posterior aspect of the right ovary is a slightly T2 hypointense/T1 isointense thin walled lesion measuring 2.2 x 1.6 cm (series 801, image 27). On postcontrast imaging there appears to be an irregular enhancing nodule measuring 1.1 x 0.5 cm (series 1001, image 24). Retrospectively this appe ars stable from prior exam. Postcontrast imaging demonstrates no significant enhancement of the remai hilda cysts. Urinary bladder: Underdistended which limits evaluation. Bowel: No evidence for bowel wall thickening or evidence for obstruction. Retroperitoneum/Peritoneum: No evidence of pneumoperitoneum or free fluid. Vasculature: No aortic aneurysm. Musculoskeletal: The osseous structures appear intact. Mild degeneration changes. S-shaped scoliotic curvature of the visualized thoracolumbar lumbar spine. Lymph Nodes: No gross evidence for lymphadenopathy. Abdominal wall/soft tissues: Left lower abdominal ostomy with surgical changes to the anterior midlin e abdominal wall. IMPRESSION: 1. Mild enlargement of bilateral multicystic ovaries from prior MR with stable left ovarian cystic l esion demonstrating evidence of hemorrhage/proteinaceous contents. Other cysts demonstrate some level of proteinaceous/hemorrhagic debris. However there appears to be an enhancing mural nodule within a posterior right ovarian cyst measuring up to 1.1 cm which raises concern for possible malignant ovari an cystic neoplasm. Overall appears stable from most recent MR 05/09/2024. Gynecologic consultation re commended. 2. Stable fibrotic change of the uterus. [facility], , 09/06/2024 4:59 PM
== END | disposition home or self-care (01) ==
LOC: RADMRIMAIN 17:27
PROVIDERS: ATTEND Obstetrics & Gynecology
DX: N83.8 Other noninflammatory disorders of ovary, fallopian tube and broad ligament (principal); N83.201 Unspecified ovarian cyst, right side; N83.202 Unspecified ovarian cyst, left side; D25.1 Intramural leiomyoma of uterus
CPT/HCPCS: 72197; A9585

== ENCOUNTER → 2024-09-07 | Outpatient (CLI) | payer MEDICARE ==
[2024-09-07 12:12] VITALS: BP 121/82; PULSE 66; RESP 17; TEMP 97.8
--- NOTE | 2024-09-07 12:17 | P.PN ---
Subjective Progress Note Date: 09/07/24 Principal diagnosis: fibrocystic breast 09-07-24 Principal diagnosis: Fibrocystic breast changes Patient is a 63 year old status post left breast core biopsy on 03-30-19. 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 This was done at 2 sites. She had a bilateral mammogram on 08-21-24. This was noted to be benign, BIRAD 2. The patient has no complaints at this time. She is not complaining of any masses in her breast. No nipple discharge or skin changes. She has no complaints related to her breasts. No masses lumps nipple discharge or skin changes. No complaints of any pain in her breast. She has stopped smoking but is vaping Was hospitalized in February with a ruptured colon; this was not cancer it was for diverticulitis she is going to have an ovarian resection in 2024 [place] 5-year risk 3.7% NCI lifetime risk 14.2% W3 have discussed chemo Prophylaxis and at this time she has declined. Caffeine: 3-4 cups/ coffee per day Nicotine: One pack per 3 days, now vaping chocolate: occasional BCP: in her 20's hormones: none Family history: brother: Skin cancer, Melanoma mother: skin cancer Paternal aunt: Breast cancer Maternal aunt: Thyroid cancer Menarche: 12 Menopause: 49 2 miscaarrages, 1 AB; age at first live : 30, breat fed: no control pills/hormones: Negative hormones: none Social: Smoking: One pack per day for 22 years now 1 pack for 3 days but vapes Alcohol: Negative Drugs: Negative Past surgical history: 1. Ruptured appendix 2. Left total knee 3. Left knee meniscus fixed 4. tubaligation, bowel injury at the same time 5. colostomy as colon ruptured in February Medical History: seizure history not had one since 1991 ROS: Constitutional: night sweats HEENT: wears glasses, vertigo Lungs: smoker, cough, emphysema heart: none GI: hiatal hernia : post menopausal, no kidney stones Musculoskeletal:total knee replacement left neurologic: Epilepsy hematologic: none allergies: none breast: as per HPI vascular: aortic aneurysm followed by medical doctor Objective - Constitutional General appearance: Present: cooperative - EENT Eyes: Present: EOMI ENT: Present: hearing grossly normal - Neck Neck: Present: normal ROM - Respiratory Respiratory: bilateral: CTA - Cardiovascular Rhythm: regular - Integumentary Integumentary: Present: normal turgor - Musculoskeletal Musculoskeletal: Present: gait normal - Psychiatric Psychiatric: Present: A&O x's 3, appropriate affect, intact judgment & insight - Additional findings Additional findings: breast exam: BRA: 38C inspection: grade 2 ptosis bilateral palpation: right breast: Multi-positional exam no dominant masses or nodules of concern Right axilla: No adenopathy of concern Left breast: Multi-positional exam no dominant masses or nodules of concern Left axilla: No adenopathy of concern Assessment and Plan Assessment: Impression: Fibrocystic breast changes recent bilateral mammogram 08-21-24 BIRAD 2; personally interpreted Plan: Bilateral mammogram in 1 year August 2025 with physician exam at that time Patient encouraged to stop smoking/vaping Cc: Dr. Balderrama
== END ==
LOC: WWCWWP 11:07
PROVIDERS: ATTEND Surgery
DX: R92.8 Other abnormal and inconclusive findings on diagnostic imaging of breast (principal); N60.19 Diffuse cystic mastopathy of unspecified breast; Z80.3 Family history of malignant neoplasm of breast; Z87.891 Personal history of nicotine dependence

== ENCOUNTER → 2024-10-04 | Outpatient (CLI) | payer MEDICARE ==
--- NOTE | 2024-10-04 10:15 | FL ---
EXAMINATION TYPE: FL barium enema DATE OF EXAM: 10/04/2024 10:06 AM CLINICAL INDICATION:Female, 63 years old with history of Z87.19 H/O DIVERTICULITIS OF COLON; COMPARISON: 02/17/2024 TECHNIQUE: The procedure was explained and patient history elicited. All patient questions were answ ered prior to beginning. Multiple spot fluoroscopic images of the colon were obtained after the recta l administration of liquid barium as the contrast agent. Multiple postprocedural overhead images, w ere obtained and reviewed. Fluoroscopic time: 29 sec Fluoroscopic images:0 Radiographs taken: 13 DAP: NOT REPORTED [id number] FINDINGS: The field software engineer abdominal radiograph demonstrates a normal bowel gas pattern without dilated loo ps of small or large bowel. There is no evidence for organomegaly or pneumoperitoneum. Degeneratio n changes throughout the spine.. The visualized osseous structures are intact. Patient was kept the contrast was started and the patient was in pain and terminating the exam. No ex travasation of contrast. Only the rectum as visualized. IMPRESSION: Limited evaluation, patient terminated exam early due to pain. [facility], , 10/04/2024 10:13 AM
== END | disposition home or self-care (01) ==
LOC: RADFLMAIN 08:36
PROVIDERS: ATTEND Surgery
DX: Z87.19 Personal history of other diseases of the digestive system (principal)
CPT/HCPCS: 74270